=== PATIENT | female | born 1950 | race Caucasian/White ===

== ENCOUNTER 2023-02-04 14:06 | Inpatient (IN) | payer MEDICARE, MEDICAID, SELFPAY ==
[2023-02-04 14:07] VITALS: BP 148/60; PULSE 93; RESP 16; TEMP 36.6; O2SAT 97; BMI 23.3
--- NOTE | 2023-02-04 14:54 | EKG12_ITS ---
Test Reason : SUBSTANCE ABUSE Blood Pressure : / mmHG Vent. Rate : 080 BPM Atrial Rate : 080 BPM P-R Int : 164 ms QRS Dur : 078 ms QT Int : 364 ms P-R-T Axes : 069 045 034 degrees QTc Int : 419 ms Normal sinus rhythm Septal infarct , age undetermined Abnormal ECG Confirmed by IDALIA YU, BERNARDO ([id number]), market editor TIFFANY RIDER ([id number]) on 02/15/2023 8:43:32 AM Referred By: Confirmed By:BERNARDO FRIEDMAN MD
--- NOTE | 2023-02-04 15:01 | NURSING ---
NO OLD EKGS
[2023-02-04 15:06] VITALS: PULSE 78; RESP 16; TEMP 36.6; O2SAT 98
[2023-02-04 15:34] LABS: Absolute Lymphocyte Count 1.74 X10^3/uL (0.83-4.51); Absolute Neutrophil Count 2.7 X10^3/uL (2.0-7.7); Basophil# 0.04 X10^3/uL; Basophil% 0.7 % (0-1); Eosinophil# 0.13 X10^3/uL; Eosinophils% 2.4 % (0-5); Hematocrit 39.5 % (37-47); Hemoglobin 13.2 g/dL (12.0-15.0); Lymphocyte # 1.74 X10^3/ul (0.83-4.51); Lymphocyte % 32.6 % (19-41); Mean Corp Hgb Conc 33.4 g/dL (32-36); Mean Corpuscular Hgb 33.2 pg (27.0-32.0); Mean Corpuscular Volume 99.2 fL (81-99); Mean Platelet Vol. 9.7 fl (6.2-12.0); Monocyte# 0.67 X10^3/uL; Monocyte% 12.5 % (0-10); NRBC Flagged by Analyzer 0 % (0-5); Neutrophil # 2.74 X10^3/uL (2.7-7.7); Neutrophil % 51.4 % (47-70); Platelet Count 285 K/mm3 (150-450); RBC Distribution Width CV 13.3 % (11.6-14.6); RBC Distribution Width SD 48.7 fl (35.1-43.9); Red Blood Count 3.98 M/mm3 (4.2-5.4); White Blood Count 5.3 K/mm3 (4.4-11.0)
[2023-02-04 15:41] LABS: International Normalized Ratio 1.1; Prothrombin Time (Protime)PT. 14.1 SECONDS (11.7-14.9)
[2023-02-04 15:46] LABS: ALB/GLOB Ratio 0.9 RATIO (0.9-2.4); AST(SGOT) 28 U/L (15-37); Alanine Aminotransfer ALT/SGPT 46 U/L (13-56); Albumin, Serum 3.6 g/dL (3.2-5.0); Alkaline Phosphatase 76 U/L (45-117); Anion Gap 7 (5-15); BUN 14 mg/dL (7-18); BUN/Creat Ratio 21.7 RATIO (10-20); Calcium,Total 9.8 mg/dL (8.5-10.1); Chloride 100 mmol/L (98-107); Creatinine, Serum 0.65 mg/dL (0.55-1.02); EST Glomerular Filtration Rate 96 mL/min (>60); Est Glom Filt Rate - Afr Amer 116 mL/min (>60); Estimated Creatinine Clearance 39.63 ml/min; Globulin 4.1 g/dL (2.2-4.2); Glucose 83 mg/dL (74-106); Potassium 3.8 mmol/L (3.5-5.1); Protein, Total 7.7 g/dL (6.4-8.2); Sodium Level 132 mmol/L (136-145)
--- NOTE | 2023-02-04 15:57 | EX.ED.DYSGE1 ---
HPI History of Present Illness Chief Complaint: Substance Abuse Informant: patient and family Narrative Narrative: 72-year-old female presenting to the emergency room requesting detox from alcohol use. Patient states that over the past several months to couple of years she has been drinking heavily. She states that around 10 to 10:30 in the morning she begins to have anxiety and shakes. She states that she begins to drink. Typically she drinks beer and also supplements with other liquors. She states that recently she at the end of the day she has been crawling to the bathroom. She states that she has been self-medicating to deal with her mental health. She previously sought detox in 2018. 2019 her parents . Daughter notes that this is probably the start of the past few years of heavy drinking. Patient notes that several weeks ago she fell seen at outside emergency department. Daughter took her to another emergency department last night and she was discharged. They tried to contact another facility for detox and they recommended here. Patient and family do not believe she has ever had alcohol withdrawal seizures but do note that she has had some hallucinations. [facility] Medical History (Updated 02/04/23 @ 16:[address] Jered Harris, ) Alcoholism Depression Hypertension Hypothyroidism Home Medications amlodipine 10 mg tablet 10 mg PO DAILY 02/04/23 [History Last Taken 02/04/23] bupropion HCl 150 mg 24 hr tablet, extended release 300 mg PO .DAILY 02/04/23 [History Last Taken 02/04/23] cholecalciferol (vitamin D3) 25 mcg (1,000 unit) capsule 25 mcg PO DAILY 02/04/23 [History Last Taken 02/03/23] epinephrine 0.3 mg/0.3 mL injection, auto-injector 0.3 ml IM PRN 02/04/23 [History Last Taken Unknown] estradiol 2 mg tablet 2 mg PO DAILY 02/04/23 [History Last Taken 02/04/23] gabapentin 600 mg tablet 600 mg PO QHS 02/04/23 [History Last Taken 02/03/23] ibuprofen 800 mg tablet (IBU) 800 mg PO Q8H PRN pain 02/04/23 [History Last Taken 02/04/23] levothyroxine 125 mcg tablet 125 mcg PO DAILY 02/04/23 [History Last Taken 02/04/23] lisinopril 5 mg tablet 5 mg PO DAILY 02/04/23 [History Last Taken 02/04/23] multivitamin (Daily Multi-Vitamin tablet) 1 tab PO DAILY 02/04/23 [History Last Taken 02/04/23] omeprazole 20 mg capsule,delayed release 20 mg PO DAILY 02/04/23 [History Last Taken 02/04/23] primidone 50 mg tablet 100 mg PO Q12H 02/04/23 [History Last Taken 02/04/23] Allergy/AdvReac Type Severity Reaction Status Date / Time fexofenadine [From Anjelica] Allergy Swelling Verified 02/04/23 14:26 Social History Smoking Status: Never smoker ROS ROS ED Constitutional Constitutional ED: Denies chills, fever(s) or weight loss Eyes Eyes: Denies change in vision or diplopia ENT ENT ED: Denies ear pain, rhinorrhea or sore throat Cardiovascular Cardiovascular: Denies chest pain, orthopnea, palpitations or racing heartbeat Respiratory/Chest Respiratory/Chest: Denies cough, dyspnea or orthopnea Gastrointestinal Gastrointestinal: Reports other Details: Decreased appetite ; Denies abdominal pain, diarrhea, nausea or vomiting Genitourinary Genitourinary ED: Denies dysuria, hematuria or urinary frequency Musculoskeletal Musculoskeletal: Denies arthralgias or myalgias Integumentary Denies abscess or rash Neurologic Neurologic: Denies headache(s) or weakness Psychiatric Psychiatric: Reports anxiety; Denies depression, suicidal ideation or suicidal thoughts Endocrine Endocrinology: Denies polydipsia, polyphagia or polyuria Allergic/Immunologic Allergic/Immunologic ED: Denies mouth swelling, tongue swelling or urticaria EXAM Physical Exam Const Vital Signs: 02/04/23 14:07 02/04/23 15:06 Temperature 97.8 F 97.8 F Temperature Source Temporal Temporal Pulse Rate 93 78 Respiratory Rate 16 16 Blood Pressure 148/60 H Blood Pressure Mean 89 Pulse Ox 97 98 Oxygen Delivery Method Room Air Room Air Positive well nourished and well developed General Appearance ED: well developed HEENT Reports normocephalic, head/scalp atraumatic and moist mucous membranes Eyes PERRL and EOMs intact bilaterally Neck no lymphadenopathy, supple and no JVD Resp normal respiratory effort and clear to auscultation bilaterally Cardio regular rate, regular rhythm and no murmurs GI normal to inspection, nondistended, normoactive bowel sounds and non-tender Palpation: soft Back/Spine no CVA tenderness and normal ROM Extremity normal to inspection General Extremety ED: Negative for edema General Extremity: Negative for edema Neuro oriented x3 and CN's II-XII intact bilaterally Sensorium / Orientation: alert Motor Exam: strength 5/5 throughout Psych mental status grossly normal Mood & Affect: depressed and anxious; Negative for tearful Skin no rashes or lesions noted and no wounds Skin Narrative: Various contusions on body of differing timeframes MDM MDM MDM Narrative Medical decision making narrative: Addiction labs were obtained. Patient received thiamine and folate. EKG is a normal sinus rhythm. I will speak with the hospitalist regarding admission. History & Record Review Discussion w/independent historian: Patient and Family Lab Data Attestation: I reviewed the patient's lab results. Labs: Laboratory Results - last 24 hr 02/04/23 15:27 WBC 5.3 RBC 3.98 L Hgb 13.2 Hct 39.5 MCV 99.2 H MCH 33.2 H MCHC 33.4 RDW Std Deviation 48.7 H RDW Coeff of Ranjit 13.3 Plt Count 285 MPV 9.7 Immature Gran % (Auto) 0.400 Neut % (Auto) 51.4 Lymph % (Auto) 32.6 [place] % (Auto) 12.5 H Eos % (Auto) 2.4 Baso % (Auto) 0.7 Absolute Neuts (auto) 2.7 Absolute Lymphs (auto) 1.74 Nucleated RBC % 0 PT 14.1 INR 1.1 Sodium 132 L Potassium 3.8 Chloride 100 Carbon Dioxide 25.0 Anion Gap 7 BUN 14 Creatinine 0.65 Estim Creat Clear Calc 39.63 Est GFR (MDRD) Af Amer 116 Est GFR (MDRD) Non-Af 96 BUN/Creatinine Ratio 21.7 H Glucose 83 Calcium 9.8 Magnesium 2.0 Total Bilirubin 0.50 AST 28 ALT 46 Alkaline Phosphatase 76 Total Protein 7.7 Albumin 3.6 Globulin 4.1 Albumin/Globulin Ratio 0.9 Ethyl Alcohol < 3.0 EKG Initial EKG: Attestation: I personally reviewed and interpreted this EKG as follows: Comments: Normal sinus rhythm ventricular rate of 80 bpm. Discharge Plan Dx/Rx/DC Orders Clinical Impression: Alcoholism, Depression, Hypothyroidism, Hypertension Disposition Disposition: Acute Care Hospital [facility]
[2023-02-04 16:00] VITALS: BP 126/78; BP 139/78; PULSE 64; RESP 14; RESP 16; TEMP 36.4; O2SAT 98; O2SAT 99
[2023-02-04 16:02] LABS: Alcohol, Blood (Medical)-Serum < 3.0 mg/dL
--- NOTE | 2023-02-04 16:23 | NURSING ---
MED SURG TERELETSKS ALCOHOL DETOX
[2023-02-04] MEDS: Folic Acid 1 MG Tablet PO (16:25)
[2023-02-04] MEDS: Thiamine Hydrochloride 100 MG Tablet PO (16:25)
[2023-02-04 16:53] LABS: Amphetamine Urine VISTA NEGATIVE (<1000 ng/mL); Barbiturate Urine VISTA POSITIVE (< 200 ng/mL); Benzodiazepine Urine VISTA POSITIVE (< 200 ng/mL); Cocaine Urine VISTA NEGATIVE (< 300 ng/mL); Ecstacy Urine VISTA POSITIVE (< 500 ng/mL); Methadone Urine VISTA NEGATIVE (< 300 ng/mL); PCP Urine VISTA NEGATIVE (< 25 ng/mL); THC Urine VISTA NEGATIVE (< 50 ng/mL); Vista UDS pH Range 6
--- NOTE | 2023-02-04 17:07 | PCM.HP.STD ---
HPI - General General Date of Admission: 02/04/23 Date of Service: 02/04/23 Chief Complaint: Desiring services for alcohol detox HPI Narrative DAMION GHOSH, is a 72 F who presents to the emergency room at [facility] requesting services for alcohol detox, her daughter is in the room and states that the patient has been drinking for several years but more so over the last few months. Patient states that she drinks approximately a 12 pack a day of beer, occasionally she drinks liquor. Patient denies any other drugs of abuse. Patient has an underlying history of depression and is currently on antidepressants, patient states today that she just wants to feel better . Patient is complaining of some nervousness at this time. Patient has never been through an alcohol detox program before. Labs obtained in the emergency room revealed a normal CBC, chemistry panel was unremarkable, patient's tox screen was positive for barbiturates, MDMA, and benzodiazepines. Ethanol alcohol level was below 3 Patient will be admitted to [place] [id number] for alcohol detox services [facility] Medical History (Updated 02/04/23 @ 16:[address] Jered Harris, ) Alcoholism Depression Hypertension Hypothyroidism Home Medications amlodipine 10 mg tablet 10 mg PO DAILY 02/04/23 [History Last Taken 02/04/23] bupropion HCl 150 mg 24 hr tablet, extended release 300 mg PO .DAILY 02/04/23 [History Last Taken 02/04/23] cholecalciferol (vitamin D3) 25 mcg (1,000 unit) capsule 25 mcg PO DAILY 02/04/23 [History Last Taken 02/03/23] epinephrine 0.3 mg/0.3 mL injection, auto-injector 0.3 ml IM PRN 02/04/23 [History Last Taken Unknown] estradiol 2 mg tablet 2 mg PO DAILY 02/04/23 [History Last Taken 02/04/23] gabapentin 600 mg tablet 600 mg PO QHS 02/04/23 [History Last Taken 02/03/23] ibuprofen 800 mg tablet (IBU) 800 mg PO Q8H PRN pain 02/04/23 [History Last Taken 02/04/23] levothyroxine 125 mcg tablet 125 mcg PO DAILY 02/04/23 [History Last Taken 02/04/23] lisinopril 5 mg tablet 5 mg PO DAILY 02/04/23 [History Last Taken 02/04/23] multivitamin (Daily Multi-Vitamin tablet) 1 tab PO DAILY 02/04/23 [History Last Taken 02/04/23] omeprazole 20 mg capsule,delayed release 20 mg PO DAILY 02/04/23 [History Last Taken 02/04/23] primidone 50 mg tablet 100 mg PO Q12H 02/04/23 [History Last Taken 02/04/23] Allergy/AdvReac Type Severity Reaction Status Date / Time fexofenadine [From Anjelica] Allergy Swelling Verified 02/04/23 14:26 Social History Smoking Status: Never smoker ROS Constitutional Constitutional: Denies anorexia, change in weight, fatigue, fever(s), malaise, night sweats or weakness Eyes Eyes: Denies blurry vision, change in vision, discharge from eye(s) or eye pain Cardiovascular Cardiovascular: Denies chest pain, claudication, edema or palpitations Respiratory/Chest Respiratory/Chest: Denies cough, dyspnea, hemoptysis, shortness of breath at rest or shortness of breath with exertion Gastrointestinal Gastrointestinal: Denies abdominal pain, constipation, diarrhea, hematemesis, hematochezia, melena, nausea or vomiting Genitourinary Genitourinary: Denies dysuria, hematuria, urinary frequency, urinary hesitancy, urinary incontinence or urinary urgency Musculoskeletal Musculoskeletal: Reports back pain; Denies joint pain, joint stiffness, joint swelling, myalgias or neck pain Neurologic Neurologic: Denies abnormal gait, abnormal speech, dizziness, focal weakness, headache(s), loss of vision, numbness, other visual disturbances, paresthesias, syncope or tingling Psychiatric Psychiatric: Reports anxiety and depression; Denies cognitive impairment, irritability, mood swings or suicidal ideation Endocrine Endocrinology: Denies change in body appearance, cold intolerance, excessive sweating, heat intolerance, polydipsia or polyuria Hematologic/Lymphatic Hematologic/Lymphatic: Denies none, anemia, easy bleeding, easy bruising or lymphadenopathy Allergic/Immunologic Allergic/Immunologic: Denies rhinitis, urticaria, eczemia or asthma Vital Signs Vital Signs Vital Signs: 02/04/23 14:07 02/04/23 15:06 02/04/23 16:00 Temperature 97.8 F 97.8 F Temperature Source Temporal Temporal Pulse Rate 93 78 64 Respiratory Rate 16 16 16 Blood Pressure 148/60 H 139/78 H Blood Pressure Mean 89 98 Pulse Ox 97 98 98 Oxygen Delivery Method Room Air Room Air Room Air 02/04/23 16:00 Temperature 97.6 F L Temperature Source Pulse Rate 64 Respiratory Rate 14 Blood Pressure 126/78 H Blood Pressure Mean 94 Pulse Ox 99 Oxygen Delivery Method Weight Weight: 58.06 kg Body Mass Index (BMI) 23.3 Physical Exam Const alert, oriented x3, no apparent distress and average body habitus General Appearance: cooperative, well kempt and well developed Orientation / Consciousness: awake, oriented to person, oriented to place and oriented to time HEENT normocephalic, head/scalp atraumatic, hearing grossly normal bilaterally and moist oral mucous membranes Eyes PERRL, EOMs intact bilaterally and conjunctivae normal Neck supple, no JVD, thyroid normal and no carotid bruits General: trachea midline Resp normal respiratory effort, no retractions, no use of accessory muscles and clear to auscultation bilaterally Auscultation: Negative for rales, rhonchi or wheezes Cardio regular rate, regular rhythm, no murmurs, no rub and no gallops GI normal to inspection, nondistended, normoactive bowel sounds, soft to palpation, non-tender and non-distended Extremity no clubbing, cyanosis or edema Skin no rashes or lesions noted General Skin Exam: no breakdown Neuro oriented x3, CN's II-XII intact bilaterally, no focal motor deficits and no sensory deficits noted Sensorium / Orientation: awake, alert, oriented to person, oriented to place and oriented to time Speech: speech normal Psych Psych Narrative: Patient has a flat depressed affect, she appears mildly nervous Results Lab / Micro Data 02/04/23 15:27 02/04/23 15:27 Labs: Laboratory Results - last 24 hr 02/04/23 15:27: WBC 5.3, RBC 3.98 L, Hgb 13.2, Hct 39.5, MCV 99.2 H, MCH 33.2 H, MCHC 33.4, RDW Std Deviation 48.7 H, RDW Coeff of Ranjit 13.3, Plt Count 285, MPV 9.7, Immature Gran % (Auto) 0.400, Neut % (Auto) 51.4, Lymph % (Auto) 32.6, [place] % (Auto) 12.5 H, Eos % (Auto) 2.4, Baso % (Auto) 0.7, Absolute Neuts (auto) 2.7, Absolute Lymphs (auto) 1.74, Nucleated RBC % 0, PT 14.1, INR 1.1, Sodium 132 L, Potassium 3.8, Chloride 100, Carbon Dioxide 25.0, Anion Gap 7, BUN 14, Creatinine 0.65, Estim Creat Clear Calc 39.63, Est GFR (MDRD) Af Amer 116, Est GFR (MDRD) Non-Af 96, BUN/Creatinine Ratio 21.7 H, Glucose 83, Calcium 9.8, Magnesium 2.0, Total Bilirubin 0.50, AST 28, ALT 46, Alkaline Phosphatase 76, Total Protein 7.7, Albumin 3.6, Globulin 4.1, Albumin/Globulin Ratio 0.9, Ethyl Alcohol < 3.0 02/04/23 16:15: Urine Opiates Screen NEGATIVE, Urine Methadone Screen NEGATIVE, Ur Barbiturates Screen POSITIVE H, Ur Phencyclidine Scrn NEGATIVE, Ur Amphetamines Screen NEGATIVE, MDMA (Ecstasy) Screen POSITIVE H, U Benzodiazepines Scrn POSITIVE H, Urine Cocaine Screen NEGATIVE, U Cannabinoids Screen NEGATIVE, Ur Drug Screen Comment Assessment & Plan Assessment/Plan (1) Alcoholism: PLAN: Plan 1. Acute alcohol withdrawal-patient will be admitted to [facility], orders were entered using the addiction and alcohol withdrawal order sets, patient will be seen by addiction social insurance specialist. #2 positive talk screen for barbiturates, MDMA, and benzodiazepines-I did not discuss this with the patient, she had denied using any other drugs. #3 hypertension-patient will remain on her home medication #4 chronic anxiety/depression-I have decided to add Cymbalta to her medication, she is currently taking Wellbutrin for depression but she remains depressed. #5 hypothyroidism-patient is on Synthroid #6 chronic back pain-patient is on gabapentin and ibuprofen, hopefully the Cymbalta will help her back pain #7 GERD-patient is on omeprazole Total clinical time spent by myself addressing the patient's medical issues, reviewing all of her data, and collaborating with patient's care team: 55 minutes Charges/Coding Visit Charges Inpatient E&M: 86006 Init Hosp L2
--- OUTSIDE RECORDS SUMMARY | 2023-02-04 17:41 | XMS RPT_ITS | CCD ---
Author Name Unknown Address [address] [place] [address] Organization [facility] Care Team Providers Care Superintendent Laundry Name Role Phone Anirudh Costa Primary Care Provider Unavailab Anirudh Denise Primary Care Provider Anirudh Costa Primary Care Provider Anirudh Costa Primary Care Provider Anirudh Costa Primary Care Provider UnavailAnirudh Abarca Primary Care Provider Anirudh Costa CNP Primary Care Provider 1( [phone] Chidi Valenzuela MD. Unavailable ANIRUDH CSOTA Primary Care Unavailable ANGELINA HERNÁNDEZ Attending Unavailable DOMCLARITA, KEKE Referring Unavailable RORO MCCAULEY Attending Unavailable ANIRUDH COSTA Primary Care Unavailable GAB HERRON Attending Unavailable ANIRUDH COSTA A Primary Care Unavailable BARAT, SOFIA Referring Unavailable ANIRUDH COSTA A Primary Care Unavailable CHIDI VALENZUELA Attending Unavailable CHIDI VALENZUELA Referring Unavailable HYUN COSTAN A Primary Care Unavailable FOSTER PA Attending Unavailable FOSTER PA Referring Unavailable HYUN COSTAN A Primary Care Unavailable FOSTER PA Attending Unavailable CHADDAFOSTER Referring Unavailable JULISSA, ANIRUDH A Primary Care Unavailable CHADDAFOSTER Attending Unavailable CHADDA FOSTER Sudheer Referring Unavailable CHIDI VALENZUELA Attending Unavailable JULISSA, ANIRUDH A Primary Care Unavailable BARAT, SOFIA Referring Unavailable COSTA, ANIRUDH A Referring Unavailable COSTA, ANIRUDH A Primary Care Unavailable GAB HERRON Attending Unavailable CHIDI VALENZUELA Attending Unavailable COSTA, ANIRUDH A Primary Care Unavailable BARAT, SOFIA Referring Unavailable COSTA, ANIRUDH A Referring Unavailable COSTA, ANIRUDH A Primary Care Unavailable GAB HERRON Attending Unavailable COSTA, ANIRUDH A Primary Care Unavailable ANABELA TOSCANO Attending Unavailable TURTON, JOSE ROBERTO E Referring Unavailable COSTA, ANIRUDH A Primary Care Unavailable SWANK, ANABELA K Attending Unavailable TURTON, JOSE ROBERTO E Referring Unavailable Costa COOK TACO-DIRECTOR OF EVENT SALES, Anirudh A Primary Care Provider Niraj Bassett MD Unavailable Niraj Bassett MD Unavailable Julissa BOX-DIRECTOR OF EVENT SALES, Anirudh A Primary Care Provider Niraj Bassett MD Unavailable JULISSA, ANIRUDH NATALY Primary Care Unavailable DEVIKA SHIELDS Attending Unavailable COSTA, ANIRUDH NATALY Primary Care Unavailable KIFOSTER WOLFE Referring Unavailable KIEHMFOSTER Attending Unavailable COSTA, ANIRUDH NATALY Primary Care Unavailable COSTA, ANIRUDH NATALY Referring Unavailable COSTA, ANIRUDH NATALY Attending Unavailable COSTA, ANIRUDH A Primary Care Unavailable SELF, SELF Referring Unavailable COSTA, ANIRUDH A Attending Unavailable SELF, SELF Referring Unavailable COSTA, ANIRUDH A Primary Care Unavailable COSTA, ANIRUDH A Attending Unavailable KIEHM, FOSTER Attending Unavailable KIEHM, FOSTER Referring Unavailable COSTA, ANIRUDH A Primary Care Unavailable COSTA, ANIRUDH A Primary Care Unavailable COSTA, ANIRUDH A Attending Unavailable COSTA, ANIRUDH A Referring Unavailable COSTA, ANIRUDH A Primary Care Unavailable SELF, SELF Referring Unavailable COSTA, ANIRUDH A Attending Unavailable Costa [employer]O-DIRECTOR OF EVENT SALES, Anirudh A Primary Care Provider Niraj Bassett MD A Unavailable COSTA, ANIRUDH A Primary Care Unavailable RIEHM, MARCELA L Referring Unavailable RIEHM, MARCELA L Attending Unavailable COSTA, ANIRUDH A Primary Care Unavailable RIEHM, MARCELA L Referring Unavailable RIEHM, MARCELA L Attending Unavailable SELF, SELF Referring Unavailable COSTA, ANIRUDH A Primary Care Unavailable RIEHM, MARCELA L Attending Unavailable COSTA, ANIRUDH A Attending Unavailable SELF, SELF Referring Unavailable COSTA, ANIRUDH A Primary Care Unavailable COSTA, ANIRUDH A Primary Care Unavailable RIEHM, MARCELA L Referring Unavailable RIEHM, MARCELA L Attending Unavailable COSTA, ANIRUDH A Primary Care Unavailable FITCH, MARIA LUISA S Referring Unavailable RIEHM, MARCELA L Attending Unavailable COSTA, ANIRUDH A Attending Unavailable COSTA, ANIRUDH A Primary Care Unavailable COSTA, ANIRUDH A Referring Unavailable COSTA, ANIRUDH A Attending Unavailable COSTA, ANIRUDH A Primary Care Unavailable COSTA, ANIRUDH A Referring Unavailable COSTA, ANIRUDH A Primary Care Unavailable ZHOU, SOFIA P Referring Unavailable ZHOU, SOFIA P Attending Unavailable SELF, SELF Referring Unavailable COSTA, ANIRUDH A Primary Care Unavailable COSTA, ANIRUDH A Attending Unavailable SELF, SELF Referring Unavailable COSTA, ANIRUDH A Primary Care Unavailable COSTA, ANIRUDH A Attending Unavailable SELF, SELF Referring Unavailable COSTA, ANIRUDH A Primary Care Unavailable AHMAD, DEEPA Attending Unavailable COSTA, ANIRUDH A Primary Care Unavailable RIEHM, MARCELA L Referring Unavailable FITCH, MARIA LUISA S Attending Unavailable COSTA, ANIRUDH A Attending Unavailable SELF, SELF Referring Unavailable COSTA, ANIRUDH A Primary Care Unavailable COSTA, ANIRUDH A Primary Care Unavailable RIEHM, MARCELA L Referring Unavailable RIEHM, MARCELA L Attending Unavailable COSTA, ANIRUDH A Primary Care Unavailable RIEHM, MARCELA L Referring Unavailable RIEHM, MARCELA L Attending Unavailable COSTA, ANIRUDH A Primary Care Unavailable AHMAD, DEEPA Referring Unavailable AHMAD, DEEPA Attending Unavailable SELF, SELF Referring Unavailable COSTA, ANIRUDH A Primary Care Unavailable COSTA, ANIRUDH A Attending Unavailable SELF, SELF Referring Unavailable COSTA, ANIRUDH A Primary Care Unavailable COSTA, ANIRUDH A Attending Unavailable Allergies Allergy Classification Reported Allergen(s) Allergy Type Date of Onset Reaction(s) Facility HMG-CoA Reductase Inhibitors (statins) (20 sources) Pravastatin; Translations: [PRAVASTATIN] Drug Allergy 2 Other (See Comments) [facility] NSAIDs (20 sources) celecoxib; Translations: [CELECOXIB] Drug Allergy 1 Rash [facility] (20 sources) celecoxib; Translations: [CELECOXIB] Drug Allergy 1 Rash [facility] (20 sources) Pravastatin; Translations: [PRAVASTATIN] Drug Allergy 2 Other (See Comments), Myalgia [facility] (20 sources) Cephalexin Drug Allergy 2 Angioedema (swelling) [facility] Work Phone: (20 sources) Ciprofloxacin Drug Allergy 1 Itching, Myalgia [facility] (7 sources) celecoxib Drug Allergy 1 Rash [facility] Medications Current Medications Medication Drug Class(es) Dates Sig (Normalized) Sig (Original) amLODIPine 10 mg oral tablet (20 sources) Dihydropyridine Calcium Channel [place] Start: 03-26-2022 End: 05-03-2022 take 1 tablet by mouth once daily amLODIPine 10 MG tablet Indications: Benign hypertension Take 1 tablet by mouth daily. 90 tablet 3 05/03/2022 Active Completed/Discontinued Medications Medication Drug Class(es) Dates Sig (Normalized) Sig (Original) acetaminophen 500 mg oral tablet (20 sources) Start: 09-02-2021 End: 09-02-2021 acetaminophen (TYLENOL) tablet 1,000 mg Problems Active Problems Problem Classification Problem Date Documented Da te Episodic/Chronic Adjustment disorders (6 sources) Adjustment disorder with mixed anxiety and depressed mood; Translations: [Adjustment disorder with mixed anxiety and depressed mood] Onset: 3 11-18-2022 Chronic Alcohol-related disorders (5 sources) Alcohol abuse; Translations: [Alcohol withdrawal syndrome] 02-04-2023 Chronic Anxiety disorders (14 sources) Generalized anxiety disorder; Translations: [Anxiety disorder] Chronic Disorders of lipid metabolism (9 sources) Hypercholesterolemia; Translations: [Pure hypercholesterolemia, unspecified] Onset: 6 Chronic Esophageal disorders (8 sources) Gastroesophageal reflux disease; Translations: [Gastro-esophageal reflux disease without esophagitis] Onset: 0 Chronic Essential hypertension (11 sources) Benign essential hypertension; Translations: [Benign hypertension] Onset: 7 Chronic Fluid and electrolyte disorders (1 source) Hypokalemia; Translations: [Hypokalemia] Episodic Menopausal disorders (9 sources) Menopausal flushing; Translations: [Symptomatic postprocedural ovarian failure] Onset: 3 Chronic Menopausal disorders (2 sources) Drug therapy status; Translations: [Hormone replacement therapy] Episodic Nutritional deficiencies (6 sources) Vitamin D deficiency; Translations: [Vitamin D deficiency, unspecified] Onset: 3 11-18-2022 Chronic Osteoarthritis (1 source) Osteoarthritis of right hip joint; Translations: [Unilateral primary osteoarthritis, right hip] Chronic Other aftercare (3 sources) 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 status; 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] Episodic Other connective tissue disease (1 source) Pain in buttock; Translations: [Pain in left buttock] Episodic Other connective tissue disease (1 source) Pain in right lower limb; Translations: [Pain in right leg] Episodic Other female genital disorders (1 source) Pruritus of vagina; Translations: [Other specified noninflammatory disorders of vagina] Episodic Other female genital disorders (6 sources) Disorder of uterus; Translations: [Noninflammatory disorder of uterus, unspecified] Onset: 3 11-18-2022 Episodic Other gastrointestinal disorders (3 sources) Black feces; Translations: [Black stools] Episodic Other hereditary and degenerative nervous system conditions (5 sources) Essential tremor; Translations: [Essential tremor] Chronic Other hereditary and degenerative nervous system conditions (3 sources) Focal dystonia; 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 Other injuries and conditions due to external causes (1 source) Angioedema; Translations: [Angioneurotic edema, initial encounter] Episodic Other nervous system disorders (1 source) Neurogenic claudication; 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] Chronic Other nervous system disorders (2 sources) Other chronic pain; Translations: [Other chronic pain] Onset: 2 Chronic Other nervous system disorders (1 source) Tremor; Translations: [Tremor] Episodic Other nervous system disorders (2 sources) Trigeminal neuralgia; Translations: [Trigeminal neuralgia] Episodic Other non-traumatic joint disorders (3 sources) Joint pain; Translations: [Pain in unspecified joint] Episodic Other non-traumatic joint disorders (9 sources) Pain in right hip joint; Translations: [Pain in right hip] Episodic Other non-traumatic joint disorders (5 sources) Hip pain; Translations: [Pain in unspecified hip] Episodic Other non-traumatic joint disorders (2 sources) Pain in right hip; Translations: [Pain in right hip] Onset: 3 Episodic Other non-traumatic joint disorders (2 sources) Pain in left hip; Translations: [Pain in left hip] Onset: 3 Episodic Other skin disorders (1 source) Pigmented skin lesion of uncertain nature; Translations: [Pigmented skin lesion of uncertain nature] Episodic Other upper respiratory infections (20 sources) Sinusitis; Translations: [Chronic sinusitis, unspecified] Onset: 1 05-08-2020 Chronic Other upper respiratory infections (20 sources) Sinusitis; Translations: [Sinus infection] Onset: 1 05-08-2020 Episodic Residual codes; unclassified (1 source) Refusal of treatment by patient; Translations: [Declined smoking cessation] Episodic Residual codes; unclassified (1 source) Insomnia; Translations: [Insomnia, unspecified type] Episodic Residual codes; unclassified (2 sources) Postmenopausal state; Translations: [Asymptomatic menopausal state] Episodic Residual codes; unclassified (1 source) Requires vaccination; Translations: [Need for vaccination] Spondylosis; intervertebral disc disorders; other back problems (1 source) Lumbar spondylosis; Translations: [Lumbar spondylosis] Chronic Spondylosis; intervertebral disc disorders; other back problems (10 sources) Lumbago with sciatica; Translations: [Lumbar radiculopathy] Onset: 2 Episodic Substance-related disorders (10 sources) Tobacco dependence in remission; Translations: [Nicotine dependence, cigarettes, in remission] Onset: 3 Chronic Thyroid disorders (10 sources) Hypothyroidism; Translations: [Hypothyroidism, unspecified] Onset: 0 Chronic Unclassified (11 sources) 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 status; Translations: [Reason for consultation] Onset: 3 11-18-2022 Past or Other Problems Problem Classification Problem Date Documented Da te Episodic/Chronic Allergic reactions (3 sources) Allergic reaction; Translations: [Allergy, unspecified, initial encounter] Onset: 04-05-2022 Episodic Bacterial infection; unspecified site (20 sources) Infection due to Staphylococcus epidermidis; Translations: [Other staphylococcus as the cause of diseases classified elsewhere] Onset: 05-08-2020 05-08-2020 Episodic Cardiac dysrhythmias (6 sources) Palpitations; Translations: [Palpitations] Onset: 06-21-2008 11-18-2022 Episodic Gastrointestinal hemorrhage (20 sources) Rectal hemorrhage; Translations: [Hemorrhage of anus and rectum] Onset: 01-21-2021 1 Episodic Genitourinary symptoms and ill-defined conditions (9 sources) Dysuria; Translations: [Microscopic hematuria] Onset: 03-03-2022 Episodic Headache; including migraine (20 sources) Headache; Translations: [Nonintractable headache] Onset: 04-02-2020 04-14-2020 Episodic Immunizations and screening for infectious disease (20 sources) Infectious disease carrier; Translations: [Carrier of other specified bacterial diseases] Onset: 05-08-2020 05-08-2020 Episodic Mood disorders (20 sources) Mood disorders Onset: 07-03-2020 Resolved: 07-03-2020 07-03-2020 Neoplasms of unspecified nature or uncertain behavior (20 sources) Neoplasm of nasopharynx; Translations: [Neoplasm of unspecified behavior of digestive system] Onset: 04-14-2020 04-14-2020 Episodic 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 poliomyelitis (20 sources) Abscess of brain; 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] Onset: 07-15-2020 Episodic Other female genital disorders (2 sources) Other specified noninflammatory disorders of vagina; Translations: [Other specified noninflammatory disorders of vagina] Onset: 03-03-2022 Episodic Other gastrointestinal disorders (20 sources) Diarrhea; Translations: [Diarrhea, unspecified] Onset: 01-21-2021 01-21-2021 Episodic Other injuries and conditions due to external causes (2 sources) Angioneurotic edema, initial encounter; Translations: [Angioneurotic edema, initial encounter] Onset: 04-05-2022 Episodic Other lower respiratory disease (2 sources) Chronic cough; Translations: [Chronic cough] Episodic Other nervous system disorders (20 sources) Trigeminal nerve disorder; 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, unspecified] Onset: 04-02-2020 04-14-2020 Episodic Other screening for suspected conditions (not mental disorders or infectious disease) (4 sources) Encounter for screening mammogram for malignant neoplasm of breast; Translations: [Encounter for screening for malignant neoplasm of respiratory organs] Onset: 04-19-2022 Episodic Other skin disorders (20 sources) Finding of neck region; Translations: [Localized swelling, mass and lump, neck] Onset: 04-02-2020 04-14-2020 Episodic Other skin disorders (2 sources) Localized swelling, mass and lump, neck; Translations: [Localized swelling, mass and lump, neck] Onset: 04-02-2020 04-14-2020 Episodic Other upper respiratory disease (20 sources) Lesion of nasopharynx; Translations: [Other diseases of pharynx] Onset: 04-21-2020 04-22-2020 Episodic Residual codes; unclassified (2 sources) Asymptomatic menopausal state; Translations: [Asymptomatic menopausal state] Onset: 05-26-2022 Episodic Substance-related disorders (1 source) Cigarette smoker ; Translations: [Cigarette Smoker] Episodic Unclassified (4 sources) Onset: 09-02-2021 Resolved: 02-03-2023 09-02-2021 Urinary tract infections (5 sources) Urinary tract infectious disease; Translations: [Acute cystitis] Onset: 03-03-2022 Episodic Results Test Name Value Interpretation Reference Range Facil ity Vital Signs Date Time Vital Sign Value Performing Clinician Facility 02-04-2023 00:00-0500 Diastolic blood pressure 75 mm[Hg] Mp Paulson MD Work Phone: 0(613)167-492820 [place] [address] 02-04-2023 00:00-0500 Heart rate 89 /min Mp Paulson MD Work Phone: 2(180)886-089220 [place] [address] 02-04-2023 00:00-0500 Respiratory rate 16 /min Mp Paulson MD Work Phone: 1(932)061-946920 [place] [address] 02-04-2023 00:00-0500 SaO2% (BldA) [Mass fraction] 97 % Mp Paulson MD Work Phone: 9(684)311-561520 [place] [address] 02-04-2023 00:00-0500 Systolic blood pressure 163 mm[Hg] Mp Paulson MD Work Phone: 3(060)600-962620 [place] [address] 02-03-2023 19:55-0500 Body height 157.5 cm Mp Paulson MD Work Phone: 5(535)057-475820 [place] [address] 02-03-2023 19:54-0500 Body temperature 97.81 [degF] Mp Paulson MD Work Phone: 1(972)655-470120 [place] [address] 01-11-2023 09:03-0500 Body height 157.5 cm Marcela eParson DO Work Phone: 5(403)396-103693 [place] [address] 01-11-2023 09:03-0500 Body mass index (BMI) [Ratio] 23.41 kg/m2 Marcela Chavezm DO Work Phone: 5(967)299-163634 [place] [address] 01-11-2023 09:03-0500 Body temperature 97.81 [degF] Marcela Chavezm DO Work Phone: 0(885)467-453993 [place] [address] 01-11-2023 09:03-0500 Body weight 58.06 kg Marcela Chavezm DO Work Phone: 4(308)282-952593 [place] [address] 12-10-2022 11:11-0400 Body height 157.5 cm Marcela Pearson DO Work Phone: 0(475)149-720293 [place] [address] 12-10-2022 11:11-0400 Body mass index (BMI) [Ratio] 24.95 kg/m2 Marcela Pearson DO Work Phone: 9(411)762-829293 [place] [address] 12-10-2022 11:11-0400 Body weight 61.87 kg Marcela Pearson DO Work Phone: 3(646)058-311693 [place] [address] 11-18-2022 11:37-0400 Body height 157.5 cm Avb Ai [facility] 11-18-2022 11:37-0400 Body mass index (BMI) [Ratio] 24.36 kg/m2 [facility]b [facility] 11-18-2022 11:37-0400 Body temperature 97 [degF] [facility]b [facility] 11-18-2022 11:37-0400 Body weight 60.42 kg Avb [facility] 11-18-2022 11:37-0400 Heart rate 96 /min Avb [facility] 11-18-2022 11:37-0400 Respiratory rate 18 /min Avb [facility]is [facility] 11-18-2022 11:37-0400 SaO2% (BldA) [Mass fraction] 100 % Avb [facility] 08-19-2022 09:27-0400 Body height 157.5 cm Marcela Riemm DO Work Phone: [facility] 08-19-2022 09:27-0400 Body mass index (BMI) [Ratio] 24.76 kg/m2 Marcela Riehm DO Work Phone: [facility] 08-19-2022 09:27-0400 Body weight 61.42 kg Marcela Riehm DO Work Phone: [facility] 05-20-2022 10:29-0400 Body height 157.5 cm Marcela Chavezm DO Work Phone: [facility] 05-20-2022 10:29-0400 Body mass index (BMI) [Ratio] 25.28 kg/m2 Marcela Riehm DO Work Phone: 9(850)200-381134 [place] [address] 05-20-2022 10:29-0400 Body temperature 97.59 [degF] Marcela Riehm DO Work Phone: [facility] 05-20-2022 10:29-0400 Body weight 62.69 kg Marcela Edouardehm DO Work Phone: [facility] 05-03-2022 08:53-0400 Body height 157.5 cm Anirudh Costa COOK TACO-DIRECTOR OF EVENT SALES Work Phone: [facility] 05-03-2022 08:53-0400 Body mass index (BMI) [Ratio] 25.17 kg/m2 Anirudh Costa COOK TACO-DIRECTOR OF EVENT SALES Work Phone: [facility] 05-03-2022 08:53-0400 Body temperature 98.6 [degF] Anirudh Costa COOK TACO-DIRECTOR OF EVENT SALES Work Phone: [facility] 05-03-2022 08:53-0400 Body weight 62.41 kg Anirudh Costa COOK TACO-DIRECTOR OF EVENT SALES Work Phone: [facility] 05-03-2022 08:53-0400 Diastolic blood pressure 76 mm[Hg] Anirudh Costa COOK TACO-DIRECTOR OF EVENT SALES Work Phone: [employer] [facility] 05-03-2022 08:53-0400 Heart rate 67 /min Anirudh Costa C[employer] TACO-DIRECTOR OF EVENT SALES Work Phone: [employer] 05-03-2022 08:53-0400 SaO2% (BldA) [Mass fraction] 98 % Anirudh Costa [employer]-DIRECTOR OF EVENT SALES Work Phone: [employer] 05-03-2022 08:53-0400 Systolic blood pressure 128 mm[Hg] Anirudh Costa C[employer] TACO-DIRECTOR OF EVENT SALES Work Phone: [employer] [facility] 04-05-2022 09:31-0500 Body mass index (BMI) [Ratio] 25.06 kg/m2 Anirudh Costa [employer]-DIRECTOR OF EVENT SALES Work Phone: [employer] 04-05-2022 09:31-0500 Body temperature 98.4 [degF] Anirudh Costa COOK TACO-DIRECTOR OF EVENT SALES Work Phone: [employer] 04-05-2022 09:31-0500 Body weight 62.14 kg Anirudh Costa COOK TACO-DIRECTOR OF EVENT SALES Work Phone: [employer] [facility] 04-05-2022 09:31-0500 Diastolic blood pressure 78 mm[Hg] Anirudh Costa COOK TACO-DIRECTOR OF EVENT SALES Work Phone: [employer] [facility] 04-05-2022 09:31-0500 Heart rate 80 /min Anirudh Costa COOK TACO-DIRECTOR OF EVENT SALES Work Phone: [employer] 04-05-2022 09:31-0500 SaO2% (BldA) [Mass fraction] 97 % Anirudh Costa [employer] T[employer]O-DIRECTOR OF EVENT SALES Work Phone: [employer] [facility] 04-05-2022 09:31-0500 Systolic blood pressure 132 mm[Hg] Anirudh Costa COOK TACO-DIRECTOR OF EVENT SALES Work Phone: [employer] [facility] 03-03-2022 10:21-0500 Body mass index (BMI) [Ratio] 24.87 kg/m2 Anirudh Costa APRN-DIRECTOR OF EVENT SALES Work Phone: [employer] [facility] 03-03-2022 10:21-0500 Body weight 61.69 kg Anirudh Costa C[employer] TACO-DIRECTOR OF EVENT SALES Work Phone: [employer] 03-03-2022 10:21-0500 Diastolic blood pressure 80 mm[Hg] Anirudh Costa [employer] T[employer]O-DIRECTOR OF EVENT SALES Work Phone: [employer] 03-03-2022 10:21-0500 Heart rate 79 /min Anirudh Costa C[employer] T[employer]-DIRECTOR OF EVENT SALES Work Phone: [employer] 03-03-2022 10:21-0500 SaO2% (BldA) [Mass fraction] 98 % Anirudh Costa [employer]-DIRECTOR OF EVENT SALES Work Phone: [employer] 03-03-2022 10:21-0500 Systolic blood pressure 180 mm[Hg] Anirudh Costa APRN-DIRECTOR OF EVENT SALES Work Phone: [employer] 02-19-2022 10:53-0500 Body height 157.5 cm Marcela Pearson DO Work Phone: [employer] 02-19-2022 10:53-0500 Body temperature 96.8 [degF] Marcela Chavezm DO Work Phone: [employer] [facility] 10-29-2021 09:21-0400 Body height 157.5 cm Marcela Chavezm DO Work Phone: [employer] 10-29-2021 09:21-0400 Body mass index (BMI) [Ratio] 24.14 kg/m2 Marcela Edouardehm DO Work Phone: [employer] [facility] 10-29-2021 09:21-0400 Body temperature 98.49 [degF] Marcela Chavezm DO Work Phone: [employer] 10-29-2021 09:21-0400 Body weight 59.88 kg Marcela Pearson DO Work Phone: [facility] [facility] 10-09-2021 08:59-0400 Body height 157.5 cm Marcela Pearson DO Work Phone: [facility] 10-09-2021 08:59-0400 Body mass index (BMI) [Ratio] 24.18 kg/m2 Marcela Pearson DO Work Phone: [facility] 10-09-2021 08:59-0400 Body temperature 96.6 [degF] Marcela Pearson DO Work Phone: [facility] 10-09-2021 08:59-0400 Body weight 59.97 kg Marcela Pearson DO Work Phone: [facility] 09-17-2021 09:26-0400 Body temperature 96.8 [degF] Anirudh Costa C[employer]-DIRECTOR OF EVENT SALES Work Phone: [facility] 09-17-2021 09:26-0400 Diastolic blood pressure 70 mm[Hg] Anirudh Costa [employer]-DIRECTOR OF EVENT SALES Work Phone: [facility] 09-17-2021 09:26-0400 Heart rate 60 /min Anirudh Costa [employer]-DIRECTOR OF EVENT SALES Work Phone: [facility] 09-17-2021 09:26-0400 SaO2% (BldA) [Mass fraction] 99 % Anirudh Costa [employer]-DIRECTOR OF EVENT SALES Work Phone: [employer] [facility] [facility] 09-17-2021 09:26-0400 Systolic blood pressure 120 mm[Hg] Anirudh Costa C[employer]-DIRECTOR OF EVENT SALES Work Phone: [facility] 09-13-2021 14:30-0400 Diastolic blood pressure 70 mm[Hg] Anirudh Costa [employer]-DIRECTOR OF EVENT SALES Work Phone: [facility] 09-13-2021 14:30-0400 Heart rate 80 /min Anirudh Costa [employer]-DIRECTOR OF EVENT SAL[employer] Work Phone: [employer] [facility] [facility] 09-13-2021 14:30-0400 Respiratory rate 18 /min Anirudh Costa APRN-DIRECTOR OF EVENT SALES Work Phone: [employer] [facility] [facility] 09-13-2021 14:30-0400 SaO2% (BldA) [Mass fraction] 96 % Anirudh Costa APRN-DIRECTOR OF EVENT SALES Work Phone: [facility] 09-13-2021 14:30-0400 Systolic blood pressure 164 mm[Hg] Anirudh Costa APRN-DIRECTOR OF EVENT SALES Work Phone: [employer] [facility] 09-13-2021 13:31-0400 Body height 157.5 cm Anirudh Costa APRN-DIRECTOR OF EVENT SALES Work Phone: [facility] 09-13-2021 13:31-0400 Body mass index (BMI) [Ratio] 23.78 kg/m2 Anirudh Costa APRN-DIRECTOR OF EVENT SALES Work Phone: [employer] [facility] 09-13-2021 13:31-0400 Body weight 58.97 kg Anirudh Costa APRN-DIRECTOR OF EVENT SALES Work Phone: [employer] [facility] 09-13-2021 13:29-0400 Body temperature 98.1 [degF] Anirudh Costa APRN-DIRECTOR OF EVENT SALES Work Phone: [facility] 09-09-2021 08:00-0400 Body height 157.5 cm Marcela Pearson DO Work Phone: [facility] 09-09-2021 08:00-0400 Body mass index (BMI) [Ratio] 23.78 kg/m2 Marcela Edouardehm DO Work Phone: [facility] 09-09-2021 08:00-0400 Body temperature 98.01 [degF] Marcela Edouardehm DO Work Phone: [facility] 09-09-2021 08:00-0400 Body weight 58.97 kg Marcela Chavezm DO Work Phone: [facility] 09-02-2021 14:09-0400 Diastolic blood pressure 79 mm[Hg] Anirudh Costa APRN-DIRECTOR OF EVENT SALES Work Phone: [facility] 09-02-2021 14:09-0400 Heart rate 87 /min Anirudh Costa APRN-DIRECTOR OF EVENT SALES Work Phone: [facility] 09-02-2021 14:09-0400 Respiratory rate 18 /min Anirudh Costa APRN-DIRECTOR OF EVENT SALES Work Phone: [facility] 09-02-2021 14:09-0400 SaO2% (BldA) [Mass fraction] 92 % Anirudh Costa [employer]-DIRECTOR OF EVENT SALES Work Phone: [facility] 09-02-2021 14:09-0400 Systolic blood pressure 188 mm[Hg] Anirudh Costa [employer]-DIRECTOR OF EVENT SAL[employer] Work Phone: [facility] 09-02-2021 12:05-0400 Body height 157.5 cm Anirudh Costa [employer]-DIRECTOR OF EVENT SAL[employer] Work Phone: [facility] 09-02-2021 12:05-0400 Body mass index (BMI) [Ratio] 23.78 kg/m2 Anirudh Costa APRN-DIRECTOR OF EVENT SALES Work Phone: [facility] 09-02-2021 12:05-0400 Body temperature 97.5 [degF] Anirudh Costa [employer]-DIRECTOR OF EVENT SAL[employer] Work Phone: [facility] 09-02-2021 12:05-0400 Body weight 58.97 kg Anirudh Costa [employer]-DIRECTOR OF EVENT SAL[employer] Work Phone: [facility] 08-20-2021 11:11-0400 Body height 157.5 cm Anirudh Costa [employer]-DIRECTOR OF EVENT SAL[employer] Work Phone: [facility] 08-20-2021 11:11-0400 Body temperature 96.6 [degF] Anirudh Costa [employer]-DIRECTOR OF EVENT SAL[employer] Work Phone: [facility] 08-20-2021 11:11-0400 Diastolic blood pressure 80 mm[Hg] Anirudh Costa [employer]-DIRECTOR OF EVENT SALES Work Phone: [employer] [facility] 08-20-2021 11:11-0400 Heart rate 88 /min Anirudh Costa APRN-DIRECTOR OF EVENT SALES Work Phone: [employer] [facility] 08-20-2021 11:11-0400 SaO2% (BldA) [Mass fraction] 98 % Anirudh Costa [employer]-DIRECTOR OF EVENT SAL[employer] Work Phone: [employer] [facility] 08-20-2021 11:11-0400 Systolic blood pressure 142 mm[Hg] Anirudh Costa [employer]-DIRECTOR OF EVENT SAL[employer] Work Phone: [facility] 06-29-2021 09:59-0400 Body height 157.5 cm Anirudh Costa APRN-DIRECTOR OF EVENT SALES Work Phone: [employer] [facility] 06-29-2021 09:59-0400 Body mass index (BMI) [Ratio] 24.51 kg/m2 Anirudh Costa [employer]-DIRECTOR OF EVENT SALES Work Phone: [employer] [facility] 06-29-2021 09:59-0400 Body temperature 97.11 [degF] Anirudh Costa [employer]-DIRECTOR [employer] Work Phone: [employer] [facility] 06-29-2021 09:59-0400 Body weight 60.78 kg Anirudh Costa APRN-DIRECTOR OF EVENT SALES Work Phone: [employer] [facility] 06-29-2021 09:59-0400 Diastolic blood pressure 78 mm[Hg] Anirudh Costa [employer]-DIRECTOR OF [employer] SAL[employer] Work Phone: [employer] [facility] 06-29-2021 09:59-0400 Heart rate 84 /min Anirudh Costa APRN-DIRECTOR OF EVENT SALES Work Phone: [facility] 06-29-2021 09:59-0400 SaO2% (BldA) [Mass fraction] 98 % Anirudh Costa [employer]-DIRECTOR [employer] Work Phone: [employer] [facility] 06-29-2021 09:59-0400 Systolic blood pressure 130 mm[Hg] Anirudh Costa APRN-DIRECTOR OF EVENT SALES Work Phone: [facility] 06-08-2021 09:49-0400 Body height 157.5 cm Deepa Weiss MD Work Phone: [facility] 06-08-2021 09:49-0400 Body mass index (BMI) [Ratio] 24.55 kg/m2 Deepa Weiss MD Work Phone: [facility] 06-08-2021 09:49-0400 Body weight 60.87 kg Deepa Weiss MD Work Phone: [facility] 06-08-2021 09:49-0400 Diastolic blood pressure 68 mm[Hg] Deepa Weiss MD Work Phone: [facility] 06-08-2021 09:49-0400 Heart rate 88 /min Deepa Weiss MD Work Phone: [facility] 06-08-2021 09:49-0400 SaO2% (BldA) [Mass fraction] 97 % Deepa Weiss MD Work Phone: [facility] 06-08-2021 09:49-0400 Systolic blood pressure 123 mm[Hg] Deepa Weiss MD Work Phone: [facility] 09-22-2020 11:04-0400 Body temperature 97.9 [degF] Corinne Agarwal RN [facility] 09-22-2020 11:04-0400 Diastolic blood pressure 64 mm[Hg] Corinne Agarwal RN [facility] 09-22-2020 11:04-0400 Heart rate 71 /min Corinne Agarwal RN [facility] 09-22-2020 11:04-0400 Respiratory rate 18 /min Corinne Agarwal RN [facility] 09-22-2020 11:04-0400 SaO2% (BldA) [Mass fraction] 98 % Corinne Agarwal RN [facility] 09-22-2020 11:04-0400 Systolic blood pressure 122 mm[Hg] Corinne Agarwal RN [facility] 09-15-2020 08:25-0400 Body temperature 97.81 [degF] Sofia Keenan RN [facility] 09-15-2020 08:25-0400 Diastolic blood pressure 80 mm[Hg] Sofia Keenan RN [facility] 09-15-2020 08:25-0400 Heart rate 84 /min Sofia Keenan RN [facility] 09-15-2020 08:25-0400 Respiratory rate 16 /min Sofia Keenan RN [facility] 09-15-2020 08:25-0400 SaO2% (BldA) [Mass fraction] 98 % Sofia Keenan RN [facility] 09-15-2020 08:25-0400 Systolic blood pressure 148 mm[Hg] Sofia Keenan RN [facility] 09-09-2020 09:22-0400 Body temperature 97.59 [degF] Jana Lopez RN [facility] 09-09-2020 09:22-0400 Diastolic blood pressure 68 mm[Hg] Jana Lopez [facility] 09-09-2020 09:22-0400 Heart rate 68 /min Jana Lopez [facility] 09-09-2020 09:22-0400 Respiratory rate 14 /min Jana Lopez [facility] 09-09-2020 09:22-0400 SaO2% (BldA) [Mass fraction] 99 % Jana Lopez [facility] 09-09-2020 09:22-0400 Systolic blood pressure 142 mm[Hg] Jana Lopez [facility] 09-01-2020 11:06-0400 Body temperature 97.5 [degF] Zoey Reyes RN [facility] 09-01-2020 11:06-0400 Diastolic blood pressure 70 mm[Hg] Zoey Reyes RN [facility] 09-01-2020 11:06-0400 Heart rate 98 /min Zoey Reyes RN [facility] 09-01-2020 11:06-0400 Respiratory rate 18 /min Zoey Reyes RN [facility] 09-01-2020 11:06-0400 SaO2% (BldA) [Mass fraction] 94 % Zoey Reyes RN [facility] 09-01-2020 11:06-0400 Systolic blood pressure 128 mm[Hg] Zoey Reyes RN [facility] 08-18-2020 09:15-0400 Body temperature 97.7 [degF] Sofia Petersonoss RN [facility] 08-18-2020 09:15-0400 Diastolic blood pressure 78 mm[Hg] Sofia Keenan RN [facility] 08-18-2020 09:15-0400 Heart rate 92 /min Sofia Keenan RN [facility] 08-18-2020 09:15-0400 Respiratory rate 16 /min Sofia Keenan RN [facility] 08-18-2020 09:15-0400 SaO2% (BldA) [Mass fraction] 97 % Sofia Keenan RN [facility] 08-18-2020 09:15-0400 Systolic blood pressure 138 mm[Hg] Sofia Keenan RN [facility] 08-11-2020 09:26-0400 Body temperature 98.1 [degF] Sofia Keenan RN [facility] 08-11-2020 09:26-0400 Diastolic blood pressure 72 mm[Hg] Sofia Keenan RN [facility] 08-11-2020 09:26-0400 Heart rate 70 /min Sofia Keenan RN [facility] 08-11-2020 09:26-0400 Respiratory rate 16 /min Sofia Keenan RN [facility] 08-11-2020 09:26-0400 SaO2% (BldA) [Mass fraction] 98 % Sofia Keenan RN [facility] 08-11-2020 09:26-0400 Systolic blood pressure 136 mm[Hg] Sofia Keenan RN [facility] 08-04-2020 10:47-0400 Body temperature 97.9 [degF] Zoey Reyes RN [facility] 08-04-2020 10:47-0400 Diastolic blood pressure 62 mm[Hg] Zoey Reyes RN [facility] 08-04-2020 10:47-0400 Heart rate 81 /min Zoey Reyes RN [facility] 08-04-2020 10:47-0400 Respiratory rate 18 /min Zoey Reyes RN [facility] 08-04-2020 10:47-0400 SaO2% (BldA) [Mass fraction] 97 % Zoey Reyes RN [facility] 08-04-2020 10:47-0400 Systolic blood pressure 118 mm[Hg] Zoey Reyes RN [facility] 07-30-2020 13:20-0400 Body temperature 97.81 [degF] Corinne Agarwal RN [facility] 07-30-2020 13:20-0400 Diastolic blood pressure 60 mm[Hg] Corinne Agarwal RN [facility] 07-30-2020 13:20-0400 Heart rate 64 /min Corinne Agarwal RN [facility] 07-30-2020 13:20-0400 Respiratory rate 16 /min Corinne Agarwal RN [facility] 07-30-2020 13:20-0400 SaO2% (BldA) [Mass fraction] 99 % Corinne Agarwal [facility] 07-30-2020 13:20-0400 Systolic blood pressure 120 mm[Hg] Corinne Villagranrp RN [facility] 07-28-2020 09:26-0400 Body temperature 97.2 [degF] Corinne Villagranrp RN [facility] 07-28-2020 09:26-0400 Diastolic blood pressure 70 mm[Hg] Corinne Villagranrp RN [facility] 07-28-2020 09:26-0400 Heart rate 66 /min Corinne Agarwal [facility] 07-28-2020 09:26-0400 Respiratory rate 16 /min Corinne Agarwal [facility] 07-28-2020 09:26-0400 SaO2% (BldA) [Mass fraction] 99 % Corinne Agarwal [facility] 07-28-2020 09:26-0400 Systolic blood pressure 160 mm[Hg] Corinne Agarwal [facility] 07-21-2020 09:22-0400 Body temperature 98.29 [degF] Sofia Keenan [facility] 07-21-2020 09:22-0400 Diastolic blood pressure 62 mm[Hg] Sofia Keenan RN [facility] 07-21-2020 09:22-0400 Heart rate 70 /min Sofia Keenan RN [facility] 07-21-2020 09:22-0400 Respiratory rate 16 /min Sofia Keenan RN [facility] 07-21-2020 09:22-0400 SaO2% (BldA) [Mass fraction] 98 % Sofia Keenan RN [facility] 07-21-2020 09:22-0400 Systolic blood pressure 138 mm[Hg] Sofia Keenan [facility] 07-16-2020 11:01-0400 Body height 157.5 cm Corinne Agarwal [facility] 07-16-2020 11:01-0400 Body mass index (BMI) [Ratio] 26.52 kg/m2 Corinne Agarwal [facility] 07-16-2020 11:01-0400 Body temperature 98.1 [degF] Corinne Agarwal [facility] 07-16-2020 11:01-0400 Body weight 65.77 kg Corinne Agarwal RN [facility] 07-16-2020 11:01-0400 Heart rate 70 /min Corinne Agarwal [facility] 07-16-2020 11:01-0400 Respiratory rate 18 /min Corinne Agarwal RN [facility] 07-16-2020 11:01-0400 SaO2% (BldA) [Mass fraction] 99 % Corinne Agarwal RN [facility] 07-15-2020 07:20-0400 Body temperature 98.01 [degF] [facility] 07-15-2020 07:20-0400 Diastolic blood pressure 76 mm[Hg] [facility] 07-15-2020 07:20-0400 Heart rate 62 /min [facility] 07-15-2020 07:20-0400 Respiratory rate 16 /min [facility] 07-15-2020 07:20-0400 SaO2% (BldA) [Mass fraction] 95 % [facility] 07-15-2020 07:20-0400 Systolic blood pressure 161 mm[Hg] [facility] 07-15-2020 07:01-0400 Body mass index (BMI) [Ratio] 26.52 kg/m2 [facility] 07-15-2020 07:01-0400 Body weight 65.77 kg [facility] 05-29-2020 18:26-0400 BP Diastolic 65 mm[Hg] [facility] 05-29-2020 18:26-0400 BP Systolic 131 mm[Hg] [facility] 05-29-2020 18:26-0400 Pulse (Heart Rate) 87 /min [facility] 05-29-2020 18:26-0400 Pulse Oximetry 96 % [facility] 05-29-2020 17:41-0400 Respiratory Rate 16 /min [facility] 05-29-2020 17:41-0400 Body Temperature 97.81 [degF] Room [facility] 05-29-2020 06:10-0400 Body Temperature 98.2 [degF] Room [facility] 05-29-2020 06:10-0400 BP Diastolic 66 mm[Hg] Room [facility] 05-29-2020 06:10-0400 BP Systolic 125 mm[Hg] Room [facility] 05-29-2020 06:10-0400 Pulse (Heart Rate) 80 /min Room [facility] 05-29-2020 06:10-0400 Pulse Oximetry 96 % Room [facility] 05-29-2020 06:10-0400 Respiratory Rate 16 /min Room [facility] 05-27-2020 15:59-0400 Body Temperature 98.01 [degF] Room [facility] 05-27-2020 15:59-0400 BP Diastolic 67 mm[Hg] Room [facility] 05-27-2020 15:59-0400 BP Systolic 125 mm[Hg] Room [facility] 05-27-2020 15:59-0400 Pulse (Heart Rate) 98 /min Room [facility] 05-27-2020 15:59-0400 Pulse Oximetry 97 % Room [facility] 05-27-2020 15:59-0400 Respiratory Rate 12 /min Room [facility] 05-27-2020 06:01-0400 Body Temperature 98.1 [degF] Room [facility] 05-27-2020 06:01-0400 BP Diastolic 60 mm[Hg] Room [facility] 05-27-2020 06:01-0400 BP Systolic 130 mm[Hg] Room [facility] 05-27-2020 06:01-0400 Pulse (Heart Rate) 81 /min Room [facility] 05-27-2020 06:01-0400 Pulse Oximetry 99 % Room [facility] 05-27-2020 06:01-0400 Respiratory Rate 16 /min Room [facility] 05-26-2020 16:11-0400 Body Temperature 98.29 [degF] Room [facility] 05-26-2020 16:11-0400 BP Diastolic 67 mm[Hg] Room [facility] 05-26-2020 16:11-0400 BP Systolic 124 mm[Hg] Room [facility] 05-26-2020 16:11-0400 Pulse (Heart Rate) 89 /min Room [facility] 05-26-2020 16:11-0400 Pulse Oximetry 96 % Room [facility] 05-26-2020 16:11-0400 Respiratory Rate 18 /min Room [facility] 05-26-2020 05:56-0400 Body Temperature 97.81 [degF] Room [facility] 05-26-2020 05:56-0400 BP Diastolic 66 mm[Hg] Room [facility] 05-26-2020 05:56-0400 BP Systolic 135 mm[Hg] Room [facility] 05-26-2020 05:56-0400 Pulse (Heart Rate) 79 /min Room [facility] 05-26-2020 05:56-0400 Pulse Oximetry 97 % Room [facility] 05-26-2020 05:56-0400 Respiratory Rate 16 /min Room [facility] 05-25-2020 06:59-0400 Body Temperature 97.81 [degF] Room [facility] 05-25-2020 06:59-0400 BP Diastolic 79 mm[Hg] Room [facility] 05-25-2020 06:59-0400 BP Systolic 137 mm[Hg] Room [facility] 05-25-2020 06:59-0400 Pulse (Heart Rate) 79 /min Room [facility] 05-25-2020 06:59-0400 Pulse Oximetry 97 % Room [facility] 05-25-2020 06:59-0400 Respiratory Rate 16 /min Room [facility] 05-24-2020 07:04-0400 Body Temperature 97.59 [degF] Room [facility] 05-24-2020 07:04-0400 BP Diastolic 71 mm[Hg] Room [facility] 05-24-2020 07:04-0400 BP Systolic 131 mm[Hg] Room [facility] 05-24-2020 07:04-0400 Pulse (Heart Rate) 77 /min Room [facility] 05-24-2020 07:04-0400 Pulse Oximetry 97 % Room [facility] 05-24-2020 07:04-0400 Respiratory Rate 14 /min Room [facility] 05-23-2020 06:08-0400 Body Temperature 98.01 [degF] Room [facility] 05-23-2020 06:08-0400 BP Diastolic 55 mm[Hg] Room [facility] 05-23-2020 06:08-0400 BP Systolic 121 mm[Hg] Room [facility] 05-23-2020 06:08-0400 Pulse (Heart Rate) 72 /min Room [facility] 05-23-2020 06:08-0400 Pulse Oximetry 96 % Room [facility] 05-23-2020 06:08-0400 Respiratory Rate 16 /min Room [facility] 05-22-2020 15:58-0400 Body Temperature 98.4 [degF] Room [facility] 05-22-2020 15:58-0400 BP Diastolic 70 mm[Hg] Room [facility] 05-22-2020 15:58-0400 BP Systolic 139 mm[Hg] Room [facility] 05-22-2020 15:58-0400 Pulse (Heart Rate) 99 /min Room [facility] 05-22-2020 15:58-0400 Pulse Oximetry 97 % Room [facility] 05-22-2020 15:58-0400 Respiratory Rate 16 /min Room [facility] 05-22-2020 06:06-0400 Body Temperature 98.01 [degF] Room [facility] 05-22-2020 06:06-0400 BP Diastolic 58 mm[Hg] Room [facility] 05-22-2020 06:06-0400 BP Systolic 134 mm[Hg] Room [facility] 05-22-2020 06:06-0400 Pulse (Heart Rate) 80 /min Room [facility] 05-22-2020 06:06-0400 Pulse Oximetry 96 % Room [facility] 05-22-2020 06:06-0400 Respiratory Rate 16 /min Room [facility] 05-21-2020 15:52-0400 Body Temperature 98.01 [degF] Room [facility] 05-21-2020 15:52-0400 BP Diastolic 73 mm[Hg] Room [facility] 05-21-2020 15:52-0400 BP Systolic 146 mm[Hg] Room [facility] 05-21-2020 15:52-0400 Pulse (Heart Rate) 97 /min Room [facility] 05-21-2020 15:52-0400 Pulse Oximetry 96 % Room [facility] 05-21-2020 15:52-0400 Respiratory Rate 18 /min Room [facility] 05-21-2020 06:10-0400 Body Temperature 97.81 [degF] Room [facility] 05-21-2020 06:10-0400 BP Diastolic 76 mm[Hg] Room [facility] 05-21-2020 06:10-0400 BP Systolic 127 mm[Hg] Room [facility] 05-21-2020 06:10-0400 Pulse (Heart Rate) 82 /min Room [facility] 05-21-2020 06:10-0400 Pulse Oximetry 97 % Room [facility] 05-21-2020 06:10-0400 Respiratory Rate 16 /min Room [facility] 05-20-2020 16:10-0400 Body Temperature 98.1 [degF] Room [facility] 05-20-2020 16:10-0400 BP Diastolic 70 mm[Hg] Room [facility] 05-20-2020 16:10-0400 BP Systolic 124 mm[Hg] Room [facility] 05-20-2020 16:10-0400 Pulse (Heart Rate) 100 /min Room [facility] 05-20-2020 16:10-0400 Pulse Oximetry 94 % Room [facility] 05-20-2020 16:10-0400 Respiratory Rate 14 /min Room [facility] 05-20-2020 06:04-0400 Body Temperature 98.1 [degF] Room [facility] 05-20-2020 06:04-0400 BP Diastolic 79 mm[Hg] Room [facility] 05-20-2020 06:04-0400 BP Systolic 143 mm[Hg] Room [facility] 05-20-2020 06:04-0400 Pulse (Heart Rate) 83 /min Room [facility] 05-20-2020 06:04-0400 Pulse Oximetry 98 % Room [facility] 05-20-2020 06:04-0400 Respiratory Rate 16 /min Room [facility] 05-19-2020 15:59-0400 Body Temperature 98.1 [degF] Room [facility] 05-19-2020 15:59-0400 BP Diastolic 77 mm[Hg] Room [facility] 05-19-2020 15:59-0400 BP Systolic 145 mm[Hg] Room [facility] 05-19-2020 15:59-0400 Pulse (Heart Rate) 117 /min Room [facility] 05-19-2020 15:59-0400 Pulse Oximetry 98 % Room [facility] 05-19-2020 15:59-0400 Respiratory Rate 18 /min Room [facility] 05-19-2020 06:02-0400 Body Temperature 98.1 [degF] Room [facility] 05-19-2020 06:02-0400 BP Diastolic 77 mm[Hg] Room [facility] 05-19-2020 06:02-0400 BP Systolic 135 mm[Hg] Room [facility] 05-19-2020 06:02-0400 Pulse (Heart Rate) 88 /min Room [facility] 05-19-2020 06:02-0400 Pulse Oximetry 98 % Room [facility] 05-19-2020 06:02-0400 Respiratory Rate 16 /min Room [facility] 05-16-2020 06:22-0400 BP Diastolic 74 mm[Hg] Room [facility] 05-16-2020 06:22-0400 BP Systolic 138 mm[Hg] Room [facility] 05-16-2020 06:22-0400 Pulse (Heart Rate) 93 /min Room [facility] 05-16-2020 06:22-0400 Pulse Oximetry 97 % Room [facility] 05-16-2020 06:02-0400 Body Temperature 97.81 [degF] Room [facility] 05-16-2020 06:02-0400 Respiratory Rate 16 /min Room [facility] 05-15-2020 16:06-0400 Body Temperature 98.1 [degF] Room [facility] 05-15-2020 16:06-0400 BP Diastolic 75 mm[Hg] Room [facility] 05-15-2020 16:06-0400 BP Systolic 163 mm[Hg] Room [facility] 05-15-2020 16:06-0400 Pulse (Heart Rate) 97 /min Room [facility] 05-15-2020 16:06-0400 Pulse Oximetry 97 % Room [facility] 05-15-2020 16:06-0400 Respiratory Rate 16 /min Room [facility] 05-14-2020 15:32-0400 Body Temperature 97.9 [degF] Room [facility] 05-14-2020 15:32-0400 BP Diastolic 87 mm[Hg] Room [facility] 05-14-2020 15:32-0400 BP Systolic 141 mm[Hg] Room [facility] 05-14-2020 15:32-0400 Pulse (Heart Rate) 90 /min Room [facility] 05-14-2020 15:32-0400 Pulse Oximetry 96 % Room [facility] 05-14-2020 15:32-0400 Respiratory Rate 20 /min Room [facility] 05-13-2020 16:05-0400 Body Temperature 98.2 [degF] Room [facility] 05-13-2020 16:05-0400 BP Diastolic 72 mm[Hg] Room [facility] 05-13-2020 16:05-0400 BP Systolic 130 mm[Hg] Room [facility] 05-13-2020 16:05-0400 Pulse (Heart Rate) 94 /min Room [facility] 05-13-2020 16:05-0400 Pulse Oximetry 94 % Room [facility] 05-13-2020 16:05-0400 Respiratory Rate 16 /min Room [facility] 05-13-2020 06:13-0400 Body Temperature 97.81 [degF] [facility] [facility]13[facility]2020 06:13-0400 BP Diastolic 69 mm[Hg] Room [facility] 05-13-2020 06:13-0400 BP Systolic 122 mm[Hg] Room [facility] 05-13-2020 06:13-0400 Pulse (Heart Rate) 78 /min Room [facility] 05-13-2020 06:13-0400 Pulse Oximetry 97 % Room [facility] 05-13-2020 06:13-0400 Respiratory Rate 16 /min Room [facility] 05-12-2020 15:42-0400 Body Temperature 97.9 [degF] Room [facility] 05-12-2020 15:42-0400 BP Diastolic 68 mm[Hg] Room [facility] 05-12-2020 15:42-0400 BP Systolic 151 mm[Hg] Room [facility] 05-12-2020 15:42-0400 Pulse (Heart Rate) 113 /min Room [facility] 05-12-2020 15:42-0400 Pulse Oximetry 91 % Room [facility] 05-12-2020 15:42-0400 Respiratory Rate 18 /min Room [facility] 05-12-2020 06:08-0400 Body Temperature 98.01 [degF] Room [facility] 05-12-2020 06:08-0400 BP Diastolic 72 mm[Hg] Room [facility] 05-12-2020 06:08-0400 BP Systolic 154 mm[Hg] Room [facility] 05-12-2020 06:08-0400 Pulse (Heart Rate) 71 /min Room [facility] 05-12-2020 06:08-0400 Pulse Oximetry 98 % Room [facility] 05-12-2020 06:08-0400 Respiratory Rate 16 /min Room [facility] 05-11-2020 06:59-0400 Body Temperature 98.2 [degF] Room [facility] 05-11-2020 06:59-0400 BP Diastolic 66 mm[Hg] Room [facility] 05-11-2020 06:59-0400 BP Systolic 165 mm[Hg] Room [facility] 05-11-2020 06:59-0400 Pulse (Heart Rate) 83 /min Room [facility] 05-11-2020 06:59-0400 Pulse Oximetry 98 % Room [facility] 05-11-2020 06:59-0400 Respiratory Rate 16 /min Room [facility] 05-10-2020 06:54-0400 Body Temperature 98.01 [degF] Room [facility] 05-10-2020 06:54-0400 BP Diastolic 92 mm[Hg] Room [facility] 05-10-2020 06:54-0400 BP Systolic 165 mm[Hg] Room [facility] 05-10-2020 06:54-0400 Pulse (Heart Rate) 92 /min Room [facility] 05-10-2020 06:54-0400 Pulse Oximetry 95 % Room [facility] 05-10-2020 06:54-0400 Respiratory Rate 18 /min Room [facility] 05-09-2020 16:04-0400 Body Temperature 98.29 [degF] [facility] 05-09-2020 16:04-0400 BP Diastolic 90 mm[Hg] Room [facility] 05-09-2020 16:04-0400 BP Systolic 166 mm[Hg] Room [facility] 05-09-2020 16:04-0400 Pulse (Heart Rate) 90 /min Room [facility] 05-09-2020 16:04-0400 Pulse Oximetry 93 % Room [facility] 05-09-2020 16:04-0400 Respiratory Rate 12 /min Room [facility] 12-10-2018 15:20-0400 BP Diastolic 74 mm[Hg] [facility] 12-10-2018 15:20-0400 BP Systolic 171 mm[Hg] [facility] 12-10-2018 15:20-0400 Pulse (Heart Rate) 101 /min [facility] 12-10-2018 15:20-0400 Pulse Oximetry 95 % [facility] 12-10-2018 14:21-0400 Height 157.5 cm [facility] 12-10-2018 14:20-0400 Body Temperature 98.6 [degF] [facility] 12-10-2018 14:20-0400 Respiratory Rate 16 /min [facility] 11-27-2018 09:48-0400 BMI (Body Mass Index) 24.51 kg/m2 [facility] 11-27-2018 09:48-0400 Body Temperature 98.01 [degF] [facility] 11-27-2018 09:48-0400 Body weight 60.78 kg [facility] 11-27-2018 09:48-0400 BP Diastolic 78 mm[Hg] [facility] 11-27-2018 09:48-0400 BP Systolic 138 mm[Hg] [facility] 11-27-2018 09:48-0400 Height 157.5 cm [facility] 11-27-2018 09:48-0400 Pulse (Heart Rate) 99 /min [facility] 11-27-2018 09:48-0400 Pulse Oximetry 97 % [facility] 10-24-2018 08:44-0400 BMI (Body Mass Index) 24.69 kg/m2 [facility] 10-24-2018 08:44-0400 Body weight 61.24 kg [facility] 10-24-2018 08:44-0400 BP Diastolic 68 mm[Hg] [facility] 10-24-2018 08:44-0400 BP Systolic 134 mm[Hg] [facility] 10-24-2018 08:44-0400 Height 157.5 cm [facility] 10-24-2018 08:44-0400 Pulse (Heart Rate) 80 /min [facility] 10-24-2018 08:44-0400 Respiratory Rate 16 /min [facility] 09-12-2018 07:55-0400 BMI (Body Mass Index) 24.69 kg/m2 [facility] 09-12-2018 07:55-0400 Body weight 61.24 kg [facility] 09-12-2018 07:55-0400 Height 157.5 cm [facility] 09-05-2018 12:36-0400 BMI (Body Mass Index) 25.09 kg/m2 [facility] 09-05-2018 12:36-0400 Body weight 62.23 kg [facility] 09-05-2018 12:36-0400 BP Diastolic 74 mm[Hg] [facility] 09-05-2018 12:36-0400 BP Systolic 140 mm[Hg] [facility] 09-05-2018 12:36-0400 Height 157.5 cm [facility] 09-05-2018 12:36-0400 Pulse (Heart Rate) 84 /min [facility] 09-05-2018 12:36-0400 Res[facility] 16 /[facility] 08:02-0400 BMI (Body Mass Index) 25.42 kg/m2 [facility] 07-27-2018 08:02-0400 Body Temperature 98.01 [degF] [facility] 07-27-2018 08:02-0400 BP Diastolic 68 mm[Hg] [facility] 07-27-2018 08:02-0400 BP Systolic 122 mm[Hg] [facility] 07-27-2018 08:02-0400 Height 157.5 cm [facility] 07-27-2018 08:02-0400 Pulse (Heart Rate) 77 /min [facility] 07-27-2018 08:02-0400 Pulse Oximetry 98 % [facility] 07-27-2018 08:02-0400 Weight 63.05 kg [facility] 06-29-2018 07:55-0400 BMI (Body Mass Index) 27.25 kg/m2 [facility] 06-29-2018 07:55-0400 Body Temperature 96.6 [degF] [facility] 06-29-2018 07:55-0400 BP Diastolic 72 mm[Hg] [facility] 06-29-2018 07:55-0400 BP Systolic 142 mm[Hg] [facility] 06-29-2018 07:55-0400 Height 157.5 cm [facility] 06-29-2018 07:55-0400 Pulse (Heart Rate) 66 /min [facility] 06-29-2018 07:55-0400 Pulse Oximetry 98 % [facility] 06-29-2018 07:55-0400 Weight 67.59 kg [facility] 06-22-2018 10:52-0400 BMI (Body Mass Index) 27.07 kg/m2 [facility] 06-22-2018 10:52-0400 Body Temperature 97 [degF] [facility] 06-22-2018 10:52-0400 Body weight 67.13 kg [facility] 06-22-2018 10:52-0400 BP Diastolic 80 mm[Hg] [facility] 06-22-2018 10:52-0400 BP Systolic 132 mm[Hg] [facility] 06-22-2018 10:52-0400 Height 157.5 cm [facility] 06-22-2018 10:52-0400 Pulse (Heart Rate) 90 /min [facility] 06-22-2018 10:52-0400 Pulse Oximetry 98 % [facility] 06-22-2018 10:52-0400 Weight 67.13 kg [facility] 06-16-2018 13:00-0400 BP Diastolic 70 mm[Hg] [facility] 06-16-2018 13:00-0400 BP Systolic 147 mm[Hg] [facility] 06-16-2018 13:00-0400 Pulse (Heart Rate) 91 /min [facility] 06-16-2018 13:00-0400 Pulse Oximetry 96 % [facility] 06-16-2018 13:00-0400 Respiratory Rate 18 /min [facility] 06-16-2018 10:26-0400 BMI (Body Mass Index) 27.07 kg/m2 [facility] 06-16-2018 10:26-0400 Height 157.5 cm [facility] 06-16-2018 10:26-0400 Weight 67.13 kg [facility] 06-16-2018 10:25-0400 Body Temperature 98.1 [degF] [facility] 06-14-2018 08:44-0400 BMI (Body Mass Index) 27.25 kg/m2 [facility] 06-14-2018 08:44-0400 Body Temperature 98.71 [degF] [facility] 06-14-2018 08:44-0400 BP Diastolic 78 mm[Hg] [facility] 06-14-2018 08:44-0400 BP Systolic 148 mm[Hg] [facility] 06-14-2018 08:44-0400 Height 157.5 cm [facility] 06-14-2018 08:44-0400 Pulse (Heart Rate) 94 /min [facility] 08:44-0400 Pulse Oximetry 98 % [facility] 06-14-2018 08:44-0400 Respiratory Rate 16 /min [facility] 06-14-2018 08:44-0400 Weight 67.59 kg Anirudh [facility] Encounters Encounter Date Encounter Type Care Provider Facility Start: 02-03-2023 End: 02-04-2023 Emergency department patient visit Mp Paulson MD Work Phone: [facility] Emergency Department Start: 02-01-2023 ambulatory [facility] Start: 01-11-2023 ambulatory [facility] Start: 01-11-2023 End: 01-11-2023 Office outpatient visit 25 minutes Marcela Pearson DO Work Phone: [facility] Orthopedics Procedures Date Procedure Procedure Detail Performing Clinician Start: 02-03-2023 Assay of acetaminophen Mp Paulson MD Work Phone: Start: 02-03-2023 Assay of ethanol Mp Paulson MD Work Phone: Start: 02-03-2023 Assay of salicylate Mp Paulson MD Work Phone: Start: 02-03-2023 Complete blood count with white cell differential, automated Mp Paulson MD Work Phone: Start: 02-03-2023 Comprehensive metabolic panel Mp Paulson MD Work Phone: Start: 02-03-2023 Urinalysis, reagent strip without microscopy Mp Paulson MD Work Phone: Start: 12-10-2022 Arthrocentesis aspir&/inj major jt/bursa w/us Marcela Pearson DO Work Phone: Start: 11-18-2022 Aiiv4 vacc inactivated prsrv fr 0.5ml dos im use Anirudh Costa [employer] Work Phone: Start: 09-10-2022 GENERAL PROCEDURE Deepa Weiss MD Work Phone: Start: 08-19-2022 Arthrocentesis aspir&/inj major jt/bursa w/us Marcela L Riehm DO Work Phone: Start: 05-20-2022 Arthrocentesis aspir&/inj major jt/bursa w/us Marcela L Riehm DO Work Phone: Start: 05-17-2022 Lipid 1996 panel - Serum or Plasma Marcela Pearson DO Work Phone: Start: 05-03-2022 Urnls dip stick/tablet rgnt non-auto w/o micrscp Anirudh A Costa [employer] Work Phone: Start: 04-16-2022 Chemodenervation 1 extremity 5 or more muscles Deepa Weiss MD Work Phone: Start: 04-16-2022 Needle emg guid w/chemodenervation Deepa Weiss MD Work Phone: Start: 03-03-2022 Urnls dip stick/tablet rgnt non-auto w/o micrscp Anirudh A Costa [employer] Work Phone: Start: 02-19-2022 Arthrocentesis aspir&/inj major jt/bursa w/us Marcela L Riehm DO Work Phone: Start: 01-12-2022 GENERAL PROCEDURE Deepa Weiss MD Work Phone: Start: 11-30-2021 Lipid 1996 panel - Serum or Plasma Deepa Weiss MD Work Phone: Start: 09-13-2021 Radex spine lumbosacral minimum 4 views Bekah De La Fuente [employer] Work Phone: Start: 09-09-2021 Arthrocentesis aspir&/inj major jt/bursa w/o us Marcela L Riehm DO Work Phone: Start: 09-02-2021 Radex hip unilateral with pelvis 2-3 views Foster Galvez PA-C Work Phone: Start: 09-02-2021 Ct lumbar spine w/o contrast material Foster Galvez PA-C Work Phone: Start: 04-17-2021 Mammography Keke Domi [employer] Work Phone: Start: 04-07-2021 Lipid 1996 panel - Serum or Plasma Deepa Weiss MD Work Phone: Start: 02-20-2021 Colonoscopy Keke Domi [employer] Work Phone: Start: 09-18-2020 Rp loclzj constance plnr whole body single day imaging Foster Pa [employer] Work Phone: Start: 07-15-2020 Basic metabolic panel calcium total Keke Denniska [employer] Work Phone: Start: 07-15-2020 C-reactive protein Keke Domka [employer] Work Phone: Start: 07-03-2020 Lipid 1996 panel - Serum or Plasma Anabela Toscano [employer] Work Phone: Start: 05-26-2020 C reactive protein [Mass/volume] in Serum or Plasma Keke Denniska Work Phone: Start: 05-26-2020 Complete blood count with white cell differential, automated Niraj Anicetus Ezike Work Phone: Start: 05-26-2020 Complete blood count with white cell differential, manual Niraj Anicetus Ezike Work Phone: Start: 05-26-2020 Comprehensive metabolic 2000 panel - Serum or Plasma Niraj Anicetus Ezike Work Phone: Start: 05-26-2020 Erythrocyte sedimentation rate by Westergren method Keke Denniska Work Phone: Start: 04-12-2021 Red blood cell morphology Niraj Anicet us Ezike Work Phone: Start: 05-21-2020 Vancomycin [Mass/volume] in Serum or Plasma --trough Teresa Villasenor Start: 05-19-2020 Complete blood count with white cell differential, automated Niraj Anicetus Ezike Work Phone: Start: 05-19-2020 Complete blood count with white cell differential, manual Niraj Ankeketus Ezike Work Phone: Start: 05-19-2020 Comprehensive metabolic 2000 panel - Serum or Plasma Niraj Ankeketus Ezike Work Phone: Start: 05-19-2020 Vancomycin [Mass/volume] in Serum or Plasma --trough Teresa Villasenor Start: 05-15-2020 Gastrointestinal occult blood test Keke Duron Work Phone: Start: 05-13-2020 SCAN OTHER ORDERS Provider Not In System Start: 05-12-2020 Complete blood count with white cell differential, automated Niraj Ankeketus Ezike Work Phone: Start: 05-12-2020 Complete blood count with white cell differential, manual Niraj Ankeketus Ezike Work Phone: Start: 05-12-2020 Comprehensive metabolic 2000 panel - Serum or Plasma Niraj Ankeketus Ezike Work Phone: Start: 02-19-2020 MG Breast - bilateral screening External Transcribed Start: 02-19-2020 Mammography Soledad Rain Start: 02-16-2020 Radex spine lumbosacral minimum 4 views Foster Flores Work Phone: Start: 08-07-2019 Radex spine lumbosacral minimum 4 views Earnest Christensen Work Phone: Start: 04-09-2019 Low dose computed tomography of thorax External Transcribed Start: 12-10-2018 CBC, EDIF, PLATELET Garrison Marinelli Work Phone: Start: 12-10-2018 Comprehensive metabolic panel Garrison Marinelli Work Phone: Start: 12-10-2018 Prothrombin time Garrison Marinelli Work Phone: Start: 12-10-2018 Sedimentation rate rbc automated Garrison Marinelli Work Phone: Start: 12-10-2018 Thromboplastin time partial plasma/whole blood Garrison Marinelli Work Phone: Start: 09-12-2018 MRI of brain and brain stem External Tra nscribed Start: 08-28-2018 MG Breast - bilateral screening External Transcribed Start: 08-28-2018 Mammography Jonathon Malhotra Start: 06-29-2018 Urnls dip stick/tablet rgnt non-auto w/o micrscp Anirudh Solitarioley Work Phone: Start: 06-22-2018 Urnls dip stick/tablet rgnt non-auto w/o micrscp Anirudh Solitarioley Work Phone: Start: 06-16-2018 Assay of ethanol Maximino P Santoyo Work Phone: Start: 06-16-2018 Assay of lipase Maximino P Santoyo Work Phone: Start: 06-16-2018 CBC, EDIF, PLATELET Maximino P Santoyo Work Phone: Start: 06-16-2018 Comprehensive metabolic panel Maximino P Santoyo Work Phone: Start: 06-16-2018 Urinalysis microscopic only Maximino P Weave r Work Phone: Start: 06-16-2018 URINALYSIS, MACRO Maximino P Santoyo Work Phone: Start: 06-21-2008 H/O: hysterectomy History of hysterectomy Margaret Costa Nurse Plan of Treatment Date Care Activity Detail Author Start: 02-20-2031 Screening for malignant neoplasm of colon [facility] Start: 11-15-2029 Tetanus vaccination [facility] Start: 05-18-2027 Lipid panel LIPID SCREENING [facility] Start: 11-30-2026 Lipid panel LIPID SCREENING [facility] Start: 04-07-2026 Fasting lipid profile LIPID SCREENING [facility] m Start: 07-03-2025 Fasting lipid profile LIPID SCREENING [facility] Start: 05-27-2023 Screening for malignant neoplasm of lung LUNG CANCER SCREENING [facility] Start: 05-27-2023 Screening for osteoporosis DEXA SCAN DISCUSSION [facility] Start: 05-18-2023 Thyroid stimulating hormone measurement TSH [facility] Start: 04-20-2023 Screening for malignant neoplasm of breast MAMMOGRAM SCREENING DISCUSSION [facility] Start: 03-11-2023 End: 03-11-2023 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 procedure 03/11/2023 11:00 AM EST Office Visit [facility] Orthopedics [address] [place] [id number] Marcela Pearson DO [address] [place] [id number] [facility] Start: 03-01-2023 End: 03-01-2023 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 procedure 03/01/2023 10:30 AM EST Office Visit [facility] Physical Medicine & Rehabilitation [address] [place] [address] [place] [address] Maria Luisa Knutson, DO [address] [place] [address] [facility] Physical Medicine & [facility] Start: 02-22-2023 End: 02-22-2023 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 procedure 02/22/2023 11:40 AM EST Office Visit [facility] Cardiology [address] [place] [phone] Sofia Steele MD [address] [place] [id number] [facility] Card[facility] Start: 02-01-2023 End: 02-01-2023 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 procedure 02/01/2023 10:00 AM EST Office Visit [facility] Physical Medicine & Rehabilitation [address] [place] [address] [place] [address] Maria Luisa Knutson, DO [address] [place] [address] [facility] Physical Medicine & Rehabilitation Start: 01-10-2023 End: 01-10-2023 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 procedure 01/10/2023 10:00 AM EST Office Visit [facility] Cardiology [address] [place] [address] , [place] [address] Sofia Steele MD [address] [place] [address], [place] [address] [facility] Start: 11-19-2022 End: 11-19-2022 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 procedure [facility] Start: 10-15-2022 COVID-19 VACCINE ( season) COVID-19 VACCINE () [facility] Start: 10-15-2022 Influenza vaccination INFLUENZA VACCINE (#1) [facility] Start: 09-10-2022 End: 09-10-2022 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 procedure 09/10/2022 9:30 AM EDT Office Visit [facility] Neurology [address] [place] [address] Deepa Weiss MD [address] [place] [id number] [facility] Neurology Start: 08-19-2022 End: 08-19-2022 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 procedure 08/19/2022 Office Visit Orthopaedics Marcela Pearson DO [address] [place] [address] [facility] Orthopedics Start: 07-16-2022 End: 07-16-2022 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 procedure 07/16/2022 Office Visit Neurology Deepa Weiss MD [address] [place] [phone] [facility] Neurology Start: 07-15-2022 COVID-19 VACCINE (6 - Moderna series) COVID-19 VACCINE (6 - Moderna series) [facility] Start: 06-28-2022 End: 06-28-2022 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 procedure 06/28/2022 Office Visit Cardiovascular Medicine Sofia Steele MD [address] [place] [address] [facility] Health Cardiology Start: 05-26-2022 End: 05-26-2022 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 procedure [facility] Bone Density Start: 05-20-2022 End: 05-20-2022 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 procedure 05/20/2022 Office Visit Orthopaedics Marcela Pearson DO [address] [place] [address] [facility] Orthopedics Start: 05-03-2022 End: 05-04-2023 Bacteria identified in Urine by Culture URINE CULTURE Microbiology Routine Dysuria Expected: 05/03/2022, Expires: 05/04/2023 [facility] Immunizations Immunization Date Immunization Notes Care Provider [facility] 11-18-2022 Influenza Vaccine, Quadrivalent, Adjuvanted Avb Ai Costa Nurse [facility] 11-18-2022 influenza ADJUVANTED QUAD seasonal virus vaccine 0.5 ML Prefilled Syringe injection Avb Ai Costa Nurse [facility] 11-30-2021 Influenza Vaccine, Quadrivalent, Adjuvanted Deepa Weiss MD Work Phone: [facility] 11-30-2021 influenza virus vacc ine, unspecified formulation Marcela Pearson DO Work Phone: [facility] 08-28-2021 COVID-19 vaccine, INGRIS-SUCROSE, Pfizer, 0.3 ML Deepa Weiss MD Work Phone: [facility] 01-13-2021 COVID-19 vaccine, mR NA, Pfizer, 0.3 ML Deepa Weiss MD Work Phone: [facility] 12-17-2020 Influenza, High-dose Seasonal, Quadrivalent, Preservative Free Deepa Weiss MD Work Phone: [facility] 12-17-2020 influenza virus vacc ine, unspecified formulation Anirudh Costa [employer] Work Phone: [facility] 07-04-2020 SARS-COV-2 (COVID-19 ), Mrna, Lnp-s, Pf, 100 Mcg/ 0.5 Ml Dose MODERNA Anabela Swank [employer] Work Phone: [facility] 06-06-2020 SARS-COV-2 (COVID-19 ), Mrna, Lnp-s, Pf, 100 Mcg/ 0.5 Ml Dose MODERNA Anabela Swank [employer] Work Phone: [facility] 02-22-2020 zoster vaccine recombinant Anabela Swank [employer] Work Phone: [facility] 02-22-2020 zoster vaccine, unspecified formulation Anabela Swank [employer] Work Phone: [facility] 11-16-2019 tetanus toxoid, redu ramirez diphtheria toxoid, and acellular pertussis vaccine, adsorbed Anabela Swank [employer] Work Phone: [facility] 11-16-2019 zoster vaccine recombinant Deepa Weiss MD Work Phone: [facility] 11-03-2019 Influenza, High-dose Seasonal, Quadrivalent, Preservative Free Anabela Swank [employer] Work Phone: [facility] 11-03-2019 pneumococcal polysaccharide vaccine, 23 valent Anabela Swank [employer] Work Phone: [facility] 11-03-2019 influenza virus vacc ine, unspecified formulation Anabela Swank [employer] Work Phone: [facility] 12-15-2018 influenza virus vacc ine, unspecified formulation Anabela Swank [employer] Work Phone: [facility] 11-27-2018 influenza virus vacc ine, unspecified formulation; Translations: [ADMIN INFLUENZA VIRUS VAC] Anirudh Costa [facility] 11-27-2018 influenza, injectabl e, quadrivalent, preservative free [facility] 11-27-2018 influenza high-dose split seasonal virus vaccine 0.5 ML injection [facility] 11-27-2018 influenza seasonal v irus vaccine 0.5 ML Suspension Prefilled Syringe [facility] 11-23-2017 influenza virus vacc ine, unspecified formulation Deepa Weiss MD Work Phone: [facility] 12-15-2016 influenza virus vacc ine, unspecified formulation Deepa Weiss MD Work Phone: [facility] 11-26-2015 pneumococcal conjuga te vaccine, 13 valent Anabela Swank [employer] Work Phone: [facility] 11-15-2015 influenza virus vacc ine, unspecified formulation Deepa Weiss MD Work Phone: [facility] 11-23-2013 pneumococcal vaccine , unspecified formulation Anabela Swank [employer] Work Phone: [facility] 11-14-2013 influenza virus vacc ine, unspecified formulation Deepa Weiss MD Work Phone: [facility] 12-16-2011 influenza virus vacc ine, unspecified formulation Deepa Weiss MD Work Phone: [facility] 11-28-2010 influenza virus vacc susie, unspecified formulation Deepa Weiss MD Work Phone: [facility] 12-15-2009 influenza virus vacc ine, unspecified formulation Deepa Weiss MD Work Phone: [facility] 10-24-2008 influenza virus vacc ine, unspecified formulation Deepa Weiss MD Work Phone: [facility] Payers Date Payer Category Payer Medicaid [id number] 05-15-2020 Medicaid [id number] 05-15-2020 Medicaid [id number] [id number]. [id number] 10-24-2018 [employer] ( and others) CHARLIE KAPOOR CHARLIE KAPOOR 10/24/2018-Present [id number]. 7.3.609010.315 08-28-2018 [employer] ( and others) xxxxxxxxx 1.2.840.582210.1.13.172.2. 7.3.728407.315 02-14-2015 Unknown [id number] 06-14-2014 Medicare [id number] [id number]. 7.3.102330.315 06-14-2014 Medicare [id number] 1.2.840.157716.1.13.385.2. 7.3.717715.315 06-14-2014 Medicare [id number] 06-14-2014 Medicare [id number]. 1.13.172.2. 7.3.476258.315 02-14-2010 Unknown [id number] 1949 Unknown [id number] 2.16840.1.067263.3.579.2. 903 1949 Unknown [id number] .840.1.624267.3.579.2. 903 1949 Unknown [id number] 2.840.1.555731.3.579.2. 594 1949 Unknown [id number] 2.16840.1.017819.3.579.2. 594 1949 Unknown [id number] 2.16840.1.975343.3.579.2. 594 1949 Unknown [id number] 2.16.840.1.126741.3.579.2. 594 1949 Unknown [id number] 2.16840.1.459983.3.579.2. 594 1949 Unknown [id number] 2.16.840.1.605323.3.579.2. 594 1949 Unknown [id number] 2.16.840.1.201649.3.579.2. 594 1949 Unknown [id number] 2.16.840.1.245461.3.579.2. 594 1949 Unknown [id number] 2.16.840.1.106069.3.579.2. 594 1949 Unknown [id number] 2.16.840.1.832666.3.579.2. 594 1949 Unknown [id number] 2.16.840.1.585792.3.579.2. 594 1949 Unknown [id number] 2.16.840.1.710783.3.579.2. 903 1949 Unknown [id number] 2.16.840.1.961132.3.579.2. 903 1949 Unknown [id number] 2.16.840.1.362383.3.579.2. 903 1949 Unknown [id number] 2.16.840.1.199175.3.579.2. 983 1949 Unknown [id number] 2.16.840.1.205144.3.579.2. 983 1949 Unknown [id number] 2.16.840.1.177959.3.579.2. 983 1949 Unknown [id number] 2.16.840.1.832958.3.579.2. 983 1949 Unknown [id number] 2.16.840.1.990482.3.579.2. 983 1949 Unknown [id number] 2.16.840.1.909030.3.579.2. 983 1949 Unknown [id number] 2.16.840.1.266308.3.579.2. 983 1949 Unknown [id number] 2.16.840.1.400809.3.579.2. 983 1949 Unknown [id number] 2.16.840.1.997479.3.579.2. 1949 Unknown [id number] 2.16.840.1.712457.3.579.2. 1949 Unknown [id number] 2.16.840.1.852730.3.579.2. 1949 Unknown [id number] 2.16.840.1.422006.3.579.2. 1949 Unknown [id number] 2.16.840.1.848081.3.579.2. 1949 Unknown [id number] 2.16.840.1.727742.3.579.2. 1949 Unknown [id number] 2.16.840.1.461235.3.579.2. 1949 Unknown [id number] 2.16.840.1.128092.3.579.2. 1949 Unknown [id number] 2.16.840.1.282842.3.579.2. 1949 Unknown [id number] 2.16.840.1.146293.3.579.2. 1949 Unknown [id number] 2.16.840.1.370837.3.579.2. 1949 Unknown [id number] 2.16.840.1.229339.3.579.2. 1949 Unknown [id number] 2.16.840.1.545711.3.579.2. 1949 Unknown [id number] 2.16.840.1.191107.3.579.2. 1949 Unknown [id number] 2.16.840.1.841971.3.579.2. 1949 Unknown [id number] 2.16.840.1.590179.3.579.2. 983 Unknown [facility] [id number] Effective for all dates [id number] 1.2.840.201396.1.13.385.2. 7.3.860401.315 Unknown [facility] [id number] Effective for all dates [phone] [id number] [place] [address] 1.2.840.477648.1.13.385.2. 7.3.966692.315 Social History Date Type Detail Facility Start: 06-14-2018 End: 06-22-2018 Tobacco smoking status VAIS Current every day smoker [facility] Start: 06-14-2018 End: 07-03-2020 Cigarettes smoked current (pack per day) - Reported [facility] Start: 06-14-2018 End: 02-29-2020 History SDOH Alcohol Frequency 5 [facility] Start: 06-14-2018 History SDOH Alcohol Std Drinks 2 [facility] Start: 1950 Sex Assigned At Not on file [facility] End: 02-14-2018 History of tobacco use Cigarette Smoker [facility] Start: 06-16-2018 History SDOH Alcohol Std Drinks 3 [facility] Start: 06-22-2018 Alcohol Comment 10-12 daily [facility] Start: 06-29-2018 End: 02-29-2020 History SDOH Alcohol Frequency 1 [facility] Start: 07-27-2018 End: 12-28-2021 Tobacco smoking status NHIS Former smoker [facility] Start: 07-27-2018 Tobacco Comment quit smoking M 2018 [facility] Start: 10-24-2018 End: 07-03-2020 Alcohol intake Not Currently [facility] Start: 08-28-2018 End: 05-09-2020 Tobacco smoking status VAIS Unknown if ever smoked [facility] Start: 05-15-2021 End: 05-25-2021 Exposure to SARS-CoV-2 (event) Not sure [facility] Exposure to SARS-CoV -2 (event) [facility] Start: 05-09-2020 End: 12-28-2021 Tobacco use and exposure Never used [facility] Start: 05-09-2020 End: 07-15-2020 Alcohol intake Ex-drinker (finding) [facility] End: 02-14-2018 History of tobacco use Current smoker [facility] Start: 03-30-2021 End: 02-03-2023 Alcohol intake Current drinker of alcohol (finding) [facility] Start: 04-10-2020 History SDOH Alcohol Comment occasionally, might have a glass a night [facility] How often to you hav e a drink containing alcohol? Never [facility] How many standard drinks containing alcohol do you have on a typical day? 10 or more [facility] Frequency of Binge Drinking Not on file [facility] Start: 02-03-2023 Alcohol Comment every day as w kal[facility] Goals Date Patient Goal Desired Activity /State Clinical Notes 07-01-2020 to 02-04-2023 Kaila Husain RN - 02/04/2023 1:30 AM Steph Husain RN - 02/04/2023 1:30 AM Nino Paulson MD - 02/04/2023 12:10 AM Nino Paulson MD - 02/04/2023 12:10 AM ESTPatient Instructions Note Date & Type Note Facility 02-04-2023 Emergency department Note Discharge instructions reviewed with patient and daughter who verbalizes understanding. Patient ambulates out of ED with a steady gait denies any questions at this time [facility] 02-04-2023 Emergency department Note Discharge instructions reviewed with patient and daughter who verbalizes understanding. Patient ambulates out of ED with a steady gait denies any questions at this time Emergency Department Report [facility] EMERGENCY DEPARTMENT Service Date:.02/04/23 PCP: Anirudh Costa Chief Complaint: Chief Complaint Patient presents with Depression Patient states she just had a friend so she has been feeling helpless Alcohol intoxication Alcohol Problem Per patients daughter has been drinking daily for months and depressed. Patient denies intentions to harm herself HPI Ruperto Hunter is a 72 y.o. female presents to the ED today due to depression. Patient had a recent friend . Patient has a history of alcohol use and states that due to recent her use has increased. Patient states for example she bought a 12 pack of beer and she finished a 12 pack of beer within 3 hours Review of Systems: Review of Systems All other systems reviewed and are negative. Past Medical History: Past Medical History: Diagnosis Date Anxiety Chronic sinusitis GERD (gastroesophageal reflux disease) Hyperlipidemia Hypertension Hypothyroidism Migraine Nasopharyngeal neoplasm Nonintractable headache Tremor Trigeminal neuropathy Past Surgical History: Past Surgical History: Procedure Laterality Date EGD DIAGNOSTIC N/A 02/20/2021 Laterality: N/A; Surgeon: Maria Luisa Lopes DO; [facility] COLONOSCOPY DIAGNOSTIC N/A 02/20/2021 Laterality: N/A; Surgeon: Maria Luisa Lopes DO; Location: [facility] ESS NASAL DIAGNOSTIC Midline 04/25/2020 Laterality: Midline; Surgeon: Chidi Valenzuela MD; Location: [facility] OR RESECTION INFERIOR TURBINATE SUBMUCOUS N/A 04/18/2020 Laterality: N/A; Surgeon: Sofia Story MD; Location: [facility] NASOPHARYNGOSCOPY N/A 04/18/2020 Laterality: N/A; Surgeon: Sofia Story MD; Location: [facility] OTHER SURGICAL 2016 Skin cancer removed off lower eyelid BACK SURGERY 02/08/2019, 11/24/20 Dr. Powers BLADDER SUSPENSION CHOLECYSTECTOMY HYSTERECTOMY OTHER SURGICAL PICC line placement Allergies: Allergies Allergen Reactions Keflex [Cephalexin] Angioedema (swelling) Ciprofloxacin Itching and Myalgia Celebrex [Celecoxib] Rash Pravastatin Myalgia Other reaction(s): Muscle pain Medications: Discharge Medication List as of 02/04/2023 1:08 AM START taking these medications Details Chlordiazepoxide 25 MG capsule Take 2 caps (50 mg) by mouth every 6 hours on day 1, then 2 caps every 8 hours on day 2, then 2 caps every 12 hours on day 3, then 2 caps together at once on day 4, then stop. Normal Disp-20 capsule, R-0 CONTINUE these medications which have NOT CHANGED Details acetaminophen 500 MG tablet Take 2 tablets by mouth every 6 hours as needed for Pain. PRN Historical Med amLODIPine 10 MG tablet Take 1 tablet by mouth daily. Normal Disp-90 tablet, R-3 BIOTIN PO Take by mouth. Historical Med buPROPion 150 MG tablet XL Take 2 tablets by mouth daily every morning. Normal Disp-180 tablet, R-3 EPINEPHrine 0.3 MG/0.3ML Solution Auto-injector injection Inject contents of 1 autoinjector (0.3 mg) into thigh for allergic reactions (hives, lip/tongue/throat swelling, breathing trouble, lightheadedness, passing out or other symptoms of an allergic reaction) and seek medical attention immediately. If symptom s do not resolve after 5 min and still awaiting medical care, inject contents of a second autoinjector. Normal Disp-1 Each, R-1For patients >/= 30 kg. estradiol 2 MG tablet Take 1 tablet by mouth daily. Normal Disp-90 tablet, R-3 ezetimibe 10 MG tablet Take 1 tablet by mouth daily. Normal Disp-30 tablet, R-11 gabapentin 600 MG tablet Take 1 tablet by mouth at bedtime. Normal Disp-90 tablet, R-3 Ibuprofen 600 MG tablet Take 1 tablet by mouth every 6 hours as needed for Mild Pain. Takes 600mg 2x daily per patient Historical Med Levothyroxine 125 MCG tablet Take 1 tablet by mouth daily. Normal Disp-90 tablet, R-3 Lisinopril 5 MG tablet Take 1 tablet by mouth daily. Normal Disp-90 tablet, R-3 Meloxicam 15 MG tablet Take 1 tablet by mouth daily. Normal Disp-90 tablet, R-3 omeprazole [address] capsule Take 1 capsule by mouth daily. Normal Disp-90 capsule, R-3 Pitavastatin Calcium (Livalo) 1 MG tablet Take 1 tablet by mouth daily. Normal Disp-90 tablet, R-3 predniSONE 20 MG tablet Take 2 tablets by mouth daily, in the morning with food. Normal Disp-10 tablet, R-0 Primidone 50 MG tablet Take 2 tablets by mouth twice daily Normal Disp-360 tablet, R-0 Probiotic Product (PROBIOTIC-10 PO) Take by mouth. Historical Med Family History: Family History Problem Relation Age of Onset Diabetes Mother Depression Mother Heart Disease - Other Father Hypertension Father Lipid Disorder Father Heart Failure Father Myocardial Infarction Father Prostate Cancer Father Thyroid Disease Father Heart Disease - Other Brother Hypertension Brother Lipid Disorder Brother Kidney Disease Brother Alzheimer's Maternal Grandmother Myocardial Infarction Maternal Grandfather Social History: Social History Socioeconomic History Marital status: Spouse name: Not on file Number of children: Not on file Years of education: Not on file Highest education level: Not on file Occupational History Not on file Tobacco Use Smoking status: Former Packs/day: 1.50 Years: 50.00 Additional pack years: 0.00 Total pack years: 75.00 Types: Cigarettes Quit date: 2018 Years since quittin.9 Smokeless tobacco: Never Vaping Use Vaping Use: Never used Substance and Sexual Activity Alcohol use: Yes Alcohol/week: 13.0 standard drinks of alcohol Types: 1 Glasses of wine, 12 Cans of beer per week Comment: every day as well asd vodka Drug use: Never Sexual activity: Not Currently Partners: Male control/protection: Hysterectomy Other Topics Concern Service Not Asked Blood Transfusions Not Asked Caffeine Concern Not Asked Occupational Exposure Not Asked Hobby Hazards Not Asked Sleep Concern Not Asked Stress Concern Not Asked Weight Concern Not Asked Special Diet Not Asked Back Care Not Asked Exercise Not Asked Bike Helmet Not Asked Seat Belt Not Asked Domestic Violence No Social History Narrative Not on file Social Determinants of Health Financial Resource Strain: Not on file Food Insecurity: Not on file Transportation Needs: Not on file Physical Activity: Not on file Stress: Not on file Social Connections: Not on file Intimate Partner Violence: Not on file Housing Stability: Not on file Physical Exam: Physical Exam Constitutional: Appearance: Normal appearance. HENT: Head: Normocephalic and atraumatic. Right Ear: Tympanic membrane and external ear normal. Left Ear: Tympanic membrane and external ear normal. Nose: Nose normal. Mouth/Throat: Mouth: Mucous membranes are moist. Pharynx: Oropharynx is clear. Eyes: Conjunctiva/sclera: Conjunctivae normal. Pupils: Pupils are equal, round, and reactive to light. Cardiovascular: Rate and Rhythm: Normal rate and regular rhythm. Pulses: Normal pulses. Pulmonary: Effort: Pulmonary effort is normal. No respiratory distress. Breath sounds: Normal breath sounds. No wheezing. Abdominal: General: Abdomen is flat. Bowel sounds are normal. There is no distension. Palpations: Abdomen is soft. Tenderness: There is no abdominal tenderness. Musculoskeletal: General: Normal range of motion. Cervical back: Normal range of motion and neck supple. Skin: General: Skin is warm and dry. Capillary Refill: Capillary refill takes less than 2 seconds. Neurological: General: No focal deficit present. Mental Status: She is alert and oriented to person, place, and time. Mental status is at baseline. Cranial Nerves: No cranial nerve deficit. Sensory: No sensory deficit. Psychiatric: Mood and Affect: Mood normal. Behavior: Behavior normal. Vital Signs During ED Visit Patient Vitals for the past 24 hrs: BP Temp Temp src Pulse Resp SpO2 Height 02/04/23 0000 163/75 -- -- 89 16 97 % -- 02/03/23 2300 147/66 -- -- 84 17 95 % -- 02/03/23 2230 140/64 -- -- 90 16 96 % -- 02/03/23 2200 156/73 -- -- 84 16 95 % -- 02/03/231954 -- -- -- -- -- -- 1.575 m (5' 2 ) 02/03/231953 141/73 97.8 F (36.6 C) Oral 113 18 97 % -- Orders/Results: Orders Placed This Encounter COMPREHENSIVE METABOLIC PANEL CBC, EDIF, PLATELET MAGNESIUM ACETAMINOPHEN LEVEL ALCOHOL (ETHANOL),BLOOD TOXICOLOGY DRUG SCREEN, URINE SALICYLATE LEVEL AMB REFERRAL TO FAMILY PRACTICE Magnesium sulfate 2 g/50 ml in sterile water premix IVPB 2 g 50 mL (total volume) Chlordiazepoxide 25 MG capsule Chlordiazepoxide (LIBRIUM) capsule 50 mg URINALYSIS URINALYSIS, MACRO Results for orders placed or performed during the hospital encounter of 02/03/23 COMPREHENSIVE METABOLIC PANEL Result Value Ref Range Glucose 89 70 - 100 MG/DL BUN 10 7 - 20 MG/DL CREATININE SERUM 0.50 (L) 0.70 - 1.20 MG/DL SODIUM 132 (L) 137 - 145 MMOL/L POTASSIUM 3.7 3.5 - 5.1 MMOL/L CHLORIDE 100 98 - 107 MMOL/L CALCIUM 9.9 8.4 - 10.2 MG/DL PROTEIN, TOTAL 7.1 6.3 - 8.2 GM/DL Albumin 4.2 3.5 - 5.0 G/dl BILIRUBIN, TOTAL 0.3 0.2 - 1.3 MG/DL AST 49 (H) 14 - 36 IU/L ALKALINE PHOSPHATASE 75 38 - 126 IU/L CARBON DIOXIDE (CO2) 19 (L) 22 - 30 MMOL/L A/G Ratio 1.4 RATIO ALT 46 (H) <35 IU/L ESTIMATED GFR, NON AMER 129 ml/min/1.73sq.m ESTIMATED GFR, 156 ml/min/1.73sq.m GFR COMMENT Average GFR for 70+ years old = 75. CBC, EDIF, PLATELET Result Value Ref Range WBC (WHITE BLOOD COUNT) 5.3 3.6 - 11.0 10*3/uL RBC 4.01 4.0 - 5.4 10*6/uL HEMOGLOBIN (HGB) 13.4 12.0 - 16.0 G/DL HEMATOCRIT (HCT) 40.5 36.0 - 48.0 % MEAN CELL VOLUME 100.9 (H) 80.0 - 100.0 FL Mean Cell HGB 33.4 26.0 - 35.0 PG MEAN CELL HGB CONCENTRATION 33.1 27.0 - 37.0 G/DL RBC DISTRIBUTION 13.9 11.5 - 14.5 % PLATELET COUNT 263 130 - 400 10*3/uL MEAN PLATELET VOLUME 7.7 7.4 - 11.0 FL DIFFERENTIAL TYPE AUTO DIFF % NEUTROPHILS 47.7 37.0 - 75.0 % LYMPHOCYTE 38.7 20.0 - 55.0 % MONOCYTE % 11.1 (H) 0.0 - 10.0 % EOSINOPHIL % 2.0 0.0 - 11.0 % BASOPHIL % 0.5 0.0 - 2.0 % Absolute Neutrophil Count 2.5 1.4 - 6.5 10*3/uL LYMPHOCYTES, ABSOLUTE 2.1 1.2 - 3.4 10*3/uL MONOCYTES, ABSOLUTE 0.6 0.0 - 0.7 10*3/uL ABSOLUTE EOSINOPHIL COUNT 0.1 0.0 - 0.7 10*3/uL ABSOLUTE BASOPHIL COUNT 0.0 0.0 - 0.2 10*3/uL MAGNESIUM Result Value Ref Range MAGNESIUM 1.5 (L) 1.6 - 2.3 MG/DL ACETAMINOPHEN LEVEL Result Value Ref Range ACETAMINOPHEN <10.0 (L) 10 - 30 UG/ML ALCOHOL (ETHANOL),BLOOD Result Value Ref Range ALCOHOL, ETHYL, SERUM 177 (H) 0 - 10 MG/DL SALICYLATE LEVEL Result Value Ref Range SALICYLATE <1.0 0 - 20 MG/DL URINALYSIS, MACRO Result Value Ref Range COLOR, URINE YELLOW YELLOW APPEARANCE, URINE CLEAR CLEAR Specific [place], Urine <1.005 (L) 1.010 - 1.025 PH URINE 6.0 5.0 - 7.0 Urine Protein NEGATIVE NEGATIVE mg/dl GLUCOSE, URINE NEGATIVE NEGATIVE mg/dl KETONES, URINE NEGATIVE NEGATIVE mg/dl BILIRUBIN, URINE NEGATIVE NEGATIVE BLOOD, URINE DIPSTICK NEGATIVE NEGATIVE NITRITES, URINE NEGATIVE NEGATIVE UROBILINOGEN, URINE 0.2 0.2 - 1.0 E.U./dL LEUKOCYTE ESTERASE, URINE NEGATIVE NEGATIVE Radiographic Imaging No orders to display Moderate Sedation Procedure: No Procedures: Procedures ED Summary: I spent approximately 15 minutes in counseling with this patient. Patient is amenable to going to detoxification. Advised patient we had not do detox medication here. Patient's CIWA score was 4 in the emergency department. Patient is able to be discharged home. I did discharge patient home on CIWA protocol as she is afraid of the withdrawal symptoms and going back to drinking. Patient will follow-up with mental health tomorrow to find what resources available to help her with her alcohol use disorder. Clinical Impression: 1. Alcohol dependence with unspecified alcohol-induced disorder No follow-ups on file. Discharge Medication List as of 02/04/2023 1:08 AM START taking these medications Details Chlordiazepoxide 25 MG capsule Take 2 caps (50 mg) by mouth every 6 hours on day 1, then 2 caps every 8 hours on day 2, then 2 caps every 12 hours on day 3, then 2 caps together at once on day 4, then stop. Normal Disp-20 capsule, R-0 Discharge Medication List as of 02/04/2023 1:08 AM An After Visit Summary was printed and given to the patient with above information. . . Mp Paulson MD 02/04/23 0138 documented in this encounter [facility] 02-04-2023 Physician Emergency department Note Emergency Department Report [facility] EMERGENCY DEPARTMENT Service Date:.02/04/23 PCP: Anirudh Costa Chief Complaint: Chief Complaint Patient presents with Depression Patient states she just had a friend so she has been feeling helpless Alcohol intoxication Alcohol Problem Per patients daughter has been drinking daily for months and depressed. Patient denies intentions to harm herself HPI Ruperto Hunter is a 72 y.o. female presents to the ED today due to depression. Patient had a recent friend . Patient has a history of alcohol use and states that due to recent her use has increased. Patient states for example she bought a 12 pack of beer and she finished a 12 pack of beer within 3 hours Review of Systems: Review of Systems All other systems reviewed and are negative. Past Medical History: Past Medical History: Diagnosis Date Anxiety Chronic sinusitis GERD (gastroesophageal reflux disease) Hyperlipidemia Hypertension Hypothyroidism Migraine Nasopharyngeal neoplasm Nonintractable headache Tremor Trigeminal neuropathy Past Surgical History: Past Surgical History: Procedure Laterality Date EGD DIAGNOSTIC N/A 02/20/2021 Laterality: N/A; Surgeon: Maria Luisa Lopes DO; Location[facility] COLONOSCOPY DIAGNOSTIC N/A 02/20/2021 Laterality: N/A; Surgeon: Maria Luisa Lopes DO; Location: [facility] ESS NASAL DIAGNOSTIC Midline 04/25/2020 Laterality: Midline; Surgeon: Chidi Valenzuela MD; Location: [facility]IN OR RESECTION INFERIOR TURBINATE SUBMUCOUS N/A 04/18/2020 Laterality: N/A; Surgeon: Sofia Story MD; Location: [facility] NASOPHARYNGOSCOPY N/A 04/18/2020 Laterality: N/A; Surgeon: Sofia Story MD; Location: [facility] OTHER SURGICAL 2016 Skin cancer removed off lower eyelid BACK SURGERY 02/08/2019, 11/24/20 Dr. Powers BLADDER SUSPENSION CHOLECYSTECTOMY HYSTERECTOMY OTHER SURGICAL PICC line placement Allergies: Allergies Allergen Reactions Keflex [Cephalexin] Angioedema (swelling) Ciprofloxacin Itching and Myalgia Celebrex [Celecoxib] Rash Pravastatin Myalgia Other reaction(s): Muscle pain Medications: Discharge Medication List as of 02/04/2023 1:08 AM START taking these medications Details Chlordiazepoxide 25 MG capsule Take 2 caps (50 mg) by mouth every 6 hours on day 1, then 2 caps every 8 hours on day 2, then 2 caps every 12 hours on day 3, then 2 caps together at once on day 4, then stop. Normal Disp-20 capsule, R-0 CONTINUE these medications which have NOT CHANGED Details acetaminophen 500 MG tablet Take 2 tablets by mouth every 6 hours as needed for Pain. PRN Historical Med amLODIPine 10 MG tablet Take 1 tablet by mouth daily. Normal Disp-90 tablet, R-3 BIOTIN PO Take by mouth. Historical Med buPROPion 150 MG tablet XL Take 2 tablets by mouth daily every morning. Normal Disp-180 tablet, R-3 EPINEPHrine 0.3 MG/0.3ML Solution Auto-injector injection Inject contents of 1 autoinjector (0.3 mg) into thigh for allergic reactions (hives, lip/tongue/throat swelling, breathing trouble, lightheadedness, passing out or other symptoms of an allergic reaction) and seek medical attention immediately. If symptom s do not resolve after 5 min and still awaiting medical care, inject contents of a second autoinjector. Normal Disp-1 Each, R-1For patients >/= 30 kg. estradiol 2 MG tablet Take 1 tablet by mouth daily. Normal Disp-90 tablet, R-3 ezetimibe 10 MG tablet Take 1 tablet by mouth daily. Normal Disp-30 tablet, R-11 gabapentin 600 MG tablet Take 1 tablet by mouth at bedtime. Normal Disp-90 tablet, R-3 Ibuprofen 600 MG tablet Take 1 tablet by mouth every 6 hours as needed for Mild Pain. Takes 600mg 2x daily per patient Historical Med Levothyroxine 125 MCG tablet Take 1 tablet by mouth daily. Normal Disp-90 tablet, R-3 Lisinopril 5 MG tablet Take 1 tablet by mouth daily. Normal Disp-90 tablet, R-3 Meloxicam 15 MG tablet Take 1 tablet by mouth daily. Normal Disp-90 tablet, R-3 omeprazole [address] capsule Take 1 capsule by mouth daily. Normal Disp-90 capsule, R-3 Pitavastatin Calcium (Livalo) 1 MG tablet Take 1 tablet by mouth daily. Normal Disp-90 tablet, R-3 predniSONE 20 MG tablet Take 2 tablets by mouth daily, in the morning with food. Normal Disp-10 tablet, R-0 Primidone 50 MG tablet Take 2 tablets by mouth twice daily Normal Disp-360 tablet, R-0 Probiotic Product (PROBIOTIC-10 PO) Take by mouth. Historical Med Family History: Family History Problem Relation Age of Onset Diabetes Mother Depression Mother Heart Disease - Other Father Hypertension Father Lipid Disorder Father Heart Failure Father Myocardial Infarction Father Prostate Cancer Father Thyroid Disease Father Heart Disease - Other Brother Hypertension Brother Lipid Disorder Brother Kidney Disease Brother Alzheimer's Maternal Grandmother Myocardial Infarction Maternal Grandfather Social History: Social History Socioeconomic History Marital status: Spouse name: Not on file Number of children: Not on file Years of education: Not on file Highest education level: Not on file Occupational History Not on file Tobacco Use Smoking status: Former Packs/day: 1.50 Years: 50.00 Additional pack years: 0.00 Total pack years: 75.00 Types: Cigarettes Quit date: 2019 Years since quittin.9 Smokeless tobacco: Never Vaping Use Vaping Use: Never used Substance and Sexual Activity Alcohol use: Yes Alcohol/week: 13.0 standard drinks of alcohol Types: 1 Glasses of wine, 12 Cans of beer per week Comment: every day as well asd vodka Drug use: Never Sexual activity: Not Currently Partners: Male control/protection: Hysterectomy Other Topics Concern Service Not Asked Blood Transfusions Not Asked Caffeine Concern Not Asked Occupational Exposure Not Asked Hobby Hazards Not Asked Sleep Concern Not Asked Stress Concern Not Asked Weight Concern Not Asked Special Diet Not Asked Back Care Not Asked Exercise Not Asked Bike Helmet Not Asked Seat Belt Not Asked Domestic Violence No Social History Narrative Not on file Social Determinants of Health Financial Resource Strain: Not on file Food Insecurity: Not on file Transportation Needs: Not on file Physical Activity: Not on file Stress: Not on file Social Connections: Not on file Intimate Partner Violence: Not on file Housing Stability: Not on file Physical Exam: Physical Exam Constitutional: Appearance: Normal appearance. HENT: Head: Normocephalic and atraumatic. Right Ear: Tympanic membrane and external ear normal. Left Ear: Tympanic membrane and external ear normal. Nose: Nose normal. Mouth/Throat: Mouth: Mucous membranes are moist. Pharynx: Oropharynx is clear. Eyes: Conjunctiva/sclera: Conjunctivae normal. Pupils: Pupils are equal, round, and reactive to light. Cardiovascular: Rate and Rhythm: Normal rate and regular rhythm. Pulses: Normal pulses. Pulmonary: Effort: Pulmonary effort is normal. No respiratory distress. Breath sounds: Normal breath sounds. No wheezing. Abdominal: General: Abdomen is flat. Bowel sounds are normal. There is no distension. Palpations: Abdomen is soft. Tenderness: There is no abdominal tenderness. Musculoskeletal: General: Normal range of motion. Cervical back: Normal range of motion and neck supple. Skin: General: Skin is warm and dry. Capillary Refill: Capillary refill takes less than 2 seconds. Neurological: General: No focal deficit present. Mental Status: She is alert and oriented to person, place, and time. Mental status is at baseline. Cranial Nerves: No cranial nerve deficit. Sensory: No sensory deficit. Psychiatric: Mood and Affect: Mood normal. Behavior: Behavior normal. Vital Signs During ED Visit Patient Vitals for the past 24 hrs: BP Temp Temp src Pulse Resp SpO2 Height 02/04/23 0000 163/75 -- -- 89 16 97 % -- 02/03/23 2300 147/66 -- -- 84 17 95 % -- 02/03/23 2230 140/64 -- -- 90 16 96 % -- 02/03/23 2200 156/73 -- -- 84 16 95 % -- 02/03/231954 -- -- -- -- -- -- 1.575 m (5' 2 ) 02/03/23 1954 141/73 97.8 F (36.6 C) Oral 113 18 97 % -- Orders/Results: Orders Placed This Encounter COMPREHENSIVE METABOLIC PANEL CBC, EDIF, PLATELET MAGNESIUM ACETAMINOPHEN LEVEL ALCOHOL (ETHANOL),BLOOD TOXICOLOGY DRUG SCREEN, URINE SALICYLATE LEVEL AMB REFERRAL TO FAMILY PRACTICE Magnesium sulfate 2 g/50 ml in sterile water premix IVPB 2 g 50 mL (total volume) Chlordiazepoxide 25 MG capsule Chlordiazepoxide (LIBRIUM) capsule 50 mg URINALYSIS URINALYSIS, MACRO Results for orders placed or performed during the hospital encounter of 02/03/23 COMPREHENSIVE METABOLIC PANEL Result Value Ref Range Glucose 89 70 - 100 MG/DL BUN 10 7 - 20 MG/DL CREATININE SERUM 0.50 (L) 0.70 - 1.20 MG/DL SODIUM 132 (L) 137 - 145 MMOL/L POTASSIUM 3.7 3.5 - 5.1 MMOL/L CHLORIDE 100 98 - 107 MMOL/L CALCIUM 9.9 8.4 - 10.2 MG/DL PROTEIN, TOTAL 7.1 6.3 - 8.2 GM/DL Albumin 4.2 3.5 - 5.0 G/dl BILIRUBIN, TOTAL 0.3 0.2 - 1.3 MG/DL AST 49 (H) 14 - 36 IU/L ALKALINE PHOSPHATASE 75 38 - 126 IU/L CARBON DIOXIDE (CO2) 19 (L) 22 - 30 MMOL/L A/G Ratio 1.4 RATIO ALT 46 (H) <35 IU/L ESTIMATED GFR, NON AMER 129 ml/min/1.73sq.m ESTIMATED GFR, 156 ml/min/1.73sq.m GFR COMMENT Average GFR for 70+ years old = 75. CBC, EDIF, PLATELET Result Value Ref Range WBC (WHITE BLOOD COUNT) 5.3 3.6 - 11.0 10*3/uL RBC 4.01 4.0 - 5.4 10*6/uL HEMOGLOBIN (HGB) 13.4 12.0 - 16.0 G/DL HEMATOCRIT (HCT) 40.5 36.0 - 48.0 % MEAN CELL VOLUME 100.9 (H) 80.0 - 100.0 FL Mean Cell HGB 33.4 26.0 - 35.0 PG MEAN CELL HGB CONCENTRATION 33.1 27.0 - 37.0 G/DL RBC DISTRIBUTION 13.9 11.5 - 14.5 % PLATELET COUNT 263 130 - 400 10*3/uL MEAN PLATELET VOLUME 7.7 7.4 - 11.0 FL DIFFERENTIAL TYPE AUTO DIFF % NEUTROPHILS 47.7 37.0 - 75.0 % LYMPHOCYTE 38.7 20.0 - 55.0 % MONOCYTE % 11.1 (H) 0.0 - 10.0 % EOSINOPHIL % 2.0 0.0 - 11.0 % BASOPHIL % 0.5 0.0 - 2.0 % Absolute Neutrophil Count 2.5 1.4 - 6.5 10*3/uL LYMPHOCYTES, ABSOLUTE 2.1 1.2 - 3.4 10*3/uL MONOCYTES, ABSOLUTE 0.6 0.0 - 0.7 10*3/uL ABSOLUTE EOSINOPHIL COUNT 0.1 0.0 - 0.7 10*3/uL ABSOLUTE BASOPHIL COUNT 0.0 0.0 - 0.2 10*3/uL MAGNESIUM Result Value Ref Range MAGNESIUM 1.5 (L) 1.6 - 2.3 MG/DL ACETAMINOPHEN LEVEL Result Value Ref Range ACETAMINOPHEN <10.0 (L) 10 - 30 UG/ML ALCOHOL (ETHANOL),BLOOD Result Value Ref Range ALCOHOL, ETHYL, SERUM 177 (H) 0 - 10 MG/DL SALICYLATE LEVEL Result Value Ref Range SALICYLATE <1.0 0 - 20 MG/DL URINALYSIS, MACRO Result Value Ref Range COLOR, URINE YELLOW YELLOW APPEARANCE, URINE CLEAR CLEAR Specific [place], Urine <1.005 (L) 1.010 - 1.025 PH URINE 6.0 5.0 - 7.0 Urine Protein NEGATIVE NEGATIVE mg/dl GLUCOSE, URINE NEGATIVE NEGATIVE mg/dl KETONES, URINE NEGATIVE NEGATIVE mg/dl BILIRUBIN, URINE NEGATIVE NEGATIVE BLOOD, URINE DIPSTICK NEGATIVE NEGATIVE NITRITES, URINE NEGATIVE NEGATIVE UROBILINOGEN, URINE 0.2 0.2 - 1.0 E.U./dL LEUKOCYTE ESTERASE, URINE NEGATIVE NEGATIVE Radiographic Imaging No orders to display Moderate Sedation Procedure: No Procedures: Procedures ED Summary: I spent approximately 15 minutes in counseling with this patient. Patient is amenable to going to detoxification. Advised patient we had not do detox medication here. Patient's CIWA score was 4 in the emergency department. Patient is able to be discharged home. I did discharge patient home on CIWA protocol as she is afraid of the withdrawal symptoms and going back to drinking. Patient will follow-up with mental health tomorrow to find what resources available to help her with her alcohol use disorder. Clinical Impression: 1. Alcohol dependence with unspecified alcohol-induced disorder No follow-ups on file. Discharge Medication List as of 02/04/2023 1:08 AM START taking these medications Details Chlordiazepoxide 25 MG capsule Take 2 caps (50 mg) by mouth every 6 hours on day 1, then 2 caps every 8 hours on day 2, then 2 caps every 12 hours on day 3, then 2 caps together at once on day 4, then stop. Normal Disp-20 capsule, R-0 Discharge Medication List as of 02/04/2023 1:08 AM An After Visit Summary was printed and given to the patient with above information. . . Mp Paulson MD 02/04/23 0138 [facility] 01-11-2023 History of Present illness Narrative Chief Complaint Patient presents with Left Hip - Pain Pain Radiation To: lateral, knee Pain Duration: 1.5 yrs., fell 2 weeks ago. Pain Frequency: constant Pain Quality: aching, soreness Factors That Aggravate Pain: activity (walking, sitting) Factors That Relieve Pain: rest, medications, over the counter (OTC), heat Patient presents in follow-up with concerns for hip related symptoms. Bilateral hip joint injection performed ounder ultrasound guidance on 12/10/22 provided relief only on the right. Unfortunately no relief on the left. Worsening of symptoms lately. Also has a h/o LBP and lumbar surgery, as well as some LE radiation of pain and n/t. She does have an upcoming appointment with Dr. Knutson to establish care for this. IMPRESSION/PLAN: Pertinent medical office records and imaging studies reviewed. Multiple xray views of the joint were ordered and interpreted by me. Xrays demonstrate mild to moderate narrowing and spurring. 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 Continue current conservative treatment. Medication management: Prednisone burst prescribed. May resume Meloxicam once finished with the Prednisone prescription. Tylenol PRN. We have discussed additional workup and treatment that could be needed. Follow-up: We will have her keep upcoming appointment in February for re-evaluation. Visit Vitals Temp 97.8 F (36.6 C) (Temporal) Ht 1.575 m (5' 2 ) Wt 58.1 kg (128 lb) BMI 23.41 kg/m *Time components listed in minutes below. This data may or may not be needed for insurance reimbursement purposes. Reviewing clinical note(s) from previous visit/ER/urgent care/PCP/other specialists 4 Review of medical history 4 Review of medical aides teacher or water trainer note 4 Independently obtain and review medical history and history of present illness with patient 4 Other counseling and coordination of care 7 Updating patient chart, documentation of clinical encounter and signing of orders 7 Medication ordering and discussion of risks, benefits and alternatives 3 *Portions of this note may have been created with [employer] or other software which leads to grammatical and typographical errors which are not development representative of the intent with my spoken words. Chief Complaint Patient presents with Left Hip - Pain Pain Radiation To: lateral, knee Pain Duration: 1.5 yrs., fell 2 weeks ago. Pain Frequency: constant Pain Quality: aching, soreness Factors That Aggravate Pain: activity (walking, sitting) Factors That Relieve Pain: rest, medications, over the counter (OTC), heat Patient presents in follow-up with concerns for hip related symptoms. Bilateral hip joint injection performed under ultrasound guidance on 12/10/22 provided relief only on the right. Unfortunately no relief on the left. Worsening of symptoms lately. Had a minor fall a couple weeks ago. Pain on left lateral side. Has been more uncomfortable but walking ok. Also has a h/o LBP and lumbar surgery, as well as some LE radiation of pain and n/t. She does have an upcoming appointment with Dr. Knutson to establish care for this. IMPRESSION/PLAN: Pertinent medical office records and imaging studies reviewed. Multiple xray views of the joint were ordered and interpreted by me. Xrays demonstrate mild to moderate narrowing and spurring. 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 Continue current conservative treatment. Medication management: Prednisone burst prescribed. May resume Meloxicam once finished with the Prednisone prescription. Tylenol PRN. We have discussed additional workup and treatment that could be needed. Follow-up: We will have her keep upcoming appointment in February for re-evaluation. Visit Vitals Temp 97.8 F (36.6 C) (Temporal) Ht 1.575 m (5' 2 ) Wt 58.1 kg (128 lb) BMI 23.41 kg/m *Time components listed in minutes below. This data may or may not be needed for insurance reimbursement purposes. Reviewing clinical note(s) from previous visit/ER/urgent care/PCP/other specialists 4 Review of medical history 4 Review of medical aides teacher or water trainer note 4 Independently obtain and review medical history and history of present illness with patient 4 Other counseling and coordination of care 7 Updating patient chart, documentation of clinical encounter and signing of orders 7 Medication ordering and discussion of risks, benefits and alternatives 3 *Portions of this note may have been created with [employer] or other software which leads to grammatical and typographical errors which are not development representative of the intent with my spoken words. Clinical plastic surgery assistant/AT/FRANKI was acting as a scribe today for this note. I have performed all essential components of the history, and physical exam. I have confirmed the diagnosis and developed a plan of care at this visit. I have reviewed the note following the visit and have made edits as appropriate to my evaluation and plan of care. Marcela L Riehm, DO documented in this encounter [facility] 12-10-2022 History of Present illness Narrative Associated Order(s): LARGE JOINT/BURSA INJECTION AND/OR ASPIRATION: bilateral hip joint Chief Complaint Patient presents with Left Hip - Pain, Follow-up Right Hip - Pain, Follow-up Pain Radiation To: down left leg to calf Pain Duration: 1.5 years Pain Frequency: constant Pain Quality: aching Factors That Aggravate Pain: positioning, reclining Factors That Relieve Pain: medications, over the counter (OTC), heat Patient presents in follow-up with concerns for hip related symptoms. Previous hip joint injection done on 08/19/22, provided good relief. Worsening of symptoms lately, bilaterally. IMPRESSION/PLAN: Pertinent medical office records and imaging studies reviewed. She does have MRI from 09/07/2021: 1. Incomplete imaging of the right femur which is only imaged to the level of the distal metaphysis. 2. Mild right iliopsoas bursitis. No acute fracture. Mild to moderate right hip degenerative changes. She also has xrays from 09/02/2021, which showed moderate right hip DJD. Medical decision making has been discussed with patient including potential further work-up, surgical and non-surgical options. Continue current conservative treatment. Medication management: Continue Meloxicam Injection/(s) performed after discussing risks, benefits and alternatives. See procedure note. We have discussed additional workup and treatment that could be needed. Follow-up in 3 months for re-evaluation. Visit Vitals Ht 1.575 m (5' 2 ) Wt 61.9 kg (136 lb 6.4 oz) BMI 24.95 kg/m LARGE JOINT/BURSA INJECTION AND/OR ASPIRATION: bilateral hip joint Date/Time: 12/10/2022 11:15 AM Performed by: Marcela Pearson DO Authorized by: Marcela Pearson DO Supporting Documentation Indications: pain Procedure Details: Location: hip - bilateral hip joint Local Anesthetic: lidocaine 1% Guidance: ultrasound Ultrasound probe size: 4 mHz curvilinear Images were saved electronically. Needle size: 22 G Medication Verification: I have personally verified and performed the final check of the medication(s) used in this procedure prior to administration. The following items were included during the verification process for medication(s) administered: drug name, strength, volume, expiration, physical integrity and appearance of the medication(s). Medications (Right): 3 mL lidocaine 10 mg/mL; 1 mL triamcinolone 40 MG/ML Medications (Left): 3 mL lidocaine 10 mg/mL; 1 mL triamcinolone 40 MG/ML Patient tolerance: patient tolerated the procedure well with no immediate complications Consent: Consent was obtained prior to the procedure after discussion of the risks, benefits and alternatives, and expected outcomes were discussed with the patient. The possibilities of reaction to medication, bleeding, infection, the need for additional procedures, failure to diagnosis a condition, and creating a complication requiring operation were discussed with the patient. The patient concurred with the proposed plan, giving consent. Preparation: Patient was prepped in the usual sterile fashion. The patient was prepped with Chloraprep. *Time components listed in minutes below. This data may or may not be needed for insurance reimbursement purposes. Reviewing clinical note(s) from previous visit/ER/urgent care/PCP/other specialists 4 Review of medical history 4 Review of medical aides teacher or water trainer note 4 Independently obtain and review medical history and history of present illness with patient 4 Other counseling and coordination of care 7 Updating patient chart, documentation of clinical encounter and signing of orders 7 Communicating and/or referring to other specialist 2 *Portions of this note may have been created with [employer] or other software which leads to grammatical and typographical errors which are not development representative of the intent with my spoken words. Chief Complaint Patient presents with Left Hip - Pain, Follow-up Right Hip - Pain, Follow-up Pain Radiation To: down left leg to calf Pain Duration: 1.5 years Pain Frequency: constant Pain Quality: aching Factors That Aggravate Pain: positioning, reclining Factors That Relieve Pain: medications, over the counter (OTC), heat Patient presents in follow-up with concerns for hip related symptoms. Previous hip joint injection done on 08/19/22, provided good relief. Worsening of symptoms lately, bilaterally. Also has a h/o LBP and lumbar surgery. Has a assurance specialist years ago that she is no longer est with. Does have some LE radiation of pain and n/t. IMPRESSION/PLAN: Pertinent medical office records and imaging studies reviewed. She does have MRI from 09/07/2021: 1. Incomplete imaging of the right femur which is only imaged to the level of the distal metaphysis. 2. Mild right iliopsoas bursitis. No acute fracture. Mild to moderate right hip degenerative changes. She also has xrays from 09/02/2021, which showed moderate right hip DJD. Medical decision making has been discussed with patient including potential further work-up, surgical and non-surgical options. Continue current conservative treatment. Medication management: Continue Meloxicam Injection/(s) performed after discussing risks, benefits and alternatives. See procedure note. We have discussed additional workup and treatment that could be needed. Referral to Dr. Knutson for eval of LBP and paresthesia. Follow-up in 3 months for re-evaluation. Visit Vitals Ht 1.575 m (5' 2 ) Wt 61.9 kg (136 lb 6.4 oz) BMI 24.95 kg/m LARGE JOINT/BURSA INJECTION AND/OR ASPIRATION: bilateral hip joint Date/Time: 12/10/2022 11:15 AM Performed by: Marcela Pearson DO Authorized by: Marcela Pearson DO Supporting Documentation Indications: pain Procedure Details: Location: hip - bilateral hip joint Local Anesthetic: lidocaine 1% Guidance: ultrasound Ultrasound probe size: 4 mHz curvilinear Images were saved electronically. Needle size: 22 G Medication Verification: I have personally verified and performed the final check of the medication(s) used in this procedure prior to administration. The following items were included during the verification process for medication(s) administered: drug name, strength, volume, expiration, physical integrity and appearance of the medication(s). Medications (Right): 3 mL lidocaine 10 mg/mL; 1 mL triamcinolone 40 MG/ML Medications (Left): 3 mL lidocaine 10 mg/mL; 1 mL triamcinolone 40 MG/ML Patient tolerance: patient tolerated the procedure well with no immediate complications Consent: Consent was obtained prior to the procedure after discussion of the risks, benefits and alternatives, and expected outcomes were discussed with the patient. The possibilities of reaction to medication, bleeding, infection, the need for additional procedures, failure to diagnosis a condition, and creating a complication requiring operation were discussed with the patient. The patient concurred with the proposed plan, giving consent. Preparation: Patient was prepped in the usual sterile fashion. The patient was prepped with Chloraprep. *Time components listed in minutes below. This data may or may not be needed for insurance reimbursement purposes. Reviewing clinical note(s) from previous visit/ER/urgent care/PCP/other specialists 4 Review of medical history 4 Review of medical aides teacher or water trainer note 4 Independently obtain and review medical history and history of present illness with patient 4 Other counseling and coordination of care 7 Updating patient chart, documentation of clinical encounter and signing of orders 7 Communicating and/or referring to other specialist 2 *Portions of this note may have been created with [employer] or other software which leads to grammatical and typographical errors which are not development representative of the intent with my spoken words. Clinical plastic surgery assistant/DONYA/FRANKI was acting as a scribe today for this note. I have performed all essential components of the history, and physical exam. I have confirmed the diagnosis and developed a plan of care at this visit. I have reviewed the note following the visit and have made edits as appropriate to my evaluation and plan of care. 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 Her last session was on 01/12/22 She has abnormal posturing and fatigue along with tremor that is only present when writing. She is currently taking primidone and gabapentin without clear benefit. Previously, I did not inject the FPL due to resultant thumb DIP flexor weakness and I increased the dose into the FCU muscle due to a feeling of tightness along the ulnar aspect of the forearm. This has worked well. Today, she reports improvement in handwriting. She did notice weakness of finger flexion of the DIP of the index finger today. Will reduced FDP dose to 5 units. On exam today, there is no apparent weakness in the right hand/forearm. Procedure After discussing the risks, benefits, and alternatives for this procedure, informed written consent was obtained and the signed consent form was placed in the medical chart. Botox was supplied by the office. One 100 unit vial of botox was diluted with 1 ml of preservative free saline. A 25 mm EMG needle was used. The skin was cleansed with alcohol. EMG and ultrasound were used for guidance, to ensure precise muscle localization and to avoid injuring unintended structures. Color doppler was used when appropriate to avoid injecting into blood vessels. Dilution: 100 units Botox/1 ml normal saline Botulinum toxin was injected with the following pattern: Right Pronator quadratus 5 units (ultrasound, volar approach) Adductor pollicis brevis 5 units Flexor carpi ulnaris 20 units Pronator teres 10 units Flexor digitorum profundus 5 units (-5 units) Frontalis 10 units (2.5 units per site) Lateral canthus Orb Oculi 5 units (2.5 units per side) Depressor angularis xavier 5 units (2.5 units per side) Total used: 65 units Unavoidable waste: 35 units The patient tolerated the procedure well. Post-procedure care was discussed. Patient was instructed to call if there is any swallowing or breathing problems or head drop. Follow-up in 3 months. The patient left the clinic in good condition. 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 Her last session was on 01/12/22 She has abnormal posturing and fatigue along with tremor that is only present when writing. She is currently taking primidone and gabapentin without clear benefit. Previously, I did not inject the FPL due to resultant thumb DIP flexor weakness and I increased the dose into the FCU muscle due to a feeling of tightness along the ulnar aspect of the forearm. This has worked well. Today, she reports improvement in handwriting. She did notice weakness of finger flexion of the DIP of the index finger today. Will reduced FDP dose to 5 units. On exam today, there is no apparent weakness in the right hand/forearm. Procedure After discussing the risks, benefits, and alternatives for this procedure, informed written consent was obtained and the signed consent form was placed in the medical chart. Botox was supplied by the office. One 100 unit vial of botox was diluted with 1 ml of preservative free saline. A 25 mm EMG needle was used. The skin was cleansed with alcohol. EMG and ultrasound were used for guidance, to ensure precise muscle localization and to avoid injuring unintended structures. Color doppler was used when appropriate to avoid injecting into blood vessels. Dilution: 100 units Botox/1 ml normal saline Botulinum toxin was injected with the following pattern: Right Pronator quadratus 5 units (ultrasound, volar approach) Adductor pollicis brevis 5 units Flexor carpi ulnaris 20 units Pronator teres 10 units Flexor digitorum profundus 5 units (-5 units) Frontalis 10 units (2.5 units per site) Lateral canthus Orb Oculi 5 units (2.5 units per side) Depressor angularis xavier 5 units (2.5 units per side) Total used: 65 units Unavoidable waste: 35 units The patient tolerated the procedure well. Post-procedure care was discussed. Patient was instructed to call if there is any swallowing or breathing problems or head drop. Follow-up in 3 months. The patient left the clinic in good condition. documented in this encounter [facility] 08-19-2022 History of Present illness Narrative Associated Order(s): LARGE JOINT/BURSA INJECTION AND/OR ASPIRATION: bilateral hip joint Post-Procedure Diagnose(s): Bilateral hip pain Chief Complaint Patient presents with Right Hip - Pain, Follow-up Pain Duration: Approx. 1 year Pain Frequency: intermittent Factors That Aggravate Pain: activity, positioning Factors That Relieve Pain: other (see comments) (nothing) Patient presents in follow-up with concerns for hip related symptoms. Previous hip joint injection done on 05/20/22, provided good relief. Worsening of symptoms lately, bilaterally. IMPRESSION/PLAN: Pertinent medical office records and imaging studies reviewed. She does have MRI from 09/07/2021: 1. Incomplete imaging of the right femur which is only imaged to the level of the distal metaphysis. 2. Mild right iliopsoas bursitis. No acute fracture. Mild to moderate right hip degenerative changes. She also has xrays from 09/02/2021, which showed moderate right hip DJD. Medical decision making has been discussed with patient including potential further work-up, surgical and non-surgical options. Continue current conservative treatment. Medication management: Continue current medication Corticosteroid injection performed today. See procedure note. We have discussed additional workup and treatment that could be needed. We will plan on new xrays of bilateral hips next visit Follow-up in 3 months for re-evaluation. Visit Vitals Ht 1.575 m (5' 2 ) Wt 61.4 kg (135 lb 6.4 oz) BMI 24.76 kg/m LARGE JOINT/BURSA INJECTION AND/OR ASPIRATION: bilateral hip joint Date/Time: 08/19/2022 9:30 AM Performed by: Marcela Pearson DO Authorized by: Marcela Pearson DO Supporting Documentation Indications: pain Procedure Details: Location: hip - bilateral hip joint Local Anesthetic: lidocaine 1% Total Local Anesthetic: 3 mLs Guidance: ultrasound Images were saved electronically. Needle size: 22 G Medication Verification: I have personally verified and performed the final check of the medication(s) used in this procedure prior to administration. The following items were included during the verification process for medication(s) administered: drug name, strength, volume, expiration, physical integrity and appearance of the medication(s). Medications (Right): 1 mL triamcinolone 40 MG/ML Medications (Left): 1 mL triamcinolone 40 MG/ML Patient tolerance: patient tolerated the procedure well with no immediate complications Consent: Consent was obtained prior to the procedure after discussion of the risks, benefits and alternatives, and expected outcomes were discussed with the patient. The possibilities of reaction to medication, bleeding, infection, the need for additional procedures, failure to diagnosis a condition, and creating a complication requiring operation were discussed with the patient. The patient concurred with the proposed plan, giving consent. Preparation: Patient was prepped in the usual sterile fashion. *Portions of this note may have been created with [employer] or other software which leads to grammatical and typographical errors which are not development representative of the intent with my spoken words. Chief Complaint Patient presents with Right Hip - Pain, Follow-up Pain Duration: Approx. 1 year Pain Frequency: intermittent Factors That Aggravate Pain: activity, positioning Factors That Relieve Pain: other (see comments) (nothing) Patient presents in follow-up with concerns for hip related symptoms. Previous hip joint injection done on 05/20/22, provided good relief. Worsening of symptoms lately, bilaterally. IMPRESSION/PLAN: Pertinent medical office records and imaging studies reviewed. She does have MRI from 09/07/2021: 1. Incomplete imaging of the right femur which is only imaged to the level of the distal metaphysis. 2. Mild right iliopsoas bursitis. No acute fracture. Mild to moderate right hip degenerative changes. She also has xrays from 09/02/2021, which showed moderate right hip DJD. Medical decision making has been discussed with patient including potential further work-up, surgical and non-surgical options. Continue current conservative treatment. Medication management: Continue current medication Corticosteroid injection performed today. See procedure note. We have discussed additional workup and treatment that could be needed. We will plan on new xrays of bilateral hips next visit Follow-up in 3 months for re-evaluation. Visit Vitals Ht 1.575 m (5' 2 ) Wt 61.4 kg (135 lb 6.4 oz) BMI 24.76 kg/m LARGE JOINT/BURSA INJECTION AND/OR ASPIRATION: bilateral hip joint Date/Time: 08/19/2022 9:30 AM Performed by: Marcela Pearson DO Authorized by: Marcela Pearson DO Supporting Documentation Indications: pain Procedure Details: Location: hip - bilateral hip joint Local Anesthetic: lidocaine 1% Total Local Anesthetic: 3 mLs Guidance: ultrasound Images were saved electronically. Needle size: 22 G Medication Verification: I have personally verified and performed the final check of the medication(s) used in this procedure prior to administration. The following items were included during the verification process for medication(s) administered: drug name, strength, volume, expiration, physical integrity and appearance of the medication(s). Medications (Right): 1 mL triamcinolone 40 MG/ML Medications (Left): 1 mL triamcinolone 40 MG/ML Patient tolerance: patient tolerated the procedure well with no immediate complications Consent: Consent was obtained prior to the procedure after discussion of the risks, benefits and alternatives, and expected outcomes were discussed with the patient. The possibilities of reaction to medication, bleeding, infection, the need for additional procedures, failure to diagnosis a condition, and creating a complication requiring operation were discussed with the patient. The patient concurred with the proposed plan, giving consent. Preparation: Patient was prepped in the usual sterile fashion. *Portions of this note may have been created with [employer] or other software which leads to grammatical and typographical errors which are not development representative of the intent with my spoken words. Clinical plastic surgery assistant/AT/FRANKI was acting as a scribe today for this note. I have performed all essential components of the history, and physical exam. I have confirmed the diagnosis and developed a plan of care at this visit. I have reviewed the note following the visit and have made edits as appropriate to my evaluation and plan of care. Marcela Pearson DO documented in this encounter [facility] 05-28-2022 Note EXAM: CT LUNG CANCER SCREENING HISTORY: Smoking history/lung cancer screening evaluation COMPARISON: 04/09/2019. TECHNIQUE: 1 mm axial unenhanced images of the chest were performed. There are coronal and sagittal reformations. They are viewed in several different windows. Low dose screening technique was utilized. FINDINGS: The heart is slender. There is no pericardial effusion. I do not see any evidence of aortic aneurysm but there is aortic arch calcification. There is also scattered moderate coronary arterial calcifications. There is prominent calcifications of the mitral valve. There is no pericardial effusion. There is no adenopathy. There are some calcified nodes. Review of lung windows shows centrilobular emphysematous changes of a mild to moderate nature. There are a few scattered calcified granulomas. There are some minimal ground-glass changes in the right middle lobe anteriorly. Otherwise I am not seeing any bothersome noncalcified pulmonary nodules. No effusion is seen. There is a small 3 mm calcification in the midpole of the right kidney which is nonobstructive. IMPRESSION: 1. Mild to moderate centrilobular emphysematous changes. 2. There are numerous calcified granulomas. I am not seeing any bothersome noncalcified pulmonary nodules. There is a focal area of minor ground-glass change in the right middle lobe which at present appears benign. 3. Moderate focal coronary artery calcifications as well as some mitral valvular calcifications. 4. 3 mm nonobstructive mid pole right renal calculus. Lung-RADS 2 FINDINGS: Solid nodule(s): <6 mm or new <4 mm; part solid nodule(s) <6 mm total diameter on baseline screening; nonsolid nodule(s) (GGN): <20 mm or greater than/equal to 20 mm and unchanged or slowly growing; category 3 or 4 nodules unchanged for greater than/equal to 3 months. MANAGEMENT: Continue annual screening with LDCT in 12 months. [facility] 05-20-2022 History of Present illness Narrative Associated Order(s): LARGE JOINT/BURSA INJECTION AND/OR ASPIRATION: R hip joint Post-Procedure Diagnose(s): Right hip pain Chief Complaint Patient presents with Right Hip - Pain Pain Radiation To: lateral and down side of elg. Pain Duration: approx. 9 mo. Pain Frequency: intermittent Pain Quality: aching, dull Factors That Aggravate Pain: activity Factors That Relieve Pain: rest, medications, corticosteriod Patient presents in follow-up with concerns for hip related symptoms. Previous hip joint injection done on 02/19/22, provided good relief. Overall doing better. IMPRESSION/PLAN: Pertinent medical office records and imaging studies reviewed. She does have MRI from 09/07/2021: 1. Incomplete imaging of the right femur which is only imaged to the level of the distal metaphysis. 2. Mild right iliopsoas bursitis. No acute fracture. Mild to moderate right hip degenerative changes. She also has xrays from 09/02/2021, which showed moderate right hip DJD. Medical decision making has been discussed with patient including potential further work-up, surgical and non-surgical options. Continue current conservative treatment. Medication management: Continue current medications Corticosteroid injection performed today. See procedure note. We have discussed additional workup and treatment that could be needed. Follow-up in 3 months for re-evaluation. Visit Vitals Temp 97.6 F (36.4 C) (Temporal) Ht 1.575 m (5' 2 ) Wt 62.7 kg (138 lb 3.2 oz) BMI 25.28 kg/m LARGE JOINT/BURSA INJECTION AND/OR ASPIRATION: R hip joint Date/Time: 05/20/2022 10:30 AM Performed by: Marcela Pearson DO Authorized by: Marcela Pearson DO Supporting Documentation Indications: pain Procedure Details: Location: hip - R hip joint Local Anesthetic: lidocaine 1% Total Local Anesthetic: 3 mLs Guidance: ultrasound Images were saved electronically. Needle size: 22 G Medication Verification: I have personally verified and performed the final check of the medication(s) used in this procedure prior to administration. The following items were included during the verification process for medication(s) administered: drug name, strength, volume, expiration, physical integrity and appearance of the medication(s). Medications administered: 1 mL triamcinolone 40 MG/ML Patient tolerance: patient tolerated the procedure well with no immediate complications Consent: Consent was obtained prior to the procedure after discussion of the risks, benefits and alternatives, and expected outcomes were discussed with the patient. The possibilities of reaction to medication, bleeding, infection, the need for additional procedures, failure to diagnosis a condition, and creating a complication requiring operation were discussed with the patient. The patient concurred with the proposed plan, giving consent. Preparation: Patient was prepped in the usual sterile fashion. *Portions of this note may have been created with [employer] or other software which leads to grammatical and typographical errors which are not development representative of the intent with my spoken words. Chief Complaint Patient presents with Right Hip - Pain Pain Radiation To: lateral and down side of elg. Pain Duration: approx. 9 mo. Pain Frequency: intermittent Pain Quality: aching, dull Factors That Aggravate Pain: activity Factors That Relieve Pain: rest, medications, corticosteriod Patient presents in follow-up with concerns for hip related symptoms. Previous hip joint injection done on 02/19/22, provided good relief. Was doing better now a gradual worsening of similar pain. Avid walker. [place] mobile home in [place]. IMPRESSION/PLAN: Pertinent medical office records and imaging studies reviewed. She does have MRI from 09/07/2021: 1. Incomplete imaging of the right femur which is only imaged to the level of the distal metaphysis. 2. Mild right iliopsoas bursitis. No acute fracture. Mild to moderate right hip degenerative changes. She also has xrays from 09/02/2021, which showed moderate right hip DJD. Medical decision making has been discussed with patient including potential further work-up, surgical and non-surgical options. Continue current conservative treatment. Medication management: Continue current medications Corticosteroid injection performed today. See procedure note. We have discussed additional workup and treatment that could be needed. Follow-up in 3 months for re-evaluation. Visit Vitals Temp 97.6 F (36.4 C) (Temporal) Ht 1.575 m (5' 2 ) Wt 62.7 kg (138 lb 3.2 oz) BMI 25.28 kg/m LARGE JOINT/BURSA INJECTION AND/OR ASPIRATION: R hip joint Date/Time: 05/20/2022 10:30 AM Performed by: Marcela Pearson DO Authorized by: Marcela Pearson DO Supporting Documentation Indications: pain Procedure Details: Location: hip - R hip joint Local Anesthetic: lidocaine 1% Total Local Anesthetic: 3 mLs Guidance: ultrasound Images were saved electronically. Needle size: 22 G Medication Verification: I have personally verified and performed the final check of the medication(s) used in this procedure prior to administration. The following items were included during the verification process for medication(s) administered: drug name, strength, volume, expiration, physical integrity and appearance of the medication(s). Medications administered: 1 mL triamcinolone 40 MG/ML Patient tolerance: patient tolerated the procedure well with no immediate complications Consent: Consent was obtained prior to the procedure after discussion of the risks, benefits and alternatives, and expected outcomes were discussed with the patient. The possibilities of reaction to medication, bleeding, infection, the need for additional procedures, failure to diagnosis a condition, and creating a complication requiring operation were discussed with the patient. The patient concurred with the proposed plan, giving consent. Preparation: Patient was prepped in the usual sterile fashion. *Portions of this note may have been created with [employer] or other software which leads to grammatical and typographical errors which are not development representative of the intent with my spoken words. Clinical plastic surgery assistant/AT/MA was acting as a scribe today for this note. I have performed all essential components of the history, and physical exam. I have confirmed the diagnosis and developed a plan of care at this visit. I have reviewed the note following the visit and have made edits as appropriate to my evaluation and plan of care. Marcela Pearson DO documented in this encounter [facility] 05-03-2022 History of Present illness Narrative Ruperto Hunter [id number] 1950 05/03/2022 Chief Complaint Patient presents with Follow-up 6 mth follow up History of Present Illness: Ruperto Hunter is a 71 y.o. female is an Established pt to the clinic for new complaint of 6 month follow-up. Sees Cardiology. Anxiety- Duration is 4-5 years. Current treatment is with Wellbutrin. Denies side effects. She went to counseling initially. Reports more anxiety with the time change. Hormone replacement therapy- She has taken it since 1984. She is postmenopausal. She is aware of the risk of heart attack and stroke. She quit smoking years ago. When nice walks 3-5 miles a day. She reports hot flashes are better. She was told in [place] she would have to be on hormones for the rest of her life. Aware of increased risk of blood clots, CA, and cardiovascular events- she feels medication benefits outweigh the risk. Tremor- Seeing Dr. Weiss. Current treatment is with Botox and primidone. Denies side effects. Hypertension- amlodipine and lisinopril- stable. Blood pressure is well managed at this time. Hyperlipidemia- Current treatment is with Zetia 10 mg and Livalo 1 mg. Hypothyroidism- Current treatment is with Synthroid. Needs updated TSH. History: Past Medical History: Diagnosis Date Anxiety Chronic sinusitis GERD (gastroesophageal reflux disease) Hyperlipidemia Hypertension Hypothyroidism Migraine Nasopharyngeal neoplasm Nonintractable headache Tremor Trigeminal neuropathy Past Surgical History: Procedure Laterality Date EGD DIAGNOSTIC N/A 02/20/2021 Laterality: N/A; Surgeon: Maria Luisa Lopes DO; Location: [facility] COLONOSCOPY DIAGNOSTIC N/A 02/20/2021 Laterality: N/A; Surgeon: Maria Luisa Lopes DO; Location: [facility] ESS NASAL DIAGNOSTIC Midline 04/25/2020 Laterality: Midline; Surgeon: Chidi Valenzuela MD; Location: [facility] OR RESECTION INFERIOR TURBINATE SUBMUCOUS N/A 04/18/2020 Laterality: N/A; Surgeon: Sofia Story MD; Location: [facility] NASOPHARYNGOSCOPY N/A 04/18/2020 Laterality: N/A; Surgeon: Sofia Story MD; Location: [facility] OTHER SURGICAL 2016 Skin cancer removed off lower eyelid BACK SURGERY 02/08/2019, 11/24/20 Dr. Powers BLADDER SUSPENSION CHOLECYSTECTOMY HYSTERECTOMY OTHER SURGICAL PICC line placement Family History Problem Relation Age of Onset Diabetes Mother Depression Mother Heart Disease - Other Father Hypertension Father Lipid Disorder Father Heart Failure Father Myocardial Infarction Father Prostate Cancer Father Thyroid Disease Father Heart Disease - Other Brother Hypertension Brother Lipid Disorder Brother Kidney Disease Brother Alzheimer's Maternal Grandmother Myocardial Infarction Maternal Grandfather Social History Socioeconomic History Marital status: Tobacco Use Smoking status: Former Packs/day: 1.50 Years: 50.00 Pack years: 75.00 Types: Cigarettes Quit date: 2018 Years since quittin.2 Smokeless tobacco: Never Vaping Use Vaping Use: Never used Substance and Sexual Activity Alcohol use: Yes Alcohol/week: 1.0 standard drink Types: 1 Glasses of wine per week Comment: occasionally, might have a glass a night Drug use: Never Sexual activity: Not Currently Partners: Male control/protection: Hysterectomy Other Topics Concern Domestic Violence No Social History Tobacco Use Smoking Status Former Packs/day: 1.50 Years: 50.00 Pack years: 75.00 Types: Cigarettes Quit date: 2018 Years since quittin.2 Smokeless Tobacco Never Social History Substance and Sexual Activity Alcohol Use Yes Alcohol/week: 1.0 standard drink Types: 1 Glasses of wine per week Comment: occasionally, might have a glass a night Social History Substance and Sexual Activity Drug Use Never Allergies: Keflex [cephalexin], Ciprofloxacin, Celebrex [celecoxib], and Pravastatin Home Medications: Current Outpatient Medications: acetaminophen 500 MG tablet, Take 2 tablets by mouth every 6 hours as needed for Pain. PRN, Disp: , Rfl: amLODIPine 10 MG tablet, Take 1 tablet by mouth daily., Disp: 90 tablet, Rfl: 3 BIOTIN PO, Take by mouth., Disp: , Rfl: buPROPion 150 MG tablet XL, Take 2 tablets by mouth daily every morning., Disp: 180 tablet, Rfl: 3 EPINEPHrine 0.3 MG/0.3ML Solution Auto-injector injection, Inject contents of 1 autoinjector (0.3 mg) into thigh for allergic reactions (hives, lip/tongue/throat swelling, breathing trouble, lightheadedness, passing out or other symptoms of an allergic reaction) and seek medical attention immediately. If symptoms do not resolve after 5 min and still awaiting medical care, inject contents of a second autoinjector., Disp: 1 Each, Rfl: 1 estradiol 2 MG tablet, Take 1 tablet by mouth daily., Disp: 90 tablet, Rfl: 3 ezetimibe 10 MG tablet, Take 1 tablet by mouth daily., Disp: 30 tablet, Rfl: 11 gabapentin 600 MG tablet, Take 1 tablet by mouth at bedtime., Disp: 90 tablet, Rfl: 3 levothyroxine 125 MCG tablet, Take 1 tablet by mouth daily., Disp: 90 tablet, Rfl: 3 Lisinopril 5 MG tablet, Take 1 tablet by mouth daily., Disp: 90 tablet, Rfl: 3 Meloxicam 15 MG tablet, Take 1 tablet by mouth daily., Disp: 90 tablet, Rfl: 3 omepraz[address] capsule, Take 1 capsule by mouth daily., Disp: 90 capsule, Rfl: 3 Pitavastatin Calcium (Livalo) 1 MG tablet, Take 1 tablet by mouth daily., Disp: 90 tablet, Rfl: 3 Primidone 50 MG tablet, Two tablets twice daily, Disp: 360 tablet, Rfl: 1 Probiotic Product (PROBIOTIC-10 PO), Take by mouth., Disp: , Rfl: ROS: Review of Systems Constitutional: Negative. HENT: Negative. Eyes: Negative. Respiratory: Negative. Negative for shortness of breath. Cardiovascular: Negative. Negative for chest pain. Gastrointestinal: Negative. Endocrine: Negative. Genitourinary: Positive for dysuria. Musculoskeletal: Negative. Skin: Negative. Allergic/Immunologic: Negative. Neurological: Negative. Psychiatric/Behavioral: The patient is nervous/anxious. Physical Examination: Vital Signs: BP 128/76 (BP Location: Right arm, BP Position: Sitting) Pulse 67 Temp 98.6 F (37 C) (Temporal) Ht 1.575 m (5' 2 ) Wt 62.4 kg (137 lb 9.6 oz) SpO2 98% BMI 25.17 kg/m Smoking Status Former Physical Exam Vitals and nursing note reviewed. Constitutional: General: She is not in acute distress. Appearance: Normal appearance. She is not ill-appearing or toxic-appearing. HENT: Head: Normocephalic and atraumatic. Right Ear: Tympanic membrane, ear canal and external ear normal. Left Ear: Tympanic membrane, ear canal and external ear normal. Nose: Nose normal. Mouth/Throat: Mouth: Mucous membranes are moist. Pharynx: Oropharynx is clear. Eyes: Conjunctiva/sclera: Conjunctivae normal. Pupils: Pupils are equal, round, and reactive to light. Cardiovascular: Rate and Rhythm: Normal rate and regular rhythm. Pulses: Normal pulses. Heart sounds: Normal heart sounds. Pulmonary: Effort: Pulmonary effort is normal. No respiratory distress. Breath sounds: Normal breath sounds. Abdominal: General: Bowel sounds are normal. Palpations: Abdomen is soft. Musculoskeletal: General: Normal range of motion. Cervical back: Normal range of motion and neck supple. Lymphadenopathy: Cervical: No cervical adenopathy. Skin: General: Skin is warm and dry. Neurological: Mental Status: She is alert and oriented to person, place, and time. Psychiatric: Mood and Affect: Mood normal. Behavior: Behavior normal. Thought Content: Thought content normal. Judgment: Judgment normal. Laboratory and Additional Data: All pertinent lab and imaging results have been reviewed Results for orders placed or performed in visit on 03/03/22 URINE CULTURE Specimen: URINE - CLEAN CATCH Result Value Ref Range SPECIMEN DESCRIPTION URINE CLEAN CATCH RESULT-CULT KLEBSIELLA PNEUMONIAE Report Status 03/05/2022 ORGANISM IDENTIFIED KLEBSIELLA PNEUMONIAE Susceptibility Klebsiella pneumoniae - TAMANNA (UG/ML/INTERP)* Ampicillin Resistant Ampicillin/Sulbactam (c) Sensitive Ceftriaxone Sensitive Cefazolin Sensitive Imipenem Sensitive Gentamicin Sensitive Trimethoprim/Sulfamethoxazol Sensitive Amoxicillin/Clavulanic A Sensitive Nitrofurantoin Intermediate Piperacillin/Tazobactam(d) Sensitive Levofloxacin Sensitive ESBL Susceptible Ertapenem Sensitive Ceftazidime Sensitive * KLEBSIELLA PNEUMONIAE GENITAL CULTURE, BACTERIAL Specimen: VAGINA; Genital Fluid/Swab Result Value Ref Range SPECIMEN DESCRIPTION VAGINAL SPECIMEN GRAM STAIN RARE RESULT-CULT KLEBSIELLA PNEUMONIAE Report Status 03/09/2022 ORGANISM IDENTIFIED KLEBSIELLA PNEUMONIAE Susceptibility Klebsiella pneumoniae - TAMANNA (UG/ML/INTERP)* Ampicillin Resistant Ampicillin/Sulbactam (c) Sensitive Ceftriaxone Sensitive Cefazolin Sensitive Imipenem Sensitive Gentamicin Sensitive Trimethoprim/Sulfamethoxazol Sensitive Amoxicillin/Clavulanic A Sensitive Piperacillin/Tazobactam(d) Sensitive Levofloxacin Sensitive ESBL Susceptible Ertapenem Sensitive Ceftazidime Sensitive * KLEBSIELLA PNEUMONIAE Assessment and Plan: Ruperto was seen today for follow-up. Diagnoses and all orders for this visit: Generalized anxiety disorder - buPROPion 150 MG tablet XL; Take 2 tablets by mouth daily every morning. Benign hypertension - CBC, EDIF, PLATELET; Future - COMPREHENSIVE METABOLIC PANEL; Future - amLODIPine 10 MG tablet; Take 1 tablet by mouth daily. - Lisinopril 5 MG tablet; Take 1 tablet by mouth daily. Hypothyroidism, unspecified type - TSH W/FT4 REFLEX; Future Hypercholesteremia - LIPID PANEL W CALCULATED LDL; Future Hot flashes due to surgical menopause - estradiol 2 MG tablet; Take 1 tablet by mouth daily. Hormone replacement therapy - estradiol 2 MG tablet; Take 1 tablet by mouth daily. Trigeminal neuralgia - gabapentin 600 MG tablet; Take 1 tablet by mouth at bedtime. Gastroesophageal reflux disease, unspecified whether esophagitis present - omeprazole [address] capsule; Take 1 capsule by mouth daily. Arthralgia, unspecified joint - Meloxicam 15 MG tablet; Take 1 tablet by mouth daily. Postmenopausal - BONE DENSITY AXIAL (HIP, PELVIS, SPINE); Future Encounter for HCV screening test for low risk patient - HEPATITIS C ANTIBODY; Future Screening for lung cancer - CT LUNG CANCER SCREENING; Future Nicotine dependence, cigarettes, in remission - CT LUNG CANCER SCREENING; Future Dysuria - POCT URINALYSIS DIPSTICK NON AUTOMATED - URINE CULTURE; Future Stop Biotin for 2 weeks then have labs drawn. Will call with abnormal results. Continue to follow with cardiology. Lung cancer screening, DEXA ,and urine culture orders sent today. Will call with results. Chronic conditions stable. Refills given. Follow up in 12 months, sooner if needed. Call office with any questions, concerns, or changes in health status. If any medications are not covered or you are not able to get the medications call the office and let us know so other alternative/arrangements can be made. The documentation within this encounter was likely aided with [employer], an electronic enologist device. Please excuse any errors or omissions that may not have been recognized at the time of this encounter. 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 Her last session was on 01/12/22 She has abnormal posturing and fatigue along with tremor that is only present when writing. She is currently taking primidone and gabapentin without clear benefit. Previously, I did not inject the FPL due to resultant thumb DIP flexor weakness and I increased the dose into the FCU muscle due to a feeling of tightness along the ulnar aspect of the forearm. This has worked well. She reports improvement in handwriting without signfiicant solar thermal installer weakness. She does report early wearing off of toxin before 3 months. On exam today, there is no apparent weakness in the right hand/forearm. Procedure After discussing the risks, benefits, and alternatives for this procedure, informed written consent was obtained and the signed consent form was placed in the medical chart. Botox was supplied by the office. One 100 unit vial of botox was diluted with 1 ml of preservative free saline. A 25 mm EMG needle was used. The skin was cleansed with alcohol. EMG and ultrasound were used for guidance, to ensure precise muscle localization and to avoid injuring unintended structures. Color doppler was used when appropriate to avoid injecting into blood vessels. Dilution: 100 units Botox/1 ml normal saline Botulinum toxin was injected with the following pattern: Right Pronator quadratus 5 units (ultrasound, volar approach) Adductor pollicis brevis 5 units Flexor carpi ulnaris 20 units (+5 units) Pronator teres 10 units Flexor digitorum profundus 10 units Lateral canthus Orb Oculi 5 units (2.5 units per side) Total used: 55 units Unavoidable waste: 45 units The patient tolerated the procedure well. Post-procedure care was discussed. Patient was instructed to call if there is any swallowing or breathing problems or head drop. Follow-up in 3 months. The patient left the clinic in good condition. 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 Her last session was on 01/12/22 She has abnormal posturing and fatigue along with tremor that is only present when writing. She is currently taking primidone and gabapentin without clear benefit. Previously, I did not inject the FPL due to resultant thumb DIP flexor weakness and I increased the dose into the FCU muscle due to a feeling of tightness along the ulnar aspect of the forearm. This has worked well. She reports improvement in handwriting without signfiicant solar thermal installer weakness. She does report early wearing off of toxin before 3 months. On exam today, there is no apparent weakness in the right hand/forearm. Procedure After discussing the risks, benefits, and alternatives for this procedure, informed written consent was obtained and the signed consent form was placed in the medical chart. Botox was supplied by the office. One 100 unit vial of botox was diluted with 1 ml of preservative free saline. A 25 mm EMG needle was used. The skin was cleansed with alcohol. EMG and ultrasound were used for guidance, to ensure precise muscle localization and to avoid injuring unintended structures. Color doppler was used when appropriate to avoid injecting into blood vessels. Dilution: 100 units Botox/1 ml normal saline Botulinum toxin was injected with the following pattern: Right Pronator quadratus 5 units (ultrasound, volar approach) Adductor pollicis brevis 5 units Flexor carpi ulnaris 20 units (+5 units) Pronator teres 10 units Flexor digitorum profundus 10 units Lateral canthus Orb Oculi 5 units (2.5 units per side) Total used: 55 units Unavoidable waste: 45 units The patient tolerated the procedure well. Post-procedure care was discussed. Patient was instructed to call if there is any swallowing or breathing problems or head drop. Follow-up in 3 months. The patient left the clinic in good condition. documented in this encounter [facility] 04-05-2022 History of Present illness Narrative Ruperto Hunter [id number] 1950 04/05/2022 Chief Complaint Patient presents with Facial Swelling Swelling to both cheeks and upper lip x twice in 1 month. Has tried benadryl - not effective. No new foods, lotions, perfumes. Does need root canal done on an upper left tooth History of Present Illness: Ruperto Hunter is a 71 y.o. female is an Established pt to the clinic for new complaint of facial swelling. Swelling to both cheeks and upper lip x 1 day. Has tried benadryl - not effective. Similar episode 1 month ago- it was one side of her tongue and the back of her throat. No new foods, lotions, perfumes. Does need root canal done on an upper left tooth. She bit the inside of her mouth yesterday before this occurred. She rinsed her mouth with salt water. Denies trouble swallowing, tongue swelling, or throat swelling. Chicken and corn left over from the night before. Ate Sherbet- multi flavored. Denies gum or mints or anything else in her mouth. Reports odor to water last night. History: Past Medical History: Diagnosis Date Anxiety Chronic sinusitis GERD (gastroesophageal reflux disease) Hyperlipidemia Hypertension Hypothyroidism Migraine Nasopharyngeal neoplasm Nonintractable headache Tremor Trigeminal neuropathy Past Surgical History: Procedure Laterality Date EGD DIAGNOSTIC N/A 02/20/2021 Laterality: N/A; Surgeon: Maria Luisa Lopes DO; Location: [facility] COLONOSCOPY DIAGNOSTIC N/A 02/20/2021 Laterality: N/A; Surgeon: Maria Luisa Lopes DO; Location: [facility] ESS NASAL DIAGNOSTIC Midline 04/25/2020 Laterality: Midline; Surgeon: Chidi Valenzuela MD; Location: [facility] OR RESECTION INFERIOR TURBINATE SUBMUCOUS N/A 04/18/2020 Laterality: N/A; Surgeon: Sofia Story MD; Location: [facility] NASOPHARYNGOSCOPY N/A 04/18/2020 Laterality: N/A; Surgeon: Sofia Story MD; Location: [facility] OTHER SURGICAL 2016 Skin cancer removed off lower eyelid BACK SURGERY 02/08/2019, 11/24/20 Dr. Powers BLADDER SUSPENSION CHOLECYSTECTOMY HYSTERECTOMY OTHER SURGICAL PICC line placement Family History Problem Relation Age of Onset Diabetes Mother Depression Mother Heart Disease - Other Father Hypertension Father Lipid Disorder Father Heart Failure Father Myocardial Infarction Father Prostate Cancer Father Thyroid Disease Father Heart Disease - Other Brother Hypertension Brother Lipid Disorder Brother Kidney Disease Brother Alzheimer's Maternal Grandmother Myocardial Infarction Maternal Grandfather Social History Socioeconomic History Marital status: Tobacco Use Smoking status: Former Packs/day: 1.50 Years: 50.00 Pack years: 75.00 Types: Cigarettes Quit date: 2018 Years since quittin.1 Smokeless tobacco: Never Vaping Use Vaping Use: Never used Substance and Sexual Activity Alcohol use: Yes Alcohol/week: 1.0 standard drink Types: 1 Glasses of wine per week Comment: occasionally, might have a glass a night Drug use: Never Sexual activity: Not Currently control/protection: Hysterectomy Other Topics Concern Domestic Violence No Social History Tobacco Use Smoking Status Former Packs/day: 1.50 Years: 50.00 Pack years: 75.00 Types: Cigarettes Quit date: 2018 Years since quittin.1 Smokeless Tobacco Never Social History Substance and Sexual Activity Alcohol Use Yes Alcohol/week: 1.0 standard drink Types: 1 Glasses of wine per week Comment: occasionally, might have a glass a night Social History Substance and Sexual Activity Drug Use Never Allergies: Keflex [cephalexin], Ciprofloxacin, Celebrex [celecoxib], and Pravastatin Home Medications: Current Outpatient Medications: acetaminophen 500 MG tablet, Take 2 tablets by mouth every 6 hours as needed for Pain. PRN, Disp: , Rfl: amLODIPine 10 MG tablet, Take 1 tablet by mouth daily., Disp: 90 tablet, Rfl: 0 estradiol 2 MG tablet, Take 1 tablet by mouth daily., Disp: 90 tablet, Rfl: 0 ezetimibe 10 MG tablet, Take 1 tablet by mouth daily., Disp: 30 tablet, Rfl: 11 Fluconazole (Diflucan) 150 MG tablet, Take 1 tab at start of symptoms. May repeat in 7 days if symptoms persist., Disp: 2 tablet, Rfl: 0 levothyroxine 125 MCG tablet, Take 1 tablet by mouth daily., Disp: 90 tablet, Rfl: 3 lisinopril 5 MG tablet, Take 1 tablet by mouth daily., Disp: 90 tablet, Rfl: 3 Meloxicam 15 MG tablet, Take 1 tablet by mouth daily., Disp: 90 tablet, Rfl: 0 omeprazole [address] capsule, Take 1 capsule by mouth daily., Disp: 30 capsule, Rfl: 11 Pitavastatin Calcium (Livalo) 1 MG tablet, Take 1 tablet by mouth daily., Disp: 90 tablet, Rfl: 3 primidone 50 MG tablet, Two tablets twice daily, Disp: 360 tablet, Rfl: 1 Probiotic Product (PROBIOTIC-10 PO), Take by mouth., Disp: , Rfl: buPROPion 150 MG tablet XL, Take 2 tablets by mouth daily every morning., Disp: 180 tablet, Rfl: 1 cyclobenzaprine 5 MG tablet, Take 1 tablet by mouth 3 times daily as needed for Muscle spasms, Mild Pain or Moderate Pain for up to 10 days., Disp: 40 tablet, Rfl: 0 EPINEPHrine 0.3 MG/0.3ML Solution Auto-injector injection, Inject contents of 1 autoinjector (0.3 mg) into thigh for allergic reactions (hives, lip/tongue/throat swelling, breathing trouble, lightheadedness, passing out or other symptoms of an allergic reaction) and seek medical attention immediately. If symptoms do not resolve after 5 min and still awaiting medical care, inject contents of a second autoinjector., Disp: 1 Each, Rfl: 1 famotidine 40 MG tablet, Take 1 tablet by mouth 2 times daily for 7 days., Disp: 14 tablet, Rfl: 0 gabapentin 600 MG tablet, Take 1 tablet by mouth at bedtime., Disp: 30 tablet, Rfl: 3 Phenazopyridine 100 MG tablet, Take 1 tablet by mouth 3 times daily as needed for Pain for up to 3 days., Disp: 6 tablet, Rfl: 0 predniSONE 20 MG tablet, Take 2 tablets by mouth daily for 5 days., Disp: 10 tablet, Rfl: 0 ROS: Review of Systems Constitutional: Negative. HENT: Positive for facial swelling. Negative for trouble swallowing. Eyes: Negative. Respiratory: Negative. Negative for shortness of breath. Cardiovascular: Negative. Negative for chest pain. Gastrointestinal: Negative. Endocrine: Negative. Musculoskeletal: Negative. Skin: Negative. Allergic/Immunologic: Negative. Neurological: Negative. Psychiatric/Behavioral: Negative. Physical Examination: Vital Signs: BP 132/78 Pulse 80 Temp 98.4 F (36.9 C) Wt 62.1 kg (137 lb) SpO2 97% BMI 25.06 kg/m Smoking Status Former Physical Exam Vitals and nursing note reviewed. Constitutional: General: She is not in acute distress.Vital signs are normal. Appearance: She is well-developed and well-nourished. She is not ill-appearing, toxic-appearing or diaphoretic. Comments: Swelling to cheeks and lips. HENT: Head: Normocephalic and atraumatic. Right Ear: Ear canal and external ear normal. A middle ear effusion is present. Left Ear: Ear canal and external ear normal. A middle ear effusion is present. Nose: Nose normal. Mouth/Throat: Pharynx: Oropharynx is clear. No posterior oropharyngeal erythema. Eyes: Conjunctiva/sclera: Conjunctivae normal. Cardiovascular: Rate and Rhythm: Normal rate and regular rhythm. Pulses: Normal pulses. Heart sounds: Normal heart sounds. Pulmonary: Effort: Pulmonary effort is normal. No respiratory distress. Breath sounds: Normal breath sounds. Musculoskeletal: General: Normal range of motion. Cervical back: Normal range of motion and neck supple. Skin: General: Skin is warm and dry. Neurological: Mental Status: She is alert and oriented to person, place, and time. Psychiatric: Mood and Affect: Mood and affect and mood normal. Behavior: Behavior normal. Thought Content: Thought content normal. Judgment: Judgment normal. Laboratory and Additional Data: All pertinent lab and imaging results have been reviewed Results for orders placed or performed in visit on 03/03/22 URINE CULTURE Specimen: URINE - CLEAN CATCH Result Value Ref Range SPECIMEN DESCRIPTION URINE CLEAN CATCH RESULT-CULT KLEBSIELLA PNEUMONIAE Report Status 03/05/2022 ORGANISM IDENTIFIED KLEBSIELLA PNEUMONIAE Susceptibility Klebsiella pneumoniae - TAMANNA (UG/ML/INTERP)* Ampicillin Resistant Ampicillin/Sulbactam (c) Sensitive Ceftriaxone Sensitive Cefazolin Sensitive Imipenem Sensitive Gentamicin Sensitive Trimethoprim/Sulfamethoxazol Sensitive Amoxicillin/Clavulanic A Sensitive Nitrofurantoin Intermediate Piperacillin/Tazobactam(d) Sensitive Levofloxacin Sensitive ESBL Susceptible Ertapenem Sensitive Ceftazidime Sensitive * KLEBSIELLA PNEUMONIAE GENITAL CULTURE, BACTERIAL Specimen: VAGINA; Genital Fluid/Swab Result Value Ref Range SPECIMEN DESCRIPTION VAGINAL SPECIMEN GRAM STAIN RARE RESULT-CULT KLEBSIELLA PNEUMONIAE Report Status 03/09/2022 ORGANISM IDENTIFIED KLEBSIELLA PNEUMONIAE Susceptibility Klebsiella pneumoniae - TAMANNA (UG/ML/INTERP)* Ampicillin Resistant Ampicillin/Sulbactam (c) Sensitive Ceftriaxone Sensitive Cefazolin Sensitive Imipenem Sensitive Gentamicin Sensitive Trimethoprim/Sulfamethoxazol Sensitive Amoxicillin/Clavulanic A Sensitive Piperacillin/Tazobactam(d) Sensitive Levofloxacin Sensitive ESBL Susceptible Ertapenem Sensitive Ceftazidime Sensitive * KLEBSIELLA PNEUMONIAE Assessment and Plan: Ruperto was seen today for facial swelling. Diagnoses and all orders for this visit: Angioedema, initial encounter - predniSONE 20 MG tablet; Take 2 tablets by mouth daily for 5 days. - famotidine 40 MG tablet; Take 1 tablet by mouth 2 times daily for 7 days. Allergic reaction, initial encounter - EPINEPHrine 0.3 MG/0.3ML Solution Auto-injector injection; Inject contents of 1 autoinjector (0.3 mg) into thigh for allergic reactions (hives, lip/tongue/throat swelling, breathing trouble, lightheadedness, passing out or other symptoms of an allergic reaction) and seek medical attention immediately. If symptoms do not resolve after 5 min and still awaiting medical care, inject contents of a second autoinjector. Epipen given in case of anaphylaxis. Instructions given to go to the ED if epi pen is used. Prednisone and Pepcid given for angioedema. She is going to call relative to test her water. Discussed referral to area plant manager. She declines at this time. Follow up as needed. Call office with any questions, concerns, or changes in health status. If any medications are not covered or you are not able to get the medications call the office and let us know so other alternative/arrangements can be made. The documentation within this encounter was likely aided with [employer], an electronic enologist device. Please excuse any errors or omissions that may not have been recognized at the time of this encounter. documented in this encounter [facility] 03-03-2022 History of Present illness Narrative Ruperto Hunter [id number] 1950 03/03/2022 Chief Complaint Patient presents with Bladder Infection Burning, urgency, odor x cpl weeks History of Present Illness: Ruperto Hunter is a 71 y.o. female is an Established pt to the clinic for new complaint of UTI. UTI- Burning, urgency, odor x cpl weeks. History of UTI's. No home treatments. She does wear panty liners at home. History: Past Medical History: Diagnosis Date Anxiety Chronic sinusitis GERD (gastroesophageal reflux disease) Hyperlipidemia Hypertension Hypothyroidism Migraine Nasopharyngeal neoplasm Nonintractable headache Tremor Trigeminal neuropathy Past Surgical History: Procedure Laterality Date EGD DIAGNOSTIC N/A 02/20/2021 Laterality: N/A; Surgeon: Maria Luisa Lopes DO; Location: [facility] COLONOSCOPY DIAGNOSTIC N/A 02/20/2021 Laterality: N/A; Surgeon: Maria Luisa Lopes DO; Location: [facility] ESS NASAL DIAGNOSTIC Midline 04/25/2020 Laterality: Midline; Surgeon: Chidi Valenzuela MD; Location: [facility]IN OR RESECTION INFERIOR TURBINATE SUBMUCOUS N/A 04/18/2020 Laterality: N/A; Surgeon: Sofia Story MD; Location: [facility] NASOPHARYNGOSCOPY N/A 04/18/2020 Laterality: N/A; Surgeon: Sofia Story MD; Location: [facility] OTHER SURGICAL 2016 Skin cancer removed off lower eyelid BACK SURGERY 02/08/2019, 11/24/20 Dr. Powers BLADDER SUSPENSION CHOLECYSTECTOMY HYSTERECTOMY OTHER SURGICAL PICC line placement Family History Problem Relation Age of Onset Diabetes Mother Depression Mother Heart Disease - Other Father Hypertension Father Lipid Disorder Father Heart Failure Father Myocardial Infarction Father Prostate Cancer Father Thyroid Disease Father Heart Disease - Other Brother Hypertension Brother Lipid Disorder Brother Kidney Disease Brother Alzheimer's Maternal Grandmother Myocardial Infarction Maternal Grandfather Social History Socioeconomic History Marital status: Tobacco Use Smoking status: Former Packs/day: 1.50 Years: 50.00 Pack years: 75.00 Types: Cigarettes Quit date: 2018 Years since quittin.0 Smokeless tobacco: Never Vaping Use Vaping Use: Never used Substance and Sexual Activity Alcohol use: Yes Alcohol/week: 1.0 standard drink Types: 1 Glasses of wine per week Comment: occasionally, might have a glass a night Drug use: Never Sexual activity: Not Currently control/protection: Hysterectomy Other Topics Concern Domestic Violence No Social History Tobacco Use Smoking Status Former Packs/day: 1.50 Years: 50.00 Pack years: 75.00 Types: Cigarettes Quit date: 2018 Years since quittin.0 Smokeless Tobacco Never Social History Substance and Sexual Activity Alcohol Use Yes Alcohol/week: 1.0 standard drink Types: 1 Glasses of wine per week Comment: occasionally, might have a glass a night Social History Substance and Sexual Activity Drug Use Never Allergies: Keflex [cephalexin], Ciprofloxacin, Celebrex [celecoxib], and Pravastatin Home Medications: Current Outpatient Medications: acetaminophen 500 MG tablet, Take 2 tablets by mouth every 6 hours as needed for Pain. PRN, Disp: , Rfl: amLODIPine 10 MG tablet, Take 1 tablet by mouth daily., Disp: 90 tablet, Rfl: 0 buPROPion 150 MG tablet XL, Take 2 tablets by mouth daily every morning., Disp: 180 tablet, Rfl: 1 estradiol 2 MG tablet, Take 1 tablet by mouth daily., Disp: 90 tablet, Rfl: 0 gabapentin 600 MG tablet, Take 1 tablet by mouth at bedtime., Disp: 30 tablet, Rfl: 3 levothyroxine 125 MCG tablet, Take 1 tablet by mouth daily., Disp: 90 tablet, Rfl: 3 lisinopril 5 MG tablet, Take 1 tablet by mouth daily., Disp: 90 tablet, Rfl: 3 Meloxicam 15 MG tablet, Take 1 tablet by mouth daily., Disp: 90 tablet, Rfl: 0 omeprazole [address] capsule, Take 1 capsule by mouth daily., Disp: 30 capsule, Rfl: 11 Pitavastatin Calcium (Livalo) 1 MG tablet, Take 1 tablet by mouth daily., Disp: 90 tablet, Rfl: 3 primidone 50 MG tablet, Two tablets twice daily, Disp: 360 tablet, Rfl: 1 Probiotic Product (PROBIOTIC-10 PO), Take by mouth., Disp: , Rfl: Amoxicillin-clavulanate 875-125 MG tablet, Take 1 tablet by mouth 2 times daily for 7 days., Disp: 14 tablet, Rfl: 0 cyclobenzaprine 5 MG tablet, Take 1 tablet by mouth 3 times daily as needed for Muscle spasms, Mild Pain or Moderate Pain for up to 10 days., Disp: 40 tablet, Rfl: 0 ezetimibe 10 MG tablet, Take 1 tablet by mouth daily., Disp: 30 tablet, Rfl: 11 Fluconazole (Diflucan) 150 MG tablet, Take 1 tab at start of symptoms. May repeat in 7 days if symptoms persist., Disp: 2 tablet, Rfl: 0 Phenazopyridine 100 MG tablet, Take 1 tablet by mouth 3 times daily as needed for Pain for up to 3 days., Disp: 6 tablet, Rfl: 0 ROS: Review of Systems Constitutional: Negative. HENT: Negative. Eyes: Negative. Respiratory: Negative. Cardiovascular: Negative. Gastrointestinal: Negative. Endocrine: Negative. Genitourinary: Positive for dysuria and urgency. Musculoskeletal: Negative. Skin: Negative. Allergic/Immunologic: Negative. Neurological: Negative. Psychiatric/Behavioral: Negative. Physical Examination: Vital Signs: BP 180/80 Pulse 79 Wt 61.7 kg (136 lb) SpO2 98% BMI 24.87 kg/m Smoking Status Former Physical Exam Vitals and nursing note reviewed. Constitutional: General: She is not in acute distress.Vital signs are normal. Appearance: Normal appearance. She is well-developed and well-nourished. She is not ill-appearing or toxic-appearing. HENT: Head: Normocephalic and atraumatic. Eyes: Conjunctiva/sclera: Conjunctivae normal. Cardiovascular: Rate and Rhythm: Normal rate and regular rhythm. Pulses: Normal pulses. Heart sounds: Normal heart sounds. Pulmonary: Effort: Pulmonary effort is normal. No respiratory distress. Breath sounds: Normal breath sounds. Abdominal: Tenderness: There is no abdominal tenderness. There is no right CVA tenderness or left CVA tenderness. Musculoskeletal: General: Normal range of motion. Cervical back: Normal range of motion and neck supple. Skin: General: Skin is warm and dry. Neurological: Mental Status: She is alert and oriented to person, place, and time. Psychiatric: Mood and Affect: Mood and affect normal. Behavior: Behavior normal. Thought Content: Thought content normal. Judgment: Judgment normal. Laboratory and Additional Data: All pertinent lab and imaging results have been reviewed Results for orders placed or performed in visit on 03/03/22 POCT URINALYSIS DIPSTICK NON AUTOMATED Result Value Ref Range POCT APPEARANCE, URINE clear POCT COLOR, URINE yellow POCT GLUCOSE, URINE negative mg/dL POCT BILIRUBIN, URINE negative POCT KETONES, URINE negative mg/dL POCT SPECIFIC GRAVITY, URINE 1.015 1.001 - 1.035 POCT BLOOD, URINE negative POCT PH, URINE 7 5 - 7 POCT PROTEIN, URINE negative mg/dL POCT UROBILINOGEN, URINE 0.2 0 - 2 E.U./dL POCT NITRITE, URINE negative POCT LEUKOCYTE, URINE negative POCT ESTERASE, URINE POCT BACTERIA, URINE POCT WBC, URINE POCT RBC, URINE POCT AMORPHOUS, URINE POCT CASTS, QUANTITATIVE, URINE POCT SQUAMOUS EPIS, URINE POCT RENAL EPIS, URINE POCT CRYSTALS, URINE POCT URINE COMMENTS, URINE Assessment and Plan: Ruperto was seen today for bladder infection. Diagnoses and all orders for this visit: Urgency of urination - POCT URINALYSIS DIPSTICK NON AUTOMATED Acute cystitis without hematuria - Amoxicillin-clavulanate 875-125 MG tablet; Take 1 tablet by mouth 2 times daily for 7 days. - Phenazopyridine 100 MG tablet; Take 1 tablet by mouth 3 times daily as needed for Pain for up to 3 days. - Fluconazole (Diflucan) 150 MG tablet; Take 1 tab at start of symptoms. May repeat in 7 days if symptoms persist. Vaginal itching - GENITAL CULTURE, BACTERIAL; Future - Fluconazole (Diflucan) 150 MG tablet; Take 1 tab at start of symptoms. May repeat in 7 days if symptoms persist. UA, urine culture, and genital culture today. Pt treated with Augmentin and Pyridium today. Will call if need to change ATB. Repeat BP due to elevation initially. Normal readings at home. Follow up as needed. Call office with any questions, concerns, or changes in health status. If any medications are not covered or you are not able to get the medications call the office and let us know so other alternative/arrangements can be made. The documentation within this encounter was likely aided with [employer], an electronic enologist device. Please excuse any errors or omissions that may not have been recognized at the time of this encounter. documented in this encounter [facility] 02-19-2022 History of Present illness Narrative Associated Order(s): LARGE JOINT/BURSA INJECTION AND/OR ASPIRATION: R hip joint Post-Procedure Diagnose(s): Right hip pain Chief Complaint Patient presents with Right Hip - Pain Pain Frequency: intermittent Pain Quality: aching Factors That Aggravate Pain: positioning Patient presents in follow-up with concerns for right hip related symptoms. Worsening of symptoms lately. Most recent CSI was on 09-09-21 to the right troch bursa. IMPRESSION/PLAN: Pertinent medical office records and imaging studies reviewed. She does have MRI from 09/07/2021: 1. Incomplete imaging of the right femur which is only imaged to the level of the distal metaphysis. 2. Mild right iliopsoas bursitis. No acute fracture. Mild to moderate right hip degenerative changes. She also has xrays from 09/02/2021, which showed moderate right hip DJD. Continue current conservative treatment. Medication management: Continue current medications. Continue with pain management POC. Corticosteroid injection performed today to the right hip. See procedure note. We have discussed additional workup and treatment that could be needed. Pt will call in the next few weeks if no improvement and then a referral to Dr. Knutson will be made. Follow-up: PRN Visit Vitals Temp 96.8 F (36 C) (Temporal) Ht 1.575 m (5' 2 ) BMI 24.73 kg/m LARGE JOINT/BURSA INJECTION AND/OR ASPIRATION: R hip joint Date/Time: 02/19/2022 10:45 AM Supporting Documentation Indications: pain Procedure Details: Location: hip - R hip joint Local Anesthetic: lidocaine 1% Guidance: ultrasound Images were saved electronically. Needle size: 22 G Medication Verification: I have personally verified and performed the final check of the medication(s) used in this procedure prior to administration. The following items were included during the verification process for medication(s) administered: drug name, strength, volume, expiration, physical integrity and appearance of the medication(s). Medications administered: 3 mL lidocaine 10 mg/mL; 1 mL triamcinolone 40 MG/ML Patient tolerance: patient tolerated the procedure well with no immediate complications Consent: Consent was obtained prior to the procedure after discussion of the risks, benefits and alternatives, and expected outcomes were discussed with the patient. The possibilities of reaction to medication, bleeding, infection, the need for additional procedures, failure to diagnosis a condition, and creating a complication requiring operation were discussed with the patient. The patient concurred with the proposed plan, giving consent. Preparation: Patient was prepped in the usual sterile fashion. The patient was prepped with alcohol and Chloraprep. *Portions of this note may have been created with [employer] or other software which leads to grammatical and typographical errors which are not development representative of the intent with my spoken words. Chief Complaint Patient presents with Right Hip - Pain Pain Frequency: intermittent Pain Quality: aching Factors That Aggravate Pain: positioning Patient presents in follow-up with concerns for right hip related symptoms. Worsening of symptoms lately. Most recent CSI was on 09-09-21 to the right troch bursa without relief. No real groin pain. LE radiation of pain. H/o lumbar surgery and has had injections in the past with pain management. . IMPRESSION/PLAN: Pertinent medical office records and imaging studies reviewed. She does have MRI from 09/07/2021: 1. Incomplete imaging of the right femur which is only imaged to the level of the distal metaphysis. 2. Mild right iliopsoas bursitis. No acute fracture. Mild to moderate right hip degenerative changes. She also has xrays from 09/02/2021, which showed moderate right hip DJD. Uncertain if this is the primary pain generator. Continue current conservative treatment. Medication management: Continue current medications. Continue with pain management Corticosteroid injection performed today to the right hip. Hoping this may be diagnostic and therapeutic. A lot of her pain seems referred from lumbar spine. Recently she reviewed a lumbar spine MRI with Dr. Flores which she states showed DDD We have discussed additional workup and treatment that could be needed. After discussion today, she would like a second opinion from a assurance specialist. Referral to Dr. Knutson will be made. Follow-up: 3 mo Visit Vitals Temp 96.8 F (36 C) (Temporal) Ht 1.575 m (5' 2 ) BMI 24.73 kg/m LARGE JOINT/BURSA INJECTION AND/OR ASPIRATION: R hip joint Date/Time: 02/19/2022 10:45 AM Supporting Documentation Indications: pain Procedure Details: Location: hip - R hip joint Local Anesthetic: lidocaine 1% Guidance: ultrasound Images were saved electronically. Needle size: 22 G Medication Verification: I have personally verified and performed the final check of the medication(s) used in this procedure prior to administration. The following items were included during the verification process for medication(s) administered: drug name, strength, volume, expiration, physical integrity and appearance of the medication(s). Medications administered: 3 mL lidocaine 10 mg/mL; 1 mL triamcinolone 40 MG/ML Patient tolerance: patient tolerated the procedure well with no immediate complications Consent: Consent was obtained prior to the procedure after discussion of the risks, benefits and alternatives, and expected outcomes were discussed with the patient. The possibilities of reaction to medication, bleeding, infection, the need for additional procedures, failure to diagnosis a condition, and creating a complication requiring operation were discussed with the patient. The patient concurred with the proposed plan, giving consent. Preparation: Patient was prepped in the usual sterile fashion. The patient was prepped with alcohol and Chloraprep. *Portions of this note may have been created with [employer] or other software which leads to grammatical and typographical errors which are not development representative of the intent with my spoken words. Clinical plastic surgery assistant/AT/MA was acting as a scribe today for this note. I have performed all essential components of the history, and physical exam. I have confirmed the diagnosis and developed a plan of care at this visit. I have reviewed the note following the visit and have made edits as appropriate to my evaluation and plan of care. 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 Her last session was on 08/21/21. She has abnormal posturing and fatigue along with tremor that is only present when writing. She is currently taking primidone and gabapentin without clear benefit. On the last visit, I did not inject the FPL due to thumb DIP flexor weakness and increased the dose of toxin into the FCU muscle due to a feeling of tightness along the ulnar aspect of the forearm. This has worked well. She reports improvement in handwriting without signfiicant solar thermal installer weakness. On exam today, there is no apparent weakness in the right hand/forearm. Procedure After discussing the risks, benefits, and alternatives for this procedure, informed written consent was obtained and the signed consent form was placed in the medical chart. Botox was supplied by the office. The skin was cleansed with alcohol. EMG was used for guidance, to ensure precise muscle localization. Dilution: 100 units Botox/1 ml normal saline Botulinum toxin was injected with the following pattern: Right Adductor pollicis brevis 5 units Flexor carpi ulnaris 15 units Flexor digitorum profundus 10 units Pronator quadratus 5 units Pronator teres 10 units Lateral canthus Orb Oculi 5 units (2.5 units per side) Total used: 50 units Unavoidable waste: 50 units The patient tolerated the procedure well. Post-procedure care was discussed. Patient was instructed to call if there is any swallowing or breathing problems or head drop. Follow-up in 3 months. The patient left the clinic in good condition. 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 Her last session was on 08/21/21. She has abnormal posturing and fatigue along with tremor that is only present when writing. She is currently taking primidone and gabapentin without clear benefit. On the last visit, I did not inject the FPL due to thumb DIP flexor weakness and increased the dose of toxin into the FCU muscle due to a feeling of tightness along the ulnar aspect of the forearm. This has worked well. She reports improvement in handwriting without signfiicant solar thermal installer weakness. On exam today, there is no apparent weakness in the right hand/forearm. Procedure After discussing the risks, benefits, and alternatives for this procedure, informed written consent was obtained and the signed consent form was placed in the medical chart. Botox was supplied by the office. The skin was cleansed with alcohol. EMG was used for guidance, to ensure precise muscle localization. Dilution: 100 units Botox/1 ml normal saline Botulinum toxin was injected with the following pattern: Right Adductor pollicis brevis 5 units Flexor carpi ulnaris 15 units Flexor digitorum profundus 10 units Pronator quadratus 5 units Pronator teres 10 units Lateral canthus Orb Oculi 5 units (2.5 units per side) Total used: 50 units Unavoidable waste: 50 units The patient tolerated the procedure well. Post-procedure care was discussed. Patient was instructed to call if there is any swallowing or breathing problems or head drop. Follow-up in 3 months. The patient left the clinic in good condition. documented in this encounter [facility] 10-29-2021 History of Present illness Narrative Chief Complaint Patient presents with Right Hip - Follow-up Right Hip Pain Quality: aching, shooting Factors That Aggravate Pain: activity Factors That Relieve Pain: medications, over the counter (OTC) Patient presents in follow-up with concerns for hip related symptoms and pain generating from her back. Worsening of symptoms lately. IMPRESSION/PLAN: Pertinent medical office records and imaging studies reviewed. She does have MRI from 09/07/2021: 1. Incomplete imaging of the right femur which is only imaged to the level of the distal metaphysis. 2. Mild right iliopsoas bursitis. No acute fracture. Mild to moderate right hip degenerative changes. She also has xrays from 09/02/2021, which showed moderate right hip DJD. Continue current conservative treatment. Medication management: Continue current medications. Continue with pain management POC. We have discussed additional workup and treatment that could be needed. Follow-up: 2-3 months Visit Vitals Temp 98.5 F (36.9 C) (Temporal) Ht 1.575 m (5' 2 ) Wt 59.9 kg (132 lb) BMI 24.14 kg/m *Portions of this note may have been created with [employer] or other software which leads to grammatical and typographical errors which are not development representative of the intent with my spoken words. Chief Complaint Patient presents with Right Hip - Follow-up Right Hip Pain Quality: aching, shooting Factors That Aggravate Pain: activity Factors That Relieve Pain: medications, over the counter (OTC) Patient presents in follow-up with concerns for hip related symptoms and pain generating from her back. Continues to deny any specific groin pain. Radiating pain past the knee. Worsening of symptoms lately. An oral steroid helped somewhat recently. Troch bursa inj did not help IMPRESSION/PLAN: Pertinent medical office records and imaging studies reviewed. She does have MRI from 09/07/2021: 1. Incomplete imaging of the right femur which is only imaged to the level of the distal metaphysis. 2. Mild right iliopsoas bursitis. No acute fracture. Mild to moderate right hip degenerative changes. She also has xrays from 09/02/2021, which showed moderate right hip DJD. Continue current conservative treatment. Medication management: Continue current medications. Continue with pain management POC. We have discussed additional workup and treatment that could be needed. Will defer USG IA hip inj at least for now. Does have pending lumbar spine MRI with Dr Flores. H/o lumbar surgery and injections. Follow-up: 2-3 months Visit Vitals Temp 98.5 F (36.9 C) (Temporal) Ht 1.575 m (5' 2 ) Wt 59.9 kg (132 lb) BMI 24.14 kg/m *Portions of this note may have been created with [employer] or other software which leads to grammatical and typographical errors which are not development representative of the intent with my spoken words. Clinical plastic surgery assistant/AT/MA was acting as a scribe today for this note. I have performed all essential components of the history, and physical exam. I have confirmed the diagnosis and developed a plan of care at this visit. I have reviewed the note following the visit and have made edits as appropriate to my evaluation and plan of care. Marcela Pearson DO documented in this encounter [facility] 10-09-2021 History of Present illness Narrative Chief Complaint Patient presents with Right Hip - Pain, Follow-up Pain Radiation To: low back, down leg Pain Duration: 1.5 mo. Pain Frequency: intermittent Pain Quality: aching, sharp, tingling Factors That Aggravate Pain: activity Factors That Relieve Pain: medications, over the counter (OTC), heat Patient presents in follow-up with concerns for hip related symptoms and pain generating from her back. Worsening of symptoms lately. IMPRESSION/PLAN: Records reviewed including recent imaging: She does have MRI from 09/07/2021: 1. Incomplete imaging of the right femur which is only imaged to the level of the distal metaphysis. 2. Mild right iliopsoas bursitis. No acute fracture. Mild to moderate right hip degenerative changes. She also has xrays from 09/02/2021, which showed moderate right hip DJD. Ddx discussed. Continue current conservative treatment. Medication management: Continue current medications. She does have cyclobenzaprine and Tramadol as needed. Continue with pain management POC We have discussed additional workup and treatment that could be needed. Follow-up in 3 months for re-evaluation. Visit Vitals Temp 96.6 F (35.9 C) (Temporal) Ht 1.575 m (5' 2 ) Wt 60 kg (132 lb 3.2 oz) BMI 24.18 kg/m *Portions of this note may have been created with [employer] or other software which leads to grammatical and typographical errors which are not development representative of the intent with my spoken words. Chief Complaint Patient presents with Right Hip - Pain, Follow-up Pain Radiation To: low back, down leg Pain Duration: 1.5 mo. Pain Frequency: intermittent Pain Quality: aching, sharp, tingling Factors That Aggravate Pain: activity Factors That Relieve Pain: medications, over the counter (OTC), heat Patient presents in follow-up with concerns for hip related symptoms and pain generating from her back. Denies groin pain. LBP with n/t down LE. Troch inj did not help Worsening of symptoms lately. IMPRESSION/PLAN: Records reviewed including recent imaging: She does have MRI from 09/07/2021: 1. Incomplete imaging of the right femur which is only imaged to the level of the distal metaphysis. 2. Mild right iliopsoas bursitis. No acute fracture. Mild to moderate right hip degenerative changes. She also has xrays from 09/02/2021, which showed moderate right hip DJD. Ddx discussed. Records from pain mgt requested. [facility]. Would appreciate collaboration and further input in regards to pain generators likely coming from low back. Continue current conservative treatment. Medication management: Continue current medications. She does have cyclobenzaprine and Tramadol as needed. Continue with pain management POC We have discussed additional workup and treatment that could be needed. Could consider IA hip joint inj. Follow-up in 3 months for re-evaluation. Visit Vitals Temp 96.6 F (35.9 C) (Temporal) Ht 1.575 m (5' 2 ) Wt 60 kg (132 lb 3.2 oz) BMI 24.18 kg/m *Portions of this note may have been created with [employer] or other software which leads to grammatical and typographical errors which are not development representative of the intent with my spoken words. Clinical plastic surgery assistant/AT/MA was acting as a scribe today for this note. I have performed all essential components of the history, and physical exam. I have confirmed the diagnosis and developed a plan of care at this visit. I have reviewed the note following the visit and have made edits as appropriate to my evaluation and plan of care. Marcela Pearson DO documented in this encounter [facility] 09-17-2021 History of Present illness Narrative Ruperto Hunter [id number] 1950 09/17/2021 Chief Complaint Patient presents with ED Follow-up ED 09/13/21 dt back/hip pain Xrays done Pt c/o of continued R hip and R sided back pain. MRI done 09/07/21 Pt is taking ibuprofen, tylenol, muscle relaxers and oxycodone. Medication Follow-up Med refills needed History of Present Illness: Ruperto Hunter is a 71 y.o. female is an Established pt to the clinic for follow-up complaint of ED follow-up. ED follow-up- ED 09/13/21 dt back/hip pain. X-rays done. Pt c/o of continued R hip and R sided back pain. MRI done 09/07/21. Pt is taking ibuprofen, tylenol, muscle relaxers, and oxycodone. Medications take the edge off 06/23. Walking and standing make the pain worse. She is scheduled to start therapy next Tuesday. History: Past Medical History: Diagnosis Date Anxiety Chronic sinusitis GERD (gastroesophageal reflux disease) Hyperlipidemia Hypertension Hypothyroidism Migraine Nasopharyngeal neoplasm Nonintractable headache Tremor Trigeminal neuropathy Past Surgical History: Procedure Laterality Date EGD DIAGNOSTIC N/A 02/20/2021 Laterality: N/A; Surgeon: Maria Luisa Lopes DO; Location: [facility] COLONOSCOPY DIAGNOSTIC N/A 02/20/2021 Laterality: N/A; Surgeon: Maria Luisa Lopes DO; Location: [facility] ESS NASAL DIAGNOSTIC Midline 04/25/2020 Laterality: Midline; Surgeon: Chidi Valenzuela MD; Location: [facility] OR RESECTION INFERIOR TURBINATE SUBMUCOUS N/A 04/18/2020 Laterality: N/A; Surgeon: Sofia Story MD; Location: [facility] NASOPHARYNGOSCOPY N/A 04/18/2020 Laterality: N/A; Surgeon: Sofia Story MD; Location: [facility] OTHER SURGICAL 2016 Skin cancer removed off lower eyelid BACK SURGERY 02/08/2019, 11/24/20 Dr. Powers BLADDER SUSPENSION CHOLECYSTECTOMY HYSTERECTOMY OTHER SURGICAL PICC line placement Family History Problem Relation Age of Onset Diabetes Mother Depression Mother Heart Disease - Other Father Hypertension Father Lipid Disorder Father Heart Failure Father Myocardial Infarction Father Prostate Cancer Father Thyroid Disease Father Heart Disease - Other Brother Hypertension Brother Lipid Disorder Brother Kidney Disease Brother Alzheimer's Maternal Grandmother Myocardial Infarction Maternal Grandfather Social History Socioeconomic History Marital status: Tobacco Use Smoking status: Former Smoker Packs/day: 1.50 Years: 50.00 Pack years: 75.00 Types: Cigarettes Quit date: 2018 Years since quittin.5 Smokeless tobacco: Never Used Vaping Use Vaping Use: Never used Substance and Sexual Activity Alcohol use: Yes Alcohol/week: 1.0 standard drink Types: 1 Glasses of wine per week Comment: occasionally, might have a glass a night Drug use: Never Sexual activity: Not Currently control/protection: Hysterectomy Other Topics Concern Domestic Violence No Social History Tobacco Use Smoking Status Former Smoker Packs/day: 1.50 Years: 50.00 Pack years: 75.00 Types: Cigarettes Quit date: 2018 Years since quittin.5 Smokeless Tobacco Never Used Social History Substance and Sexual Activity Alcohol Use Yes Alcohol/week: 1.0 standard drink Types: 1 Glasses of wine per week Comment: occasionally, might have a glass a night Social History Substance and Sexual Activity Drug Use Never Allergies: Keflex [cephalexin], Ciprofloxacin, Celebrex [celecoxib], and Pravastatin Home Medications: Current Outpatient Medications: amLODIPine 10 MG tablet, Take 1 tablet by mouth daily., Disp: 90 tablet, Rfl: 0 buPROPion 150 MG tablet XL, Take 2 tablets by mouth daily every morning., Disp: 180 tablet, Rfl: 1 cyclobenzaprine 5 MG tablet, Take 1 tablet by mouth 3 times daily as needed for Muscle spasms, Mild Pain or Moderate Pain for up to 10 days., Disp: 40 tablet, Rfl: 0 estradiol 2 MG tablet, Take 1 tablet by mouth daily., Disp: 90 tablet, Rfl: 0 levothyroxine 125 MCG tablet, Take 1 tablet by mouth daily., Disp: 30 tablet, Rfl: 11 lisinopril 5 MG tablet, Take 1 tablet by mouth daily., Disp: 90 tablet, Rfl: 3 meloxicam 15 MG tablet, Take 1 tablet by mouth daily., Disp: 90 tablet, Rfl: 0 omepraz[address] capsule, Take 1 capsule by mouth daily., Disp: 30 capsule, Rfl: 11 acetaminophen 500 MG tablet, Take 1,000 mg by mouth every 6 hours as needed for Pain. PRN, Disp: , Rfl: Yyaoyfz-Pstldqylh-Sgtz ([id number] PO), Take by mouth., Disp: , Rfl: ezetimibe 10 MG tablet, Take 1 tablet by mouth daily., Disp: 30 tablet, Rfl: 11 gabapentin 600 MG tablet, Take 1 tablet by mouth at bedtime. Cancel previous RX, Disp: 90 tablet, Rfl: 1 ibuprofen 800 MG tablet, Take 1 tablet by mouth every 8 hours as needed for Moderate Pain., Disp: 30 tablet, Rfl: 0 ketorolac 10 MG tablet, Take 1 tablet by mouth every 6 hours as needed. Do not take for more than 5 days., Disp: 20 tablet, Rfl: 0 Multiple Vitamin (MULTIVITAMIN) Tab, Take 1 tablet by mouth daily., Disp: , Rfl: oxyCODONE-acetaminophen (Percocet) 5-325 MG per tablet, Take 1 tablet by mouth every 6 hours as needed for Moderate Pain, Severe Pain or Pain (breakthrough) for up to 7 days., Disp: 28 tablet, Rfl: 0 primidone 50 MG tablet, Two tablets twice daily, Disp: 360 tablet, Rfl: 1 Probiotic Product (PROBIOTIC-10 PO), Take by mouth., Disp: , Rfl: Vitamin D3 1000 units Tab tablet, Take 2,000 Units by mouth daily., Disp: , Rfl: ROS: Review of Systems Constitutional: Negative. HENT: Negative. Eyes: Negative. Respiratory: Negative. Cardiovascular: Negative. Gastrointestinal: Negative. Endocrine: Negative. Musculoskeletal: Positive for arthralgias (right hip). Skin: Negative. Allergic/Immunologic: Negative. Neurological: Negative. Psychiatric/Behavioral: Negative. Physical Examination: Vital Signs: BP 120/70 Pulse 60 Temp 96.8 F (36 C) SpO2 99% Smoking Status Former Smoker Physical Exam Vitals and nursing note reviewed. Constitutional: General: She is not in acute distress. Appearance: Normal appearance. She is well-developed. She is not ill-appearing or toxic-appearing. HENT: Head: Normocephalic and atraumatic. Eyes: Conjunctiva/sclera: Conjunctivae normal. Cardiovascular: Rate and Rhythm: Normal rate and regular rhythm. Pulses: Normal pulses. Heart sounds: Normal heart sounds. Pulmonary: Effort: Pulmonary effort is normal. No respiratory distress. Breath sounds: Normal breath sounds. Abdominal: General: Bowel sounds are normal. Palpations: Abdomen is soft. Musculoskeletal: General: No swelling or tenderness. Normal range of motion. Cervical back: Normal range of motion and neck supple. Skin: General: Skin is warm and dry. Neurological: Mental Status: She is alert and oriented to person, place, and time. Gait: Gait abnormal (limping). Psychiatric: Behavior: Behavior normal. Thought Content: Thought content normal. Judgment: Judgment normal. Laboratory and Additional Data: All pertinent lab and imaging results have been reviewed Results for orders placed or performed in visit on 04/07/21 URINE CULTURE Specimen: URINE - CLEAN CATCH Result Value Ref Range SPECIMEN DESCRIPTION URINE CLEAN CATCH UA Dipstick LEUKOCYTE POSITIVE RESULT-CULT KLEBSIELLA PNEUMONIAE Report Status 04/10/2021 ORGANISM IDENTIFIED KLEBSIELLA PNEUMONIAE Susceptibility Klebsiella pneumoniae - TAMANNA (UG/ML/INTERP)* Ampicillin Resistant Ampicillin/Sulbactam (c) Sensitive Ceftriaxone Sensitive Cefazolin Sensitive Imipenem Sensitive Gentamicin Sensitive Trimethoprim/Sulfamethoxazol Sensitive Amoxicillin/Clavulanic A Sensitive Nitrofurantoin Sensitive Piperacillin/Tazobactam(d) Sensitive Levofloxacin Sensitive ESBL Susceptible Ertapenem Sensitive Ceftazidime Sensitive * KLEBSIELLA PNEUMONIAE CULTURE STOOL Specimen: STOOL Result Value Ref Range SPECIMEN DESCRIPTION STOOL RESULT-CULT NO SALMONELLA,SHIGELLA,CAMPYLOBACTER, OR E COLI 0157:H7 ISOLATED. Report Status 04/09/2021 C DIFF QUICK CHECK Result Value Ref Range C. DIFF GDH AG NEGATIVE C. Diff Toxin A+B NEGATIVE C DIFF RESULT NEGATIVE FOR TOXIGENIC C. DIFFICILE NEGATIVE FOR TOXIGENIC C. DIFFICILE LIPASE Result Value Ref Range LIPASE 81 23 - 300 U/L AMYLASE Result Value Ref Range AMYLASE 43 30 - 110 U/L CBC, EDIF, PLATELET Result Value Ref Range WBC (WHITE BLOOD COUNT) 4.8 3.6 - 11.0 10*3/uL RBC 4.04 4.0 - 5.4 10*6/uL HEMOGLOBIN (HGB) 13.3 12.0 - 16.0 G/DL HEMATOCRIT (HCT) 39.5 36.0 - 48.0 % MEAN CELL VOLUME 97.6 80.0 - 100.0 FL Mean Cell HGB 33.0 26.0 - 35.0 PG MEAN CELL HGB CONCENTRATION 33.8 27.0 - 37.0 G/DL RBC DISTRIBUTION 13.5 11.5 - 14.5 % PLATELET COUNT 275 130.0 - 400.0 10*3/uL MEAN PLATELET VOLUME 9.0 7.4 - 11.0 FL DIFFERENTIAL TYPE AUTO DIFF % NEUTROPHILS 62.9 37.0 - 75.0 % LYMPHOCYTE 25.5 20.0 - 55.0 % MONOCYTE % 9.8 0.0 - 10.0 % EOSINOPHIL % 0.8 0.0 - 11.0 % BASOPHIL % 1.0 0.0 - 2.0 % Absolute Neutrophil Count 3.0 1.4 - 6.5 10*3/uL LYMPHOCYTES, ABSOLUTE 1.20 1.2 - 3.4 10*3/uL MONOCYTES, ABSOLUTE 0.5 0.0 - 0.7 10*3/uL ABSOLUTE EOSINOPHIL COUNT 0.00 0.0 - 0.7 10*3/uL ABSOLUTE BASOPHIL COUNT 0.0 0.0 - 0.2 10*3/uL TSH W/FT4 REFLEX Result Value Ref Range TSH, Reflex FT4 0.787 0.46 - 4.68 uIU/ML OCCULT BLOOD, STOOL Result Value Ref Range OCCULT BLOOD, STOOL NEGATIVE NEGATIVE COMPREHENSIVE METABOLIC PANEL Result Value Ref Range GLUCOSE 91 70 - 100 MG/DL BUN 13 7 - 20 MG/DL CREATININE SERUM 0.60 (L) 0.7 - 1.2 MG/DL SODIUM 132 (L) 137 - 145 MMOL/L POTASSIUM 4.6 3.5 - 5.1 MMOL/L CHLORIDE 100 98 - 107 MMOL/L CALCIUM 9.5 8.4 - 10.2 MG/DL PROTEIN, TOTAL 7.0 6.3 - 8.2 GM/DL Albumin 4.1 3.5 - 5.0 G/dl BILIRUBIN, TOTAL 0.4 0.2 - 1.3 MG/DL AST 28 14 - 36 IU/L ALKALINE PHOSPHATASE 67 38 - 126 IU/L CARBON DIOXIDE (CO2) 24 22 - 30 MMOL/L A/G Ratio 1.4 1.3 - 2.2 RATIO ALT 22 <35 IU/L ESTIMATED GFR, NON AMER 105 ml/min/1.73sq.m ESTIMATED GFR, 127 ml/min/1.73sq.m GFR COMMENT Average GFR for 70+ years old = 75. LIPID PANEL W CALCULATED LDL Result Value Ref Range CHOLESTEROL 263 (H) 107 - 217 MG/DL TRIGLYCERIDE 131 0 - 150 MG/DL HDL CHOLESTEROL 93 (H) 33 - 75 MG/DL LDL CHOLESTEROL, CALCULATED 144 MG/DL VLDL Cholesterol, Calculated 26 (H) 5.0 - 25 MG/DL TCHOL/HDL RATIO, MANUAL ENTER 2.83 RATIO CRYPTOSPORIDIUM ANTIGEN,DFA, STOOL Result Value Ref Range CRYPTOSPORIDIUM PARVUM ANTIGEN NEGATIVE NEGATIVE Assessment and Plan: Ruperto was seen today for ed follow-up and medication follow-up. Diagnoses and all orders for this visit: Hypothyroidism, unspecified type - levothyroxine 125 MCG tablet; Take 1 tablet by mouth daily. Right hip pain - cyclobenzaprine 5 MG tablet; Take 1 tablet by mouth 3 times daily as needed for Muscle spasms, Mild Pain or Moderate Pain for up to 10 days. - oxyCODONE-acetaminophen (Percocet) 5-325 MG per tablet; Take 1 tablet by mouth every 6 hours as needed for Moderate Pain, Severe Pain or Pain (breakthrough) for up to 7 days. Generalized anxiety disorder - buPROPion 150 MG tablet XL; Take 2 tablets by mouth daily every morning. Hot flashes due to surgical menopause - estradiol 2 MG tablet; Take 1 tablet by mouth daily. Hormone replacement therapy - estradiol 2 MG tablet; Take 1 tablet by mouth daily. Arthralgia, unspecified joint - meloxicam 15 MG tablet; Take 1 tablet by mouth daily. Benign hypertension - amLODIPine 10 MG tablet; Take 1 tablet by mouth daily. - lisinopril 5 MG tablet; Take 1 tablet by mouth daily. Gastroesophageal reflux disease, unspecified whether esophagitis present - omeprazole [address] capsule; Take 1 capsule by mouth daily. Chronic conditions are stable. Refills sent to [facility] as [facility] closed. Understands that this medication is to be Used in the lowest effective dose and frequency, is used as needed and not scheduled. OARRS is reviewed and is appropriate. Will need to stay active as able, regular exercise and stretching are mainstays in alleviating pain. Patient has been instructed of non-pharmacological methods of improving pain. Throughout our provider/patient relationship he gives no indication of medication abuse or diversion. The opioid prescription given to this patient exceeds 7 days or 30MED as it is used for the treatment of chronic pain which has been ineffectively controlled by other modalities of pain management. This medication was prescribed under the close supervision and direction of my collaborating physician per our standard care agreement. Will closely work with my collaborating physician while managing this patients chronic pain. He agrees with the prescribing of the above medication. She is scheduled with Ortho and PT. Reviewed MRI and x-ray from ED. Follow up as needed. Call office with any questions, concerns, or changes in health status. If any medications are not covered or you are not able to get the medications call the office and let us know so other alternative/arrangements can be made. The documentation within this encounter was likely aided with [employer], an electronic enologist device. Please excuse any errors or omissions that may not have been recognized at the time of this encounter. documented in this encounter [facility] 09-17-2021 Instructions RAFAEL Ruano - 09/17/2021 9:37 AM EDT Max Tylenol daily is 3,500-4,000 mg daily. documented in this encounter [facility] 09-13-2021 Hospital Discharge instructions RAFAEL Oviedo - 09/13/2021 3:52 PM EDT You were seen in the emergency department for evaluation of your hip and back. Based on your evaluation including a clinical exam and x-rays you are safe to be discharged at this time. continue your previously prescribed pain medications as needed for pain management. Use heat and ice as needed for additional pain relief. Change positions slowly, try to rest in the position of most comfort. Return to the emergency room with any worsening or more concerning symptoms. Referrals in place to primary care, orthopedics, neurology, and physical therapy. You can call physical therapy to schedule follow-up appointment reevaluation. Neurology, orthopedics, and primary care should be calling you to schedule a follow-up appointment from your emergency department visit today. documented in this encounter [facility] 09-09-2021 History of Present illness Narrative Associated Order(s): LARGE JOINT/BURSA INJECTION AND/OR ASPIRATION: R greater trochanteric bursa Chief Complaint Patient presents with Right Hip - Pain Pain Radiation To: low back, lateral, down side of leg to her calf. Pain Duration: approx. 3 wks, NKI or trauma. Pain Frequency: constant Pain Quality: aching, burning, sharp, shooting, throbbing Factors That Aggravate Pain: activity Factors That Relieve Pain: rest Patient presents with concerns for right hip related symptoms. Patient also reports low back pain, which radiates down the leg. Previously seen by her PCP as well as in the emergency department. Has tried Medrol dosepak and Meloxicam without relief. Recently prescribed cyclobenzaprine and Tramadol, which helps some. History of back surgery with Dr. Flores. IMPRESSION/PLAN: Records reviewed including recent imaging: She does have MRI from 09/07/2021: 1. Incomplete imaging of the right femur which is only imaged to the level of the distal metaphysis. 2. Mild right iliopsoas bursitis. No acute fracture. Mild to moderate right hip degenerative changes. She also has xrays from 09/02/2021, which showed moderate right hip DJD. Ddx discussed. Continue current conservative treatment. Medication management: Continue current medications. She does have cyclobenzaprine and Tramadol as needed. Right trochanteric bursa injection performed. See procedure note. We have discussed additional workup and treatment that could be needed. Referral placed to Dr. Flores. Bilateral hips examined today. Patient is guarded on exam today. INSPECTION: No swelling. No ecchymosis. GAIT: Antalgic. PALPATION: No tenderness. No tenderness at trochanteric bursa. ROM: Full AROM. STRENGTH: 5/5 TARAN: Neg. FADIR: Neg. SLR: Neg. Visit Vitals Temp 98 F (36.7 C) (Oral) Ht 1.575 m (5' 2 ) Wt 59 kg (130 lb) BMI 23.78 kg/m LARGE JOINT/BURSA INJECTION AND/OR ASPIRATION: R greater trochanteric bursa Date/Time: 09/09/2021 8:00 AM Supporting Documentation Indications: pain Procedure Details: Location: hip - R greater trochanteric bursa Local Anesthetic: ethyl chloride (cold spray) and lidocaine 1% Total Local Anesthetic: 3 mLs Needle size: 22 G Medication Verification: I have personally verified and performed the final check of the medication(s) used in this procedure prior to administration. The following items were included during the verification process for medication(s) administered: drug name, strength, volume, expiration, physical integrity and appearance of the medication(s). Medications administered: 1 mL triamcinolone 40 MG/ML Patient tolerance: patient tolerated the procedure well with no immediate complications Consent: Consent was obtained prior to the procedure after discussion of the risks, benefits and alternatives, and expected outcomes were discussed with the patient. The possibilities of reaction to medication, bleeding, infection, the need for additional procedures, failure to diagnosis a condition, and creating a complication requiring operation were discussed with the patient. The patient concurred with the proposed plan, giving consent. Preparation: Patient was prepped in the usual sterile fashion. *Portions of this note may have been created with [employer] or other software which leads to grammatical and typographical errors which are not development representative of the intent with my spoken words. Chief Complaint Patient presents with Right Hip - Pain Pain Radiation To: low back, lateral, down side of leg to her calf. Pain Duration: approx. 3 wks, NKI or trauma. Pain Frequency: constant Pain Quality: aching, burning, sharp, shooting, throbbing Factors That Aggravate Pain: activity Factors That Relieve Pain: rest Patient presents with concerns for right hip related symptoms. Patient also reports low back pain, which radiates down the leg. Previously seen by her PCP as well as in the emergency department. Has tried Medrol dosepak and Meloxicam without relief. Recently prescribed cyclobenzaprine and Tramadol, which helps some. History of back surgery with Dr. Flores. Also mentions injections with pain mgt, Dr. Christensen IMPRESSION/PLAN: Records reviewed including recent imaging: She does have MRI from 09/07/2021: 1. Incomplete imaging of the right femur which is only imaged to the level of the distal metaphysis. 2. Mild right iliopsoas bursitis. No acute fracture. Mild to moderate right hip degenerative changes. She also has xrays from 09/02/2021, which showed moderate right hip DJD. Ddx discussed. Continue current conservative treatment. Medication management: Continue current medications. She does have cyclobenzaprine and Tramadol as needed. Right trochanteric bursa injection performed. See procedure note. We have discussed additional workup and treatment that could be needed. Referral placed to Dr. Flores for further opinion. Follow-up: 1 mo Bilateral hips examined today. Patient is guarded on exam today. INSPECTION: No swelling. No ecchymosis. GAIT: Antalgic. PALPATION: No tenderness. No tenderness at trochanteric bursa. ROM: Full AROM. STRENGTH: 5/5 TARAN: Neg. FADIR: Neg. SLR: Neg. Visit Vitals Temp 98 F (36.7 C) (Oral) Ht 1.575 m (5' 2 ) Wt 59 kg (130 lb) BMI 23.78 kg/m LARGE JOINT/BURSA INJECTION AND/OR ASPIRATION: R greater trochanteric bursa Date/Time: 09/09/2021 8:00 AM Supporting Documentation Indications: pain Procedure Details: Location: hip - R greater trochanteric bursa Local Anesthetic: ethyl chloride (cold spray) and lidocaine 1% Total Local Anesthetic: 3 mLs Needle size: 22 G Medication Verification: I have personally verified and performed the final check of the medication(s) used in this procedure prior to administration. The following items were included during the verification process for medication(s) administered: drug name, strength, volume, expiration, physical integrity and appearance of the medication(s). Medications administered: 1 mL triamcinolone 40 MG/ML Patient tolerance: patient tolerated the procedure well with no immediate complications Consent: Consent was obtained prior to the procedure after discussion of the risks, benefits and alternatives, and expected outcomes were discussed with the patient. The possibilities of reaction to medication, bleeding, infection, the need for additional procedures, failure to diagnosis a condition, and creating a complication requiring operation were discussed with the patient. The patient concurred with the proposed plan, giving consent. Preparation: Patient was prepped in the usual sterile fashion. *Portions of this note may have been created with [employer] or other software which leads to grammatical and typographical errors which are not development representative of the intent with my spoken words. Clinical plastic surgery assistant/AT/MA was acting as a scribe today for this note. I have performed all essential components of the history, and physical exam. I have confirmed the diagnosis and developed a plan of care at this visit. I have reviewed the note following the visit and have made edits as appropriate to my evaluation and plan of care. Marcela Pearson DO documented in this encounter [facility] 09-02-2021 Hospital Discharge instructions Foster Galvez PA-C - 09/02/2021 2:56 PM EDT Imaging of your back looked stable. Imaging of her hip showed advanced osteoarthritic changes in the joint. I recommend that you follow-up with orthopedics. The following attachments cannot be sent through Care Everywhere.Hip Arthritis ([place]iberian)documented in this encounter [facility] 09-02-2021 Emergency department Note Xray at bedside [facility] 09-02-2021 Emergency department Note Xray at bedside Returned from Cat scan. To cat scan via wheelchair documented in this encounter [facility] 09-02-2021 Emergency department Note Returned from Cat scan. 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 She has abnormal posturing and fatigue along with tremor that is only present when writing. She is currently taking primidone and gabapentin without benefit. At the 6 week follow up, there was significant improvement in her handwriting. She did note excessive weakness of thumb DIP flexion, and increased tightness along the ulnar aspect of the forearm. I will adjust by not injecting the FPL this session to allow it time to recover and to increase the dose of toxin into the FCU muscle. Procedure After discussing the risks, benefits, and alternatives for this procedure, informed written consent was obtained and the signed consent form was placed in the medical chart. Botox was supplied by the office. The skin was cleansed with alcohol. EMG was used for guidance, to ensure precise muscle localization. Dilution: 100 units Botox/1 ml normal saline Botulinum toxin was injected with the following pattern: Right Adductor pollicis brevis 5 units Flexor pollicis longus 0 units (10 unit decrease) Flexor carpi ulnaris 15 units (5 unit increase) Flexor digitorum profundus 10 units Pronator quadratus 5 units Pronator teres 10 units Total used: 45 units Unavoidable waste: 55 units The patient tolerated the procedure well. Post-procedure care was discussed. Patient was instructed to call if there is any swallowing or breathing problems or head drop. Follow-up in 3 months. The patient left the clinic in good condition. Procedures documented in this encounter [facility] 08-20-2021 History of Present illness Narrative Ruperto Hunter [id number] 1950 08/20/2021 Chief Complaint Patient presents with Leg Pain RUE pain started 1 wk ago yesterday. Pain starts a groin/hip area and radiates down upper extremity. Pt reports walking 3 miles, mowed the yard and went swimming on that day. Reports pain is constant, wakes her up at night. Pt taking ibuprofen/tylenol, reports gives slight relief short term. Pt using heat and ice . Pt has seen chiropractor. History of Present Illness: Ruperto Hunter is a 71 y.o. female is an Established pt to the clinic for new complaint of RUE pain. RLE pain started 1 wk ago yesterday. Pain starts a groin/hip area and radiates down upper extremity. Pt reports walking 3 miles, mowed the yard and went swimming on that day. Reports pain is constant, wakes her up at night. Pt taking ibuprofen/tylenol, reports gives slight relief short term. Pt using heat and ice . Pt has seen chiropractor. History: Past Medical History: Diagnosis Date Anxiety Chronic sinusitis GERD (gastroesophageal reflux disease) Hyperlipidemia Hypertension Hypothyroidism Migraine Nasopharyngeal neoplasm Nonintractable headache Tremor Trigeminal neuropathy Past Surgical History: Procedure Laterality Date EGD DIAGNOSTIC N/A 02/20/2021 Laterality: N/A; Surgeon: Maria Luisa Lopes DO; Location: [facility] COLONOSCOPY DIAGNOSTIC N/A 02/20/2021 Laterality: N/A; Surgeon: Maria Luisa Lopes DO; Location: [facility] ESS NASAL DIAGNOSTIC Midline 04/25/2020 Laterality: Midline; Surgeon: Chidi Valenzuela MD; Location: [facility] OR RESECTION INFERIOR TURBINATE SUBMUCOUS N/A 04/18/2020 Laterality: N/A; Surgeon: Sofia Story MD; Location: [facility] NASOPHARYNGOSCOPY N/A 04/18/2020 Laterality: N/A; Surgeon: Sofia Story MD; Location: [facility] OTHER SURGICAL 2016 Skin cancer removed off lower eyelid BACK SURGERY 02/08/2019, 11/24/20 Dr. Powers BLADDER SUSPENSION CHOLECYSTECTOMY HYSTERECTOMY OTHER SURGICAL PICC line placement Family History Problem Relation Age of Onset Diabetes Mother Depression Mother Heart Disease - Other Father Hypertension Father Lipid Disorder Father Heart Failure Father Myocardial Infarction Father Prostate Cancer Father Thyroid Disease Father Heart Disease - Other Brother Hypertension Brother Lipid Disorder Brother Kidney Disease Brother Alzheimer's Maternal Grandmother Myocardial Infarction Maternal Grandfather Social History Socioeconomic History Marital status: Tobacco Use Smoking status: Former Smoker Packs/day: 1.50 Years: 50.00 Pack years: 75.00 Types: Cigarettes Quit date: 2018 Years since quittin.5 Smokeless tobacco: Never Used Vaping Use Vaping Use: Never used Substance and Sexual Activity Alcohol use: Yes Alcohol/week: 1.0 standard drink Types: 1 Glasses of wine per week Comment: occasionally, might have a glass a night Drug use: Never Sexual activity: Not Currently control/protection: Hysterectomy Other Topics Concern Domestic Violence No Social History Tobacco Use Smoking Status Former Smoker Packs/day: 1.50 Years: 50.00 Pack years: 75.00 Types: Cigarettes Quit date: 2018 Years since quittin.5 Smokeless Tobacco Never Used Social History Substance and Sexual Activity Alcohol Use Yes Alcohol/week: 1.0 standard drink Types: 1 Glasses of wine per week Comment: occasionally, might have a glass a night Social History Substance and Sexual Activity Drug Use Never Allergies: Keflex [cephalexin], Ciprofloxacin, Celebrex [celecoxib], and Pravastatin Home Medications: Current Outpatient Medications: acetaminophen 500 MG tablet, Take 1,000 mg by mouth every 6 hours as needed for Pain. PRN, Disp: , Rfl: amLODIPine 10 MG tablet, Take 1 tablet by mouth daily., Disp: 90 tablet, Rfl: 0 buPROPion 150 MG tablet XL, Take 2 tablets by mouth daily every morning., Disp: 180 tablet, Rfl: 1 Fygzime-Ahccfwffb-Cdvc (IZW-QVL-JFJR PO), Take by mouth., Disp: , Rfl: cyclobenzaprine 5 MG tablet, Take 1 tablet by mouth 3 times daily as needed for Muscle spasms, Mild Pain or Moderate Pain for up to 10 days., Disp: 40 tablet, Rfl: 0 estradiol 2 MG tablet, Take 1 tablet by mouth daily., Disp: 90 tablet, Rfl: 0 ezetimibe 10 MG tablet, Take 1 tablet by mouth daily., Disp: 30 tablet, Rfl: 11 gabapentin 600 MG tablet, Take 1 tablet by mouth at bedtime. Cancel previous RX, Disp: 90 tablet, Rfl: 1 ibuprofen 800 MG tablet, Take 1 tablet by mouth every 8 hours as needed for Moderate Pain., Disp: 30 tablet, Rfl: 0 levothyroxine 125 MCG tablet, Take 1 tablet by mouth daily., Disp: 30 tablet, Rfl: 11 lisinopril 5 MG tablet, Take 1 tablet by mouth daily., Disp: 90 tablet, Rfl: 3 meloxicam 15 MG tablet, Take 1 tablet by mouth daily., Disp: 90 tablet, Rfl: 0 methylPREDNIsolone 4 MG Tab Therapy Pack tablet, Take as directed PO, Disp: 21 tablet, Rfl: 0 Multiple Vitamin (MULTIVITAMIN) Tab, Take 1 tablet by mouth daily., Disp: , Rfl: omeprazole [address] capsule, Take 1 capsule by mouth daily., Disp: 30 capsule, Rfl: 11 primidone 50 MG tablet, Two tablets twice daily, Disp: 360 tablet, Rfl: 1 Probiotic Product (PROBIOTIC-10 PO), Take by mouth., Disp: , Rfl: sucralfate 1 g tablet, Take 1 tablet by mouth 4 times daily for 7 days., Disp: 28 tablet, Rfl: 0 Vitamin D3 1000 units Tab tablet, Take 2,000 Units by mouth daily., Disp: , Rfl: ROS: Review of Systems Constitutional: Negative. HENT: Negative. Eyes: Negative. Respiratory: Negative. Cardiovascular: Negative. Gastrointestinal: Negative. Endocrine: Negative. Musculoskeletal: Positive for arthralgias (right hip). Skin: Negative. Allergic/Immunologic: Negative. Neurological: Negative. Psychiatric/Behavioral: Negative. Physical Examination: Vital Signs: BP 142/80 Pulse 88 Temp 96.6 F (35.9 C) Ht 1.575 m (5' 2 ) SpO2 98% BMI 24.51 kg/m Smoking Status Former Smoker Physical Exam Vitals and nursing note reviewed. Constitutional: General: She is not in acute distress. Appearance: Normal appearance. She is well-developed. She is not ill-appearing or toxic-appearing. HENT: Head: Normocephalic and atraumatic. Eyes: Conjunctiva/sclera: Conjunctivae normal. Cardiovascular: Rate and Rhythm: Normal rate and regular rhythm. Pulses: Normal pulses. Heart sounds: Normal heart sounds. Pulmonary: Effort: Pulmonary effort is normal. No respiratory distress. Breath sounds: Normal breath sounds. Abdominal: General: Bowel sounds are normal. Palpations: Abdomen is soft. Musculoskeletal: General: No swelling or tenderness. Normal range of motion. Cervical back: Normal range of motion and neck supple. Skin: General: Skin is warm and dry. Neurological: Mental Status: She is alert and oriented to person, place, and time. Gait: Gait abnormal (limping). Psychiatric: Behavior: Behavior normal. Thought Content: Thought content normal. Judgment: Judgment normal. Laboratory and Additional Data: All pertinent lab and imaging results have been reviewed Results for orders placed or performed in visit on 04/07/21 URINE CULTURE Specimen: URINE - CLEAN CATCH Result Value Ref Range SPECIMEN DESCRIPTION URINE CLEAN CATCH UA Dipstick LEUKOCYTE POSITIVE RESULT-CULT KLEBSIELLA PNEUMONIAE REPORT STATUS 04/10/2021 ORGANISM IDENTIFIED KLEBSIELLA PNEUMONIAE Susceptibility Klebsiella pneumoniae - TAMANNA (UG/ML/INTERP)* Ampicillin Resistant Ampicillin/Sulbactam (c) Sensitive Ceftriaxone Sensitive Cefazolin Sensitive Imipenem Sensitive Gentamicin Sensitive Trimethoprim/Sulfamethoxazol Sensitive Amoxicillin/Clavulanic A Sensitive Nitrofurantoin Sensitive Piperacillin/Tazobactam(d) Sensitive Levofloxacin Sensitive ESBL Susceptible Ertapenem Sensitive Ceftazidime Sensitive * KLEBSIELLA PNEUMONIAE CULTURE STOOL Specimen: STOOL Result Value Ref Range SPECIMEN DESCRIPTION STOOL RESULT-CULT NO SALMONELLA,SHIGELLA,CAMPYLOBACTER, OR E COLI 0157:H7 ISOLATED. REPORT STATUS 04/09/2021 C DIFF QUICK CHECK Result Value Ref Range C. DIFF GDH AG NEGATIVE C. Diff Toxin A+B NEGATIVE C DIFF RESULT NEGATIVE FOR TOXIGENIC C. DIFFICILE NEGATIVE FOR TOXIGENIC C. DIFFICILE LIPASE Result Value Ref Range LIPASE 81 23 - 300 U/L AMYLASE Result Value Ref Range AMYLASE 43 30 - 110 U/L CBC, EDIF, PLATELET Result Value Ref Range WBC (WHITE BLOOD COUNT) 4.8 3.6 - 11.0 10*3/uL RBC 4.04 4.0 - 5.4 10*6/uL HEMOGLOBIN (HGB) 13.3 12.0 - 16.0 G/DL HEMATOCRIT (HCT) 39.5 36.0 - 48.0 % MEAN CELL VOLUME 97.6 80.0 - 100.0 FL Mean Cell HGB 33.0 26.0 - 35.0 PG MEAN CELL HGB CONCENTRATION 33.8 27.0 - 37.0 G/DL RBC DISTRIBUTION 13.5 11.5 - 14.5 % PLATELET COUNT 275 130.0 - 400.0 10*3/uL MEAN PLATELET VOLUME 9.0 7.4 - 11.0 FL DIFFERENTIAL TYPE AUTO DIFF % NEUTROPHILS 62.9 37.0 - 75.0 % LYMPHOCYTE 25.5 20.0 - 55.0 % MONOCYTE % 9.8 0.0 - 10.0 % EOSINOPHIL % 0.8 0.0 - 11.0 % BASOPHIL % 1.0 0.0 - 2.0 % Absolute Neutrophil Count 3.0 1.4 - 6.5 10*3/uL LYMPHOCYTES, ABSOLUTE 1.20 1.2 - 3.4 10*3/uL MONOCYTES, ABSOLUTE 0.5 0.0 - 0.7 10*3/uL ABSOLUTE EOSINOPHIL COUNT 0.00 0.0 - 0.7 10*3/uL ABSOLUTE BASOPHIL COUNT 0.0 0.0 - 0.2 10*3/uL TSH W/FT4 REFLEX Result Value Ref Range TSH, Reflex FT4 0.787 0.46 - 4.68 uIU/ML OCCULT BLOOD, STOOL Result Value Ref Range OCCULT BLOOD, STOOL NEGATIVE NEGATIVE COMPREHENSIVE METABOLIC PANEL Result Value Ref Range GLUCOSE 91 70 - 100 MG/DL BUN 13 7 - 20 MG/DL CREATININE SERUM 0.60 (L) 0.7 - 1.2 MG/DL SODIUM 132 (L) 137 - 145 MMOL/L POTASSIUM 4.6 3.5 - 5.1 MMOL/L CHLORIDE 100 98 - 107 MMOL/L CALCIUM 9.5 8.4 - 10.2 MG/DL PROTEIN, TOTAL 7.0 6.3 - 8.2 GM/DL ALBUMIN 4.1 3.5 - 5.0 G/dl BILIRUBIN, TOTAL 0.4 0.2 - 1.3 MG/DL AST 28 14 - 36 IU/L ALKALINE PHOSPHATASE 67 38 - 126 IU/L CARBON DIOXIDE (CO2) 24 22 - 30 MMOL/L A/G Ratio 1.4 1.3 - 2.2 RATIO ALT 22 <35 IU/L ESTIMATED GFR, NON AMER 105 ml/min/1.73sq.m ESTIMATED GFR, 127 ml/min/1.73sq.m GFR COMMENT Average GFR for 70+ years old = 75. LIPID PANEL W CALCULATED LDL Result Value Ref Range CHOLESTEROL 263 (H) 107 - 217 MG/DL TRIGLYCERIDE 131 0 - 150 MG/DL HDL CHOLESTEROL 93 (H) 33 - 75 MG/DL LDL CHOLESTEROL, CALCULATED 144 MG/DL VLDL Cholesterol, Calculated 26 (H) 5.0 - 25 MG/DL TCHOL/HDL RATIO, MANUAL ENTER 2.83 RATIO CRYPTOSPORIDIUM ANTIGEN,DFA, STOOL Result Value Ref Range CRYPTOSPORIDIUM PARVUM ANTIGEN NEGATIVE NEGATIVE Assessment and Plan: Ruperto was seen today for leg pain. Diagnoses and all orders for this visit: Right hip pain - methylPREDNIsolone 4 MG Tab Therapy Pack tablet; Take as directed PO - cyclobenzaprine 5 MG tablet; Take 1 tablet by mouth 3 times daily as needed for Muscle spasms, Mild Pain or Moderate Pain for up to 10 days. Patient given Medrol Dosepak and Flexeril for right hip pain/muscle spasms. Patient may continue to see chiropractor. Discussed if pain does not improve wanting to do x-rays. We'll discuss physical therapy, MRI, referral to [facility] is options if pain persists. Follow up as needed. Call office with any questions, concerns, or changes in health status. If any medications are not covered or you are not able to get the medications call the office and let us know so other alternative/arrangements can be made. The documentation within this encounter was likely aided with [employer], an electronic enologist device. Please excuse any errors or omissions that may not have been recognized at the time of this encounter. documented in this encounter [facility] 06-29-2021 History of Present illness Narrative Ruperto Hunter [id number] 1950 06/29/2021 Chief Complaint Patient presents with Pain Discuss arthritis pain to b/l legs, pt reports pain has worsened since starting to walk this spring. Pt reports steps are difficult. Reports mornings pain is worse to legs and hands. Reports pain is waking her up at night. Pt is not taking OTC meds for pain, pt has tried tylenol arthritis, not effective. History of Present Illness: Ruperto Hunter is a 71 y.o. female is an Established pt to the clinic for follow-up complaint of arthritis pain. Discuss arthritis pain to b/l legs, pt reports pain has worsened since starting to walk this spring. Pt reports steps are difficult. Reports mornings pain is worse to legs and hands. Reports pain is waking her up at night. Pt is not taking OTC meds for pain, pt has tried tylenol arthritis, not effective. History: Past Medical History: Diagnosis Date Anxiety Chronic sinusitis GERD (gastroesophageal reflux disease) Hyperlipidemia Hypertension Hypothyroidism Migraine Nasopharyngeal neoplasm Nonintractable headache Tremor Trigeminal neuropathy Past Surgical History: Procedure Laterality Date EGD DIAGNOSTIC N/A 02/20/2021 Laterality: N/A; Surgeon: Maria Luisa Lopes DO; Location: [facility] COLONOSCOPY DIAGNOSTIC N/A 02/20/2021 Laterality: N/A; Surgeon: Maria Luisa Lopes DO; Location: [facility] ESS NASAL DIAGNOSTIC Midline 04/25/2020 Laterality: Midline; Surgeon: Chidi Valenzuela MD; Location: [facility] OR RESECTION INFERIOR TURBINATE SUBMUCOUS N/A 04/18/2020 Laterality: N/A; Surgeon: Sofia Story MD; Location: [facility] NASOPHARYNGOSCOPY N/A 04/18/2020 Laterality: N/A; Surgeon: Sofia Story MD; Location: [facility] OTHER SURGICAL 2016 Skin cancer removed off lower eyelid BACK SURGERY 02/08/2019, 11/24/20 Dr. Powers BLADDER SUSPENSION CHOLECYSTECTOMY HYSTERECTOMY OTHER SURGICAL PICC line placement Family History Problem Relation Age of Onset Diabetes Mother Depression Mother Heart Disease - Other Father Hypertension Father Lipid Disorder Father Heart Failure Father Myocardial Infarction Father Prostate Cancer Father Thyroid Disease Father Heart Disease - Other Brother Hypertension Brother Lipid Disorder Brother Kidney Disease Brother Alzheimer's Maternal Grandmother Myocardial Infarction Maternal Grandfather Social History Socioeconomic History Marital status: Tobacco Use Smoking status: Former Smoker Packs/day: 1.50 Years: 50.00 Pack years: 75.00 Types: Cigarettes Quit date: 2019 Years since quittin.3 Smokeless tobacco: Never Used Vaping Use Vaping Use: Never used Substance and Sexual Activity Alcohol use: Yes Alcohol/week: 1.0 standard drink Types: 1 Glasses of wine per week Comment: occasionally, might have a glass a night Drug use: Never Sexual activity: Not Currently control/protection: Hysterectomy Other Topics Concern Domestic Violence No Social History Tobacco Use Smoking Status Former Smoker Packs/day: 1.50 Years: 50.00 Pack years: 75.00 Types: Cigarettes Quit date: 2019 Years since quittin.3 Smokeless Tobacco Never Used Social History Substance and Sexual Activity Alcohol Use Yes Alcohol/week: 1.0 standard drink Types: 1 Glasses of wine per week Comment: occasionally, might have a glass a night Social History Substance and Sexual Activity Drug Use Never Allergies: Keflex [cephalexin], Ciprofloxacin, Celebrex [celecoxib], and Pravastatin Home Medications: Current Outpatient Medications: acetaminophen 500 MG tablet, Take 1,000 mg by mouth every 6 hours as needed for Pain. PRN, Disp: , Rfl: amLODIPine 10 MG tablet, Take 1 tablet by mouth daily., Disp: 90 tablet, Rfl: 0 buPROPion 150 MG tablet XL, Take 2 tablets by mouth daily every morning., Disp: 180 tablet, Rfl: 1 Jtotnly-Idkthpvdl-Pjjz (VQM-MEE-XSYV PO), Take by mouth., Disp: , Rfl: estradiol 2 MG tablet, Take 1 tablet by mouth daily., Disp: 90 tablet, Rfl: 0 ezetimibe 10 MG tablet, Take 1 tablet by mouth daily., Disp: 30 tablet, Rfl: 11 gabapentin 600 MG tablet, Take 1 tablet by mouth at bedtime. Cancel previous RX, Disp: 90 tablet, Rfl: 1 ibuprofen 800 MG tablet, Take 1 tablet by mouth every 8 hours as needed for Moderate Pain., Disp: 30 tablet, Rfl: 0 levothyroxine 125 MCG tablet, Take 1 tablet by mouth daily., Disp: 30 tablet, Rfl: 11 lisinopril 5 MG tablet, Take 1 tablet by mouth daily., Disp: 90 tablet, Rfl: 3 Multiple Vitamin (MULTIVITAMIN) Tab, Take 1 tablet by mouth daily., Disp: , Rfl: omeprazole [address] capsule, Take 1 capsule by mouth daily., Disp: 30 capsule, Rfl: 11 primidone 50 MG tablet, Two tablets twice daily, Disp: 360 tablet, Rfl: 1 Probiotic Product (PROBIOTIC-10 PO), Take by mouth., Disp: , Rfl: Vitamin D3 1000 units Tab tablet, Take 2,000 Units by mouth daily., Disp: , Rfl: meloxicam 7.5 MG tablet, Take 1 tablet by mouth daily., Disp: 90 tablet, Rfl: 3 sucralfate 1 g tablet, Take 1 tablet by mouth 4 times daily for 7 days., Disp: 28 tablet, Rfl: 0 ROS: Review of Systems Constitutional: Negative. HENT: Negative. Eyes: Negative. Respiratory: Negative. Cardiovascular: Negative. Gastrointestinal: Negative. Endocrine: Negative. Musculoskeletal: Positive for arthralgias. Skin: Negative. Allergic/Immunologic: Negative. Neurological: Negative. Psychiatric/Behavioral: Negative. Physical Examination: Vital Signs: BP 130/78 Pulse 84 Temp 97.1 F (36.2 C) Ht 1.575 m (5' 2 ) Wt 60.8 kg (134 lb) SpO2 98% BMI 24.51 kg/m Smoking Status Former Smoker Physical Exam Vitals and nursing note reviewed. Constitutional: Appearance: Normal appearance. She is well-developed. HENT: Head: Normocephalic and atraumatic. Eyes: Pupils: Pupils are equal, round, and reactive to light. Cardiovascular: Rate and Rhythm: Normal rate. Pulmonary: Effort: Pulmonary effort is normal. Abdominal: General: Bowel sounds are normal. Palpations: Abdomen is soft. Musculoskeletal: General: No swelling or tenderness. Normal range of motion. Cervical back: Normal range of motion and neck supple. Skin: General: Skin is warm and dry. Neurological: Mental Status: She is alert and oriented to person, place, and time. Psychiatric: Behavior: Behavior normal. Thought Content: Thought content normal. Judgment: Judgment normal. Laboratory and Additional Data: All pertinent lab and imaging results have been reviewed Results for orders placed or performed in visit on 04/07/21 URINE CULTURE Specimen: URINE - CLEAN CATCH Result Value Ref Range SPECIMEN DESCRIPTION URINE CLEAN CATCH UA Dipstick LEUKOCYTE POSITIVE RESULT-CULT KLEBSIELLA PNEUMONIAE REPORT STATUS 04/10/2021 ORGANISM IDENTIFIED KLEBSIELLA PNEUMONIAE Susceptibility Klebsiella pneumoniae - TAMANNA (UG/ML/INTERP)* Ampicillin Resistant Ampicillin/Sulbactam (c) Sensitive Ceftriaxone Sensitive Cefazolin Sensitive Imipenem Sensitive Gentamicin Sensitive Trimethoprim/Sulfamethoxazol Sensitive Amoxicillin/Clavulanic A Sensitive Nitrofurantoin Sensitive Piperacillin/Tazobactam(d) Sensitive Levofloxacin Sensitive ESBL Susceptible Ertapenem Sensitive Ceftazidime Sensitive * KLEBSIELLA PNEUMONIAE CULTURE STOOL Specimen: STOOL Result Value Ref Range SPECIMEN DESCRIPTION STOOL RESULT-CULT NO SALMONELLA,SHIGELLA,CAMPYLOBACTER, OR E COLI 0157:H7 ISOLATED. REPORT STATUS 04/09/2021 C DIFF QUICK CHECK Result Value Ref Range C. DIFF GDH AG NEGATIVE C. Diff Toxin A+B NEGATIVE C DIFF RESULT NEGATIVE FOR TOXIGENIC C. DIFFICILE NEGATIVE FOR TOXIGENIC C. DIFFICILE LIPASE Result Value Ref Range LIPASE 81 23 - 300 U/L AMYLASE Result Value Ref Range AMYLASE 43 30 - 110 U/L CBC, EDIF, PLATELET Result Value Ref Range WBC (WHITE BLOOD COUNT) 4.8 3.6 - 11.0 10*3/uL RBC 4.04 4.0 - 5.4 10*6/uL HEMOGLOBIN (HGB) 13.3 12.0 - 16.0 G/DL HEMATOCRIT (HCT) 39.5 36.0 - 48.0 % MEAN CELL VOLUME 97.6 80.0 - 100.0 FL Mean Cell HGB 33.0 26.0 - 35.0 PG MEAN CELL HGB CONCENTRATION 33.8 27.0 - 37.0 G/DL RBC DISTRIBUTION 13.5 11.5 - 14.5 % PLATELET COUNT 275 130.0 - 400.0 10*3/uL MEAN PLATELET VOLUME 9.0 7.4 - 11.0 FL DIFFERENTIAL TYPE AUTO DIFF % NEUTROPHILS 62.9 37.0 - 75.0 % LYMPHOCYTE 25.5 20.0 - 55.0 % MONOCYTE % 9.8 0.0 - 10.0 % EOSINOPHIL % 0.8 0.0 - 11.0 % BASOPHIL % 1.0 0.0 - 2.0 % Absolute Neutrophil Count 3.0 1.4 - 6.5 10*3/uL LYMPHOCYTES, ABSOLUTE 1.20 1.2 - 3.4 10*3/uL MONOCYTES, ABSOLUTE 0.5 0.0 - 0.7 10*3/uL ABSOLUTE EOSINOPHIL COUNT 0.00 0.0 - 0.7 10*3/uL ABSOLUTE BASOPHIL COUNT 0.0 0.0 - 0.2 10*3/uL TSH W/FT4 REFLEX Result Value Ref Range TSH, Reflex FT4 0.787 0.46 - 4.68 uIU/ML OCCULT BLOOD, STOOL Result Value Ref Range OCCULT BLOOD, STOOL NEGATIVE NEGATIVE COMPREHENSIVE METABOLIC PANEL Result Value Ref Range GLUCOSE 91 70 - 100 MG/DL BUN 13 7 - 20 MG/DL CREATININE SERUM 0.60 (L) 0.7 - 1.2 MG/DL SODIUM 132 (L) 137 - 145 MMOL/L POTASSIUM 4.6 3.5 - 5.1 MMOL/L CHLORIDE 100 98 - 107 MMOL/L CALCIUM 9.5 8.4 - 10.2 MG/DL PROTEIN, TOTAL 7.0 6.3 - 8.2 GM/DL ALBUMIN 4.1 3.5 - 5.0 G/dl BILIRUBIN, TOTAL 0.4 0.2 - 1.3 MG/DL AST 28 14 - 36 IU/L ALKALINE PHOSPHATASE 67 38 - 126 IU/L CARBON DIOXIDE (CO2) 24 22 - 30 MMOL/L A/G Ratio 1.4 1.3 - 2.2 RATIO ALT 22 <35 IU/L ESTIMATED GFR, NON AMER 105 ml/min/1.73sq.m ESTIMATED GFR, 127 ml/min/1.73sq.m GFR COMMENT Average GFR for 70+ years old = 75. LIPID PANEL W CALCULATED LDL Result Value Ref Range CHOLESTEROL 263 (H) 107 - 217 MG/DL TRIGLYCERIDE 131 0 - 150 MG/DL HDL CHOLESTEROL 93 (H) 33 - 75 MG/DL LDL CHOLESTEROL, CALCULATED 144 MG/DL VLDL 26 (H) 5.0 - 25 MG/DL TCHOL/HDL RATIO, MANUAL ENTER 2.83 RATIO CRYPTOSPORIDIUM ANTIGEN,DFA, STOOL Result Value Ref Range CRYPTOSPORIDIUM PARVUM ANTIGEN NEGATIVE NEGATIVE Assessment and Plan: Ruperto was seen today for pain. Diagnoses and all orders for this visit: Arthralgia, unspecified joint - meloxicam 7.5 MG tablet; Take 1 tablet by mouth daily. Discussed taking a drug holiday from Zetia. Pt to hold for 2 weeks then restart medication. If pain resolves after stopping Zetia and starts when restarting she is to follow-up with cardiology. If pain does not resolve she is to take Mobic 7.5 mg. Will increase dosage if needed. Follow up as needed. Call office with any questions, concerns, or changes in health status. If any medications are not covered or you are not able to get the medications call the office and let us know so other alternative/arrangements can be made. The documentation within this encounter was likely aided with [employer], an electronic enologist device. Please excuse any errors or omissions that may not have been recognized at the time of this encounter. 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 I would encourage you to try botox again. The weakness in your thumb will get better. I gave you too much botox into that muscle. documented in this encounter [facility] 06-08-2021 History of Present illness Narrative Images from the original note were not included. [facility] NOTE Chief Complaint Patient presents with Follow-up Tailor'S Aide weakness History of Present Illness: Ruperto Hunter is a pleasant 70 y.o. 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 There is no weakness in the upper arm or in the wrist or fingers. She only notes weakness with the pincer solar thermal installer, especially in the thumb. Her handwriting is not much better. She went back on primidone. She is taking 100 mg bid . She is also taking Gabapentin 600 mg at bedtime. Her muscles were injected as follows: Dilution: 100 units Botox/1 ml normal saline Right Adductor pollicis brevis 5 units Flexor pollicis longus 10 units Flexor carpi ulnaris 10 units Flexor digitorum profundus 10 units Pronator quadratus 5 units Pronator teres 10 units Total used: 50 units Unavoidable waste: 50 units Review of Systems HENT: Negative. Eyes: Negative. Respiratory: Negative. Cardiovascular: Negative. Gastrointestinal: Negative. Endocrine: Negative. Genitourinary: Negative. Musculoskeletal: Negative. Allergic/Immunologic: Negative. Neurological: Positive for tremors, weakness and numbness. Negative for dizziness, seizures, syncope, facial asymmetry, speech difficulty, light-headedness and headaches. Hematological: Negative. Psychiatric/Behavioral: Negative for agitation, behavioral problems, confusion, decreased concentration, dysphoric mood, hallucinations, self-injury, sleep disturbance and suicidal ideas. The patient is not nervous/anxious and is not hyperactive. Past Medical History: Diagnosis Date Anxiety Chronic sinusitis GERD (gastroesophageal reflux disease) Hyperlipidemia Hypertension Hypothyroidism Migraine Nasopharyngeal neoplasm Nonintractable headache Tremor Trigeminal neuropathy Past Surgical History: Procedure Laterality Date EGD DIAGNOSTIC N/A 02/20/2021 Laterality: N/A; Surgeon: Maria Luisa Lopes DO; Location[facility] COLONOSCOPY DIAGNOSTIC N/A 02/20/2021 Laterality: N/A; Surgeon: Maria Luisa Lopes DO; Location: [facility] ESS NASAL DIAGNOSTIC Midline 04/25/2020 Laterality: Midline; Surgeon: Chidi Valenzuela MD; Location: [facility]IN OR RESECTION INFERIOR TURBINATE SUBMUCOUS N/A 04/18/2020 Laterality: N/A; Surgeon: Sofia Story MD; Location: [facility] NASOPHARYNGOSCOPY N/A 04/18/2020 Laterality: N/A; Surgeon: Sofia Story MD; Location: [facility] 2016 Skin cancer removed off lower eyelid BACK SURGERY 02/08/2019, 11/24/20 Dr. Powers BLADDER SUSPENSION CHOLECYSTECTOMY HYSTERECTOMY OTHER SURGICAL PICC line placement Family History Problem Relation Age of Onset Diabetes Mother Depression Mother Heart Disease - Other Father Hypertension Father Lipid Disorder Father Heart Failure Father Myocardial Infarction Father Prostate Cancer Father Thyroid Disease Father Heart Disease - Other Brother Hypertension Brother Lipid Disorder Brother Kidney Disease Brother Alzheimer's Maternal Grandmother Myocardial Infarction Maternal Grandfather Social History Tobacco Use Smoking status: Former Smoker Packs/day: 1.50 Years: 50.00 Pack years: 75.00 Types: Cigarettes Quit date: 2018 Years since quittin.3 Smokeless tobacco: Never Used Vaping Use Vaping Use: Never used Substance Use Topics Alcohol use: Yes Alcohol/week: 1.0 standard drink Types: 1 Glasses of wine per week Comment: occasionally, might have a glass a night Drug use: Never Current Outpatient Medications Medication Sig acetaminophen 500 MG tablet Take 1,000 mg by mouth every 6 hours as needed for Pain. PRN amLODIPine 10 MG tablet Take 1 tablet by mouth daily. buPROPion 150 MG tablet XL Take 2 tablets by mouth daily every morning. estradiol 2 MG tablet Take 1 tablet by mouth daily. ezetimibe 10 MG tablet Take 1 tablet by mouth daily. gabapentin 600 MG tablet Take 1 tablet by mouth at bedtime. Cancel previous RX ibuprofen 800 MG tablet Take 1 tablet by mouth every 8 hours as needed for Moderate Pain. levothyroxine 125 MCG tablet Take 1 tablet by mouth daily. lisinopril 5 MG tablet Take 1 tablet by mouth daily. Multiple Vitamin (MULTIVITAMIN) Tab Take 1 tablet by mouth daily. omeprazole [address] capsule Take 1 capsule by mouth daily. primidone 50 MG tablet Two tablets twice daily Vitamin D3 1000 units Tab tablet Take 2,000 Units by mouth daily. sucralfate 1 g tablet Take 1 tablet by mouth 4 times daily for 7 days. Allergies Allergen Reactions Keflex [Cephalexin] Angioedema (swelling) Ciprofloxacin Itching and Myalgia Celebrex [Celecoxib] Rash Pravastatin Other reaction(s): Muscle pain Physical Exam: BP 123/68 (BP Location: Left arm, BP Position: Sitting) Pulse 88 Ht 1.575 m (5' 2 ) Wt 60.9 kg (134 lb 3.2 oz) SpO2 97% BMI 24.55 kg/m Smoking Status Former Smoker Brief Exam: 4/5 strength in right FPL. Otherwise, finger abductors and flexors are normal. Normal strength in wrist and upper arm. There has been some partial improvement in her handwriting: She does note tightness in her forearm along the ulnar aspect with prolonged writing. Assessment and Plan: Ruperto Hunter is a pleasant 70 y.o. female who presents in follow up after botulinum toxin injections. She has had some mild weakness of pincer solar thermal installer . The flexor pollicis longus muscle is weak. I will avoid this muscle at the next botulinum toxin session to allow time for it to recover, and in the future I would limit the dose to 5 units. Today she notes tightness along the ulnar aspect of her forearm with prolonged writing. I will give more botox in the FCU muscle at the next session. There was some interval improvement with her handwriting at the 3-4 week jalyn. This may continue to improve over the next few weeks. She is willing to return at the 3 month jalyn for repeat injections. Ruperto was seen today for follow-up. Diagnoses and all orders for this visit: 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 Essential tremor - primidone 50 MG tablet; Two tablets twice daily Trigeminal neuralgia - gabapentin 600 MG tablet; Take 1 tablet by mouth at bedtime. Cancel previous RX Deepa Weiss MD 06/08/2021 Review of Systems HENT: Negative. Eyes: Negative. Respiratory: Negative. Cardiovascular: Negative. Gastrointestinal: Negative. Endocrine: Negative. Genitourinary: Negative. Musculoskeletal: Negative. Allergic/Immunologic: Negative. Neurological: Positive for tremors, weakness and numbness. Negative for dizziness, seizures, syncope, facial asymmetry, speech difficulty, light-headedness and headaches. Hematological: Negative. Psychiatric/Behavioral: Negative for agitation, behavioral problems, confusion, decreased concentration, dysphoric mood, hallucinations, self-injury, sleep disturbance and suicidal ideas. The patient is not nervous/anxious and is not hyperactive. 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 She has abnormal posturing and fatigue along with tremor that is only present when writing. She is currently taking primidone and gabapentin without benefit. Procedure After discussing the risks, benefits, and alternatives for this procedure, informed written consent was obtained and the signed consent form was placed in the medical chart. Botox was supplied by the office. The skin was cleansed with alcohol. EMG and ultrasound were used for guidance, to ensure precise muscle localization. Dilution: 100 units Botox/1 ml normal saline Botulinum toxin was injected with the following pattern: Right Adductor pollicis brevis 5 units Flexor pollicis longus 10 units Flexor carpi ulnaris 10 units Flexor digitorum profundus 10 units Pronator quadratus 5 units Pronator teres 10 units Total used: 50 units Unavoidable waste: 50 units The patient tolerated the procedure well. Post-procedure care was discussed. Patient was instructed to call if there is any swallowing or breathing problems or head drop. Follow-up in 3 months. The patient left the clinic in good condition. documented in this encounter [facility] documented in this encounter [id number] History of Present illness Narrative* Keke Duron CNP - 08/22/2020 11:05 AM EDT Patient Name: Ruperto Hunter Admit Date: MR #: [id number] : 1950 Physicians: Anirudh Costa CNP (Family); No ref. provider found (Referring) Assessment: 1. Left sphenoid sinusitis 2. 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 S/p DC IV vancomycin due to leukopenia/neutropenia - leukopenia now stable, neutropenia has resolved Labs reviewed: CBC normal, BMP normal, CRP 53.7 (up from normal), ESR normal, CPK normal Weekly labs CBC, BMP, CRP, ESR, CPK Completed 3 weeks of IV ATBs for us previously, ending in May S/p PO ciprofloxacin for 1 month 06/03-07/03 (per PCP?) Surgical tissue pathology 04/25: Paraclival upper para-pharyngeal: Fibrotic Connective Tissue And Benign Skeletal Muscle. Follow up MRI 05/15 still showing previous infiltrative pattern lesion, asymmetric thickening of mucosal and submucosal tissues and partial encasement of left internal carotid artery. Findings favoringinfiltrative neoplasm of nasopharynx or underlying lymphoma. Nuclear scan 07/01: Uptake within the left posterior nasopharynx concerning for infection. Increaseduptake within right-sided axillary and cervical lymph nodes likely reactive. Has EMG scheduled with neurologist to evaluate leg pain and neuropathy We will order follow up MRI of the brain We will continue to follow through televisits and in office This is a telehealth visit. Patient is located in her home. Verbal consent obtained to conduct thisvisit. [facility] Subjective: Patient evaluated over the phone, states she is doing well. [place]. Left-sided headache is minimal and infrequent. No sinus pressure or pain, no congestion. No N/V/D,no chills or fevers. She has chronic joint pain and neuropathy, which is related to her arthritis and is being evaluated further per her neurologist. She states the most difficult parts are getting going. Once she is up and about she has no pain or concerns. Discussed follow up MRI. Exam: There were no vitals filed for this visit. Allergies: Celecoxib and Pravastatin Current Outpatient Medications: AMLODIPINE BESYLATE, BULK, MISC, Take 10 mg by mouth daily ., Disp: , Rfl: aspirin 81 MG EC tablet, TAKE ONE TABLET BY MOUTH EVERY DAY WITH BREAKFAST, Disp: , Rfl: biotin 1 mg tablet, TAKE 99965 (1 TAB) BY MOUTH QD, Disp: , Rfl: buPROPion (WELLBUTRIN XL) 150 MG 24 hr tablet, Take 300 mg by mouth every morning ., Disp: , Rfl: cholecalciferol, vitamin D3, (Vitamin D3) 25 mcg (1,000 unit) capsule, Take 1,000 Units by mouth daily ., Disp: , Rfl: DAPTOMYCIN IV, Infuse 395 mg into a venous catheter daily. 395mg/saline 8 ml over 2 min IVP., Disp:, Rfl: estradioL (ESTRACE) 1 MG tablet, Take 2 mg by mouth daily ., Disp: , Rfl: gabapentin (NEURONTIN) 800 MG tablet, Take 800 mg by mouth See Admin Instructions ., Disp: , Rfl: heparin flush,porcine,-0.9NaCl 100 unit/mL Kit, Infuse 5 mL into a venous catheter 3 (three) times a day. After each antibiotic infusion, Disp: , Rfl: ibuprofen (ADVIL,MOTRIN) 800 MG tablet, Take 800 mg by mouth every 8 (eight) hours as needed for pain Reasons: pain., Disp: , Rfl: levothyroxine (Synthroid) 125 MCG tablet, TAKE ONE TABLET BY MOUTH EVERY DAY, ON AN EMPTY STOMACH (AN HOUR BEFORE OR TWO HOURS AFTER A MEAL), Disp: , Rfl: lisinopriL (PRINIVIL,ZESTRIL) 5 MG tablet, Take 5 mg by mouth daily ., Disp: , Rfl: multivitamin (THERAGRAN) per tablet, Take 1 tablet by mouth daily ., Disp: , Rfl: omeprazole (PRILOSEC) 20 MG capsule, TAKE ONE CAPSULE BY MOUTH EVERY DAY NEEDED FOR STOMACH, Disp: , Rfl: primidone (MYSOLINE) 50 MG tablet, 5 tabs a day, Disp: , Rfl: sodium chloride 0.9 %, flush, (SALINE FLUSH INJ), Infuse 10 mL into a venous catheter 3 (three) times a day. Prior to and after each infusion and or blood draw., Disp: , Rfl: PMH/PSH/SH/FH reviewed, no change Review of Systems: All systems were reviewed no change Medications Reviewed. Chart Reviewed. Exam Findings: No PE could be conducted over the phone ENT: No oral candidiasis Chest: Lungs clear bilaterally, no wheezing, or rales CVS: Normal S1 & S2+, Normal Rhythm Abdomen: Normal symmetry, Soft/non-tender. 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 I reviewed Labs. No orders to display Laboratory and Additional Data Reviewed: Laboratory 08/22/20 11:05 AM Microbiology 08/22/20 11:05 AM Radiology 08/22/20 11:05 AM Medications 08/22/20 11:05 AM Lab Results Component Value Date WBC 8.09 08/18/2020 HGB 12.2 08/18/2020 HCT 36.9 08/18/2020 MCV 94.4 08/18/2020 PLT 266 08/18/2020 Lab Results Component Value Date GLUCOSE 126 (H) 08/18/2020 CALCIUM 9.0 08/18/2020 NA 136 08/18/2020 K 3.8 08/18/2020 CL 101 08/18/2020 BUN 11 08/18/2020 CREATININE 0.64 08/18/2020 Problem List Items Addressed This Visit None I discussed my management plans with Patient/and or Family member, and also discussed antibiotics therapy including side effects with Patient/and or Family member. Medical Decision Making: Moderate This note is created with the assistance of a speech-recognition program. While intending to generate a document that actually reflects the content of the visit, the document can still have some errors including those of syntax and sound a- like substitutions which may escape proofreading. In such instances, actual meaning can be extrapolated by contextual derivation. documented in this [id number] Patient's home Progress note* Narratives Patient called and stated sh mady got a little flush feeling on the back of her neck when she did her meropenem this afternoon. Patient reports that her PICC line flushes easily and reviewed flushing technique with patient and verbalized an understanding. Discussed that meropenem is suppose to be infused over 30 minutes and patient stated she counted the drops but it may of went in quicker than that. Explained that the antibiotic can cause a flush feeling if infused too quickly. patient stated she will make sure it runs over the 30 minutes. Patient's next dose is at 11pm and patient will let us know if she has any more issues. documented in this encounter [id number] History of Present illness Narrative* Keke Duron CNP - 08/06/2020 3:17 PM EDT Patient Name: Ruperto Hunter Admit Date: MR #: [id number] : 1950 Physicians: Anirudh Costa CNP (Family); No ref. provider found (Referring) Assessment: 1. Left sphenoid sinusitis 2. 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 Bassett on08/11 to decide whether to extend ATB therapy Continue IV daptomycin, will continue monitoring CPK. C/o muscle aches is not a new finding, she has had this even prior to our first encounter with her. 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 S/p DC IV vancomycin due to leukopenia/neutropenia - leukopenia now stable, neutropenia has resolved Labs reviewed: WBC 3.89, BMP unremarkable, CRP normal, ESR normal, CPK 228 (stopped taking statins 2 days ago) Weekly labs CBC, BMP, CRP, ESR, CPK Completed 3 weeks of IV ATBs for us previously, ending in May S/p PO ciprofloxacin for 1 month 06/03-07/03 (per PCP?) Surgical tissue pathology 04/25: Paraclival upper para-pharyngeal: Fibrotic Connective Tissue And Benign Skeletal Muscle. Follow up MRI 05/15 still showing previous infiltrative pattern lesion, asymmetric thickening of mucosal and submucosal tissues and partial encasement of left internal carotid artery. Findings favoringinfiltrative neoplasm of nasopharynx or underlying lymphoma. Nuclear scan 07/01: Uptake within the left posterior nasopharynx concerning for infection. Increaseduptake within right-sided axillary and cervical lymph nodes likely reactive. We will continue to follow through televisits and in office This is a telehealth visit. Patient is located in her home. Verbal consent obtained to conduct thisvisit. [facility] provider [facility] Subjective: Patient evaluated over the phone, states she is doing well. Has occasional left-sided ear pressure but no headaches, no ear drainage or pain, no sinus pressure, no chills or fevers, no vision change or facial pain or swelling. Continues to complain of muscle aches which is mostly in legs but also in the arms. Also has joint pain and difficulty getting going in the mornings. Neurologist increased primidone dose, now she can sign her name again . Statin was discontinued 2 days ago by open pit quarry supervisor. Encouraged her to discuss leg pain with neurologist at her next visit - she is scheduled for an EMG next month. Tolerating IV ATBs well, no c/o N/V/D. No reports of dark stools this time. Exam: There were no vitals filed for this visit. Allergies: Celecoxib and Pravastatin Current Outpatient Medications: AMLODIPINE BESYLATE, BULK, MISC, Take 10 mg by mouth daily ., Disp: , Rfl: aspirin 81 MG EC tablet, TAKE ONE TABLET BY MOUTH EVERY DAY WITH BREAKFAST, Disp: , Rfl: biotin 1 mg tablet, TAKE 72555 (1 TAB) BY MOUTH QD, Disp: , Rfl: buPROPion (WELLBUTRIN XL) 150 MG 24 hr tablet, Take 300 mg by mouth every morning ., Disp: , Rfl: cholecalciferol, vitamin D3, (Vitamin D3) 25 mcg (1,000 unit) capsule, Take 1,000 Units by mouth daily ., Disp: , Rfl: DAPTOMYCIN IV, Infuse 395 mg into a venous catheter daily. 395mg/saline 8 ml over 2 min IVP., Disp:, Rfl: estradioL (ESTRACE) 1 MG tablet, Take 2 mg by mouth daily ., Disp: , Rfl: gabapentin (NEURONTIN) 800 MG tablet, Take 800 mg by mouth See Admin Instructions ., Disp: , Rfl: heparin flush,porcine,-0.9NaCl 100 unit/mL Kit, Infuse 5 mL into a venous catheter 3 (three) times a day. After each antibiotic infusion, Disp: , Rfl: ibuprofen (ADVIL,MOTRIN) 800 MG tablet, Take 800 mg by mouth every 8 (eight) hours as needed for pain Reasons: pain., Disp: , Rfl: levothyroxine (Synthroid) 125 MCG tablet, TAKE ONE TABLET BY MOUTH EVERY DAY, ON AN EMPTY STOMACH (AN HOUR BEFORE OR TWO HOURS AFTER A MEAL), Disp: , Rfl: lisinopriL (PRINIVIL,ZESTRIL) 5 MG tablet, Take 5 mg by mouth daily ., Disp: , Rfl: multivitamin (THERAGRAN) per tablet, Take 1 tablet by mouth daily ., Disp: , Rfl: omeprazole (PRILOSEC) 20 MG capsule, TAKE ONE CAPSULE BY MOUTH EVERY DAY NEEDED FOR STOMACH, Disp: , Rfl: primidone (MYSOLINE) 50 MG tablet, 5 tabs a day, Disp: , Rfl: sodium chloride 0.9 %, flush, (SALINE FLUSH INJ), Infuse 10 mL into a venous catheter 3 (three) times a day. Prior to and after each infusion and or blood draw., Disp: , Rfl: PMH/PSH/SH/FH reviewed, no change Review of Systems: All systems were reviewed no change Medications Reviewed. Chart Reviewed. Exam Findings: ENT: No oral candidiasis Chest: Lungs clear bilaterally, no wheezing, or rales CVS: Normal S1 & S2+, Normal Rhythm Abdomen: Normal symmetry, Soft/non-tender. 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 I reviewed Labs. No orders to display Laboratory and Additional Data Reviewed: Laboratory 08/06/20 3:18 PM Microbiology 08/06/20 3:18 PM Radiology 08/06/20 3:18 PM Medications 08/06/20 3:18 PM Lab Results Component Value Date WBC 3.89 (L) 08/04/2020 HGB 12.4 08/04/2020 HCT 38.9 08/04/2020 MCV 97.7 08/04/2020 PLT 258 08/04/2020 Lab Results Component Value Date GLUCOSE 100 (H) 08/04/2020 CALCIUM 9.6 08/04/2020 NA 135 08/04/2020 K 4.7 08/04/2020 CL 104 08/04/2020 BUN 14 08/04/2020 CREATININE 0.70 08/04/2020 Problem List Items Addressed This Visit None I discussed my management plans with Patient/and or Family member, and also discussed antibiotics therapy including side effects with Patient/and or Family member. Medical Decision Making: Moderate This note is created with the assistance of a speech-recognition program. While intending to generate a document that actually reflects the content of the visit, the document can still have some errors including those of syntax and sound a- like substitutions which may escape proofreading. In such instances, actual meaning can be extrapolated by contextual derivation. documented in this [id number] History of Present illness Narrative* Keke Duron CNP - 07/29/2020 2:10 PM EDT Patient Name: Ruperto Hunter Admit Date: MR #: [id number] : 1950 Physicians: Anirudh Costa CNP (Family); No ref. provider found (Referring) Assessment: 1. Left sphenoid sinusitis 2. 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 Lesion of posterior nasopharynx with staph epidermidis and pseudomonas Plan: Continue IV meropenem, end date currently is 08/12 Switch vancomycin to daptomycin due to leukopenia/neutropenia while on vanco Labs reviewed: WBC 3.80/abs neutrophils 1.49, BMP unremarkable, CRP normal, ESR normal Weekly labs CBC, BMP, CRP, ESR, CPK Completed 3 weeks of IV ATBs for us previously, ending in May S/p PO ciprofloxacin for 1 month 06/03-07/03 Surgical tissue pathology 04/25: Paraclival upper para-pharyngeal: Fibrotic Connective Tissue And Benign Skeletal Muscle. Follow up MRI 05/15 still showing previous infiltrative pattern lesion, asymmetric thickening of mucosal and submucosal tissues and partial encasement of left internal carotid artery. Findings favoringinfiltrative neoplasm of nasopharynx or underlying lymphoma. Nuclear scan 07/01: Uptake within the left posterior nasopharynx concerning for infection. Increaseduptake within right-sided axillary and cervical lymph nodes likely reactive. Continue monitoring dark stools - stools became dark last time on ATB but occult was negative. No sign of bleeding otherwise. Hemodynamically stable, Hgb 12.0 We will continue to follow through televisits and in office This is a telehealth visit. Patient is located in her home. Verbal consent obtained to conduct thisvisit. This provider is [facility] Subjective: Patient evaluated over the phone, states she is doing well. Headaches are brief, low intensity and infrequent. No sinus pressure, sinus pain or drainage, denies earache or fullness. She has a loose BM every morning after taking her thyroid medicine. This is chronic. However, she states she has been having some additional rectal discomfort lately, like her rectal area is raw. She is treating this topically and will continue to monitor. Denies chills or fevers. No new joint pain. Discussed the changes in ATB management, she verbalizes understanding. Exam: There were no vitals filed for this visit. Allergies: Celecoxib and Pravastatin Current Outpatient Medications: AMLODIPINE BESYLATE, BULK, MISC, Take 10 mg by mouth daily ., Disp: , Rfl: aspirin 81 MG EC tablet, TAKE ONE TABLET BY MOUTH EVERY DAY WITH BREAKFAST, Disp: , Rfl: biotin 1 mg tablet, TAKE 02518 (1 TAB) BY MOUTH QD, Disp: , Rfl: buPROPion (WELLBUTRIN XL) 150 MG 24 hr tablet, Take 300 mg by mouth every morning ., Disp: , Rfl: cholecalciferol, vitamin D3, (Vitamin D3) 25 mcg (1,000 unit) capsule, Take 1,000 Units by mouth daily ., Disp: , Rfl: estradioL (ESTRACE) 1 MG tablet, Take 2 mg by mouth daily ., Disp: , Rfl: gabapentin (NEURONTIN) 800 MG tablet, Take 800 mg by mouth See Admin Instructions ., Disp: , Rfl: heparin flush,porcine,-0.9NaCl 100 unit/mL Kit, Infuse 5 mL into a venous catheter 3 (three) times a day. After each antibiotic infusion, Disp: , Rfl: ibuprofen (ADVIL,MOTRIN) 800 MG tablet, Take 800 mg by mouth every 8 (eight) hours as needed for pain Reasons: pain., Disp: , Rfl: levothyroxine (Synthroid) 125 MCG tablet, TAKE ONE TABLET BY MOUTH EVERY DAY, ON AN EMPTY STOMACH (AN HOUR BEFORE OR TWO HOURS AFTER A MEAL), Disp: , Rfl: lisinopriL (PRINIVIL,ZESTRIL) 5 MG tablet, Take 5 mg by mouth daily ., Disp: , Rfl: multivitamin (THERAGRAN) per tablet, Take 1 tablet by mouth daily ., Disp: , Rfl: omeprazole (PRILOSEC) 20 MG capsule, TAKE ONE CAPSULE BY MOUTH EVERY DAY NEEDED FOR STOMACH, Disp: , Rfl: primidone (MYSOLINE) 50 MG tablet, 5 tabs a day, Disp: , Rfl: sodium chloride 0.9 %, flush, (SALINE FLUSH INJ), Infuse 10 mL into a venous catheter 3 (three) times a day. Prior to and after each infusion and or blood draw., Disp: , Rfl: vancomycin in NS (VANCOCIN) IVPB, Infuse 1,000 mg into a venous catheter every 12 (twelve) hours. Run over 1 hour per gravity, Disp: , Rfl: PMH/PSH/SH/FH reviewed, no change Review of Systems: All systems were reviewed no change Medications Reviewed. Chart Reviewed. Exam Findings: ENT: No oral candidiasis Chest: Lungs clear bilaterally, no wheezing, or rales CVS: Normal S1 & S2+, Normal Rhythm Abdomen: Normal symmetry, Soft/non-tender. 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 I reviewed Labs. No orders to display Laboratory and Additional Data Reviewed: Laboratory 07/29/20 2:10 PM Microbiology 07/29/20 2:10 PM Radiology 07/29/20 2:10 PM Medications 07/29/20 2:10 PM Lab Results Component Value Date WBC 3.80 (L) 07/28/2020 HGB 12.0 07/28/2020 HCT 37.7 07/28/2020 MCV 96.7 07/28/2020 PLT 282 07/28/2020 Lab Results Component Value Date GLUCOSE 82 07/28/2020 CALCIUM 9.1 07/28/2020 NA 130 (L) 07/28/2020 K 4.3 07/28/2020 CL 99 07/28/2020 BUN 14 07/28/2020 CREATININE 0.57 (L) 07/28/2020 Problem List Items Addressed This Visit None I discussed my management plans with Patient/and or Family member, and also discussed antibiotics therapy including side effects with Patient/and or Family member. Medical Decision Making: Moderate This note is created with the assistance of a speech-recognition program. While intending to generate a document that actually reflects the content of the visit, the document can still have some errors including those of syntax and sound a- like substitutions which may escape proofreading. In such instances, actual meaning can be extrapolated by contextual derivation. documented in this [id number] Patient's home Progress note* Actions Antibiotic infusion, spiking and clearing tubind, PICC line flush demonstrated and hands on with the pt. and daughter observed. Pt. feels she will be able to do her afternoon infusion and will call if they have any trouble. Step by step instructions are with the pts. folder. documented in this encounter [id number] Consult note* Funmi Ohara RN - 07/15/2020 3:08 PM EDT IV team consulted for PICC placement. Chart and history reviewed. PICC insertion explained to patient , agreed to procedure. Single lumen PICC inserted following [place] Protocol into brachial vein. PICC trimmed at 38cm. External length at 1cm. Patient tolerated well. PICC okay to use as tip is confirmed in lower SVC per ECG technology- maximum P wave and absence of negative deflection. Invasive line Insertion Check list followed. Flushes easily with good blood return. RN notified OK to use. documented in this [id number] History of Present illness Narrative* Keke Duron CNP - 07/15/2020 2:46 PM EDT Patient Name: Ruperto Hunter Admit Date: MR #: [id number] : 1950 Physicians: Anirudh Costa CNP (Family); No ref. provider found (Referring) Assessment: 1. Left sphenoid sinusitis 2. 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 CBC with mild leukopenia (new), BMP normal, CRP 19.7, ESR normal, vanco trough weekly Occult stool negative Follow up MRI 05/15 still showing previous infiltrative pattern lesion, asymmetric thickening of mucosal and submucosal tissues and partial encasement of left internal carotid artery. Findings favoringinfiltrative neoplasm of nasopharynx or underlying lymphoma. Notes faxed to Dr. Valenzuela at [facility] for repeat biopsy We will continue to follow Subjective: Patient seen in short term care, Exam: There were no vitals filed for this visit. Allergies: Pravastatin and Celecoxib Current Outpatient Medications: AMLODIPINE BESYLATE, BULK, MISC, Take 10 mg by mouth daily ., Disp: , Rfl: aspirin 81 MG EC tablet, TAKE ONE TABLET BY MOUTH EVERY DAY WITH BREAKFAST, Disp: , Rfl: biotin 1 mg tablet, TAKE 84319 (1 TAB) BY MOUTH QD, Disp: , Rfl: buPROPion (WELLBUTRIN XL) 150 MG 24 hr tablet, Take 300 mg by mouth every morning ., Disp: , Rfl: estradioL (ESTRACE) 1 MG tablet, Take 0.5 mg by mouth daily ., Disp: , Rfl: estrogens, conjugated, (PREMARIN) 0.45 MG tablet, TAKE ONE TABLET BY MOUTH EVERY OTHER DAY (WITH FOOD), Disp: , Rfl: gabapentin (NEURONTIN) 800 MG tablet, Take 800 mg by mouth See Admin Instructions ., Disp: , Rfl: levothyroxine (Synthroid) 125 MCG tablet, TAKE ONE TABLET BY MOUTH EVERY DAY, ON AN EMPTY STOMACH (AN HOUR BEFORE OR TWO HOURS AFTER A MEAL), Disp: , Rfl: multivitamin (THERAGRAN) per tablet, Take 1 tablet by mouth daily ., Disp: , Rfl: omeprazole (PRILOSEC) 20 MG capsule, TAKE ONE CAPSULE BY MOUTH EVERY DAY NEEDED FOR STOMACH, Disp: , Rfl: primidone (MYSOLINE) 50 MG tablet, 1 at bedtime for 1 week then 1 bid. May increase to 1 tid 1 weeklater then 2 bid 1 week after if needed, Disp: , Rfl: No current facility-administered medications for this visit. PMH/PSH/SH/FH reviewed, no change Review of Systems: All systems were reviewed no change Medications Reviewed. Chart Reviewed. Exam Findings: ENT: No oral candidiasis Chest: Lungs clear bilaterally, no wheezing, or rales CVS: Normal S1 & S2+, Normal Rhythm Abdomen: Normal symmetry, Soft/non-tender. 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 I reviewed Labs. No orders to display Laboratory and Additional Data Reviewed: Laboratory 07/15/20 2:46 PM Microbiology 07/15/20 2:46 PM Radiology 07/15/20 2:46 PM Medications 07/15/20 2:46 PM Lab Results Component Value Date WBC 4.86 07/15/2020 HGB 12.0 07/15/2020 HCT 36.4 07/15/2020 MCV 93.8 07/15/2020 PLT 310 07/15/2020 Lab Results Component Value Date GLUCOSE 86 07/15/2020 CALCIUM 8.7 07/15/2020 NA 134 (L) 07/15/2020 K 4.4 07/15/2020 CL 102 07/15/2020 BUN 15 07/15/2020 CREATININE 0.64 07/15/2020 Problem List Items Addressed This Visit None I discussed my management plans with Patient/and or Family member, and also discussed antibiotics therapy including side effects with Patient/and or Family member. Medical Decision Making: Moderate This note is created with the assistance of a speech-recognition program. While intending to generate a document that actually reflects the content of the visit, the document can still have some errors including those of syntax and sound a- like substitutions which may escape proofreading. In such instances, actual meaning can be extrapolated by contextual derivation. documented in this [id number] History of Present illness Narrative* Angelina Hernández RN - 07/15/2020 12:36 PM EDT 07/15/20 New referral from Keke Duron CNP for pt to start home IV ATB tomorrow. [facility] @ 14:30 along with first doses of Vanco one gram IV and Meropenem one gram IV. SUNITHA Duron will either fax or call the IV ATB orders to [facility] since pt is not currently in the hospital. Spoke with pt to review HH and IV ATB/Pharmacy services and she states that she is willing to learn the IV infusions. Pt reports that her daughter, Shanice, is an RN and will assist as much as possible and has told her that she Katlishay can learn to do it, it's not that hard! Pt voices understanding that [facility] will call her to schedule delivery of her IV ATB and supplies. Pt reports that she also has new Medicaid & that she just gave the information to the settlement clerk this morning at [facility]. Notified PAS of additional Medicaid benefits.candice jin Addendum: Secure chat to Keke Duron CNP asking her to place the [facility] for HH. Received confirmation from SUNITHA Duron that she will enter the [facility] this evening.[email or web address] HOME HEALTH BENEFIT: MEDICARE PART A&B NO DED NO OOP BENEFIT 100% SECONDARY MEDICAID HOME INFUSION BENEFIT: PATIENT HAS PART D THROUGH [employer] - [facility] IS PREFERRED PROVIDER MERREM AND VANCO ARE ON THE FORMULARY PATIENT WILL NEED TO CALL INS FOR COPAY. Was this referral handed off to a HH partner? (if yes, list partnering agency) no Is this hospitalization due to a MVA or BWC claim? no Discussed the services ordered by their physician. SN, Pharmacy Are you agreeable to the services that have been ordered? yes Verify the demographics (residential address): Confirmed demos are correct Verify location of where the services will take place: What is the primary/secondary number to reach you at? Primary: [phone] Secondary:DaughterShanice, or DaughterChago @ [phone] Who is your family physician/primary care physician? Anirudh Costa CNP Do you have a caregiver and/or teachable caregiver (list relationship, name & phone #)? Shanice and Chago, as above. Are there any special precautions or safety concerns (pets, isolation precautions, etc)? None Has the patient been added to capacity board/tracking sheet? yes Following physician will be (list first name/last name): Keke Duron CNP (Infectious Disease) documented in this [id number] History of Present illness Narrative* Cindy Whitehead RN - 07/15/2020 9:12 AM EDT Katherin Duron NP ordered PICC line to be inserted, PICC team unavailable until this afternoon. Pt would like to wait until PICC line for atb instead of getting peripheral IV this am and PICC this afternoon. Katherin Duron NP notified and states that is fine Labs obtained so pharmacy can dose the vanco. Pt scheduled for 1430 to return. Pt discharged at this time. documented in this [id number] NoteEXAM: NUC WBC STUDY, 07/01/2020 15:03 PM CLINICAL INDICATIONS: Progressive nasopharyngeal infection; COMPARISON: No prior studies available for comparison. TECHNIQUE: The patient then received 500 uCi In-111 autologous labeled white blood cells IV. Anterior posterior whole-body images as well as SPECT-CT of the head and neck was obtained. FINDINGS: Whole-body images demonstrate physiologic uptake within the liver, spleen, and bone marrow. No definite abnormality seen in the region of the nasopharynx. Asymmetric soft tissue within the left posterior nasopharynx which does demonstrate some indium white cell avidity, concerning for infection. Increased activity also seen within a right level 2 cervical lymph node which is likely also related to infection/inflammation. Uptake also noted within right axillary lymph nodes. IMPRESSION: Uptake within the left posterior nasopharynx concerning for infection. Increased uptake within right-sided axillary and cervical lymph nodes likely reactive. [facility] Brain abscess Intracranial abscess [facility] [place] [facility] Diagnosis Brain abscess- Primary Intracranial abscess [facility] [place] [facility] Diagnosis Brain abscess Intracranial abscess [facility] [place] [facility]* Diagnosis Brain abscess- Primary Intracranial abscess Antibiotic long-term use Encounter for long-term (current) use of antibiotics documented [facility] [place] [facility]* Diagnosis Brain abscess- Primary Intracranial abscess [facility] [place] [facility]* Diagnosis 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 Other somatoform disorders [facility] [place] [facility]* Diagnosis Lesion of nasopharynx Unspecified disease of pharynx [facility] [place] [facility]* Diagnosis Lesion of nasopharynx Unspecified disease of pharynx Lesion of nasopharynx Unspecified disease of pharynx [facility] [place] [facility]* Diagnosis 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- Primary Other somatoform disorders Essential tremor Essential and other specified forms of tremor Trigeminal neuralgia [facility] [place] [facility]* Diagnosis Arthralgia, unspecified joint- Primary [facility] [place] [facility]* Diagnosis Right hip pain- Primary Pain in joint, pelvic region and thigh [facility] [place] [facility]* Diagnosis 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- Primary Other somatoform disorders [facility] [place] [facility]* Diagnosis Osteoarthritis of right hip, unspecified osteoarthritis type- Primary [facility] Diagnosis Right leg pain Pain in limb Right hip pain Pain in joint, pelvic region and thigh [facility] Diagnosis Right hip pain- Primary Pain in joint, pelvic region and thigh [facility]* Diagnosis Acute midline low back pain without sciatica- Primary Hip pain Pain in joint, pelvic region and thigh [facility]* Diagnosis Hypothyroidism, unspecified type- Primary Right hip pain Pain in joint, pelvic region and thigh Generalized anxiety disorder Hot flashes due to surgical menopause Symptomatic states associated with artificial menopause Hormone replacement therapy Arthralgia, unspecified joint Benign hypertension Essential hypertension, benign Gastroesophageal reflux disease, unspecified whether esophagitis present [facility]* Diagnosis Right hip pain- Primary Pain in joint, pelvic region and thigh [facility]* Diagnosis Right hip pain- Primary Pain in joint, pelvic region and thigh [facility]* Diagnosis Lumbar radiculopathy Thoracic or lumbosacral neuritis or radiculitis, unspecified [facility]* Diagnosis 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- Primary Other somatoform disorders Focal 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 [facility]* Diagnosis Right hip pain- Primary Pain in joint, pelvic region and thigh Acute bilateral low back pain, unspecified whether sciatica present [facility]* Diagnosis Urgency of urination- Primary Acute cystitis without hematuria Acute cystitis Vaginal itching Pruritus of genital organs documented [facility]* Diagnosis Angioedema, initial encounter- Primary Allergic reaction, initial encounter [facility]* Diagnosis 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- Primary Other somatoform disorders Focal 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 [facility]* Diagnosis Generalized anxiety disorder- Primary Benign hypertension Essential hypertension, benign Hypothyroidism, unspecified type Hypercholesteremia Pure hypercholesterolemia Hot flashes due to surgical menopause Symptomatic states associated with artificial menopause Hormone replacement therapy Trigeminal neuralgia Gastroesophageal reflux disease, unspecified whether esophagitis present Arthralgia, unspecified joint Postmenopausal Asymptomatic postmenopausal status (age-related) (natural) Encounter for HCV screening test for low risk patient Screening for lung cancer Nicotine dependence, cigarettes, in remission Dysuria [facility] Diagnosis Right hip pain- Primary Pain in joint, pelvic region and thigh [facility] Diagnosis Screening for lung cancer Nicotine dependence, cigarettes, in remission [facility]* Diagnosis Bilateral hip pain- Primary Pain in joint, pelvic region and thigh Right hip pain Pain in joint, pelvic region and thigh [facility]* Diagnosis 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- Primary Other somatoform disorders [facility]* Diagnosis Need for vaccination- Primary Need for prophylactic vaccination and inoculation against unspecified single disease Bilateral hip pain- Primary Pain in joint, pelvic region and thigh [facility]* Diagnosis Bilateral hip pain- Primary Pain in joint, pelvic region and thigh Chronic bilateral low back pain, unspecified whether sciatica present [facility]* Diagnosis Bilateral hip pain Pain in joint, pelvic region and thigh [facility]* Diagnosis Left hip pain- Primary Pain in joint, pelvic region and thigh [facility]* Diagnosis Alcohol dependence with unspecified alcohol-induced disorder- Primary [facility] Attachments The following attachments cannot be sent through Care Everywhere. * Alcohol Detoxification and Withdrawal (Liberian) [facility] * Visit Details Visit Type -SN HH OASIS Star t of Care Discipline -[facility] Problems Problem Start Date Status Goals Interventions Assess and Instruct Home Visit Disciplines: [facility] 07/16/2020 Active 1 goal linked to scheduled/documented intervention 4 goal interventions scheduled/documented in this visit Gastrointestinal Disciplines: [facility] 07/16/2020 Active 1 goal linked to scheduled/documented intervention 1 goal intervention scheduled/documented in this visit IV Therapy Disciplines: [facility] 07/16/2020 Active 1 goal linked to scheduled/documented intervention 2 goal interventions scheduled/documented in this visit Medication Management Disciplines: [facility] 07/16/2020 Active 1 goal linked to scheduled/documented intervention 1 goal intervention scheduled/documented in this visit Pain Management Disciplines: [facility] 07/16/2020 Active 1 goal linked to scheduled/documented intervention 1 goal intervention scheduled/documented in this visit Goals Goal Associated Problem Outcome Goal Met? Visit Notes Home Care Plan Assess and Instruct Home Visit No Gastrointestinal Gastrointestinal No IV Therapy IV Therapy No Medications Medication Management No Pain Pain Management No Interventions Intervention Associated Problem/Goal Status Variance Visit Notes Discharge Planning Problem:Assess and Instruct Home Visit Goal:Home Care Plan Completed Home Visit DC Planning: Spoke with patient and caregiver about DC planning. Assessed for unsteady gait/poor balance DC will occur when: patient/caregiver can teach back care Anticipate DC: Early Patient and/or caregiver response to discharge planning education: Agree Falls Problem:Assess and Instruct Home Visit Goal:Home Care Plan Completed Clinician taught: patient 4-10 Patient IS at risk for falls (a score of 6 or greater is a predictor of future falls) and clinician instructed: proper footwear, improved lighting, remove clutter and throw rugs, safe cord/tubing management (O2, IV, Electrical, Dennis) and keep frequently used items in reach Patient/caregiver was able to demonstrate 75% via teachback Plan for Next Visit Problem:Assess and Instruct Home Visit Goal:Home Care Plan Completed Follow up education for next visit: Medications/IV Skilled intervention at next visit: CP assesment. PICC line dressing change and lab draw. Safety Problem:Assess and Instruct Home Visit Goal:Home Care Plan Completed Assessed patient vulnerability and home safety risks: Yes Equipment reviewed IV Patient at risk for harm or abuse No Family members involved in safety plan for Level 2 or 3 Instruct Alteration in GI Function Problem:Gastrointest inal Goal:Gastrointestina l Completed Patient reports: loose stools Clinician taught: patient and caregiver Clinician instructed on: Foods to manage diarrhea Patient/caregiver is able to teach back 75% of instruction. IV Med Management Problem:IV Therapy Goal:IV Therapy Completed Patient reports: Pt. and daughter learning infusion Clinician taught: patient Clinician instructed on: Infusion and flushes Patient/caregiver is able to teach back 75% of instruction. Instruct IV Therapy Problem:IV Therapy Goal:IV Therapy Completed Patient reports: Pt. and daughters will be taught IV infusions Clinician taught: patient and caregiver Clinician instructed on: Infusions and flushes of IV Patient/caregiver is able to teach back 75% of instruction. Instruct Medication Management Problem:Medication Management Goal:Medications Completed Home Visit Med Education: Medication list reconciled. Medication profile and in-home medication list updated with appropriate changes. Discrepanices noted during home visit: none Instructed patient on dosing, purpose, and side effects. Medication education completed today on all medication(s). Patient/caregiver is able to teach back 75% of instruction. Assess Pain Characteristics and Current Pain Regimen and Instruct Methods of Pain Relief Problem:Pain Management Goal:Pain Completed [facility] Visit Details Visit Type -SN HH Routine Vi sit Discipline -[facility] Problems Problem Start Date Status Goals Interventions Assess and Instruct Home Visit Disciplines: Fci 07/16/2020 Active 1 goal linked to scheduled/documented intervention 4 goal interventions scheduled/documented in this visit Gastrointestinal Disciplines: [facility] 07/16/2020 Active 1 goal linked to scheduled/documented intervention 1 goal intervention scheduled/documented in this visit IV Therapy Disciplines: [facility] 07/16/2020 Active 1 goal linked to scheduled/documented intervention 2 goal interventions scheduled/documented in this visit Lab/INR Disciplines: [facility] 07/16/2020 Active 1 goal linked to scheduled/documented intervention 1 goal intervention scheduled/documented in this visit Medication Management Disciplines: [facility] 07/16/2020 Active 1 goal linked to scheduled/documented intervention 1 goal intervention scheduled/documented in this visit Pain Management Disciplines: [facility] 07/16/2020 Active 1 goal linked to scheduled/documented intervention 1 goal intervention scheduled/documented in this visit Goals Goal Associated Problem Outcome Goal Met? Visit Notes Home Care Plan Assess and Instruct Home Visit No Gastrointestinal Gastrointestinal No IV Therapy IV Therapy No Lab Lab/INR No Medications Medication Management No Pain Pain Management No Interventions Intervention Associated Problem/Goal Status Variance Visit Notes Discharge Planning Problem:Assess and Instruct Home Visit Goal:Home Care Plan Completed Discharge from home care after IV ATBs are complete and there is no furhter skilled need. Falls Problem:Assess and Instruct Home Visit Goal:Home Care Plan Completed Clinician taught: patient 4-10 Patient IS at risk for falls (a score of 6 or greater is a predictor of future falls) and clinician instructed: keep frequently used items in reach and emergency response system and/or keep phone on you Patient/caregiver was able to demonstrate 100% via teachback Plan for Next Visit Problem:Assess and Instruct Home Visit Goal:Home Care Plan Completed CP assess, VS, PICC care, IV education, medication education Safety Problem:Assess and Instruct Home Visit Goal:Home Care Plan Completed Assessed patient vulnerability and home safety risks: none Patient at risk for harm or abuse no Family members involved in safety plan for Level 2 or 3 n/a Instruct Alteration in GI Function Problem:Gastrointest inal Goal:Gastrointestina l Completed Pt denies any diarrhea, constipation, N&V. IV Med Management Problem:IV Therapy Goal:IV Therapy Completed Pt states that she has no issues or questions when administering the IV ATB. Pt is able to verbal repeat back all steps for administration. Instruct IV Therapy Problem:IV Therapy Goal:IV Therapy Completed Pt states that she has no issues or questions when administering the IV ATB. Pt is able to verbal repeat back all steps for administration. Lab/Specimen Collection Problem:Lab/INR Goal:Lab Completed CBC, BMP, CRP,ESR, vanco trough collected via R UA PICC per policy. Pt tolerated well. Instruct Medication Management Problem:Medication Management Goal:Medications Completed Home Visit Med Education: Medication list reconciled. Medication profile and in-home medication list updated with appropriate changes. Discrepanices noted during home visit: none Instructed patient on dosing, purpose, and side effects. Medication education completed today on all medication(s). Patient/caregiver is able to teach back 100% of instruction. Assess Pain Characteristics and Current Pain Regimen and Instruct Methods of Pain Relief Problem:Pain Management Goal:Pain Completed [facility] Visit Details Visit Type -SN HH Routine Vi sit Discipline -F[facility] Problems Problem Start Date Status Goals Interventions Assess and Instruct Home Visit Disciplines: Fci 07/16/2020 Active 1 goal linked to scheduled/documented intervention 4 goal interventions scheduled/documented in this visit IV Therapy Disciplines: [facility] 07/16/2020 Active 1 goal linked to scheduled/documented intervention 1 goal intervention scheduled/documented in this visit Lab/INR Disciplines: [facility] 07/16/2020 Active 1 goal linked to scheduled/documented intervention 1 goal intervention scheduled/documented in this visit Medication Management Disciplines: Fci 07/16/2020 Active 1 goal linked to scheduled/documented intervention 1 goal intervention scheduled/documented in this visit Pain Management Disciplines: [facility]ci 07/16/2020 Active 1 goal linked to scheduled/documented intervention 1 goal intervention scheduled/documented in this visit Goals Goal Associated Problem Outcome Goal Met? Visit Notes Home Care Plan Assess and Instruct Home Visit No IV Therapy IV Therapy No Lab Lab/INR No Medications Medication Management No Pain Pain Management No Interventions Intervention Associated Problem/Goal Status Variance Visit Notes Discharge Planning Problem:Assess and Instruct Home Visit Goal:Home Care Plan Completed Home Visit DC Planning: Spoke with patient and caregiver about DC planning. Assessed for unsteady gait/poor balance DC will occur when: patient/caregiver can teach back care Anticipate DC: Early Patient and/or caregiver response to discharge planning education: Agree Falls Problem:Assess and Instruct Home Visit Goal:Home Care Plan Completed Clinician taught: patient 4-10 Patient IS at risk for falls (a score of 6 or greater is a predictor of future falls) and clinician instructed: keep frequently used items in reach Patient/caregiver was able to demonstrate 75% via teachback Plan for Next Visit Problem:Assess and Instruct Home Visit Goal:Home Care Plan Completed Follow up education for next visit: Medications Skilled intervention at next visit: CP assesment. PICC line dressing change, lab draws. Safety Problem:Assess and Instruct Home Visit Goal:Home Care Plan Completed Assessed patient vulnerability and home safety risks: Yes Equipment reviewed IV pole Patient at risk for harm or abuse No Family members involved in safety plan for Level 2 or 3 Instruct IV Therapy Problem:IV Therapy Goal:IV Therapy Completed Patient reports: no problems with infusion Clinician taught: patient Clinician instructed on: infusion Patient/caregiver is able to teach back 75% of instruction. Lab/Specimen Collection Problem:Lab/INR Goal:Lab Completed Blood draw for CBC, BMP sed rate , CRP vanco trough Location of attempt #1: From PICC line Successfully drawn: yes Patient tolerated:Well Labs dropped off at: [facility] Date for next lab/specimen collection: Tuesday Instruct Medication Management Problem:Medication Management Goal:Medications Completed Home Visit Med Education: Medication list reconciled. Medication profile and in-home medication list updated with appropriate changes. Discrepanices noted during home visit: none Instructed patient on dosing, purpose, and side effects. Medication education completed today on all medication(s). Patient/caregiver is able to teach back 75% of instruction. Assess Pain Characteristics and Current Pain Regimen and Instruct Methods of Pain Relief Problem:Pain Management Goal:Pain Completed [facility]* Visit Details Visit Type -SN HH PRN/On-El l Visit Discipline -[facility] Problems Problem Start Date Status Goals Interventions Assess and Instruct Home Visit Disciplines: Fci 07/16/2020 Active 1 goal linked to scheduled/documented intervention 4 goal interventions scheduled/documented in this visit IV Therapy Disciplines: [facility] 07/16/2020 Active 1 goal linked to scheduled/documented intervention 3 problem interventions scheduled/documented in this visit 1 goal intervention scheduled/documented in this visit Medication Management Disciplines: [facility] 07/16/2020 Active 1 goal linked to scheduled/documented intervention 1 goal intervention scheduled/documented in this visit Pain Management Disciplines: [facility] 07/16/2020 Active 1 goal linked to scheduled/documented intervention 1 goal intervention scheduled/documented in this visit Goals Goal Associated Problem Outcome Goal Met? Visit Notes Home Care Plan Assess and Instruct Home Visit No IV Therapy IV Therapy No Medications Medication Management No Pain Pain Management No Interventions Intervention Associated Problem/Goal Status Variance Visit Notes Discharge Planning Problem:Assess and Instruct Home Visit Goal:Home Care Plan Scheduled Falls Problem:Assess and Instruct Home Visit Goal:Home Care Plan Scheduled Plan for Next Visit Problem:Assess and Instruct Home Visit Goal:Home Care Plan Scheduled Safety Problem:Assess and Instruct Home Visit Goal:Home Care Plan Scheduled Instruct IV Therapy Problem:IV Therapy Goal:IV Therapy Completed Patient reports: new antibioitc Clinician taught: patient and caregiver Clinician instructed on: administration Patient/caregiver is able to teach back 100% of instruction. IV administration Problem:IV Therapy Scheduled IV administration Problem:IV Therapy Scheduled IV administration Problem:IV Therapy Scheduled Instruct Medication Management Problem:Medication Management Goal:Medications Scheduled Assess Pain Characteristics and Current Pain Regimen and Instruct Methods of Pain Relief Problem:Pain Management Goal:Pain [facility] Visit Details Visit Type -SN HH Routine Vi sit Discipline -[facility] Problems Problem Start Date Status Goals Interventions Assess and Instruct Home Visit Disciplines: [facility] 07/16/2020 Active 1 goal linked to scheduled/documented intervention 4 goal interventions scheduled/documented in this visit IV Therapy Disciplines: [facility] 07/16/2020 Active - 2 problem interventions scheduled/documented in this visit Lab/INR Disciplines: [facility] 07/16/2020 Active - 1 problem intervention scheduled/documented in this visit Medication Management Disciplines: [facility] 07/16/2020 Active 1 goal linked to scheduled/documented intervention 1 goal intervention scheduled/documented in this visit Pain Management Disciplines: [facility] 07/16/2020 Active 1 goal linked to scheduled/documented intervention 1 goal intervention scheduled/documented in this visit Goals Goal Associated Problem Outcome Goal Met? Visit Notes Home Care Plan Assess and Instruct Home Visit No Medications Medication Management No Pain Pain Management No Interventions Intervention Associated Problem/Goal Status Variance Visit Notes Discharge Planning Problem:Assess and Instruct Home Visit Goal:Home Care Plan Completed Falls Problem:Assess and Instruct Home Visit Goal:Home Care Plan Completed denies falls Plan for Next Visit Problem:Assess and Instruct Home Visit Goal:Home Care Plan Completed Follow up education for next visit: Lab work/PICC dressing change Skilled intervention at next visit: same Safety Problem:Assess and Instruct Home Visit Goal:Home Care Plan Completed IV administration Problem:IV Therapy Scheduled with variance Task already performed IV administration Problem:IV Therapy Scheduled with variance Task already performed Lab draw Problem:Lab/INR Completed Sample obtained from PICC using aseptic technique as ordered. Well tolerated by patient. Next lab draw due next Tuesday. Labs drawn at 1110, dropped off at [facility] at 1134. Instruct Medication Management Problem:Medication Management Goal:Medications Completed Home Visit Med Education: Medication list reconciled. Medication profile and in-home medication list updated with appropriate changes. Discrepanices noted during home visit: none Instructed patient on dosing, purpose, and side effects. Medication education completed today on IV ATB medication(s). Patient/caregiver is able to teach back 100% of instruction. Assess Pain Characteristics and Current Pain Regimen and Instruct Methods of Pain Relief Problem:Pain Management Goal:Pain [facility] Visit Details Visit Type -SN HH Routine Vi sit Discipline -[facility] Problems Problem Start Date Status Goals Interventions Assess and Instruct Home Visit Disciplines: [facility] 07/16/2020 Active 1 goal linked to scheduled/documented intervention 4 goal interventions scheduled/documented in this visit Gastrointestinal Disciplines: [facility] 07/16/2020 Active 1 goal linked to scheduled/documented intervention 1 goal intervention scheduled/documented in this visit IV Therapy Disciplines: [facility] 07/16/2020 Active 1 goal linked to scheduled/documented intervention 2 problem interventions scheduled/documented in this visit 1 goal intervention scheduled/documented in this visit Lab/INR Disciplines: [facility] 07/16/2020 Active - 1 problem intervention scheduled/documented in this visit Medication Management Disciplines: [facility] 07/16/2020 Active 1 goal linked to scheduled/documented intervention 1 goal intervention scheduled/documented in this visit Pain Management Disciplines: [facility] 07/16/2020 Active 1 goal linked to scheduled/documented intervention 1 goal intervention scheduled/documented in this visit Goals Goal Associated Problem Outcome Goal Met? Visit Notes Home Care Plan Assess and Instruct Home Visit No Gastrointestinal Gastrointestinal No IV Therapy IV Therapy No Medications Medication Management No Pain Pain Management No Interventions Intervention Associated Problem/Goal Status Variance Visit Notes Discharge Planning Problem:Assess and Instruct Home Visit Goal:Home Care Plan Completed Discharge from home care after IV therapy is complete. Falls Problem:Assess and Instruct Home Visit Goal:Home Care Plan Completed Clinician taught: patient 4-10 Patient IS at risk for falls (a score of 6 or greater is a predictor of future falls) and clinician instructed: keep frequently used items in reach and emergency response system and/or keep phone on you Patient/caregiver was able to demonstrate 100% via teachback Plan for Next Visit Problem:Assess and Instruct Home Visit Goal:Home Care Plan Completed CP assess, VS, monitor dressing/wound care, medication education Safety Problem:Assess and Instruct Home Visit Goal:Home Care Plan Completed Assessed patient vulnerability and home safety risks: none Patient at risk for harm or abuse no Family members involved in safety plan for Level 2 or 3 n/a Instruct Alteration in GI Function Problem:Gastrointest inal Goal:Gastrointestina l Completed Pt reports no GI concnerns. Instruct IV Therapy Problem:IV Therapy Goal:IV Therapy Completed Pt reports compliance with IV therapy, and it able to provide verbal teach back with technique and steps. IV administration Problem:IV Therapy Completed IV administration Problem:IV Therapy Completed Lab draw Problem:Lab/INR Completed Sample obtained from R PICC using aseptic technique for CBC, BMP, ESR, and CPK as ordered. Well tolerated by patient. Pt sees infection control Dr Bassett today for f/u. Instruct Medication Management Problem:Medication Management Goal:Medications Completed Home Visit Med Education: Medication list reconciled. Medication profile and in-home medication list updated with appropriate changes. Discrepanices noted during home visit: none Instructed patient on dosing, purpose, and side effects. Medication education completed today on all medication(s). Patient/caregiver is able to teach back 100% of instruction. Assess Pain Characteristics and Current Pain Regimen and Instruct Methods of Pain Relief Problem:Pain Management Goal:Pain Com[facility] Visit Details Visit Type -SN HH Routine Vi sit Discipline -[facility] Problems Problem Start Date Status Goals Interventions Assess and Instruct Home Visit Disciplines: [facility] 07/16/2020 Active 1 goal linked to scheduled/documented intervention 4 goal interventions scheduled/documented in this visit Gastrointestinal Disciplines: [facility] 07/16/2020 Active 1 goal linked to scheduled/documented intervention 1 goal intervention scheduled/documented in this visit IV Therapy Disciplines: [facility] 07/16/2020 Active 1 goal linked to scheduled/documented intervention 2 problem interventions scheduled/documented in this visit 2 goal interventions scheduled/documented in this visit Lab/INR Disciplines: [facility] 07/16/2020 Active - 1 problem intervention scheduled/documented in this visit Medication Management Disciplines: [facility] 07/16/2020 Active 1 goal linked to scheduled/documented intervention 1 goal intervention scheduled/documented in this visit Pain Management Disciplines: [facility] 07/16/2020 Active 1 goal linked to scheduled/documented intervention 1 goal intervention scheduled/documented in this visit Goals Goal Associated Problem Outcome Goal Met? Visit Notes Home Care Plan Assess and Instruct Home Visit No Gastrointestinal Gastrointestinal No IV Therapy IV Therapy No Medications Medication Management No Pain Pain Management No Interventions Intervention Associated Problem/Goal Status Variance Visit Notes Discharge Planning Problem:Assess and Instruct Home Visit Goal:Home Care Plan Completed Discharge from home care after IV therapy is complete. Falls Problem:Assess and Instruct Home Visit Goal:Home Care Plan Completed Clinician taught: patient 4-10 Patient IS at risk for falls (a score of 6 or greater is a predictor of future falls) and clinician instructed: assistive device usage, keep frequently used items in reach and emergency response system and/or keep phone on you Patient/caregiver was able to demonstrate 100% via teachback Plan for Next Visit Problem:Assess and Instruct Home Visit Goal:Home Care Plan Completed CP assess, VS, monitor dressing/wound care, medication education Safety Problem:Assess and Instruct Home Visit Goal:Home Care Plan Completed Assessed patient vulnerability and home safety risks: none Patient at risk for harm or abuse no Family members involved in safety plan for Level 2 or 3 n/a Instruct Alteration in GI Function Problem:Gastrointest inal Goal:Gastrointestina l Completed Pt reports no GI concerns at this time. IV Med Management Problem:IV Therapy Goal:IV Therapy Completed Pt is able to teach back IV admin and care process. Instruct IV Therapy Problem:IV Therapy Goal:IV Therapy Completed Pt is able to teach back IV admin and care process. IV administration Problem:IV Therapy Completed IV administration Problem:IV Therapy Completed Lab draw Problem:Lab/INR Com[facility] using aseptic technique for CBC, BMP, ESR CRP, and CPK as ordered. Well tolerated by patient. Next lab draw due next Tuesday. Instruct Medication Management Problem:Medication Management Goal:Medications Completed Home Visit Med Education: Medication list reconciled. Medication profile and in-home medication list updated with appropriate changes. Discrepanices noted during home visit: none Instructed patient on dosing, purpose, and side effects. Medication education completed today on all medication(s). Patient/caregiver is able to teach back 100% of instruction. Assess Pain Characteristics and Current Pain Regimen and Instruct Methods of Pain Relief Problem:Pain Management Goal:Pain Completed [facility] Visit Details Visit Type -SN HH Routine Vi sit Discipline -[facility] Problems Problem Start Date Status Goals Interventions Assess and Instruct Home Visit Disciplines: [facility] 07/16/2020 Active 1 goal linked to scheduled/documented intervention 4 goal interventions scheduled/documented in this visit IV Therapy Disciplines: [facility] 07/16/2020 Active - 2 problem interventions scheduled/documented in this visit Lab/INR Disciplines: [facility] 07/16/2020 Active - 1 problem intervention scheduled/documented in this visit Medication Management Disciplines: [facility] 07/16/2020 Active 1 goal linked to scheduled/documented intervention 1 goal intervention scheduled/documented in this visit Pain Management Disciplines: [facility] 07/16/2020 Active 1 goal linked to scheduled/documented intervention 1 goal intervention scheduled/documented in this visit Goals Goal Associated Problem Outcome Goal Met? Visit Notes Home Care Plan Assess and Instruct Home Visit No Medications Medication Management No Pain Pain Management No Interventions Intervention Associated Problem/Goal Status Variance Visit Notes Discharge Planning Problem:Assess and Instruct Home Visit Goal:Home Care Plan Completed with variance Time limitation Plan for Next Visit Problem:Assess and Instruct Home Visit Goal:Home Care Plan Completed with variance Time limitation Falls Problem:Assess and Instruct Home Visit Goal:Home Care Plan Completed denies falls Safety Problem:Assess and Instruct Home Visit Goal:Home Care Plan Completed IV administration Problem:IV Therapy Completed with variance Task already performed IV administration Problem:IV Therapy Completed with variance Task already performed Lab draw Problem:Lab/INR Completed Instruct Medication Management Problem:Medication Management Goal:Medications Completed Home Visit Med Education: Medication list reconciled. Medication profile and in-home medication list updated with appropriate changes. Assess Pain Characteristics and Current Pain Regimen and Instruct Methods of Pain Relief Problem:Pain Management Goal:Pain Com[facility] Visit Details Visit Type -SN HH Routine Vi sit Discipline -[facility] Problems Problem Start Date Status Goals Interventions Assess and Instruct Home Visit Disciplines: [facility] 07/16/2020 Active 1 goal linked to scheduled/documented intervention 4 goal interventions scheduled/documented in this visit IV Therapy Disciplines: [facility] 07/16/2020 Active - 2 problem interventions scheduled/documented in this visit Medication Management Disciplines: [facility] 07/16/2020 Active 1 goal linked to scheduled/documented intervention 1 goal intervention scheduled/documented in this visit Pain Management Disciplines: [facility] 07/16/2020 Active 1 goal linked to scheduled/documented intervention 1 goal intervention scheduled/documented in this visit Goals Goal Associated Problem Outcome Goal Met? Visit Notes Home Care Plan Assess and Instruct Home Visit No Medications Medication Management No Pain Pain Management No Interventions Intervention Associated Problem/Goal Status Variance Visit Notes Discharge Planning Problem:Assess and Instruct Home Visit Goal:Home Care Plan Completed Home Visit DC Planning: Spoke with patient about DC planning. DC will occur when: patient has phyician order for PICC line removable. Anticipate DC: Extended Patient and/or caregiver response to discharge planning education: verbalizes understanding of care plan goals Falls Problem:Assess and Instruct Home Visit Goal:Home Care Plan Completed Clinician taught: patient 1-3 Patient is NOT at risk for falls and clinician instructed: proper footwear, safe cord/tubing management (O2, IV, Electrical, Dennis) and keep frequently used items in reach. Patient/caregiver was able to demonstrate 90% via teachback Plan for Next Visit Problem:Assess and Instruct Home Visit Goal:Home Care Plan Completed Follow up education for next visit: S&S of infection and when to report to a healthcare provider, management of PICC Line and the importance of flushing to keep line patent. Skilled intervention at next visit: Assessment and management of PICC line Safety Problem:Assess and Instruct Home Visit Goal:Home Care Plan Completed Assessed patient vulnerability and home safety risks: 1 Equipment reviewed PICC line and supplies Patient at risk for falls related to multiply medications and infection. Family members involved in safety plan for Level 2 or 3 IV administration Problem:IV Therapy Completed IV administration Problem:IV Therapy Completed Instruct Medication Management Problem:Medication Management Goal:Medications Completed Home Visit Med Education: Medication list reconciled. Medication profile and in-home medication list updated with appropriate changes. Discrepanices noted during home visit: none Instructed patient on dosing, purpose, and side effects. Medication education completed today on heprin lock and her PICC line. Patient/caregiver is able to teach back 90% of instruction. Assess Pain Characteristics and Current Pain Regimen and Instruct Methods of Pain Relief Problem:Pain Management Goal:Pain Com[facility] Visit Details Visit Type -SN HH Routine Vi sit Discipline -[facility] Problems Problem Start Date Status Goals Interventions Assess and Instruct Home Visit Disciplines: [facility] 07/16/2020 Active 1 goal linked to scheduled/documented intervention 4 goal interventions scheduled/documented in this visit IV Therapy Disciplines: [facility] 07/16/2020 Active 1 goal linked to scheduled/documented intervention 2 problem interventions scheduled/documented in this visit 2 goal interventions scheduled/documented in this visit Lab/INR Disciplines: [facility] 07/16/2020 Active - 1 problem intervention scheduled/documented in this visit Medication Management Disciplines: [facility] 07/16/2020 Active 1 goal linked to scheduled/documented intervention 1 goal intervention scheduled/documented in this visit Pain Management Disciplines: [facility] 07/16/2020 Active 1 goal linked to scheduled/documented intervention 1 goal intervention scheduled/documented in this visit Goals Goal Associated Problem Outcome Goal Met? Visit Notes Home Care Plan Assess and Instruct Home Visit No IV Therapy IV Therapy No Medications Medication Management No Pain Pain Management No Interventions Intervention Associated Problem/Goal Status Variance Visit Notes Discharge Planning Problem:Assess and Instruct Home Visit Goal:Home Care Plan Completed Possible PICC removal and discharge from home care this Tuesday pending the pt's nuclear test this week. Falls Problem:Assess and Instruct Home Visit Goal:Home Care Plan Completed Clinician taught: patient 4-10 Patient IS at risk for falls (a score of 6 or greater is a predictor of future falls) and clinician instructed: keep frequently used items in reach Patient/caregiver was able to demonstrate 100% via teachback Plan for Next Visit Problem:Assess and Instruct Home Visit Goal:Home Care Plan Completed CP assess, VS, possible PICC pull and d/c, medication education Safety Problem:Assess and Instruct Home Visit Goal:Home Care Plan Completed Assessed patient vulnerability and home safety risks: none Patient at risk for harm or abuse no Family members involved in safety plan for Level 2 or 3 n/a IV Med Management Problem:IV Therapy Goal:IV Therapy Completed Pt is currently flushing her PICC 2 to 3 times daily. No IV ATBs at this time per Dr's order. Instruct IV Therapy Problem:IV Therapy Goal:IV Therapy Completed Pt is currently flushing her PICC 2 to 3 times daily. No IV ATBs at this time per Dr's order. IV administration Problem:IV Therapy Completed IV administration Problem:IV Therapy Completed Lab draw Problem:Lab/INR Completed No labs at this time. Instruct Medication Management Problem:Medication Management Goal:Medications Completed Home Visit Med Education: Medication list reconciled. Medication profile and in-home medication list updated with appropriate changes. Discrepanices noted during home visit: none Instructed patient on dosing, purpose, and side effects. Medication education completed today on all medication(s). Patient/caregiver is able to teach back 100% of instruction. Assess Pain Characteristics and Current Pain Regimen and Instruct Methods of Pain Relief Problem:Pain Management Goal:Pain Completed [facility] Visit Details Visit Type -SN HH Routine Vi sit Discipline -[facility] Problems Problem Start Date Status Goals Interventions Assess and Instruct Home Visit Disciplines: [facility] 07/16/2020 Active 1 goal linked to scheduled/documented intervention 4 goal interventions scheduled/documented in this visit IV Therapy Disciplines: [facility] 07/16/2020 Active - 2 problem interventions scheduled/documented in this visit Medication Management Disciplines: [facility] 07/16/2020 Active 1 goal linked to scheduled/documented intervention 1 goal intervention scheduled/documented in this visit Pain Management Disciplines: [facility] 07/16/2020 Active 1 goal linked to scheduled/documented intervention 1 goal intervention scheduled/documented in this visit Goals Goal Associated Problem Outcome Goal Met? Visit Notes Home Care Plan Assess and Instruct Home Visit No Medications Medication Management No Pain Pain Management No Interventions Intervention Associated Problem/Goal Status Variance Visit Notes Discharge Planning Problem:Assess and Instruct Home Visit Goal:Home Care Plan Completed Home Visit DC Planning: Spoke with patient and caregiver about DC planning. Assessed for unsteady gait/poor balance DC will occur when: patient/caregiver can teach back care Anticipate DC: Early Patient and/or caregiver response to discharge planning education: Agree Falls Problem:Assess and Instruct Home Visit Goal:Home Care Plan Completed Clinician taught: patient and caregiver 4-10 Patient IS at risk for falls (a score of 6 or greater is a predictor of future falls) and clinician instructed: proper footwear, improved lighting, remove clutter and throw rugs, safe cord/tubing management (O2, IV, Electrical, Dennis), assistive device usage and keep frequently used items in reach Patient/caregiver was able to demonstrate 75% via teachback Plan for Next Visit Problem:Assess and Instruct Home Visit Goal:Home Care Plan Completed Follow up education for next visit: Medications Skilled intervention at next visit: CP assesment. Possible removal of PICC and discharge or PICC dressing change. Safety Problem:Assess and Instruct Home Visit Goal:Home Care Plan Completed Assessed patient vulnerability and home safety risks: Yes Equipment reviewed none Patient at risk for harm or abuse No Family members involved in safety plan for Level 2 or 3 IV administration Problem:IV Therapy Completed IV administration Problem:IV Therapy Completed Instruct Medication Management Problem:Medication Management Goal:Medications Completed Home Visit Med Education: Medication list reconciled. Medication profile and in-home medication list updated with appropriate changes. Discrepanices noted during home visit: none Instructed patient on dosing, purpose, and side effects. Medication education completed today on all medication(s). Patient/caregiver is able to teach back 75% of instruction. Assess Pain Characteristics and Current Pain Regimen and Instruct Methods of Pain Relief Problem:Pain Management Goal:Pain Completed [facility] Visit Details Visit Type -SN HH OASIS Disc harge Discipline -[facility] Problems Problem Start Date Status Goals Interventions Assess and Instruct Home Visit Disciplines: [facility] 07/16/2020 Resolved on 09/24/2020 1 goal linked to scheduled/documented intervention 4 goal interventions scheduled/documented in this visit IV Therapy Disciplines: [facility] 07/16/2020 Resolved on 09/24/2020 - 3 problem interventions scheduled/documented in this visit Medication Management Disciplines: [facility] 07/16/2020 Resolved on 09/24/2020 1 goal linked to scheduled/documented intervention 1 goal intervention scheduled/documented in this visit Pain Management Disciplines: [facility] 07/16/2020 Resolved on 09/24/2020 1 goal linked to scheduled/documented intervention 1 goal intervention scheduled/documented in this visit Goals Goal Associated Problem Outcome Goal Met? Visit Notes Home Care Plan Assess and Instruct Home Visit No Medications Medication Management No Pain Pain Management No Interventions Intervention Associated Problem/Goal Status Variance Visit Notes Discharge Planning Problem:Assess and Instruct Home Visit Goal:Home Care Plan Completed Discharge instructions reviewed with paitent today. All questions answered. Dishcarged to self care Falls Problem:Assess and Instruct Home Visit Goal:Home Care Plan Completed Plan for Next Visit Problem:Assess and Instruct Home Visit Goal:Home Care Plan Completed Discharged today. Safety Problem:Assess and Instruct Home Visit Goal:Home Care Plan Completed IV administration Problem:IV Therapy Completed IV administration Problem:IV Therapy Completed PICC Removal Problem:IV Therapy Completed PICC line removed using sterile technique. Patient tolerated well. No bleeding. Manual pressure held for 3 minutes . Dressing applied Instruct Medication Management Problem:Medication Management Goal:Medications Completed Home Visit Med Education: Medication list reconciled. Medication profile and in-home medication list updated with appropriate changes. Discrepanices noted during home visit: none Instructed patient on dosing, purpose, and side effects. Medication education completed today on all medication(s). Patient/caregiver is able to teach back 100% of instruction. Assess Pain Characteristics and Current Pain Regimen and Instruct Methods of Pain Relief Problem:Pain Management Goal:Pain Com[facility] to pt's home. Obtained VS . Assessed and changed dressing to PICC line. Flushed well, line is patent. Visit today was going to be a discontinuation of PICC line and discharge but Pt got a call from Dr. Timmons, from [facility], to keep PICC line in until pt has nuclear test to check for infection. SN Greer placed a call to the office for further instructions. Waiting for call back. documented in this encounter [facility] for referral (narrative)* Consultation (Urgent) - New Request Specialty Diagnoses / Procedures Referred By Mahnaz rawls Referred To Contact Orthopaedics Diagnoses Osteoarthritis of right hip, unspecified osteoarthritis type Foster Galvez PA-C [address] [place] [address] Min Candelaria MD [address] [place] [id number] Referral ID Status Reason Start Date Expiration Date V isits Requested Visits Authorized [id number] New Request 09/02/2021 09/27/2022 1 [facility] Consultation (Urgent) - New Request Specialty Diagnoses / Procedures Referred By Contac t Referred To Contact Orthopaedics Diagnoses Hip pain Bekah De La Fuente APRN-SUNITHA [address] [address] Marcela Pearson, DO [address] [place] [address] Referral ID Status Reason Start Date Expiration Date V isits Requested Visits Authorized [id number] New Request 09/13/2021 10/08/2022 1 1 * Consultation (Routine) - New Request Specialty Diagnoses / Procedures Referred By Contac t Referred To Contact Family Medicine Diagnoses Acute midline low back pain without sciatica Hip pain Bekah De La Fuente APRN-SUNITHA [address] [address] Anirudh Costa APRN-SUNITHA [address] [place] [address] Referral ID Status Reason Start Date Expiration Date V isits Requested Visits Authorized [id number] New Request 09/13/2021 10/08/2022 1 1 * Adjunctive Therapy (Routine) - New Request Specialty Diagnoses / Procedures Referred By Contac t Referred To Contact Physical Therapy Diagnoses Acute midline low back pain without sciatica Hip pain Bekah De La Fuente APRN-[employer] [address] [address] Referral ID Status Reason Start Date Expiration Date V isits Requested Visits Authorized [id number] New Request 09/13/2021 10/08/2022 1 1 Scheduling Instructions . * Consultation (Urgent) - New Request Specialty Diagnoses / Procedures Referred By Contac t Referred To Contact Neurology Diagnoses Acute midline low back pain without sciatica Hip pain Bekah De La Fuente I, [employer] [address] [place] [address] Juan José Bills MD [address] [place] [address] Referral ID Status Reason Start Date Expiration Date V isits Requested Visits Authorized [id number] New Request 09/13/2021 10/08/2022 1 1 [facility] for referral (narrative)* Consultation (Routine) - New Request Specialty Diagnoses / Procedures Referred By Contac t Referred To Contact Spine Diagnoses Acute bilateral low back pain, unspecified whether sciatica present Macrela Pearson, DO [address] [place] [address] Maria Luisa Knutson, DO [address] [facility] [place] [address] [place] [address] Referral ID Status Reason Start Date Expiration Date V isits Requested Visits Authorized [id number] New Request 02/19/2022 03/16/2023 1 1 [facility] for referral (narrative)* Consultation (Routine) - New Request Specialty Diagnoses / Procedures Referred By Contac t Referred To Contact Family Medicine Diagnoses Alcohol dependence with unspecified alcohol-induced disorder Mp Paulson MD [address] [place] [address] Anirudh Costa, [employer] [address] [place] [address] Referral ID Status Reason Start Date Expiration Date V isits Requested Visits Authorized [id number] New Request 02/04/2023 02/29/2024 1 [facility] Inst[facility] * Patient Instructions* Hyun Costaimani Willard, [employer] - 06/14/2018 8:30 AM EDT Healthy diet, avoid alcohol/caffeine. Manage stress, exercise & implement relaxation techniques. Start Wellbutrin. Return to see me in 2 weeks. Bring in records from the [facility]. Understanding Anxiety Disorders Almost everyone gets nervous now and then. It s normal to have knots in your stomach before a test,or for your heart to race on a first date. But an anxiety disorder is much more than a case of nerves. In fact, its symptoms may be overwhelming. But treatment can relieve many of these symptoms. Talking to your healthcare provider is the first step. What are anxiety disorders? An anxiety disorder causes intense feelings of panic and fear. These feelings may arise for no apparent reason. And they tend to recur again and again. They may prevent you from coping with life and cause you great distress. As a result, you may avoid anything that triggers your fear. In extreme cases, you may never leave the house. Anxiety disorders may cause other symptoms, such as: Obsessive thoughts you can t control Constant nightmares or painful thoughts of the past Nausea, sweating, and muscle tension Trouble sleeping or concentrating What causes anxiety disorders? Anxiety disorders tend to run in families. For some people, childhood abuse or neglect may play a role. For others, stressful life events or trauma may trigger anxiety disorders. Anxiety can trigger low self-esteem and poor coping skills. Common anxiety disorders Panic disorder. This causes an intense fear of being in danger. Phobias. These are extreme fears of certain objects, places, or events. Obsessive-compulsive disorder. This causes you to have unwanted thoughts and urges. You also may perform certain actions over and over. Posttraumatic stress disorder. This occurs in people who have survived a terrible ordeal. It can cause nightmares and flashbacks about the event. Generalized anxiety disorder. This causes constant worry that can greatly disrupt your life. Getting better You may believe that nothing can help you. Or, you might fear what others may think. But most anxiety symptoms can be eased. Having an anxiety disorder is nothing to be ashamed of. Most people do best with treatment that combines medicine and therapy. These aren t cures. But they can help you live a healthier life. Date Last Reviewed: 03/17/201619999926-9417 [employer]. [address] [place] [address], [place] [address]. All rights reserved. This information is not intended as a substitute for professional medical care. Always follow yourhealthcare professional's instructions. documented in this encounter* Patient Instructions* Anirudh Costa APRN-CNP - 06/22/2018 11:00 AM EDT Will call if need to change antibiotic. Take Cipro as prescribed and acidophilus. Follow-up in 1-2 weeks to see how anxiety is going. If you need to be seen sooner call for appointment. Follow-up with pulmonology for chronic cough. Urinary Tract Infection (UTI) in Women Urinary tract infections or UTIs are caused by bacteria (germs) that grow in the urinary tract. These germs typically come from outside the body, and travel into the urethra, bladder, and sometimes the kidneys. Women are prone to UTI s because the urethra is short and close to the rectum. Causes of UTIs UTIs can have various causes, including: Injury to the urethra, the tube that comes from the bladder to the urinary opening Personal hygiene, such as how you wash or wipe after going to the bathroom Irritation caused by sexual intercourse Not being able to pass your urine caused by drugs, illness, or injury Wearing tight clothing that traps moisture, such as nylon underwear Having a weakened immune system that increases a chance for infections Kidney stones Signs of an infection Burning with urination (most common sign) Having to urinate often Having an intense urge to urinate, but not urinating much Lower abdominal pain Back pain Foul smelling urine Cloudy urine Blood in the urine Fever or chills (a sign infection may have reached your kidneys) Nausea or vomiting (a sign infection may have reached your kidneys) The only way to know for sure if you have a UTI is to contact your doctor who will review your symptoms and test your urine. Treatment for a UTI Most UTIs can be easily treated with antibiotics, which kill the bacteria. It is important to take the full course of antibiotics and not to stop as soon as you feel better. If you do not take all the medicine, your infection may not be cured. Drink at least 8 glasses of fluid every day. Extra fluid helps to rinse the bacteria out of the urinary tract. Water and fruit juices, especially cranberry juice, are helpful. Avoid coffee, tea, and coke with caffeine. Food and fluids that have caffeine can make your symptoms worse. If bacteria makes its way to the kidneys, then it can become a kidney infection. This can be serious and damage your kidneys. In more serious cases, you may need to be treated in the hospital. Preventing UTIs Wipe from front to back after using the toilet. Drink plenty of water. Shower instead taking a bath. Do not douche or use feminine hygiene products. Do not wear tight pants and nylon underwear that can trap moisture and make it easier for bacteria to grow. Wear cotton underwear instead. Keep your genital area clean, but do not scrub too hard with harsh soaps. Wash your genital area before and after sex. Urinate after sex to flush away bacteria that may have entered your urethra. Use condoms during sex. Urinate before you go to sleep. Call your doctor if Call your doctor right away if you have any of these signs, or if the signs get worse: Fever greater than 101 degrees Fahrenheit Nausea, vomiting, or chills Back pain Problems with your medicines 2004 - January 20, 2017, [facility]. This handout is for informational purposes only. Talk to your doctor or health care team if you have any questions about your care. documented in this encounter* Patient Instructions* Anirduh Costa APRN-CNP - 06/29/2018 8:00 AM EDT Follow-up in 1 month for anxiety. Follow-up sooner if needed. [facility]. For muscle strain rest leg as much as possible and use heat as needed. Keep appointment with Chiropractor on Tuesday. Take one Tylenol and one Motrin together for pain relief. Muscle Strain in the Extremities A muscle strain is a stretching and tearing of muscle fibers. This causes pain, especially when youmove that muscle. There may also be some swelling and bruising. Home care Keep the hurt area raised to reduce pain and swelling. This is especially important during the first 48 hours. Apply an ice pack over the injured area for 15 to 20 minutes every 3 to 6 hours. You should do thisfor the first 24 to 48 hours. You can make an ice pack by filling a plastic bag that seals at the top with ice cubes and then wrapping it with a thin towel. Be careful not to injure your skin with the ice treatments. Ice should never be applied directly to skin. Continue the use of ice packs for relief of pain and swelling as needed. After 48 hours, apply heat (warm shower or warm bath) for 15 to20 minutes several times a day, or alternate ice and heat. You may use [id number] pain medicine to control pain, unless another medicine was prescribed.If you have chronic liver or kidney disease or ever had a stomach ulcer or GI bleeding, talk with your healthcare provider before using these medicines. For leg strains: If crutches have been recommended, don t put full weight on the hurt leg until youcan do so without pain. You can return to sports when you are able to hop and run on the injured leg without pain. Follow-up care Follow up with your healthcare provider, or as advised. When to seek medical advice Call your healthcare provider right away if any of these occur: The toes of the injured leg become swollen, cold, blue, numb, or tingly Pain or swelling increases Date Last Reviewed: 01/02/201519998325-2628 [employer]. [address] [place] [address]. All rights reserved. This information is not intended as a substitute for professional medical care. Always follow yourhealthcare professional's instructions. documented in this encounter* Patient Instructions* Anirudh Costa APRN-CNP - 07/27/2018 8:00 AM EDT Follow-up in 6 month or sooner if needed. Continue with counseling. [facility] Will call with urine and lab results. documented in this encounter* Patient Instructions* Anirudh Costa APRN-CNP - 11/27/2018 9:[address] Dumont will call you to schedule an appointment. Keep appointment For 6 month follow-up. documented in this encounter* Patient Instructions* Anirudh Costa APRN-CNP - 06/22/2018 11:00 AM EDT Will call if need to change antibiotic. Take Cipro as prescribed and acidophilus. Follow-up in 1-2 weeks to see how anxiety is going. If you need to be seen sooner call for appointment. Follow-up with pulmonology for chronic cough. Urinary Tract Infection (UTI) in Women Urinary tract infections or UTIs are caused by bacteria (germs) that grow in the urinary tract. These germs typically come from outside the body, and travel into the urethra, bladder, and sometimes the kidneys. Women are prone to UTI s because the urethra is short and close to the rectum. Causes of UTIs UTIs can have various causes, including: Injury to the urethra, the tube that comes from the bladder to the urinary opening Personal hygiene, such as how you wash or wipe after going to the bathroom Irritation caused by sexual intercourse Not being able to pass your urine caused by drugs, illness, or injury Wearing tight clothing that traps moisture, such as nylon underwear Having a weakened immune system that increases a chance for infections Kidney stones Signs of an infection Burning with urination (most common sign) Having to urinate often Having an intense urge to urinate, but not urinating much Lower abdominal pain Back pain Foul smelling urine Cloudy urine Blood in the urine Fever or chills (a sign infection may have reached your kidneys) Nausea or vomiting (a sign infection may have reached your kidneys) The only way to know for sure if you have a UTI is to contact your doctor who will review your symptoms and test your urine. Treatment for a UTI Most UTIs can be easily treated with antibiotics, which kill the bacteria. It is important to take the full course of antibiotics and not to stop as soon as you feel better. If you do not take all the medicine, your infection may not be cured. Drink at least 8 glasses of fluid every day. Extra fluid helps to rinse the bacteria out of the urinary tract. Water and fruit juices, especially cranberry juice, are helpful. Avoid coffee, tea, and coke with caffeine. Food and fluids that have caffeine can make your symptoms worse. If bacteria makes its way to the kidneys, then it can become a kidney infection. This can be serious and damage your kidneys. In more serious cases, you may need to be treated in the hospital. Preventing UTIs Wipe from front to back after using the toilet. Drink plenty of water. Shower instead taking a bath. Do not douche or use feminine hygiene products. Do not wear tight pants and nylon underwear that can trap moisture and make it easier for bacteria to grow. Wear cotton underwear instead. Keep your genital area clean, but do not scrub too hard with harsh soaps. Wash your genital area before and after sex. Urinate after sex to flush away bacteria that may have entered your urethra. Use condoms during sex. Urinate before you go to sleep. Call your doctor if Call your doctor right away if you have any of these signs, or if the signs get worse: Fever greater than 101 degrees Fahrenheit Nausea, vomiting, or chills Back pain Problems with your medicines 2004 - January 20, 2017, [facility]. This handout is for informational purposes only. Talk to your doctor or health care team if you have any questions about your care. documented in this encounter History of Present Illness * Anirudh Costa APRN-CNP - 06/14/2018 8:30 AM EDT Ruperto Gay [id number] 1950 06/14/2018 Chief Complaint Patient presents with Panic Attack States she cant sleep d/t attacks History of Present Illness: Ruperto Gay is a 67 y.o. female is a new pt to the clinic to establish care. Anxiety attacks every day now. She used to get them every couple weeks She uses Benadryl to go to sleep. Goes to sleep at 10 pm wakes up at midnight and takes another Benadryl because she wakes up gasping for breath. She goes back to bed and back up at 3 am. She said they used to be just at night but now has them during the day also. She has had anxiety attacks for 10years total. She retired in December and they have become worse. She has aging parents which adds to the anxiety. She has never been on a anxiety medication. Has tried melatonin in the past it helped her to fall asleep but she still would wake up scared. She doesn't know why she is scared. She drinks beer in theevening and smokes to help relax. Anxiety is worse at night. Her daughters are currently staying with her because her anxiety has gotten so bad. [facility] to the [facility] but unable to get in when needed so she is seeking a second primary care provider. MD has been completing blood work. Scheduled to see a new MD in July. She will get copies of blood work for us. DEXA scan to be done through the MD. Last mammogram was 2 years ago, plans on another this year through the [facility]. States she has high cholesterol and on red yeast rice. MD checks her Lipids, electrolytes, and TSH. Has had colonoscopy. Last one was 7 years ago. Unsure of shingles vaccine or TDaP Current smoker- interested in smoking cessation but not today. She has patches at home. She would like to try Wellbutrin for her anxiety and potential smoking cessation benefits. Her son-in-law is on Wellbutrin for his panic attacks that were like hers and it is working for him. She is caring for her parents that still live at home- age 92. Always walking. Works in the [employer]. Sees a chiropractor and had injections in her back. Gets sciatica. Drinks a couple cups of coffee in the morning. Maybe 3-4 beers in the evening or a couple glasses of wine. History: Past Medical History: Diagnosis Date Anxiety Hypertension Past Surgical History: Procedure Laterality Date CHOLECYSTECTOMY HYSTERECTOMY History reviewed. No pertinent family history. Social History Socioeconomic History Marital status: Spouse name: Not on file Number of children: Not on file Years of education: Not on file Highest education level: Not on file Occupational History Not on file Social Needs Financial resource strain: Not on file Food insecurity: Worry: Not on file Inability: Not on file Transportation needs: Medical: Not on file Non-medical: Not on file Tobacco Use Smoking status: Current Every Day Smoker Packs/day: 1.50 Smokeless tobacco: Never Used Substance and Sexual Activity Alcohol use: Yes Alcohol/week: 2.4 oz Types: 4 Cans of beer per week Frequency: 4 or more times a week Drinks per session: 3 or 4 Drug use: Never Sexual activity: Not on file Lifestyle Physical activity: Days per week: Not on file Minutes per session: Not on file Stress: Not on file Relationships Social connections: Talks on phone: Not on file Gets together: Not on file Attends sikhism service: Not on file Active member of club or organization: Not on file Attends meetings of clubs or organizations: Not on file Relationship status: Not on file Intimate partner violence: Fear of current or ex partner: Not on file Emotionally abused: Not on file Physically abused: Not on file Forced sexual activity: Not on file Other Topics Concern Service Not Asked Blood Transfusions Not Asked Caffeine Concern Not Asked Occupational Exposure Not Asked Hobby Hazards Not Asked Sleep Concern Not Asked Stress Concern Not Asked Weight Concern Not Asked Special Diet Not Asked Back Care Not Asked Exercise Not Asked Bike Helmet Not Asked Seat Belt Not Asked Domestic Violence No Social History Narrative Not on file Social History Tobacco Use Smoking Status Current Every Day Smoker Packs/day: 1.50 Smokeless Tobacco Never Used Social History Substance and Sexual Activity Alcohol Use Yes Alcohol/week: 2.4 oz Types: 4 Cans of beer per week Frequency: 4 or more times a week Drinks per session: 3 or 4 Social History Substance and Sexual Activity Drug Use Never Allergies: Patient has no known allergies. Home Medications: Current Outpatient Medications: AMLODIPINE BESYLATE PO, Take 5 mg by mouth daily., Disp: , Rfl: chlorthalidone 25 MG Tab tablet, Take 25 mg by mouth daily., Disp: , Rfl: levothyroxine 25 MCG Tab tablet, Take 25 mcg by mouth daily., Disp: , Rfl: Multiple Vitamin (MULTIVITAMIN) Tab, Take 1 tablet by mouth daily., Disp: , Rfl: Corning-3 1000 MG Cap, Take 935 mg by mouth daily., Disp: , Rfl: omeprazole [address] capsule, Take 20 mg by mouth daily., Disp: , Rfl: Red Yeast Rice 600 MG Cap, Take by mouth daily., Disp: , Rfl: Vitamin D3 1000 units Tab tablet, Take 2,000 Units by mouth daily., Disp: , Rfl: buPROPion 150 MG tablet XL, Take 1 tablet by mouth daily every morning., Disp: 30 tablet, Rfl: 0 ROS: Review of Systems Constitutional: Negative. Skin: Negative. HENT: Negative. Eyes: Negative. Cardiovascular: Negative. Respiratory: Negative. Gastrointestinal: Negative. Genitourinary: Negative. Musculoskeletal: Negative. Neurological: Negative. Psychiatric: The patient is nervous/anxious. There is substance abuse. Smoking, drinks 3-4 beers/night Lymph/Heme: Negative. Endocrine: Negative. Physical Examination: Vital Signs: Blood pressure 148/78, pulse 94, temperature 98.7 F (37.1 C), temperature source Temporal, resp. rate 16, height 1.575 m (5' 2 ), weight 67.6 kg (149 lb), SpO2 98 %. Physical Exam Constitutional: She is oriented to person, place, and time and well-developed, well-nourished, and in no distress. Vital signs are normal. No distress. HENT: Head: Normocephalic and atraumatic. Right Ear: Tympanic membrane and external ear normal. Left Ear: Tympanic membrane and external ear normal. Nose: Nose normal. Mouth/Throat: Uvula is midline, oropharynx is clear and moist and mucous membranes are normal. Eyes: Pupils are equal, round, and reactive to light. Conjunctivae are normal. Neck: Normal range of motion. Neck supple. No JVD present. No tracheal deviation present. No thyromegaly present. Cardiovascular: Normal rate, regular rhythm, normal heart sounds and intact distal pulses. Pulmonary/Chest: Effort normal. No respiratory distress. She has wheezes. Scattered wheezes heard throughout. Abdominal: Soft. Normal appearance and bowel sounds are normal. She exhibits no distension. There is no tenderness. Musculoskeletal: Normal range of motion. Lymphadenopathy: She has no cervical adenopathy. Neurological: She is alert and oriented to person, place, and time. Gait normal. Skin: Skin is warm, dry and intact. She is not diaphoretic. Psychiatric: Mood, memory, affect and judgment normal. Nursing note and vitals reviewed. Laboratory and Additional Data: All pertinent lab and imaging results have been reviewed Assessment and Plan: Ruperto was seen today for panic attack. Diagnoses and all orders for this visit: Encounter to establish care Screening for osteoporosis Generalized anxiety disorder - buPROPion 150 MG tablet XL; Take 1 tablet by mouth daily every morning. Declined smoking cessation Other orders - levothyroxine 25 MCG Tab tablet; Take 25 mcg by mouth daily. - AMLODIPINE BESYLATE PO; Take 5 mg by mouth daily. - chlorthalidone 25 MG Tab tablet; Take 25 mg by mouth daily. - omeprazole [address] capsule; Take 20 mg by mouth daily. - Vitamin D3 1000 units Tab tablet; Take 2,000 Units by mouth daily. - Red Yeast Rice 600 MG Cap; Take by mouth daily. - Multiple Vitamin (MULTIVITAMIN) Tab; Take 1 tablet by mouth daily. - Corning-3 1000 MG Cap; Take 935 mg by mouth daily. Declined smoking cessation today. We'll reassess and 2 weeks to see if the Wellbutrin is making herdesire to quit greater. Declines Trazodone to help her rebuild her sleep architecture at this time. Healthy diet, avoid alcohol/caffeine. Manage stress, exercise & implement relaxation techniques. Discussed with her the importance of avoiding alcohol and caffeine. Start Wellbutrin. Return to see me in 2 weeks. [facility] At the completion of the visit she mentioned a tremor in her right hand affecting writing. She saidit may be due to her anxiety. Encouraged her to cut back on caffeine and we will discuss it at the next visit. RAFAEL Ruano documented in this encounter* Anirudh Costa APRN-CNP - 06/22/2018 11:00 AM EDT Ruperto Hunter [id number] 1950 06/22/2018 Chief Complaint Patient presents with Alcohol Problem f/u visit from ED Urinary Pain pt c/o pain with urination History of Present Illness: Ruperto Hunter is a 68 y.o. female is an established pt to the clinic for new complaint of alcohol withdrawal. Still taking Librium for the alcohol withdrawal. She has 7 Librium left. She is only been taking 1 at night the last couple days. She is walking daily to help with the anxiety. Has not had a drink since she June 15. She was in the office June 14 and only drank a glass of winethat night. She reported at the time drinking maybe 3-4 drinks at night. I had encouraged her to cut back/quit drinking to help with anxiety. She went to the ED on the 3rd. Drinking only water and coffee. Daughter reports less twitchy. 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 Pt reports she wasdrinking 10-12+ beers daily before starting at 10 am. She is on vitamins now. No appetite. Anxiety is improving. Has not had any panic attacks. Little anxiety at times. It is here and gone. She is no longer having to leave the house and turn all the lights on in the house. Denies insomnia.Sleeping 2-3 hours during the day also. Smoking quite a bit. Chronic ough is dry and non-productive. Pain to urinate. Denies burning. Urgency. Increasing water intake and she has increased frequency. Discharge that itches- yellow discharge. No catheter at the hospital. Had blood present in her UA onFriday. History: Past Medical History: Diagnosis Date Anxiety Hypertension Hypothyroidism Past Surgical History: Procedure Laterality Date BLADDER SUSPENSION CHOLECYSTECTOMY HYSTERECTOMY Family History Problem Relation Age of Onset Diabetes Mother Heart Disease - Other Father Heart Disease - Other Brother Social History Socioeconomic History Marital status: Spouse name: Not on file Number of children: Not on file Years of education: Not on file Highest education level: Not on file Occupational History Not on file Social Needs Financial resource strain: Not on file Food insecurity: Worry: Not on file Inability: Not on file Transportation needs: Medical: Not on file Non-medical: Not on file Tobacco Use Smoking status: Current Every Day Smoker Packs/day: 2.00 Types: Cigarettes Smokeless tobacco: Never Used Substance and Sexual Activity Alcohol use: Yes Alcohol/week: 3.6 oz Types: 6 Cans of beer per week Frequency: 4 or more times a week Drinks per session: 10 or more Comment: 10-12 daily Drug use: Never Sexual activity: Not Currently Lifestyle Physical activity: Days per week: Not on file Minutes per session: Not on file Stress: Not on file Relationships Social connections: Talks on phone: Not on file Gets together: Not on file Attends sikhism service: Not on file Active member of club or organization: Not on file Attends meetings of clubs or organizations: Not on file Relationship status: Not on file Intimate partner violence: Fear of current or ex partner: Not on file Emotionally abused: Not on file Physically abused: Not on file Forced sexual activity: Not on file Other Topics Concern Service Not Asked Blood Transfusions Not Asked Caffeine Concern Not Asked Occupational Exposure Not Asked Hobby Hazards Not Asked Sleep Concern Not Asked Stress Concern Not Asked Weight Concern Not Asked Special Diet Not Asked Back Care Not Asked Exercise Not Asked Bike Helmet Not Asked Seat Belt Not Asked Domestic Violence No Social History Narrative Not on file Social History Tobacco Use Smoking Status Current Every Day Smoker Packs/day: 2.00 Types: Cigarettes Smokeless Tobacco Never Used Social History Substance and Sexual Activity Alcohol Use Yes Alcohol/week: 3.6 oz Types: 6 Cans of beer per week Frequency: 4 or more times a week Drinks per session: 10 or more Comment: 10-12 daily Social History Substance and Sexual Activity Drug Use Never Allergies: Patient has no known allergies. Home Medications: Current Outpatient Medications: AMLODIPINE BESYLATE PO, Take 5 mg by mouth daily., Disp: , Rfl: buPROPion 150 MG tablet XL, Take 1 tablet by mouth daily every morning., Disp: 30 tablet, Rfl: 0 chlorthalidone 25 MG Tab tablet, Take 25 mg by mouth daily., Disp: , Rfl: levothyroxine 25 MCG Tab tablet, Take 25 mcg by mouth daily., Disp: , Rfl: Multiple Vitamin (MULTIVITAMIN) Tab, Take 1 tablet by mouth daily., Disp: , Rfl: Corning-3 1000 MG Cap, Take 935 mg by mouth daily., Disp: , Rfl: omeprazole [address] capsule, Take 20 mg by mouth daily., Disp: , Rfl: Red Yeast Rice 600 MG Cap, Take by mouth daily., Disp: , Rfl: Vitamin D3 1000 units Tab tablet, Take 2,000 Units by mouth daily., Disp: , Rfl: chlordiazepoxide 25 MG Cap, Take 25 mg capsule every 6 hours as needed for withdrawal symptoms, Disp: 20 capsule, Rfl: 0 ciprofloxacin 500 MG Tab tablet, Take 1 tablet by mouth every 12 hours for 5 days., Disp: 10 tablet, Rfl: 0 Lactobacillus (ACIDOPHILUS) Cap, Take 1 tablet by mouth daily., Disp: 30 capsule, Rfl: 0 potassium chloride 20 MEQ Tab CR tablet, Take 1 tablet by mouth daily for 5 days., Disp: 5 tablet, Rfl: 0 ROS: Review of Systems Constitutional: Negative. Skin: Negative. HENT: Negative. Eyes: Negative. Cardiovascular: Negative. Respiratory: Positive for cough. Gastrointestinal: Positive for diarrhea. Negative for nausea and vomiting. In the hospital Genitourinary: Negative. Musculoskeletal: Negative. Neurological: Positive for tremors. Every once in awhile. Psychiatric: Positive for depression. The patient is nervous/anxious. The patient does not have insomnia. There is no substance abuse. Lymph/Heme: Negative. Endocrine: Negative. Physical Examination: Vital Signs: Blood pressure 132/80, pulse 90, temperature 97 F (36.1 C), height 1.575 m (5' 2 ), weight 67.1 kg (148 lb), SpO2 98 %. Physical Exam Constitutional: She is oriented to person, place, and time and well-developed, well-nourished, and in no distress. Vital signs are normal. No distress. HENT: Head: Normocephalic and atraumatic. Right Ear: External ear normal. Left Ear: External ear normal. Nose: Nose normal. Mouth/Throat: Oropharynx is clear and moist. Eyes: Pupils are equal, round, and reactive to light. Conjunctivae are normal. Neck: Normal range of motion. Neck supple. No JVD present. No tracheal deviation present. No thyromegaly present. Cardiovascular: Normal rate, regular rhythm, normal heart sounds and intact distal pulses. Pulmonary/Chest: Effort normal and breath sounds normal. No respiratory distress. Abdominal: Soft. Normal appearance and bowel sounds are normal. She exhibits no distension. There is no tenderness. Musculoskeletal: Normal range of motion. Lymphadenopathy: She has no cervical adenopathy. Neurological: She is alert and oriented to person, place, and time. Gait normal. No tremors observed in office. Skin: Skin is warm, dry and intact. She is not diaphoretic. Psychiatric: Memory and judgment normal. Her mood appears anxious. She exhibits a depressed mood. She has a flat affect. Pt is flat today. Nursing note and vitals reviewed. Laboratory and Additional Data: All pertinent lab and imaging results have been reviewed Results for orders placed or performed in visit on 06/22/18 POCT URINALYSIS DIPSTICK NON AUTOMATED Result Value Ref Range POCT APPEARANCE, URINE clear POCT COLOR, URINE yellow POCT GLUCOSE, URINE negative mg/dL POCT BILIRUBIN, URINE negative POCT KETONES, URINE negative mg/dL POCT SPECIFIC GRAVITY, URINE 1.015 1.001 - 1.035 POCT BLOOD, URINE trace-intact POCT PH, URINE 7.5 (A) 5 - 7 POCT PROTEIN, URINE negative mg/dL POCT UROBILINOGEN, URINE 0.2 0 - 2 E.U./dL POCT NITRITE, URINE negative POCT LEUKOCYTE, URINE small POCT ESTERASE, URINE POCT BACTERIA, URINE POCT WBC, URINE POCT RBC, URINE POCT AMORPHOUS, URINE POCT CASTS, QUANTITATIVE, URINE POCT SQUAMOUS EPIS, URINE POCT RENAL EPIS, URINE POCT CRYSTALS, URINE POCT URINE COMMENTS, URINE Assessment and Plan: Ruperto was seen today for alcohol problem and urinary pain. Diagnoses and all orders for this visit: Alcohol withdrawal syndrome with complication Anxiety disorder, unspecified type Chronic cough - AMB REFERRAL TO PULMONARY Dysuria - URINE CULTURE; Future - POCT URINALYSIS DIPSTICK NON AUTOMATED Urinary tract infection with hematuria, site unspecified - ciprofloxacin 500 MG Tab tablet; Take 1 tablet by mouth every 12 hours for 5 days. - Lactobacillus (ACIDOPHILUS) Cap; Take 1 tablet by mouth daily. Will call if need to change antibiotic. Take Cipro as prescribed and acidophilus. Follow-up in 1-2 weeks to see how anxiety is going. If you need to be seen sooner call for appointment. Follow-up with pulmonology for chronic cough. RAFAEL Ruano documented in this encounter* Anirudh Costa APRN-CNP - 06/29/2018 8:00 AM EDT Ruperto Hunter [id number] 1950 06/29/2018 Chief Complaint Patient presents with Alcohol Problem follow up on alcohol withdraw and urinary tract infection History of Present Illness: Ruperto Hunter is a 68 y.o. female is an established pt to the clinic for new complaint of left buttocks pain 08/23. She is taking Motrin for it. She is seeing the chiropractor on Tuesday for it. She walks frequently and believes she pulls a muscle. She said it hurts to sit on the toilet. Duration of pain was 2-3 days ago. She [facility] She said she does not like to take the muscle relaxer because it makes her too sleepy. Denies accident or injury. She is also using a heating had to the area. She is trying to take it easy. She saw psych[facility]. She is calling to set up an appointment with the counselor. She reports she starts crying out of nowhere. She states the Wellbutrin is helping her. She states it is making her a little sleepy. She thinks she will see counselor once a week. Insomnia is improving. She is sleeping well. She has started drinking SleepyTime tea. She also tooka benadryl last night. She continues to not drink alcohol. The only cravings she has gotten is working out in the yard. Continues to smoke. [facility] has smoking cessation classes. Had a UTI last week. She is no longer reporting symptoms. Ate breakfast today. She completed her potassium supplement. [facility]. History: Past Medical History: Diagnosis Date Anxiety Hypertension Hypothyroidism Past Surgical History: Procedure Laterality Date BLADDER SUSPENSION CHOLECYSTECTOMY HYSTERECTOMY Family History Problem Relation Age of Onset Diabetes Mother Heart Disease - Other Father Heart Disease - Other Brother Social History Socioeconomic History Marital status: Spouse name: Not on file Number of children: Not on file Years of education: Not on file Highest education level: Not on file Occupational History Not on file Social Needs Financial resource strain: Not on file Food insecurity: Worry: Not on file Inability: Not on file Transportation needs: Medical: Not on file Non-medical: Not on file Tobacco Use Smoking status: Current Every Day Smoker Packs/day: 2.00 Types: Cigarettes Smokeless tobacco: Never Used Substance and Sexual Activity Alcohol use: Not Currently Alcohol/week: 3.6 oz Types: 6 Cans of beer per week Frequency: Never Drinks per session: 10 or more Drug use: Never Sexual activity: Not Currently Lifestyle Physical activity: Days per week: Not on file Minutes per session: Not on file Stress: Not on file Relationships Social connections: Talks on phone: Not on file Gets together: Not on file Attends sikhism service: Not on file Active member of club or organization: Not on file Attends meetings of clubs or organizations: Not on file Relationship status: Not on file Intimate partner violence: Fear of current or ex partner: Not on file Emotionally abused: Not on file Physically abused: Not on file Forced sexual activity: Not on file Other Topics Concern Service Not Asked Blood Transfusions Not Asked Caffeine Concern Not Asked Occupational Exposure Not Asked Hobby Hazards Not Asked Sleep Concern Not Asked Stress Concern Not Asked Weight Concern Not Asked Special Diet Not Asked Back Care Not Asked Exercise Not Asked Bike Helmet Not Asked Seat Belt Not Asked Domestic Violence No Social History Narrative Not on file Social History Tobacco Use Smoking Status Current Every Day Smoker Packs/day: 2.00 Types: Cigarettes Smokeless Tobacco Never Used Social History Substance and Sexual Activity Alcohol Use Not Currently Alcohol/week: 3.6 oz Types: 6 Cans of beer per week Frequency: Never Drinks per session: 10 or more Social History Substance and Sexual Activity Drug Use Never Allergies: Patient has no known allergies. Home Medications: Current Outpatient Medications: AMLODIPINE BESYLATE PO, Take 5 mg by mouth daily., Disp: , Rfl: buPROPion 150 MG tablet XL, Take 1 tablet by mouth daily every morning., Disp: 30 tablet, Rfl: 0 chlordiazepoxide 25 MG Cap, Take 25 mg capsule every 6 hours as needed for withdrawal symptoms, Disp: 20 capsule, Rfl: 0 chlorthalidone 25 MG Tab tablet, Take 25 mg by mouth daily., Disp: , Rfl: Lactobacillus (ACIDOPHILUS) Cap, Take 1 tablet by mouth daily., Disp: 30 capsule, Rfl: 0 levothyroxine 25 MCG Tab tablet, Take 25 mcg by mouth daily., Disp: , Rfl: Multiple Vitamin (MULTIVITAMIN) Tab, Take 1 tablet by mouth daily., Disp: , Rfl: Corning-3 1000 MG Cap, Take 935 mg by mouth daily., Disp: , Rfl: omeprazole [address] capsule, Take 20 mg by mouth daily., Disp: , Rfl: Red Yeast Rice 600 MG Cap, Take by mouth daily., Disp: , Rfl: Vitamin D3 1000 units Tab tablet, Take 2,000 Units by mouth daily., Disp: , Rfl: ROS: Review of Systems Constitutional: Negative. Skin: Negative. HENT: Negative. Eyes: Negative. Cardiovascular: Negative. Respiratory: Negative. Gastrointestinal: Negative. Genitourinary: Negative. Negative for dysuria, frequency, hematuria and flank pain. Musculoskeletal: Pain to left buttocks. Neurological: Negative. Psychiatric: The patient is nervous/anxious. The patient does not have insomnia. There is no substance abuse. Lymph/Heme: Negative. Endocrine: Negative. Physical Examination: Vital Signs: Blood pressure 142/72, pulse 66, temperature 96.6 F (35.9 C), height 1.575 m (5' 2 ), weight 67.6 kg (149 lb), SpO2 98 %. Physical Exam Constitutional: She is oriented to person, place, and time and well-developed, well-nourished, and in no distress. Vital signs are normal. No distress. HENT: Head: Normocephalic and atraumatic. Right Ear: External ear normal. Left Ear: External ear normal. Nose: Nose normal. Mouth/Throat: Oropharynx is clear and moist. Eyes: Pupils are equal, round, and reactive to light. Conjunctivae are normal. Neck: Normal range of motion. Neck supple. No JVD present. No tracheal deviation present. No thyromegaly present. Cardiovascular: Normal rate, regular rhythm, normal heart sounds and intact distal pulses. Pulmonary/Chest: Effort normal and breath sounds normal. No respiratory distress. Abdominal: Soft. Normal appearance and bowel sounds are normal. She exhibits no distension. There is no tenderness. Musculoskeletal: She exhibits tenderness. Tenderness to left buttocks. Pt with limping gait. Neurological: She is alert and oriented to person, place, and time. Gait normal. Skin: Skin is warm, dry and intact. She is not diaphoretic. Psychiatric: Mood, memory, affect and judgment normal. Nursing note and vitals reviewed. Laboratory and Additional Data: All pertinent lab and imaging results have been reviewed Results for orders placed or performed in visit on 06/29/18 POCT URINALYSIS DIPSTICK NON AUTOMATED Result Value Ref Range POCT APPEARANCE, URINE clear POCT COLOR, URINE yellow POCT GLUCOSE, URINE negative mg/dL POCT BILIRUBIN, URINE negative POCT KETONES, URINE negative mg/dL POCT SPECIFIC GRAVITY, URINE 1.020 1.001 - 1.035 POCT BLOOD, URINE trace-intact POCT PH, URINE 6.0 5 - 7 POCT PROTEIN, URINE 30mg mg/dL POCT UROBILINOGEN, URINE 0.2 0 - 2 E.U./dL POCT NITRITE, URINE negative POCT LEUKOCYTE, URINE negative POCT ESTERASE, URINE POCT BACTERIA, URINE POCT WBC, URINE POCT RBC, URINE POCT AMORPHOUS, URINE POCT CASTS, QUANTITATIVE, URINE POCT SQUAMOUS EPIS, URINE POCT RENAL EPIS, URINE POCT CRYSTALS, URINE POCT URINE COMMENTS, URINE Assessment and Plan: Ruperto was seen today for alcohol problem. Diagnoses and all orders for this visit: Generalized anxiety disorder - buPROPion 150 MG tablet XL; Take 1 tablet by mouth daily every morning. Insomnia, unspecified type Pain in left buttock Other microscopic hematuria - POCT URINALYSIS DIPSTICK NON AUTOMATED Follow-up in 1 month for anxiety. Follow-up sooner if needed. Have MD send over blood work or bring it in. For muscle strain rest leg as much as possible and use heat as needed. Keep appointment with Chiropractor on Tuesday. Take one Tylenol and one Motrin together for pain relief. RAFAEL Ruano documented in this encounter* Anirudh Costa APRN-CNP - 07/27/2018 8:00 AM EDT Ruperto Hunter [id number] 1950 07/27/2018 Chief Complaint Patient presents with Anxiety 1 month f/u anxiety History of Present Illness: Ruperto Hunter is a 68 y.o. female is an established pt to the clinic for new complaint of follow-up anxiety. Anxiety- Reports she is doing well. If she get anxiety at night she takes a Benadryl. When she getsanxious she walks. She breaks it up 2.5 in the morning and 2.5 in the evening. Walking 5 miles a day. She states she is still lost with what to do since she retired. She is starting to read more. Drinking herbal tea. Still drinking 2 cups of coffee in the morning. 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 Denies side effects of Wellbutrin. She is still going to counseling 2 times a week. Quit smoking July 08. Cleaning burgess and washing curtains to remove the smell from her home. MD just pola labs and did a chest x-ray- can call for lab results- they changed her medications around. Hypertension- She is down to 1/2 a BP pill at this time. Desires to be off of it at some point. Tremor- at rest and unable to write legibly anymore. She brought the tremor up yesterday at the [facility].They suggested she see a neurologist. Patient does not want to go to the [facility] in [place] to see neurology. Tremor has become worse over the last year. Especially, since she has quit drinking. Patientreports sometimes she wakes up in the middle the night and her hands are shaking. Her last drink was June 14. History: Past Medical History: Diagnosis Date Anxiety Hypertension Hypothyroidism Past Surgical History: Procedure Laterality Date BLADDER SUSPENSION CHOLECYSTECTOMY HYSTERECTOMY Family History Problem Relation Age of Onset Diabetes Mother Heart Disease - Other Father Heart Disease - Other Brother Social History Socioeconomic History Marital status: Spouse name: Not on file Number of children: Not on file Years of education: Not on file Highest education level: Not on file Occupational History Not on file Social Needs Financial resource strain: Not on file Food insecurity: Worry: Not on file Inability: Not on file Transportation needs: Medical: Not on file Non-medical: Not on file Tobacco Use Smoking status: Former Smoker Packs/day: 2.00 Types: Cigarettes Smokeless tobacco: Never Used Tobacco comment: quit smoking July 08, 2018 Substance and Sexual Activity Alcohol use: Not Currently Alcohol/week: 6.0 standard drinks Types: 6 Cans of beer per week Frequency: Never Drinks per session: 10 or more Drug use: Never Sexual activity: Not Currently Lifestyle Physical activity: Days per week: Not on file Minutes per session: Not on file Stress: Not on file Relationships Social connections: Talks on phone: Not on file Gets together: Not on file Attends sikhism service: Not on file Active member of club or organization: Not on file Attends meetings of clubs or organizations: Not on file Relationship status: Not on file Intimate partner violence: Fear of current or ex partner: Not on file Emotionally abused: Not on file Physically abused: Not on file Forced sexual activity: Not on file Other Topics Concern Service Not Asked Blood Transfusions Not Asked Caffeine Concern Not Asked Occupational Exposure Not Asked Hobby Hazards Not Asked Sleep Concern Not Asked Stress Concern Not Asked Weight Concern Not Asked Special Diet Not Asked Back Care Not Asked Exercise Not Asked Bike Helmet Not Asked Seat Belt Not Asked Domestic Violence No Social History Narrative Not on file Social History Tobacco Use Smoking Status Former Smoker Packs/day: 2.00 Types: Cigarettes Smokeless Tobacco Never Used Tobacco Comment quit smoking July 08, 2018 Social History Substance and Sexual Activity Alcohol Use Not Currently Alcohol/week: 6.0 standard drinks Types: 6 Cans of beer per week Frequency: Never Drinks per session: 10 or more Social History Substance and Sexual Activity Drug Use Never Allergies: Patient has no known allergies. Home Medications: Current Outpatient Medications: AMLODIPINE BESYLATE PO, Take 2.5 mg by mouth daily. , Disp: , Rfl: buPROPion 150 MG tablet XL, Take 2 tablets by mouth daily every morning., Disp: 60 tablet, Rfl: 11 levothyroxine 25 MCG Tab tablet, Take 0.88 mcg by mouth daily., Disp: , Rfl: Multiple Vitamin (MULTIVITAMIN) Tab, Take 1 tablet by mouth daily., Disp: , Rfl: omeprazole [address] capsule, Take 20 mg by mouth daily., Disp: , Rfl: Red Yeast Rice 600 MG Cap, Take by mouth daily., Disp: , Rfl: Vitamin D3 1000 units Tab tablet, Take 2,000 Units by mouth daily., Disp: , Rfl: chlordiazepoxide 25 MG Cap, Take 25 mg capsule every 6 hours as needed for withdrawal symptoms, Disp: 20 capsule, Rfl: 0 chlorthalidone 25 MG Tab tablet, Take 25 mg by mouth daily., Disp: , Rfl: Corning-3 1000 MG Cap, Take 935 mg by mouth daily., Disp: , Rfl: ROS: Review of Systems Constitutional: Negative. Skin: Negative. HENT: Negative. Eyes: Negative. Cardiovascular: Negative. Respiratory: Negative. Gastrointestinal: Negative. Genitourinary: Negative. Musculoskeletal: Negative. Neurological: Positive for tremors. Psychiatric: The patient is nervous/anxious. The patient does not have insomnia. There is no substance abuse. Lymph/Heme: Negative. Endocrine: Negative. Physical Examination: Vital Signs: Blood pressure 122/68, pulse 77, temperature 98 F (36.7 C), height 1.575 m (5' 2 ), weight 63 kg (139 lb), SpO2 98 %. Physical Exam Constitutional: She is oriented to person, place, and time and well-developed, well-nourished, and in no distress. Vital signs are normal. No distress. HENT: Head: Normocephalic and atraumatic. Right Ear: External ear normal. Left Ear: External ear normal. Nose: Nose normal. Mouth/Throat: Oropharynx is clear and moist. Eyes: Pupils are equal, round, and reactive to light. Conjunctivae are normal. Neck: Normal range of motion. Neck supple. No JVD present. No tracheal deviation present. No thyromegaly present. Cardiovascular: Normal rate, regular rhythm, normal heart sounds and intact distal pulses. Pulmonary/Chest: Effort normal and breath sounds normal. No respiratory distress. Abdominal: Soft. Normal appearance and bowel sounds are normal. She exhibits no distension. There is no tenderness. Musculoskeletal: Normal range of motion. Neurological: She is alert and oriented to person, place, and time. Gait normal. Skin: Skin is warm, dry and intact. She is not diaphoretic. Psychiatric: Mood, memory, affect and judgment normal. Mood is much improved from prior visits. Nursing note and vitals reviewed. Laboratory and Additional Data: All pertinent lab and imaging results have been reviewed Assessment and Plan: Ruperto was seen today for anxiety. Diagnoses and all orders for this visit: Tremor - AMB REFERRAL TO NEUROLOGY Generalized anxiety disorder - buPROPion 150 MG tablet XL; Take 2 tablets by mouth daily every morning. Essential hypertension, benign Follow-up in 6 month or sooner if needed. Continue with counseling. [facility] Will call with urine and lab results. RAFAEL Ruano documented in this encounter* Jonathon Malhotra, - 09/05/2018 12:20 PM EDT [facility] NOTE Chief complaint: Tremor History of present illness: Ruperto Hunter is a 68 y.o. right handed female who presents with Tremor. She states that her symptoms started when she was going through alcohol withdrawal. She stopped alcohol at that time. She is on Wellbutrin for Anxiety. She started this in June 2018. She states thather tremors have improved since then. She states that she has shaking in both hands in the right more than the left. She has quit smoking. She stopped in June 2018. She has difficulty writing. It is hard for her to sign her name. It has been coming on for greater than 1 year. She states it is bad when she tries to write. She is able to hold and drink a glass of water without spilling it. She denies any gait abnormalities. There is no family history of tremor. Her mother has anxiety attacks. She doesn't have asthma. She has not had any kidney stones. She denies any arm or leg weakness or numbness. She denies any bowel or bladder incontinence. She denies any slowing of movements. She is walking 3-5 miles a day. Review of Systems: Comments Neurological As above General/constitutional No fevers, weight change, chills, fatigue, night sweats Skin No rash, edema, bruising HEENT No diplopia, dysphagia, dizziness, tinnitus, hearing loss Cardiovascular No dyspnea or chest pain, palpitaitons, peripheral edema Respiratory No SOB, wheezing, rhonchi, cough or rales Gastrointestinal No loss of bowel control, constipation, diarrhea, abdominal pain, nausea or vomiting Genitourinary No loss of bladder control, no sexual dysfunction, hematuria, dysuria Musculoskeletal No myalgias, weakness, atrophy, joint pain, neck pain or back pain Psychiatric No depression, anxeity, hallucinations, delusions Endocrine No changes to hair or nails, abnormal sweating, hot flashess, excessive thirst, polyuria Hematologic No easy bruising, bleeding, swollen lymph nodes Unless directly addressed in ROS or in assessment and plan, patient was instructed to followup positive ROS findings with PCP. Past Medical History: Diagnosis Date Anxiety GERD (gastroesophageal reflux disease) Hyperlipidemia Hypertension Hypothyroidism Past Surgical History: Procedure Laterality Date OTHER SURGICAL 2016 Skin cancer removed off lower eyelid BLADDER SUSPENSION CHOLECYSTECTOMY HYSTERECTOMY \ Family History Problem Relation Age of Onset Diabetes Mother Depression Mother Heart Disease - Other Father Hypertension Father Lipid Disorder Father Heart Failure Father Myocardial Infarction Father Prostate Cancer Father Thyroid Disease Father Heart Disease - Other Brother Hypertension Brother Lipid Disorder Brother Kidney Disease Brother Alzheimer's Maternal Grandmother Myocardial Infarction Maternal Grandfather Social History Socioeconomic History Marital status: Spouse name: Not on file Number of children: Not on file Years of education: Not on file Highest education level: Not on file Occupational History Not on file Social Needs Financial resource strain: Not on file Food insecurity: Worry: Not on file Inability: Not on file Transportation needs: Medical: Not on file Non-medical: Not on file Tobacco Use Smoking status: Former Smoker Packs/day: 2.00 Types: Cigarettes Smokeless tobacco: Never Used Tobacco comment: quit smoking July 08, 2018 Substance and Sexual Activity Alcohol use: Not Currently Alcohol/week: 6.0 standard drinks Types: 6 Cans of beer per week Frequency: Never Drinks per session: 10 or more Drug use: Never Sexual activity: Not Currently Lifestyle Physical activity: Days per week: Not on file Minutes per session: Not on file Stress: Not on file Relationships Social connections: Talks on phone: Not on file Gets together: Not on file Attends sikhism service: Not on file Active member of club or organization: Not on file Attends meetings of clubs or organizations: Not on file Relationship status: Not on file Intimate partner violence: Fear of current or ex partner: Not on file Emotionally abused: Not on file Physically abused: Not on file Forced sexual activity: Not on file Other Topics Concern Service Not Asked Blood Transfusions Not Asked Caffeine Concern Not Asked Occupational Exposure Not Asked Hobby Hazards Not Asked Sleep Concern Not Asked Stress Concern Not Asked Weight Concern Not Asked Special Diet Not Asked Back Care Not Asked Exercise Not Asked Bike Helmet Not Asked Seat Belt Not Asked Domestic Violence No Social History Narrative Not on file No Known Allergies Current Outpatient Medications Medication Sig Dispense Refill AMLODIPINE BESYLATE PO Take 10 mg by mouth daily. aspirin EC [address] Take 81 mg by mouth daily. buPROPion 150 MG tablet XL Take 2 tablets by mouth daily every morning. 60 tablet 11 levothyroxine 25 MCG Tab tablet Take 0.88 mcg by mouth daily. Multiple Vitamin (MULTIVITAMIN) Tab Take 1 tablet by mouth daily. omeprazole [address] capsule Take 20 mg by mouth daily. Red Yeast Rice 600 MG Cap Take by mouth daily. Vitamin D3 1000 units Tab tablet Take 2,000 Units by mouth daily. chlordiazepoxide 25 MG Cap Take 25 mg capsule every 6 hours as needed for withdrawal symptoms 20 capsule 0 No current facility-administered medications for this visit. Physical Exam: Blood pressure 140/74, pulse 84, resp. rate 16, height 1.575 m (5' 2 ), weight 62.2 kg (137 lb 3.2 oz). Body mass index is 25.09 kg/m . General: In no acute distress. HENT: Normal oropharynx and mucosa. Normal external appearance of ears and nose. Neck: Supple, no pain or tenderness CV: RRR without murmur. No peripheral edema. Pulmonary: Clear to auscultation bilaterally. Normal respiratory effort. Abdomen: positive bowel sounds, soft, non-tender. Normal liver and spleen size. Ext: No cyanosis, edema, or deformity Skin: No rash. Normal palpation of skin. Musculoskeletal: full range of motion; no joint tenderness. Normal digits and nails by inspection. No clubbing. Neurological Examination Mental status: awake and alert; oriented to person, place, year, and month; good attention. Normal mood and affect. Normal insight into condition. Speech/language: fluent; comprehension intact; object naming intact; repetition intact Cranial nerves: CN II: Visual flores intact to confrontation. PERRL. Normal conjunctivae and lids. Fundoscopic examwithin normal limits. No evidence of hemorrhage or papilledema. Optic nerve within normal limits. air drier III, IV and : extraocular movements intact. No nystagmus. CN V: Facial sensation is intact to light touch. CN VII: Facial strength normal with symmetric movement. CN VIII: Hearing is grossly intact. CN IX and X: Soft palate elevates symmetrically in the midline CN XI: Shoulder shrug and sternocleidomastoid strength (R/L) 5/5 CN XII: Tongue is midline with normal movement; no fasciculations. Motor: Normal bulk and tone. No pronator drift. SA EE EF WE WF DI HF KE KF DF PF Right 5 5 5 5 5 5 5 5 5 5 5 Left 5 5 5 5 5 5 5 5 5 5 5 Reflexes: Right Left Comments Biceps 2 2 Triceps 2 2 Brachioradialis 2 2 Patellar 2 2 Achilles 2 2 Jaw jerk Osman Babinski Down Down Coordination: Mszcui-ad-clva intact bilaterally. Esfz-wk-gdnt intact bilaterally. Rapid alternatingmovements are normal. Mild postural tremor bilaterally. Tremor with hand writing and some difficulty with archimedes spiral. Sensation: Comments Light touch Intact throughout Pin prick Intact throughout Temperature Intact throughout Vibration Intact throughout Proprioception Intact throughout Gait: Normal stride length, arm swing, and base width. Able to toe, heel, and tandem walk. NegativeRomberg. Extensive time was taken to review all available records received with the new patient referral, including MRI scans and other diagnostic imaging. In addition, extensive time was taken to query other[employer] databases, which include [employer], [employer], [employer], [employer], and radiology PACS system. Pertinent labs from the referring provider were reviewed as well. Assessment and Plan: 1. Essential tremor - MRI BRAIN WITHOUT CONTRAST; Future - TSH; Future - zonisamide 25 MG Cap; Take 1 capsule by mouth 2 times daily. Dispense: 60 capsule; Refill: 1 At this time Mrs. Hunter is doing well. Her symptoms are most consistent with essential tremor. She will take Zonisamide 25 mg BID at this time for essential tremor. Side effects of Zonisamide were reviewed with the patient which include but are not limited to drowsiness, dizziness, anorexia, facial edema, headache, agitation, irritability, fatigue, tiredness, confusion, depression, insomnia, lack concentration, memory loss, ataxia, speech abnormality, anxiety, nervousness, schizophreniform disorder, scooting ball should, hyperesthesia, seizure, hyperthermia, rash, bruising, Brenden Andrew syndrome, toxic epidermal necrolysis, metabolic acidosis, nausea, abdominal pain, diarrhea, dyspepsia, weight loss, constipation, vomiting, xerostomia, agranulocytosis, aplastic anemia, paresthesia, abnormal gait, tremor, diplopia, nystagmus, tinnitus, nephrolithiasis, rhinitis, pharyngitis, flulike symptoms, suicidal ideation, lupus, thrombocytopenia, pulmonary embolism, stroke, bradycardia, cardiac failure, GI ulcer, hematemesis, hemoptysis, hyponatremia, apnea, atrial fibrillation, bladder calculus. She is on wellbutrin and Synthroid which can both cause tremor. Wellbutrin does interfere with propranolol and I will avoid that. Primidone has a potential interaction with her Amlodipine and we will hold off on that at this time. If she does take primidone in the future she will need to monitor her blood pressure closely with the PCP. She will have an MRI brain to look for any acquired causes of tremor. She will have a TSH level. documented in this encounter* Anirudh Costa, [employer] - 11/27/2018 9:45 AM EDT Ruperto Hunter [id number] 1950 11/27/2018 Chief Complaint Patient presents with Medication Management Pt requesting a new order for estradiol. Pt discontinued 1 mth ago. Pt c/o hot flashes. [facility] Pt reports she quit smoking in June History of Present Illness: Ruperto Hunter is a 68 y.o. female is an established pt to the clinic for new prescription. Need for hormone replacement therapy- She has taken it since 1984. She is postmenopausal. She is aware of the risk of heart attack and stroke. She was taken off of it by her [facility]. She quit smoking in June. Walks 3-5 miles a day. She had 10 hot flashes in the car on her way to [facility] for her grandsons football game. Her quality of life is affected without her medication. [facility]. Last DEXA was 10 years ago. [facility]. Unable to finding of pneumonia vaccine in impact. Skin lesion- Patient with more sun exposure since being retired. She is noted more Skin lesions appearing. They have irregular borders dry flaking skin. One is a raised pigmented lesion. She desires to see plastic surgery for this instead of dermatology. Dr. Dumont removed skin cancer from her in the past. History: Past Medical History: Diagnosis Date Anxiety GERD (gastroesophageal reflux disease) Hyperlipidemia Hypertension Hypothyroidism Tremor Past Surgical History: Procedure Laterality Date OTHER SURGICAL 2015 Skin cancer removed off lower eyelid BLADDER SUSPENSION CHOLECYSTECTOMY HYSTERECTOMY Family History Problem Relation Age of Onset Diabetes Mother Depression Mother Heart Disease - Other Father Hypertension Father Lipid Disorder Father Heart Failure Father Myocardial Infarction Father Prostate Cancer Father Thyroid Disease Father Heart Disease - Other Brother Hypertension Brother Lipid Disorder Brother Kidney Disease Brother Alzheimer's Maternal Grandmother Myocardial Infarction Maternal Grandfather Social History Socioeconomic History Marital status: Spouse name: Not on file Number of children: Not on file Years of education: Not on file Highest education level: Not on file Occupational History Not on file Social Needs Financial resource strain: Not on file Food insecurity: Worry: Not on file Inability: Not on file Transportation needs: Medical: Not on file Non-medical: Not on file Tobacco Use Smoking status: Former Smoker Packs/day: 2.00 Types: Cigarettes Smokeless tobacco: Never Used Tobacco comment: quit smoking July 08, 2018 Substance and Sexual Activity Alcohol use: Not Currently Alcohol/week: 6.0 standard drinks Types: 6 Cans of beer per week Frequency: Never Drinks per session: 10 or more Drug use: Never Sexual activity: Not Currently Lifestyle Physical activity: Days per week: Not on file Minutes per session: Not on file Stress: Not on file Relationships Social connections: Talks on phone: Not on file Gets together: Not on file Attends sikhism service: Not on file Active member of club or organization: Not on file Attends meetings of clubs or organizations: Not on file Relationship status: Not on file Intimate partner violence: Fear of current or ex partner: Not on file Emotionally abused: Not on file Physically abused: Not on file Forced sexual activity: Not on file Other Topics Concern Service Not Asked Blood Transfusions Not Asked Caffeine Concern Not Asked Occupational Exposure Not Asked Hobby Hazards Not Asked Sleep Concern Not Asked Stress Concern Not Asked Weight Concern Not Asked Special Diet Not Asked Back Care Not Asked Exercise Not Asked Bike Helmet Not Asked Seat Belt Not Asked Domestic Violence No Social History Narrative Not on file Social History Tobacco Use Smoking Status Former Smoker Packs/day: 2.00 Types: Cigarettes Smokeless Tobacco Never Used Tobacco Comment quit smoking July 08, 2018 Social History Substance and Sexual Activity Alcohol Use Not Currently Alcohol/week: 6.0 standard drinks Types: 6 Cans of beer per week Frequency: Never Drinks per session: 10 or more Social History Substance and Sexual Activity Drug Use Never Allergies: Patient has no known allergies. Home Medications: Current Outpatient Medications: AMLODIPINE BESYLATE PO, Take 10 mg by mouth daily. , Disp: , Rfl: aspirin EC [address], Take 81 mg by mouth daily., Disp: , Rfl: buPROPion 150 MG tablet XL, Take 2 tablets by mouth daily every morning., Disp: 60 tablet, Rfl: 11 levothyroxine 25 MCG Tab tablet, Take 0.88 mcg by mouth daily., Disp: , Rfl: Multiple Vitamin (MULTIVITAMIN) Tab, Take 1 tablet by mouth daily., Disp: , Rfl: omeprazole [address] capsule, Take 20 mg by mouth daily., Disp: , Rfl: Red Yeast Rice 600 MG Cap, Take by mouth daily., Disp: , Rfl: Vitamin D3 1000 units Tab tablet, Take 2,000 Units by mouth daily., Disp: , Rfl: zonisamide 25 MG Cap, Take 2 capsules by mouth daily., Disp: 60 capsule, Rfl: 5 chlordiazepoxide 25 MG Cap, Take 25 mg capsule every 6 hours as needed for withdrawal symptoms, Disp: 20 capsule, Rfl: 0 estradiol 1 MG Tab tablet, Take 1 tablet by mouth daily., Disp: 30 tablet, Rfl: 2 LORazepam 0.5 MG Tab tablet, Take 1 tablet by mouth once for 1 dose. Please take 30 minutes prior to MRI. Please have someone drive you home from MRI., Disp: 1 tablet, Rfl: 0 ROS: Review of Systems Constitutional: Negative. Skin: Negative. HENT: Negative. Eyes: Negative. Cardiovascular: Negative. Negative for chest pain. Respiratory: Negative. Gastrointestinal: Negative. Genitourinary: Negative. Musculoskeletal: Negative. Neurological: Negative. Psychiatric: Negative. Lymph/Heme: Negative. Endocrine: Negative. Positive for hot flashes. Physical Examination: Vital Signs: Blood pressure 138/78, pulse 99, temperature 98 F (36.7 C), height 1.575 m (5' 2 ), weight 60.8 kg (134 lb), SpO2 97 %. Physical Exam Constitutional: She is oriented to person, place, and time and well-developed, well-nourished, and in no distress. Vital signs are normal. No distress. Patient appeared flushed several times during exam chest and face were red. HENT: Head: Normocephalic and atraumatic. Right Ear: External ear normal. Left Ear: External ear normal. Nose: Nose normal. Mouth/Throat: Oropharynx is clear and moist. Eyes: Pupils are equal, round, and reactive to light. Conjunctivae are normal. Neck: Normal range of motion. Neck supple. No JVD present. No tracheal deviation present. No thyromegaly present. Cardiovascular: Normal rate, regular rhythm, normal heart sounds and intact distal pulses. No carotid bruit auscultated Pulmonary/Chest: Effort normal and breath sounds normal. No respiratory distress. Abdominal: Soft. Normal appearance and bowel sounds are normal. She exhibits no distension. There is no tenderness. Musculoskeletal: Normal range of motion. Neurological: She is alert and oriented to person, place, and time. Gait normal. Skin: Skin is warm, dry and intact. She is not diaphoretic. Psychiatric: Mood, memory, affect and judgment normal. Nursing note and vitals reviewed. Laboratory and Additional Data: All pertinent lab and imaging results have been reviewed Assessment and Plan: Ruperto was seen today for medication management. Diagnoses and all orders for this visit: Hot flashes due to menopause Pigmented skin lesion of uncertain nature - AMB REFERRAL TO PLASTIC SURGERY Need for postmenopausal hormone replacement - Discontinue: estrogens conjugated (PREMARIN) 0.625 MG Tab; Take 1 tablet by mouth daily. - estradiol 1 MG Tab tablet; Take 1 tablet by mouth daily. Need for vaccination - influenza high-dose split seasonal virus vaccine 0.5 ML injection; Inject 0.5 mL intramuscularly Once (In Clinic) for 1 dose. - Cancel: FLU VACCINE HIGH-DOSE - influenza seasonal virus vaccine 0.5 ML Suspension Prefilled Syringe; Inject 0.5 mL intramuscularly Once (In Clinic) for 1 dose. - FLU VACCINE QUADRIVALENT > = [address] Dumont will call you to schedule an appointment. Keep appointment For 6 month follow-up. Will request records from the MD In January. RAFAEL Ruano documented in this encounter* Jonathon Malhotra DO - 10/24/2018 9:00 AM EDT [facility] NOTE Chief complaint: Tremor History of present illness: Ruperto Hunter is a 68 y.o. right handed female who presents with Tremor. She states that her symptoms started when she was going through alcohol withdrawal. She is on Wellbutrin for Anxiety. Her tremors have improved since her alcohol withdrawal resolved. She has shaking in both hands in the right more than the left. She has quit smoking. She has difficulty writing. It is hard for her to sign her name. She is able to hold and drink a glass of water without spilling it. She denies any gait abnormalities. There is no family history of tremor. Her mother has anxiety attacks. She doesn't have asthma. She has not had any kidney stones. She denies any arm or leg weakness or numbness. She denies any bowel or bladder incontinence. She denies any slowing of movements. TSH was unremarkable. She was started on Zonisamide 25 mg BID for tremor. She is tolerating the medication. She states that she is writing a little better. MRI brain did not show any acute abnormality. Mild atrophy and moderate chronic small vessel disease was seen. She is able to hold a cup/glass without difficulty. Review of Systems: Comments Neurological As above General/constitutional No fevers, weight change, chills, fatigue, night sweats Skin No rash, edema, bruising HEENT No diplopia, dysphagia, dizziness, tinnitus, hearing loss Cardiovascular No dyspnea or chest pain, palpitaitons, peripheral edema Respiratory No SOB, wheezing, rhonchi, cough or rales Gastrointestinal No loss of bowel control, constipation, diarrhea, abdominal pain, nausea or vomiting Genitourinary No loss of bladder control, no sexual dysfunction, hematuria, dysuria Musculoskeletal No myalgias, weakness, atrophy, joint pain, neck pain or back pain Psychiatric No depression, anxeity, hallucinations, delusions Endocrine No changes to hair or nails, abnormal sweating, hot flashess, excessive thirst, polyuria Hematologic No easy bruising, bleeding, swollen lymph nodes Unless directly addressed in ROS or in assessment and plan, patient was instructed to followup positive ROS findings with PCP. Past Medical History: Diagnosis Date Anxiety GERD (gastroesophageal reflux disease) Hyperlipidemia Hypertension Hypothyroidism Past Surgical History: Procedure Laterality Date OTHER SURGICAL 2016 Skin cancer removed off lower eyelid BLADDER SUSPENSION CHOLECYSTECTOMY HYSTERECTOMY Family History Problem Relation Age of Onset Diabetes Mother Depression Mother Heart Disease - Other Father Hypertension Father Lipid Disorder Father Heart Failure Father Myocardial Infarction Father Prostate Cancer Father Thyroid Disease Father Heart Disease - Other Brother Hypertension Brother Lipid Disorder Brother Kidney Disease Brother Alzheimer's Maternal Grandmother Myocardial Infarction Maternal Grandfather Social History Socioeconomic History Marital status: Spouse name: Not on file Number of children: Not on file Years of education: Not on file Highest education level: Not on file Occupational History Not on file Social Needs Financial resource strain: Not on file Food insecurity: Worry: Not on file Inability: Not on file Transportation needs: Medical: Not on file Non-medical: Not on file Tobacco Use Smoking status: Former Smoker Packs/day: 2.00 Types: Cigarettes Smokeless tobacco: Never Used Tobacco comment: quit smoking July 08, 2018 Substance and Sexual Activity Alcohol use: Not Currently Alcohol/week: 6.0 standard drinks Types: 6 Cans of beer per week Frequency: Never Drinks per session: 10 or more Drug use: Never Sexual activity: Not Currently Lifestyle Physical activity: Days per week: Not on file Minutes per session: Not on file Stress: Not on file Relationships Social connections: Talks on phone: Not on file Gets together: Not on file Attends sikhism service: Not on file Active member of club or organization: Not on file Attends meetings of clubs or organizations: Not on file Relationship status: Not on file Intimate partner violence: Fear of current or ex partner: Not on file Emotionally abused: Not on file Physically abused: Not on file Forced sexual activity: Not on file Other Topics Concern Service Not Asked Blood Transfusions Not Asked Caffeine Concern Not Asked Occupational Exposure Not Asked Hobby Hazards Not Asked Sleep Concern Not Asked Stress Concern Not Asked Weight Concern Not Asked Special Diet Not Asked Back Care Not Asked Exercise Not Asked Bike Helmet Not Asked Seat Belt Not Asked Domestic Violence No Social History Narrative Not on file No Known Allergies Current Outpatient Medications Medication Sig Dispense Refill AMLODIPINE BESYLATE PO Take 10 mg by mouth daily. aspirin EC [address] Take 81 mg by mouth daily. buPROPion 150 MG tablet XL Take 2 tablets by mouth daily every morning. 60 tablet 11 chlordiazepoxide 25 MG Cap Take 25 mg capsule every 6 hours as needed for withdrawal symptoms 20 capsule 0 levothyroxine 25 MCG Tab tablet Take 0.88 mcg by mouth daily. LORazepam 0.5 MG Tab tablet Take 1 tablet by mouth once for 1 dose. Please take 30 minutes prior toMRI. Please have someone drive you home from MRI. 1 tablet 0 Multiple Vitamin (MULTIVITAMIN) Tab Take 1 tablet by mouth daily. omeprazole [address] capsule Take 20 mg by mouth daily. Red Yeast Rice 600 MG Cap Take by mouth daily. Vitamin D3 1000 units Tab tablet Take 2,000 Units by mouth daily. zonisamide 25 MG Cap Take 1 capsule by mouth 2 times daily. 60 capsule 1 No current facility-administered medications for this visit. Physical Exam: Vitals: 10/24/18 0844 BP: 134/68 Pulse: 80 Resp: 16 Weight: 61.2 kg (135 lb) Height: 1.575 m (5' 2 ) General: In no acute distress. HENT: Normal oropharynx and mucosa. Normal external appearance of ears and nose. Neck: Supple, no pain or tenderness CV: RRR without murmur. No peripheral edema. Pulmonary: Clear to auscultation bilaterally. Normal respiratory effort. Abdomen: positive bowel sounds, soft, non-tender. Normal liver and spleen size. Ext: No cyanosis, edema, or deformity Skin: No rash. Normal palpation of skin. Musculoskeletal: full range of motion; no joint tenderness. Normal digits and nails by inspection. No clubbing. Neurological Examination Mental status: awake and alert; oriented to person, place, year, and month; good attention. Normal mood and affect. Normal insight into condition. Speech/language: fluent; comprehension intact; object naming intact; repetition intact Cranial nerves: CN II: Visual flores intact to confrontation. PERRL. Normal conjunctivae and lids. air drier III, IV and : extraocular movements intact. No nystagmus. CN V: Facial sensation is intact to light touch. CN VII: Facial strength normal with symmetric movement. CN VIII: Hearing is grossly intact. CN IX and X: Soft palate elevates symmetrically in the midline CN XI: Shoulder shrug and sternocleidomastoid strength (R/L) 5/5 CN XII: Tongue is midline with normal movement; no fasciculations. Motor: Normal bulk and tone. No pronator drift. SA EE EF WE WF DI HF KE KF DF PF Right 5 5 5 5 5 5 5 5 5 5 5 Left 5 5 5 5 5 5 5 5 5 5 5 Reflexes: Right Left Comments Biceps 2 2 Triceps 2 2 Brachioradialis 2 2 Patellar 2 2 Achilles 2 2 Jaw jerk Osman Babinski Down Down Coordination: [id number] with minimal tremor bilaterally. [id number] intact bilaterally. Rapid alternating movements are normal. Minimal postural tremor noted in hands. No resting tremor. Sensation: Comments Light touch Intact throughout Pin prick Intact throughout Temperature Intact throughout Vibration Intact throughout Proprioception Intact throughout Gait: Normal stride length, arm swing, and base width. Negative Romberg. All pertinent labs and images were reviewed with the patients. Assessment and Plan: 1. Essential tremor - zonisamide 25 MG Cap; Take 2 capsules by mouth daily. Dispense: 60 capsule; Refill: 5 At this time Mrs. Hunter is doing well. Her symptoms are consistent with essential tremor. She will take Zonisamide 50 mg daily at this time for essential tremor. Side effects of Zonisamide were reviewed with the patient which include but are not limited to drowsiness, dizziness, anorexia, facial e melanie, headache, agitation, irritability, fatigue, tiredness, confusion, depression, insomnia, lack concentration, memory loss, ataxia, speech abnormality, anxiety, nervousness, schizophreniform disorder, scooting ball should, hyperesthesia, seizure, hyperthermia, rash, bruising, Brenden Andrew syndrome, toxic epidermal necrolysis, metabolic acidosis, nausea, abdominal pain, diarrhea, dyspepsia, weight loss, constipation, vomiting, xerostomia, agranulocytosis, aplastic anemia, paresthesia, abnormal gait, tremor, diplopia, nystagmus, tinnitus, nephrolithiasis, rhinitis, pharyngitis, flulike symptoms, suicidal ideation, lupus, thrombocytopenia, pulmonary embolism, stroke, bradycardia, cardiac failure, GI ulcer, hematemesis, hemoptysis, hyponatremia, apnea, atrial fibrillation, bladder calculus. She is on Wellbutrin and Synthroid which can both cause/contribute to tremor. MRI brain and TSH was unremarkable. documented in this encounter* Anirudh Costa, [employer]DIRECTOR OF [employer]ES - 06/22/2018 11:00 AM EDT Ruperto Hunter [id number] 1950 06/22/2018 Chief Complaint Patient presents with Alcohol Problem f/u visit from ED Urinary Pain pt c/o pain with urination History of Present Illness: Ruperto Hunter is a 68 y.o. female is an established pt to the clinic for new complaint of alcohol withdrawal. Still taking Librium for the alcohol withdrawal. She has 7 Librium left. She is only been taking 1 at night the last couple days. She is walking daily to help with the anxiety. Has not had a drink since she June 15. She was in the office June 14 and only drank a glass of winethat night. She reported at the time drinking maybe 3-4 drinks at night. I had encouraged her to cut back/quit drinking to help with anxiety. She went to the ED on the . Drinking only water and coffee. Daughter reports less twitchy. 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 Pt reports she wasdrinking 10-12+ beers daily before starting at 10 am. She is on vitamins now. No appetite. Anxiety is improving. Has not had any panic attacks. Little anxiety at times. It is here and gone. She is no longer having to leave the house and turn all the lights on in the house. Denies insomnia.Sleeping 2-3 hours during the day also. Smoking quite a bit. Chronic ough is dry and non-productive. Pain to urinate. Denies burning. Urgency. Increasing water intake and she has increased frequency. Discharge that itches- yellow discharge. No catheter at the hospital. Had blood present in her UA onFriday. History: Past Medical History: Diagnosis Date Anxiety Hypertension Hypothyroidism Past Surgical History: Procedure Laterality Date BLADDER SUSPENSION CHOLECYSTECTOMY HYSTERECTOMY Family History Problem Relation Age of Onset Diabetes Mother Heart Disease - Other Father Heart Disease - Other Brother Social History Socioeconomic History Marital status: Spouse name: Not on file Number of children: Not on file Years of education: Not on file Highest education level: Not on file Occupational History Not on file Social Needs Financial resource strain: Not on file Food insecurity: Worry: Not on file Inability: Not on file Transportation needs: Medical: Not on file Non-medical: Not on file Tobacco Use Smoking status: Current Every Day Smoker Packs/day: 2.00 Types: Cigarettes Smokeless tobacco: Never Used Substance and Sexual Activity Alcohol use: Yes Alcohol/week: 3.6 oz Types: 6 Cans of beer per week Frequency: 4 or more times a week Drinks per session: 10 or more Comment: 10-12 daily Drug use: Never Sexual activity: Not Currently Lifestyle Physical activity: Days per week: Not on file Minutes per session: Not on file Stress: Not on file Relationships Social connections: Talks on phone: Not on file Gets together: Not on file Attends sikhism service: Not on file Active member of club or organization: Not on file Attends meetings of clubs or organizations: Not on file Relationship status: Not on file Intimate partner violence: Fear of current or ex partner: Not on file Emotionally abused: Not on file Physically abused: Not on file Forced sexual activity: Not on file Other Topics Concern Service Not Asked Blood Transfusions Not Asked Caffeine Concern Not Asked Occupational Exposure Not Asked Hobby Hazards Not Asked Sleep Concern Not Asked Stress Concern Not Asked Weight Concern Not Asked Special Diet Not Asked Back Care Not Asked Exercise Not Asked Bike Helmet Not Asked Seat Belt Not Asked Domestic Violence No Social History Narrative Not on file Social History Tobacco Use Smoking Status Current Every Day Smoker Packs/day: 2.00 Types: Cigarettes Smokeless Tobacco Never Used Social History Substance and Sexual Activity Alcohol Use Yes Alcohol/week: 3.6 oz Types: 6 Cans of beer per week Frequency: 4 or more times a week Drinks per session: 10 or more Comment: 10-12 daily Social History Substance and Sexual Activity Drug Use Never Allergies: Patient has no known allergies. Home Medications: Current Outpatient Medications: AMLODIPINE BESYLATE PO, Take 5 mg by mouth daily., Disp: , Rfl: buPROPion 150 MG tablet XL, Take 1 tablet by mouth daily every morning., Disp: 30 tablet, Rfl: 0 chlorthalidone 25 MG Tab tablet, Take 25 mg by mouth daily., Disp: , Rfl: levothyroxine 25 MCG Tab tablet, Take 25 mcg by mouth daily., Disp: , Rfl: Multiple Vitamin (MULTIVITAMIN) Tab, Take 1 tablet by mouth daily., Disp: , Rfl: Corning-3 1000 MG Cap, Take 935 mg by mouth daily., Disp: , Rfl: omeprazole [address] capsule, Take 20 mg by mouth daily., Disp: , Rfl: Red Yeast Rice 600 MG Cap, Take by mouth daily., Disp: , Rfl: Vitamin D3 1000 units Tab tablet, Take 2,000 Units by mouth daily., Disp: , Rfl: chlordiazepoxide 25 MG Cap, Take 25 mg capsule every 6 hours as needed for withdrawal symptoms, Disp: 20 capsule, Rfl: 0 ciprofloxacin 500 MG Tab tablet, Take 1 tablet by mouth every 12 hours for 5 days., Disp: 10 tablet, Rfl: 0 Lactobacillus (ACIDOPHILUS) Cap, Take 1 tablet by mouth daily., Disp: 30 capsule, Rfl: 0 potassium chloride 20 MEQ Tab CR tablet, Take 1 tablet by mouth daily for 5 days., Disp: 5 tablet, Rfl: 0 ROS: Review of Systems Constitutional: Negative. Skin: Negative. HENT: Negative. Eyes: Negative. Cardiovascular: Negative. Respiratory: Positive for cough. Gastrointestinal: Positive for diarrhea. Negative for nausea and vomiting. In the hospital Genitourinary: Negative. Musculoskeletal: Negative. Neurological: Positive for tremors. Every once in awhile. Psychiatric: Positive for depression. The patient is nervous/anxious. The patient does not have insomnia. There is no substance abuse. Lymph/Heme: Negative. Endocrine: Negative. Physical Examination: Vital Signs: Blood pressure 132/80, pulse 90, temperature 97 F (36.1 C), height 1.575 m (5' 2 ), weight 67.1 kg (148 lb), SpO2 98 %. Physical Exam Constitutional: She is oriented to person, place, and time and well-developed, well-nourished, and in no distress. Vital signs are normal. No distress. HENT: Head: Normocephalic and atraumatic. Right Ear: External ear normal. Left Ear: External ear normal. Nose: Nose normal. Mouth/Throat: Oropharynx is clear and moist. Eyes: Pupils are equal, round, and reactive to light. Conjunctivae are normal. Neck: Normal range of motion. Neck supple. No JVD present. No tracheal deviation present. No thyromegaly present. Cardiovascular: Normal rate, regular rhythm, normal heart sounds and intact distal pulses. Pulmonary/Chest: Effort normal and breath sounds normal. No respiratory distress. Abdominal: Soft. Normal appearance and bowel sounds are normal. She exhibits no distension. There is no tenderness. Musculoskeletal: Normal range of motion. Lymphadenopathy: She has no cervical adenopathy. Neurological: She is alert and oriented to person, place, and time. Gait normal. No tremors observed in office. Skin: Skin is warm, dry and intact. She is not diaphoretic. Psychiatric: Memory and judgment normal. Her mood appears anxious. She exhibits a depressed mood. She has a flat affect. Pt is flat today. Nursing note and vitals reviewed. Laboratory and Additional Data: All pertinent lab and imaging results have been reviewed Results for orders placed or performed in visit on 06/22/18 POCT URINALYSIS DIPSTICK NON AUTOMATED Result Value Ref Range POCT APPEARANCE, URINE clear POCT COLOR, URINE yellow POCT GLUCOSE, URINE negative mg/dL POCT BILIRUBIN, URINE negative POCT KETONES, URINE negative mg/dL POCT SPECIFIC GRAVITY, URINE 1.015 1.001 - 1.035 POCT BLOOD, URINE trace-intact POCT PH, URINE 7.5 (A) 5 - 7 POCT PROTEIN, URINE negative mg/dL POCT UROBILINOGEN, URINE 0.2 0 - 2 E.U./dL POCT NITRITE, URINE negative POCT LEUKOCYTE, URINE small POCT ESTERASE, URINE POCT BACTERIA, URINE POCT WBC, URINE POCT RBC, URINE POCT AMORPHOUS, URINE POCT CASTS, QUANTITATIVE, URINE POCT SQUAMOUS EPIS, URINE POCT RENAL EPIS, URINE POCT CRYSTALS, URINE POCT URINE COMMENTS, URINE Assessment and Plan: Ruperto was seen today for alcohol problem and urinary pain. Diagnoses and all orders for this visit: Alcohol withdrawal syndrome with complication Anxiety disorder, unspecified type Chronic cough - AMB REFERRAL TO PULMONARY Dysuria - URINE CULTURE; Future - POCT URINALYSIS DIPSTICK NON AUTOMATED Urinary tract infection with hematuria, site unspecified - ciprofloxacin 500 MG Tab tablet; Take 1 tablet by mouth every 12 hours for 5 days. - Lactobacillus (ACIDOPHILUS) Cap; Take 1 tablet by mouth daily. Will call if need to change antibiotic. Take Cipro as prescribed and acidophilus. Follow-up in 1-2 weeks to see how anxiety is going. If you need to be seen sooner call for appointment. Follow-up with pulmonology for chronic cough. Anirudh Costa APRN-SUNITHA documented in this encounter* Imelda Lopez RN - 05/14/2020 3:50 PM EDT Tawana here to see pt. documented in this encounter* Imelda Lopez RN - 05/14/2020 3:50 PM EDT Tawana here to see pt. documented in this encounter* Geovanna Welch RPh,PharmSunday - 05/19/2020 7:13 AM EDT PHARMACOTHERAPY NOTE: Antimicrobial Therapy Follow-up Assessment / Plan: Ruperto Hunter is a 69 y.o. female initiated on vancomycin for staph epi infection. Vancomycin trough goal is 15-20 mcg/mL. Based on drug level of 15.0, will continue current vancomycin dosing Will monitor serum creatinine levels and urine output (if available) daily. Pharmacy will continue to follow, order levels, and make adjustments/recommendations as needed. Subjective: Current antibiotic regimen includes: vancomycin 1000 mg BID Meropenem 1000 mg BID Objective: Labs include: WBC (K/mcL) Date Value 05/19/2020 4.72 Creatinine (mg/dL) Date Value 05/19/2020 0.61 CrCl cannot be calculated (Unknown ideal weight.). Patient Tmax (last 24 hours): 98.1 F Pharmacist: Geovanna Welch RPh,PharmD Contact Number: [phone] Kristen Austin in pharmacy documented in this encounter* Geovanna Welch RPh, PharmD - 05/19/2020 7:13 AM EDT PHARMACOTHERAPY NOTE: Antimicrobial Therapy Follow-up Assessment / Plan: Ruperto Hunter is a 69 y.o. female initiated on vancomycin for staph epi infection. Vancomycin trough goal is 15-20 mcg/mL. Based on drug level of 15.0, will continue current vancomycin dosing Will monitor serum creatinine levels and urine output (if available) daily. Pharmacy will continue to follow, order levels, and make adjustments/recommendations as needed. Subjective: Current antibiotic regimen includes: vancomycin 1000 mg BID Meropenem 1000 mg BID Objective: Labs include: WBC (K/mcL) Date Value 05/19/2020 4.72 Creatinine (mg/dL) Date Value 05/19/2020 0.61 CrCl cannot be calculated (Unknown ideal weight.). Patient Tmax (last 24 hours): 98.1 F Pharmacist: Geovanna Welch RPh,PharmSunday Contact Number: [phone] Kristen Austin in pharmacy documented in this encounter* Geovanna Welch RPh, PharmD - 05/19/2020 7:13 AM EDT PHARMACOTHERAPY NOTE: Antimicrobial Therapy Follow-up Assessment / Plan: Ruperto Hunter is a 69 y.o. female initiated on vancomycin for staph epi infection. Vancomycin trough goal is 15-20 mcg/mL. Based on drug level of 15.0, will continue current vancomycin dosing Will monitor serum creatinine levels and urine output (if available) daily. Pharmacy will continue to follow, order levels, and make adjustments/recommendations as needed. Subjective: Current antibiotic regimen includes: vancomycin 1000 mg BID Meropenem 1000 mg BID Objective: Labs include: WBC (K/mcL) Date Value 05/19/2020 4.72 Creatinine (mg/dL) Date Value 05/19/2020 0.61 CrCl cannot be calculated (Unknown ideal weight.). Patient Tmax (last 24 hours): 98.1 F Pharmacist: Geovanna Welch RPh,PharmD Contact Number: [phone] Kristen Austin in pharmacy documented in this encounter* Pooja Colón RPh, PharmD - 05/21/2020 10:17 AM EDT PHARMACOTHERAPY NOTE: Antimicrobial Therapy Follow-up Assessment / Plan: Ruperto Hunter is a 69 y.o. female initiated on vancomycin for sinus infection. Vancomycin trough goal is 15-20 mcg/mL. Based on drug level of 14.3 (~13 hours after previous dose), will continue vancomycin at 1000mg IV twice daily. Will monitor serum creatinine levels and urine output (if available) daily. Pharmacy will continue to follow, order levels, and make adjustments/recommendations as needed. Subjective: Current antibiotic regimen includes: Meropenem 1000mg q12h vancomycin 1000mg q12h Objective: Labs include: WBC (K/mcL) Date Value 05/19/2020 4.72 Creatinine (mg/dL) Date Value 05/19/2020 0.61 CrCl cannot be calculated (Unknown ideal weight.). Patient Tmax (last 24 hours): 97.8 F Micro: N/A at this time Therapeutic Drug Monitoring: Date 05/18 05/21 Vancomycin Serum Concentration 15.0 14.3 Vancomycin Dose Administered 1000mg IV twice daily in [facility] 1000mg IV twice daily in [facility] Pharmacist: Pooja Colón RPh, PharmD Contact Number: [phone] documented in this encounter* Pooja Colón RPh, PharmD - 05/21/2020 10:17 AM EDT PHARMACOTHERAPY NOTE: Antimicrobial Therapy Follow-up Assessment / Plan: Ruperto Hunter is a 69 y.o. female initiated on vancomycin for sinus infection. Vancomycin trough goal is 15-20 mcg/mL. Based on drug level of 14.3 (~13 hours after previous dose), will continue vancomycin at 1000mg IV twice daily. Will monitor serum creatinine levels and urine output (if available) daily. Pharmacy will continue to follow, order levels, and make adjustments/recommendations as needed. Subjective: Current antibiotic regimen includes: Meropenem 1000mg q12h vancomycin 1000mg q12h Objective: Labs include: WBC (K/mcL) Date Value 05/19/2020 4.72 Creatinine (mg/dL) Date Value 05/19/2020 0.61 CrCl cannot be calculated (Unknown ideal weight.). Patient Tmax (last 24 hours): 97.8 F Micro: N/A at this time Therapeutic Drug Monitoring: Date 05/18 05/21 Vancomycin Serum Concentration 15.0 14.3 Vancomycin Dose Administered 1000mg IV twice daily in [facility] 1000mg IV twice daily in [facility] Pharmacist: Pooja Colón RPh,PharmD Contact Number: [phone] documented in this encounter* Keke Duron CNP - 05/26/2020 11:37 PM EDT Patient Name: Ruperto Hunter Admit Date: MR #: [id number] : 1950 Physicians: Anirudh Costa, SUNITHA (Family); No ref. provider found (Referring) Assessment: 1. Left sphenoid sinusitis 2. 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 Labs reviewed: CBC, CMP unremarkable CBC, BMP, CRP, ESR, vanco trough weekly Occult stool negative Follow up MRI 05/15 still showing previous infiltrative pattern lesion, asymmetric thickening of mucosal and submucosal tissues and partial encasement of left internal carotid artery. Findings favoringinfiltrative neoplasm of nasopharynx or underlying lymphoma. Will refer back to Dr. Uriarte at [facility] for repeat biopsy Discussed management with daughter Chago, all questions addressed We will continue to follow Subjective: Patient seen in short term care, coming twice a day for IV ATB infusions. Sinus pain and congestion have improved, but left-sided earache and left temporal headache have returned. Discussed occult stool results. Discussed MRI results, including with daughter Chago. Emotional support provided. She is slightly tearful at the possibility of a malignant finding. Exam: There were no vitals filed for this visit. Allergies: Pravastatin and Celecoxib Current Outpatient Medications: AMLODIPINE BESYLATE, BULK, MISC, Take 10 mg by mouth daily ., Disp: , Rfl: aspirin 81 MG EC tablet, TAKE ONE TABLET BY MOUTH EVERY DAY WITH BREAKFAST, Disp: , Rfl: biotin 1 mg tablet, TAKE 55742 (1 TAB) BY MOUTH QD, Disp: , Rfl: buPROPion (WELLBUTRIN XL) 150 MG 24 hr tablet, Take 300 mg by mouth every morning ., Disp: , Rfl: estradioL (ESTRACE) 1 MG tablet, Take 0.5 mg by mouth daily ., Disp: , Rfl: estrogens, conjugated, (PREMARIN) 0.45 MG tablet, TAKE ONE TABLET BY MOUTH EVERY OTHER DAY (WITH FOOD), Disp: , Rfl: gabapentin (NEURONTIN) 800 MG tablet, Take 800 mg by mouth See Admin Instructions ., Disp: , Rfl: levothyroxine (Synthroid) 125 MCG tablet, TAKE ONE TABLET BY MOUTH EVERY DAY, ON AN EMPTY STOMACH (AN HOUR BEFORE OR TWO HOURS AFTER A MEAL), Disp: , Rfl: multivitamin (THERAGRAN) per tablet, Take 1 tablet by mouth daily ., Disp: , Rfl: omeprazole (PRILOSEC) 20 MG capsule, TAKE ONE CAPSULE BY MOUTH EVERY DAY NEEDED FOR STOMACH, Disp: , Rfl: oxyCODONE (ROXICODONE) 10 MG Tab, Take 10 mg by mouth 3 (three) times a day as needed ., Disp: , Rfl: primidone (MYSOLINE) 50 MG tablet, 1 at bedtime for 1 week then 1 bid. May increase to 1 tid 1 weeklater then 2 bid 1 week after if needed, Disp: , Rfl: No current facility-administered medications for this visit. PMH/PSH/SH/FH reviewed, no change Review of Systems: All systems were reviewed no change Medications Reviewed. Chart Reviewed. Exam Findings: ENT: No oral candidiasis Chest: Lungs clear bilaterally, no wheezing, or rales CVS: Normal S1 & S2+, Normal Rhythm Abdomen: Normal symmetry, Soft/non-tender. 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 I reviewed Labs. No orders to display Laboratory and Additional Data Reviewed: Laboratory 05/26/20 11:37 PM Microbiology 05/26/20 11:37 PM Radiology 05/26/20 11:37 PM Medications 05/26/20 11:37 PM Lab Results Component Value Date WBC 4.23 (L) 05/26/2020 HGB 12.0 05/26/2020 HCT 36.7 05/26/2020 MCV 97.6 05/26/2020 PLT 225 05/26/2020 Lab Results Component Value Date GLUCOSE 93 05/26/2020 CALCIUM 9.3 05/26/2020 NA 134 (L) 05/26/2020 K 4.0 05/26/2020 CL 102 05/26/2020 BUN 14 05/26/2020 CREATININE 0.62 05/26/2020 Problem List Items Addressed This Visit None I discussed my management plans with Patient/and or Family member, and also discussed antibiotics therapy including side effects with Patient/and or Family member. Medical Decision Making: Moderate This note is created with the assistance of a speech-recognition program. While intending to generate a document that actually reflects the content of the visit, the document can still have some errors including those of syntax and sound a- like substitutions which may escape proofreading. In such instances, actual meaning can be extrapolated by contextual derivation. documented in this encounter* Keke Duron CNP - 05/28/2020 12:39 PM EDT Patient Name: Ruperto Hunter Admit Date: MR #: [id number] : 1950 Physicians: Anirudh Costa CNP (Family); No ref. provider found (Referring) Assessment: 1. Left sphenoid sinusitis 2. 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 CBC with mild leukopenia (new), BMP normal, CRP 19.7, ESR normal, vanco trough weekly Occult stool negative Follow up MRI 05/15 still showing previous infiltrative pattern lesion, asymmetric thickening of mucosal and submucosal tissues and partial encasement of left internal carotid artery. Findings favoringinfiltrative neoplasm of nasopharynx or underlying lymphoma. Notes faxed to Dr. Valenzuela at [facility] for repeat biopsy Discussed management with daughter Chago over the phone Encouraged her to talk to her PCP about statin alternatives or decreasing her statin dose to the previous level she was taking. We will continue to follow Subjective: Patient seen in short term care, coming twice a day for IV ATB infusions. She has no sinus, or ear pain currently, no headaches either. C/o bilateral leg pain, states it is worse since her statin dose was increased. Describes her legs as burning . States she has trouble getting going in the mornings and also has elbow pain and joint pain . Discussed the possibility of arthritic conditions, pt is hesitant to accept this. States the pain only got worse when the dose was changed. She would like to move forward with repeat biopsy at [facility]. Discussed with her that I will call Dr. Valenzuela's office tomorrow to follow up on the fax sent to his office. Exam: There were no vitals filed for this visit. Allergies: Pravastatin and Celecoxib Current Outpatient Medications: AMLODIPINE BESYLATE, BULK, MISC, Take 10 mg by mouth daily ., Disp: , Rfl: aspirin 81 MG EC tablet, TAKE ONE TABLET BY MOUTH EVERY DAY WITH BREAKFAST, Disp: , Rfl: biotin 1 mg tablet, TAKE 87567 (1 TAB) BY MOUTH QD, Disp: , Rfl: buPROPion (WELLBUTRIN XL) 150 MG 24 hr tablet, Take 300 mg by mouth every morning ., Disp: , Rfl: estradioL (ESTRACE) 1 MG tablet, Take 0.5 mg by mouth daily ., Disp: , Rfl: estrogens, conjugated, (PREMARIN) 0.45 MG tablet, TAKE ONE TABLET BY MOUTH EVERY OTHER DAY (WITH FOOD), Disp: , Rfl: gabapentin (NEURONTIN) 800 MG tablet, Take 800 mg by mouth See Admin Instructions ., Disp: , Rfl: levothyroxine (Synthroid) 125 MCG tablet, TAKE ONE TABLET BY MOUTH EVERY DAY, ON AN EMPTY STOMACH (AN HOUR BEFORE OR TWO HOURS AFTER A MEAL), Disp: , Rfl: multivitamin (THERAGRAN) per tablet, Take 1 tablet by mouth daily ., Disp: , Rfl: omeprazole (PRILOSEC) 20 MG capsule, TAKE ONE CAPSULE BY MOUTH EVERY DAY NEEDED FOR STOMACH, Disp: , Rfl: oxyCODONE (ROXICODONE) 10 MG Tab, Take 10 mg by mouth 3 (three) times a day as needed ., Disp: , Rfl: primidone (MYSOLINE) 50 MG tablet, 1 at bedtime for 1 week then 1 bid. May increase to 1 tid 1 weeklater then 2 bid 1 week after if needed, Disp: , Rfl: No current facility-administered medications for this visit. Facility-Administered Medications Ordered in Other Visits: meropenem (MERREM) 1 gram/50 mL IVPB - ADS Override Pull, , , , PMH/PSH/SH/FH reviewed, no change Review of Systems: All systems were reviewed no change Medications Reviewed. Chart Reviewed. Exam Findings: ENT: No oral candidiasis Chest: Lungs clear bilaterally, no wheezing, or rales CVS: Normal S1 & S2+, Normal Rhythm Abdomen: Normal symmetry, Soft/non-tender. 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 I reviewed Labs. No orders to display Laboratory and Additional Data Reviewed: Laboratory 05/28/20 12:39 PM Microbiology 05/28/20 12:39 PM Radiology 05/28/20 12:39 PM Medications 05/28/20 12:39 PM Lab Results Component Value Date WBC 4.23 (L) 05/26/2020 HGB 12.0 05/26/2020 HCT 36.7 05/26/2020 MCV 97.6 05/26/2020 PLT 225 05/26/2020 Lab Results Component Value Date GLUCOSE 93 05/26/2020 CALCIUM 9.3 05/26/2020 NA 134 (L) 05/26/2020 K 4.0 05/26/2020 CL 102 05/26/2020 BUN 14 05/26/2020 CREATININE 0.62 05/26/2020 Problem List Items Addressed This Visit None I discussed my management plans with Patient/and or Family member, and also discussed antibiotics therapy including side effects with Patient/and or Family member. Medical Decision Making: Moderate This note is created with the assistance of a speech-recognition program. While intending to generate a document that actually reflects the content of the visit, the document can still have some errors including those of syntax and sound a- like substitutions which may escape proofreading. In such instances, actual meaning can be extrapolated by contextual derivation. documented in this encounter* Keke Duron CNP - 05/28/2020 12:39 PM EDT Patient Name: Ruperto Hunter Admit Date: MR #: [id number] : 1950 Physicians: Anirudh Costa CNP (Family); No ref. provider found (Referring) Assessment: 1. Left sphenoid sinusitis 2. 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 CBC with mild leukopenia (new), BMP normal, CRP 19.7, ESR normal, vanco trough weekly Occult stool negative Follow up MRI 05/15 still showing previous infiltrative pattern lesion, asymmetric thickening of mucosal and submucosal tissues and partial encasement of left internal carotid artery. Findings favoringinfiltrative neoplasm of nasopharynx or underlying lymphoma. Notes faxed to Dr. Valenzuela at [facility] for repeat biopsy Discussed management with daughter Chago over the phone Encouraged her to talk to her PCP about statin alternatives or decreasing her statin dose to the previous level she was taking. We will continue to follow Subjective: Patient seen in short term care, coming twice a day for IV ATB infusions. She has no sinus, or ear pain currently, no headaches either. C/o bilateral leg pain, states it is worse since her statin dose was increased. Describes her legs as burning . States she has trouble getting going in the mornings and also has elbow pain and joint pain . Discussed the possibility of arthritic conditions, pt is hesitant to accept this. States the pain only got worse when the dose was changed. She would like to move forward with repeat biopsy at [facility]. Discussed with her that I will call Dr. Valenzuela's office tomorrow to follow up on the fax sent to his office. Exam: There were no vitals filed for this visit. Allergies: Pravastatin and Celecoxib Current Outpatient Medications: AMLODIPINE BESYLATE, BULK, MISC, Take 10 mg by mouth daily ., Disp: , Rfl: aspirin 81 MG EC tablet, TAKE ONE TABLET BY MOUTH EVERY DAY WITH BREAKFAST, Disp: , Rfl: biotin 1 mg tablet, TAKE 47184 (1 TAB) BY MOUTH QD, Disp: , Rfl: buPROPion (WELLBUTRIN XL) 150 MG 24 hr tablet, Take 300 mg by mouth every morning ., Disp: , Rfl: estradioL (ESTRACE) 1 MG tablet, Take 0.5 mg by mouth daily ., Disp: , Rfl: estrogens, conjugated, (PREMARIN) 0.45 MG tablet, TAKE ONE TABLET BY MOUTH EVERY OTHER DAY (WITH FOOD), Disp: , Rfl: gabapentin (NEURONTIN) 800 MG tablet, Take 800 mg by mouth See Admin Instructions ., Disp: , Rfl: levothyroxine (Synthroid) 125 MCG tablet, TAKE ONE TABLET BY MOUTH EVERY DAY, ON AN EMPTY STOMACH (AN HOUR BEFORE OR TWO HOURS AFTER A MEAL), Disp: , Rfl: multivitamin (THERAGRAN) per tablet, Take 1 tablet by mouth daily ., Disp: , Rfl: omeprazole (PRILOSEC) 20 MG capsule, TAKE ONE CAPSULE BY MOUTH EVERY DAY NEEDED FOR STOMACH, Disp: , Rfl: oxyCODONE (ROXICODONE) 10 MG Tab, Take 10 mg by mouth 3 (three) times a day as needed ., Disp: , Rfl: primidone (MYSOLINE) 50 MG tablet, 1 at bedtime for 1 week then 1 bid. May increase to 1 tid 1 weeklater then 2 bid 1 week after if needed, Disp: , Rfl: No current facility-administered medications for this visit. Facility-Administered Medications Ordered in Other Visits: meropenem (MERREM) 1 gram/50 mL IVPB - ADS Override Pull, , , , PMH/PSH/SH/FH reviewed, no change Review of Systems: All systems were reviewed no change Medications Reviewed. Chart Reviewed. Exam Findings: ENT: No oral candidiasis Chest: Lungs clear bilaterally, no wheezing, or rales CVS: Normal S1 & S2+, Normal Rhythm Abdomen: Normal symmetry, Soft/non-tender. 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 I reviewed Labs. No orders to display Laboratory and Additional Data Reviewed: Laboratory 05/28/20 12:39 PM Microbiology 05/28/20 12:39 PM Radiology 05/28/20 12:39 PM Medications 05/28/20 12:39 PM Lab Results Component Value Date WBC 4.23 (L) 05/26/2020 HGB 12.0 05/26/2020 HCT 36.7 05/26/2020 MCV 97.6 05/26/2020 PLT 225 05/26/2020 Lab Results Component Value Date GLUCOSE 93 05/26/2020 CALCIUM 9.3 05/26/2020 NA 134 (L) 05/26/2020 K 4.0 05/26/2020 CL 102 05/26/2020 BUN 14 05/26/2020 CREATININE 0.62 05/26/2020 Problem List Items Addressed This Visit None I discussed my management plans with Patient/and or Family member, and also discussed antibiotics therapy including side effects with Patient/and or Family member. Medical Decision Making: Moderate This note is created with the assistance of a speech-recognition program. While intending to generate a document that actually reflects the content of the visit, the document can still have some errors including those of syntax and sound a- like substitutions which may escape proofreading. In such instances, actual meaning can be extrapolated by contextual derivation. documented in this encounter* Cindy Whitehead RN - 05/29/2020 6:07 PM EDT @1735 PICC Line removed (42cm) as ordered. Pt tolerated well, dressing applied with tegaderm, VS Obtained. Pt remians in bed to be monitored per policy. documented in this encounter* Cindy Whitehead RN - 05/29/2020 6:07 PM EDT @1735 PICC Line removed (42cm) as ordered. Pt tolerated well, dressing applied with tegaderm, VS Obtained. Pt remians in bed to be monitored per policy. documented in this encounter* Cindy Whitehead RN - 05/29/2020 6:07 PM EDT @1735 PICC Line removed (42cm) as ordered. Pt tolerated well, dressing applied with tegaderm, VS Obtained. Pt remians in bed to be monitored per policy. documented in this encounter* Cindy Whitehead RN - 05/29/2020 6:07 PM EDT @1735 PICC Line removed (42cm) as ordered. Pt tolerated well, dressing applied with tegaderm, VS Obtained. Pt remians in bed to be monitored per policy. documented in this encounter Assessments Diagnosis Encounter to establish care- Primary Reserved for inherently not codable concepts WITHOUT codable children Screening for osteoporosis Special screening for osteoporosis Generalized anxiety disorder Declined smoking cessation Reserved for inherently not codable concepts WITHOUT codable children Diagnosis Hypokalemia- Primary Hypopotassemia ETOH abuse Alcohol abuse, unspecified Alcohol withdrawal syndrome without complication Diagnosis Alcohol withdrawal syndrome with complication- Primary Anxiety disorder, unspecified type Chronic cough Cough Urinary tract infection with hematuria, site unspecified Dysuria Diagnosis Generalized anxiety disorder- Primary Insomnia, unspecified type Pain in left buttock Mylagia and myositis, unspecified Other microscopic hematuria Diagnosis Tremor- Primary Abnormal involuntary movements Generalized anxiety disorder Essential hypertension, benign Diagnosis Generalized anxiety disorder Diagnosis Essential tremor- Primary Essential and other specified forms of tremor Diagnosis Essential tremor- Primary Essential and other specified forms of tremor Diagnosis Hot flashes due to menopause- Primary Pigmented skin lesion of uncertain nature Need for postmenopausal hormone replacement Need for prophylactic hormone replacement therapy (postmenopausal) Need for vaccination Need for prophylactic vaccination and inoculation against unspecified single disease Diagnosis Low back pain with sciatica, sciatica laterality unspecified, unspecified back pain laterality, unspecified chronicity Lumbar spondylosis Lumbosacral spondylosis without myelopathy Diagnosis Lumbar radiculopathy Thoracic or lumbosacral neuritis or radiculitis, unspecified Diagnosis Pseudoclaudication syndrome Cauda equina syndrome without mention of neurogenic bladder Diagnosis Visit for screening mammogram Diagnosis Essential tremor- Primary Essential and other specified forms of tremor Diagnosis Screening for malignant neoplasm of respiratory organ Special screening for malignant neoplasm of the respiratory organs Cigarette Smoker Tobacco use disorder Diagnosis Sinusitis, unspecified chronicity, unspecified location- Primary Staphylococcus epidermidis infection Pseudomonas aeruginosa colonization Diagnosis Staphylococcus epidermidis infection- Primary Pseudomonas aeruginosa colonization Sinusitis, unspecified chronicity, unspecified location Diagnosis Visit for screening mammogram Diagnosis Black stools- Primary Nonspecific abnormal finding in stool contents Diagnosis Benign essential tremor Essential and other specified forms of tremor Diagnosis Staphylococcus epidermidis infection- Primary Pseudomonas aeruginosa colonization Sinusitis, unspecified chronicity, unspecified location Black stools Nonspecific abnormal finding in stool contents Diagnosis Staphylococcus epidermidis infection- Primary Pseudomonas aeruginosa colonization Sinusitis, unspecified chronicity, unspecified location Reason for Referral Status Reason Specialty Diagnoses / Procedures Referred By Contact Referred To Contact New Request Family Medicine Diagnoses Alcohol withdrawal syndrome without complication Maximino Santoyo PA-C [address] [phone] Status Reason Specialty Diagnoses / Procedures Referred By Contact Referred To Contact New Request Procedures ECG Maximino Santoyo PA-C [address] [phone] Status Reason Specialty Diagnoses / Procedures Referred By Contact Referred To Contact New Request Pulmonary Disease Diagnoses Chronic cough Anirudh Costa APRN-CNP [address] [place] [address] Status Reason Specialty Diagnoses / Procedures Referred By Contact Referred To Contact New Request Neurology Diagnoses Tremor Anirudh Costa APRN-CNP [address] [place] [address] Status Reason Specialty Diagnoses / Procedures Referred By Contact Referred To Contact Auth Not Needed Diagnoses Essential tremor Procedures MRI BRAIN WITHOUT CONTRAST MD MRI BRAIN Jonathon Malhotra, DO [address] [place] [address] Status Reason Specialty Diagnoses / Procedures Referred By Contact Referred To Contact Pending Review Diagnoses Pigmented skin lesion of uncertain nature Anirudh Costa COOK TACO-DIRECTOR OF EVENT SALES [address] [place] [address] Dylon Dumont, DO [address] [place] [address] Status Reason Specialty Diagnoses / Procedures Referre d By Contact Referred To Contact Closed Radiology Diagnoses Lumbar radiculopathy Procedures MR Lumbar Spine With And Without Contrast Foster Flores MD [address] [facility] [address] [place] [address] Status Reason Specialty Diagnoses / Procedures Referre d By Contact Referred To Contact Closed Radiology Diagnoses Visit for screening mammogram Procedures Mammography Screening Bilateral Soledad Rain MD [address] [place] [id number] Status Reason Specialty Diagnoses / Procedures Referred By Contact Referred To Contact New Request Pulmonary Disease Diagnoses Chronic cough Anirudh Costa COOK TACO-DIRECTOR OF EVENT [employer]ES [address] [place] [address] Ai Pulmonary Disease [facility] Power F [address] [facility] [place] [address] Status Reason Specialty Diagnoses / Procedures Referre d By Contact Referred To Contact Closed Radiology Diagnoses Screening for malignant neoplasm of respiratory organ Cigarette Smoker Procedures CT Lung Cancer Screening Soledad Rain MD [address] [place] [address] Status Reason Specialty Diagnoses / Procedures Referred By Contact Referred To Contact Pending Review Radiology Diagnoses Visit for screening mammogram Procedures Mammography Screening Bilateral System, Provider Not In Status Reason Specialty Diagnoses / Procedures Referre d By Contact Referred To Contact Closed Radiology Diagnoses Benign essential tremor Procedures MR Brain Without Contrast Jonathon Malhotra, DO [address] [place] [address] Status Reason Specialty Diagnoses / Procedures Referred By Contact Referred To Contact Pending Review Specialty Services Required/[facility] Diagnoses Brain abscess Antibiotic long-term use Domka, Keke, DIRECTOR OF EVENT SALES [address] [place] [address] Status Reason Specialty Diagnoses / Procedures Referred By Contact Referred To Contact New Request Radiology Diagnoses Brain abscess Procedures MR Brain Without Contrast Domka, Keke, DIRECTOR OF EVENT SALES [address] [place] [address] Specialty Diagnoses / Procedures Referred By Contac t Referred To Contact Diagnoses Focal dystonia Deepa Weiss MD [address] [place] [address] Referral ID Status Reason Start Date Expiration Date V isits Requested Visits Authorized [id number] New Request 05/15/2021 06/09/2022 1 1 Specialty Diagnoses / Procedures Referred By Contac t Referred To Contact Diagnoses Lesion of nasopharynx Procedures NUC WBC STUDY MD ABSCESS IMAGING, WHOLE BODY Jose Roberto Fernandez DO [address] [place] [address] Referral ID Status Reason Start Date Expiration Date V isits Requested Visits Authorized [id number] New Request 09/08/2020 10/03/2021 2 2 Specialty Diagnoses / Procedures Referred By Contac t Referred To Contact Diagnoses Right leg pain Right hip pain Procedures MRI FEMUR RIGHT WITHOUT CONTRAST MRI ANGIO EXTREMITY LOWER RIGHT WITHOUT CONTRAST MRA W/O CONT, LWR EXT MD MRI, LOWER EXTREM Anirudh Costa, COOK TACO-DIRECTOR [employer]ES [address] [address] Referral ID Status Reason Start Date Expiration Date Visits Re quested Visits Authorized [id number] Closed 08/31/2021 09/25/2022 1 1 Specialty Diagnoses / Procedures Referred By Contac t Referred To Contact Diagnoses Right hip pain Anirudh Costa, COOK T[employer]-DIRECTOR [employer] [address] [address] Referral ID Status Reason Start Date Expiration Date Visits Re quested Visits Authorized [id number] Closed 1 1 Specialty Diagnoses / Procedures Referred By Contac t Referred To Contact Diagnoses Lumbar radiculopathy Procedures MRI SPINE LUMBAR WITH AND WITHOUT CONTRAST MD MRI, LUMBAR SPINE COMBO Foster Flores MD [address] [place] [address] [facility] Referral ID Status Reason Start Date Expiration Date Visits Re quested Visits Authorized [id number] Closed 10/27/2021 11/21/2022 1 1 Specialty Diagnoses / Procedures Referred By Contac t Referred To Contact Diagnoses 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 Focal dystonia Deepa Weiss MD [address] [place] [id number] Referral ID Status Reason Start Date Expiration Date V isits Requested Visits Authorized [id number] New Request 01/12/2022 02/06/2023 1 1 Specialty Diagnoses / Procedures Referred By Contac t Referred To Contact Diagnoses Focal dystonia 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 Deepa Weiss MD [address] [place] [address] Referral ID Status Reason Start Date Expiration Date V isits Requested Visits Authorized [id number] New Request 04/16/2022 05/11/2023 1 1 Specialty Diagnoses / Procedures Referred By Contac t Referred To Contact Diagnoses Screening for lung cancer Nicotine dependence, cigarettes, in remission Procedures CT LUNG CANCER SCREENING MD LDCT FOR LUNG CA SCREEN Anirudh Costa, CHARU-DIRECTOR OF EVENT [employer]ES [address] [address] Referral ID Status Reason Start Date Expiration Date V isits Requested Visits Authorized [id number] New Request 05/03/2022 05/28/2023 1 1 Specialty Diagnoses / Procedures Referred By Contac t Referred To Contact Diagnoses Postmenopausal Procedures BONE DENSITY AXIAL (HIP, PELVIS, SPINE) Anirudh Costa APRN-DIRECTOR OF EVENT SALES [address] [address] Referral ID Status Reason Start Date Expiration Date V isits Requested Visits Authorized [id number] New Request 05/03/2022 05/28/2023 1 1 Specialty Diagnoses / Procedures Referred By Contac t Referred To Contact Computerized Tomography Scan Diagnoses Screening for lung cancer Nicotine dependence, cigarettes, in remission Procedures CT LUNG CANCER SCREENING MD LDCT FOR LUNG CA SCREEN Anirudh Costa, COOK TACO-DIRECTOR OF EVENT SALES [id number] Scan [address] [place] [phone] Referral ID Status Reason Start Date Expiration Date Visits Re quested Visits Authorized [id number] Closed 05/03/2022 05/28/2023 1 1 Specialty Diagnoses / Procedures Referred By Contac t Referred To Contact Diagnoses Senior C Software Engineer's Deepa Berg MD [address] [place], [place] [phone] Referral ID Status Reason Start Date Expiration Date V isits Requested Visits Authorized [id number] New Request 09/10/2022 10/05/2023 1 1 Specialty Diagnoses / Procedures Referred By Contac t Referred To Contact Physical Medicine & Rehabilitation Diagnoses Chronic bilateral low back pain, unspecified whether sciatica present Marcela Pearson, DO [address] [place], [place] [id number] Maria Luisa Knutson, DO [address] [phone] Referral ID Status Reason Start Date Expiration Date V isits Requested Visits Authorized [id number] New Request 12/10/2022 01/04/2024 1 1 Discharge Instructions * Attachments The following attachments cannot be sent through Care Everywhere. * Hypokalemia (Liberian) * Addiction, Understanding the Disease of (Liberian) documented in this encounter Summary Purpose Family History No Family History Records FoundNo Family History Records FoundNo Family History Records FoundNo Family History Records FoundNo Family History Records FoundNo Family History Records Found Advance Directives Documents on File Type Date Recorded Patient Wood Chopper Expl anation Advance Directives and Livin g Will 09/12/2018 7:18 AM Documents on File Type Date Recorded Patient Wood Chopper Expl anation Advance Directives and Livin g Will 08/07/2019 12:00 AM Documents on File Type Date Recorded Patient Wood Chopper Expl anation Advance Directives and Livin g Will 09/04/2019 12:00 AM Documents on File Type Date Recorded Patient Wood Chopper Expl anation Advance Directives and Livin g Will 02/16/2020 10:30 AM Documents on File Type Date Recorded Patient Wood Chopper Expl anation Advance Directives and Livin g Will 02/19/2020 10:12 AM Documents on File Type Date Recorded Patient Wood Chopper Expl anation Advance Directives and Livin g Will 02/19/2020 10:12 AM Documents on File Type Date Recorded Patient Wood Chopper Expl anation Advance Directives and Livin g Will 04/09/2019 10:06 AM Documents on File Type Date Recorded Patient Wood Chopper Expl anation Advance Directives and Livin g Will 08/28/2018 10:05 AM Documents on File Type Date Recorded Patient Wood Chopper Expl anation Advance Directives and Livin g Will 09/12/2018 7:18 AM Documents on File Type Date Recorded Patient Wood Chopper Expl anation Advance Directives and Livin g Will 07/15/2020 6:13 AM Documents on File Type Date Recorded Patient Wood Chopper Expl anation Advance Directives and Livin g Will 07/15/2020 6:13 AM Documents on File Type Date Recorded Patient Wood Chopper Expl anation Power of Selector Packer Advance Directives and Livin g Will 07/15/2020 6:13 AM Documents on File Type Date Recorded Patient Wood Chopper Expl anation Power of Selector Packer Advance Directives and Livin g Will 07/15/2020 6:13 AM Documents on File Type Date Recorded Patient Wood Chopper Expl anation Advance Directives/Living Will 04/18/2020 10:06 AM Latest Code Status on File Code Status Date Activated Date Inactivated Comments Full Code 04/25/2020 9:50 AM Documents on File Type Date Recorded Patient Wood Chopper Expl anation Advance Directives/Living Will 04/18/2020 10:06 AM Latest Code Status on File Code Status Date Activated Date Inactivated Comments Full Code 04/25/2020 9:50 AM Documents on File Type Date Recorded Patient Wood Chopper Expl anation Power of Selector Packer Advance Directives and Livin g Will 04/17/2021 9:11 AM Latest Code Status on File Code Status Date Activated Date Inactivated Comments Full Code 04/25/2020 9:50 AM Latest Code Status on File Code Status Date Activated Date Inactivated Comments Full Code 04/25/2020 9:50 AM Additional Source Comments Reason for Visit (unrecogniz ed section and content) Reason Comments Medication Management Reason Comments Alcohol Problem pt states she hasn't drank since Tuesday, pt was atleast a six pack a day beer drinker. Reason Comments Alcohol Problem f/u visit from ED Urinary Pain pt c/o pain with uri nation Reason Comments Alcohol Problem follow up on alcohol withdraw and urinary tract infection Reason Comments Other Reason Comments Anxiety 1 month f/u anxiety Reason Comments Results Reason Comments Medication Refill Reason Comments Appointment Reason Comments New Patient Tremors Status Reason Specialty Diagnoses / Procedures Referred By Contact Referred To Contact New Request Neurology Diagnoses Tremor Anirudh Costa, COOK TACO-DIRECTOR OF EVENT SALES [address] [place] [address] Jonathon Malhotra, DO [address] [facility] [place] [address] Reason Comments Medication Management Pt requesting a ne w order for estradiol. Pt discontinued 1 mth ago. Pt c/o hot flashes. [facility] Pt reports she quit smoking in June Reason Comments Extremity Weakness pt reports having in jction in back for back pain and now feels like legs are givivng out Status Reason Specialty Diagnoses / Procedures Referre d By Contact Referred To Contact Closed Radiology Diagnoses Lumbar radiculopathy Procedures MR Lumbar Spine With And Without Contrast Foster Flores MD [address] [facility] [address] [place] [address] Status Reason Specialty Diagnoses / Procedures Referre d By Contact Referred To Contact Closed Radiology Diagnoses Visit for screening mammogram Procedures Mammography Screening Bilateral Soledad Rain MD [address] [place] [address] Reason Comments Follow-up Tremors Reason Comments Advice Only Status Reason Specialty Diagnoses / Procedures Referre d By Contact Referred To Contact Closed Radiology Diagnoses Screening for malignant neoplasm of respiratory organ Cigarette Smoker Procedures CT Lung Cancer Screening Soledad Rain MD [address] [place], [place] [id number] Reason Comments IV Medication Status Reason Specialty Diagnoses / Procedures Referred By Contact Referred To Contact Pending Review Diagnoses Staphylococcus epidermidis infection Pseudomonas aeruginosa colonization Sinusitis, unspecified chronicity, unspecified location Niraj Bassett MD [address] [place] [address] [facility] [address] [place] [address] Status Reason Specialty Diagnoses / Procedures Referred By Contact Referred To Contact Pending Review Radiology Diagnoses Visit for screening mammogram Procedures Mammography Screening Bilateral System, Provider Not In Status Reason Specialty Diagnoses / Procedures Referred By Contact Referred To Contact Authorized Infusion Therapy Diagnoses Staphylococcus epidermidis infection Pseudomonas aeruginosa colonization Sinusitis, unspecified chronicity, unspecified location Procedures MD MEROPENEM MD VANCOMYCIN HCL INJECTION Niraj Bassett MD [address] [place] [address] [facility] [address] [place] [address] Status Reason Specialty Diagnoses / Procedures Referre d By Contact Referred To Contact Closed Radiology Diagnoses Benign essential tremor Procedures MR Brain Without Contrast Jonathon Malhotra, DO [address] [place] [address] Reason Comments IV ATBx2 PICC removal Status Reason Specialty Diagnoses / Procedures Referred By Contact Referred To Contact Closed Infusion Therapy Diagnoses Staphylococcus epidermidis infection Pseudomonas aeruginosa colonization Sinusitis, unspecified chronicity, unspecified location Procedures MD MEROPENEM MD VANCOMYCIN HCL INJECTION Niraj Bassett MD [address] [place] [address] [facility] [address] [place] [address] Reason Comments IV ATB Status Reason Specialty Diagnoses / Procedures Referred By Contact Referred To Contact Authorized Diagnoses Brain abscess Procedures MD VANCOMYCIN HCL INJECTION DomiKeke, DIRECTOR OF EVENT SALES [address] [place] [address] [facility] [address] [place] [address] Status Reason Specialty Diagnoses / Procedures Referre d By Contact Referred To Contact Reason Comments Botox Injection 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 Pt reports steps are difficult. Reports mornings pain is worse to legs and hands. Reports pain is waking her up at night. Pt is not taking OTC meds for pain, pt has tried tylenol arthritis, not effective. Reason Comments Leg Pain RUE pain started 1 w k ago yesterday. Pain starts a groin/hip area and radiates down upper extremity. Pt reports walking 3 miles, mowed the yard and went swimming on that day. Reports pain is constant, wakes her up at night. Pt taking ibuprofen/tylenol, reports gives slight relief short term. Pt using heat and ice . Pt has seen chiropractor. 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 Negative xrays last week. Has been on steroids and muscle relaxers with no relief. Specialty Diagnoses / Procedures Referred By Mahnaz rawls Referred To Contact Diagnoses Right leg pain Right hip pain Procedures MRI FEMUR RIGHT WITHOUT CONTRAST MRI ANGIO EXTREMITY LOWER RIGHT WITHOUT CONTRAST MRA W/O CONT, LWR EXT MD MRI, LOWER EXTREM Anirudh Costa, [employer]-DIRECTOR OF EVENT SALES [address] [facility] [address] [place] [address] Referral ID Status Reason Start Date Expiration Date Visits Re quested Visits Authorized [id number] Closed 08/31/2021 09/25/2022 1 1 Reason Comments Pain Specialty Diagnoses / Procedures Referred By Mahnaz rawls Referred To Contact Orthopaedics Diagnoses Osteoarthritis of right hip, unspecified osteoarthritis type Foster Galvez, TOMAS [address] [place], [place] [id number] Marcela Pearson, DO [address] [place], [place] [id number] Referral ID Status Reason Start Date Expiration Date V isits Requested Visits Authorized [id number] New Request 09/02/2021 09/27/2022 1 1 Reason Comments Back Pain Hip Pain Pt states right side d back and hip pain; seen here last week for same issue but states the pain is not getting any better even after getting an injection last tuesday Reason Comments ED Follow-up ED 09/13/21 dt back/h ip pain Xrays done Pt c/o of continued R hip and R sided back pain. MRI done 09/07/21 Pt is taking ibuprofen, tylenol, muscle relaxers and oxycodone. Medication Follow-up Med refills needed Reason Comments Pain Follow-up Specialty Diagnoses / Procedures Referred By Mahnaz rawls Referred To Contact Orthopaedics Diagnoses Hip pain Bekah De La Fuente I, COOK T[employer]-DIRECTOR OF EVENT SALES [address] [place] [address] Marcela Pearson, DO [address] [place], [place] [id number] Referral ID Status Reason Start Date Expiration Date V isits Requested Visits Authorized [id number] New Request 09/13/2021 10/08/2022 1 1 Reason Comments Follow-up Right Hip Specialty Diagnoses / Procedures Referred By Contac t Referred To Contact Diagnoses Lumbar radiculopathy Procedures MRI SPINE LUMBAR WITH AND WITHOUT CONTRAST MD MRI, LUMBAR SPINE SERGOO Foster Flores MD [address] [place] [address] [facility] Referral ID Status Reason Start Date Expiration Date Visits Re quested Visits Authorized [id number] Closed 10/27/2021 11/21/2022 1 1 Reason Comments Botox Injection Reason Comments Pain Reason Comments Bladder Infection Burning, urgency, od or x cpl weeks Reason Comments Facial Swelling Swelling to both tonie eks and upper lip x twice in 1 month. Has tried benadryl - not effective. No new foods, lotions, perfumes. Does need root canal done on an upper left tooth Reason Comments Botox Injection 4TH Reason Comments Follow-up 6 mth follow up Specialty Diagnoses / Procedures Referred By Ruac t Referred To Contact Computerized Tomography Scan Diagnoses Screening for lung cancer Nicotine dependence, cigarettes, in remission Procedures CT LUNG CANCER SCREENING MD LDCT FOR LUNG CA SCREEN Anirudh Costa, C[employer]-DIRECTOR OF [employer]ES [address] [address] [facility] [address] Scan [address] [place] [address] Referral ID Status Reason Start Date Expiration Date Visits Re quested Visits Authorized [id number] Closed 05/03/2022 05/28/2023 1 1 Reason Comments Immunization/Injection Reason Comments Pain Follow-up Reason Comments Depression Patient states she j ust had a friend so she has been feeling helpless Alcohol intoxication Alcohol Problem Per patients mitchell martinez has been drinking daily for months and depressed. Patient denies intentions to harm herself INFORMATION SOURCE (unrecogn ized section and content) DATE CREATED AUTHOR AUTHOR'S ORGANIZ ATION 09/26/2020 [facility] DATE CREATED AUTHOR AUTHOR'S ORGANIZ ATION 05/02/2021 [facility] DATE CREATED AUTHOR AUTHOR'S ORGANIZ ATION 04/21/2022 [facility] DATE CREATED AUTHOR AUTHOR'S ORGANIZ ATION 05/20/2022 [facility] DATE CREATED AUTHOR AUTHOR'S ORGANIZ ATION 02/02/2023 [facility] sp[facility] Care Teams (unrecognized sec tion and content) Superintendent Laundry Relationship Specialty Start Date End Date Anirudh Costa, COOK T[employer]-DIRECTOR OF EVENT SALES [address] [place] [address] PCP - General Certified Nurse Practitioner 06/14/18 Niraj Bassett MD [address] [place] [address] Infectious Disease Internal Medicine 07/03/20 Superintendent Laundry Relationship Specialty Start Date End Date Anirudh Costa APRN-DIRECTOR OF EVENT SALES [address] [place] [address] PCP - General Certified Nurse Practitioner 06/14/18 Niraj Bassett MD [address] [place] [address] Infectious Disease Internal Medicine 07/03/20 Superintendent Laundry Relationship Specialty Start Date End Date Anirudh Costa APRN-DIRECTOR OF EVENT SALES [address] [place] [address] PCP - General Certified Nurse Practitioner 06/14/18 Niraj Bassett MD [address] [place] [address] Infectious Disease Internal Medicine 07/03/20 Superintendent Laundry Relationship Specialty Start Date End Date Anirudh Costa, DIRECTOR OF EVENT SALES [address] [place] [address] PCP - General Obstetrics/Gynecology 08/28/18 Chidi Valenzuela MD [address] [place] [address] Consulting Physician Otolaryngology (ENT) 09/23/20 Superintendent Laundry Relationship Specialty Start Date End Date Anirudh Costa [facility] [address] [place] [address] PCP - General Certified Nurse Practitioner 06/14/18 Niraj Bassett MD [address] [place] [address] Infectious Disease Internal Medicine 07/03/20 Superintendent Laundry Relationship Specialty Start Date End Date Anirudh Costa COOK T[employer]-DIRECTOR OF EVENT SALES [address] [place] [address] PCP - General Certified Nurse Practitioner 06/14/18 Niraj Bassett MD [address] [place] [address] Infectious Disease Internal Medicine 07/03/20 Superintendent Laundry Relationship Specialty Start Date End Date Anirudh Costa [facility] [address] [place] [address] PCP - General Certified Nurse Practitioner 06/14/18 Niraj Bassett MD [address] [place] [address] Infectious Disease Internal Medicine 07/03/20 Superintendent Laundry Relationship Specialty Start Date End Date Anirudh Costa [facility] [facility] [address] [place] [address] PCP - General Certified Nurse Practitioner 06/14/18 Niraj Bassett MD [address] [place] [address] Infectious Disease Internal Medicine 07/03/20 Superintendent Laundry Relationship Specialty Start Date End Date Anirudh Costa [facility] [address] [place] [place] [address] PCP - General Certified Nurse Practitioner 06/14/18 Niraj Bassett MD [address] [place] [address] Infectious Disease Internal Medicine 07/03/20 Superintendent Laundry Relationship Specialty Start Date End Date Anirudh Costa COOK [employer]-DIRECTOR OF EVENT SALES [address] [place] [address] PCP - General Certified Nurse Practitioner 06/14/18 Niraj Bassett MD [address] [place] [address] Infectious Disease Internal Medicine 07/03/20 Superintendent Laundry Relationship Specialty Start Date End Date Anirudh Costa COOK T[employer]-DIRECTOR OF EVENT SALES [address] [place] [address] PCP - General Certified Nurse Practitioner 06/14/18 Niraj Bassett MD [address] [place] [address] Infectious Disease Internal Medicine 07/03/20 Superintendent Laundry Relationship Specialty Start Date End Date Anirudh Costa COOK T[employer]-DIRECTOR OF EVENT SALES [address] [place] [address] PCP - General Certified Nurse Practitioner 06/14/18 Niraj Bassett MD [address] [place] [address] Infectious Disease Internal Medicine 07/03/20 Superintendent Laundry Relationship Specialty Start Date End Date Anirudh Costa COOK T[employer]-DIRECTOR OF EVENT SALES [address] [place] [address] PCP - General Certified Nurse Practitioner 06/14/18 Niraj Bassett MD [address] [place] [address] Infectious Disease Internal Medicine 07/03/20 Superintendent Laundry Relationship Specialty Start Date End Date Anirudh Costa COOK TACO-DIRECTOR OF EVENT SALES [address] [place] [address] PCP - General Certified Nurse Practitioner 06/14/18 Niraj Bassett MD [address] [place] [address] Infectious Disease Internal Medicine 07/03/20 Superintendent Laundry Relationship Specialty Start Date End Date Anirudh Costa COOK TACO-DIRECTOR OF EVENT SALES [address] [place] [address] PCP - General Certified Nurse Practitioner 06/14/18 Niraj Bassett MD [address] [place] [address] Infectious Disease Internal Medicine 07/03/20 Superintendent Laundry Relationship Specialty Start Date End Date Anirudh Costa COOK TACO-DIRECTOR OF EVENT SALES [address] [place] [address] PCP - General Certified Nurse Practitioner 06/14/18 Niraj Bassett MD [address] [place] [address] Infectious Disease Internal Medicine 07/03/20 Superintendent Laundry Relationship Specialty Start Date End Date Anirudh Costa COOK T[employer]O-DIRECTOR OF EVENT SALES [address] [place] [address] PCP - General Certified Nurse Practitioner 06/14/18 Niraj Bassett MD [address] [place] [address] Infectious Disease Internal Medicine 07/03/20 Superintendent Laundry Relationship Specialty Start Date End Date Anirudh Costa COOK TACO-DIRECTOR OF EVENT SALES [address] [place] [address] PCP - General Certified Nurse Practitioner 06/14/18 Niraj Bassett MD [address] [place] [address] Infectious Disease Internal Medicine 07/03/20 Superintendent Laundry Relationship Specialty Start Date End Date Anirudh Costa COOK TACO-DIRECTOR OF EVENT SALES [address] [place] [address] PCP - General Certified Nurse Practitioner 06/14/18 Niraj Bassett MD [address] [place] [address] Infectious Disease Internal Medicine 07/03/20 Superintendent Laundry Relationship Specialty Start Date End Date Anirudh Costa APRN-DIRECTOR OF EVENT SALES [address] [place] [address] PCP - General Certified Nurse Practitioner 06/14/18 Niraj Bassett MD [address] [place] [address] Infectious Disease Internal Medicine 07/03/20 Superintendent Laundry Relationship Specialty Start Date End Date Anirudh Costa APRN-DIRECTOR OF EVENT SALES [address] [place] [address] PCP - General Certified Nurse Practitioner 06/14/18 Niraj Bassett MD [address] [place] [address] Infectious Disease Internal Medicine 07/03/20 Superintendent Laundry Relationship Specialty Start Date End Date Anirudh Costa APRN-DIRECTOR OF EVENT SALES [address] [place] [address] PCP - General Certified Nurse Practitioner 06/14/18 Niraj Bassett MD [address] [place] [address] Infectious Disease Internal Medicine 07/03/20 Superintendent Laundry Relationship Specialty Start Date End Date Anirudh Costa APRN-DIRECTOR OF EVENT SALES [address] [place] [address] PCP - General Certified Nurse Practitioner 06/14/18 Niraj Bassett MD [address] [place] [address] Infectious Disease Internal Medicine 07/03/20 Superintendent Laundry Relationship Specialty Start Date End Date Anirudh Costa APRN-DIRECTOR OF EVENT SALES [address] [place] [address] PCP - General Certified Nurse Practitioner 06/14/18 Niraj Bassett MD [address] [place] [address] Infectious Disease Internal Medicine 07/03/20 Superintendent Laundry Relationship Specialty Start Date End Date Anirudh Costa APRN-CNP [address] [place] [address] PCP - General Certified Nurse Practitioner 06/14/18 Niraj Bassett MD [address] [place] [address] Infectious Disease Internal Medicine 07/03/20 Superintendent Laundry Relationship Specialty Start Date End Date Anirudh Costa APRN-CNP [address] [place] [address] PCP - General Certified Nurse Practitioner 06/14/18 Niraj Bassett MD [address] [place] [address] Infectious Disease Internal Medicine 07/03/20 Superintendent Laundry Relationship Specialty Start Date End Date Anirudh Costa APRN-CNP [address] [place] [address] PCP - General Certified Nurse Practitioner 06/14/18 Niraj Bassett MD [address] [place] [address] Infectious Disease Internal Medicine 07/03/20 Scheduled Active and Recently Administ ered Medications (unrecognized section and content) Scheduled Medication Order 09/11/2021 09/12/2021 09/13/2021 HYDROmorphone (DILAUDID) injection 0.5 mg (COMPLETED) 0.5 mg, Subcutaneous, ONCE, 1 dose, On 09/13/21 at 0719 1525 (Given - Provid er: Ailin Ortega RN) ketorolac (TORADOL) injection 15 mg (COMPLETED) 15 mg, Intramuscular, ONCE, 1 dose, On 09/13/21 at 1545 1525 (Given - Provid er: Ailin Ortega RN) Scheduled Medication Order 02/02/2023 02/03/2023 02/04/2023 Chlordiazepoxide (LIBRIUM) capsule 50 mg (COMPLETED) 50 mg, Oral, ONCE, 1 dose, On Tue02/04/23 at 0115 0120 (Given - Provid er: Morales Soriano RN) Magnesium sulfate 2 g/50 ml in sterile water premix IVPB 2 g 50 mL (total volume) (COMPLETED) 2 g, Intravenous, at 50 mL/hr, Administer over 1 Hours, ONCE, 1 dose, On Lani 02/03/23 at 2842 0704 ($$New Bag$$ - Provider: Kaila Husain RN)9601 (Stopped - Provider: Kaila Husain RN) FOR RECORDS PERTAINING TO PATIENTS WHO ARE OR HAVE BEEN ENROLLED IN A CHEMICAL DEPENDENCY/SUBSTANCEABUSE PROGRAM, SOME INFORMATION MAY BE OMITTED. This clinical summary was aggregated from multiple sources. Caution should be exercised in using it in the provision of clinical care. This summary normalizes information from multiple sources, and as a consequence, information in this document may materially change the coding, format and clinical context of patient data. In addition, data may be omitted in some cases. CLINICAL DECISIONS SHOULD BE BASED ON THE PRIMARY CLINICAL RECORDS. [employer] [facility]. provides no warranty or guarantee of the accuracy or completeness of information in this document.
--- NOTE | 2023-02-04 17:45 | CM.ED ---
Social Work SW introduced self and role to patient and daughter present in the room. Pt reports uncertainty with what to expect while in detox program. Pt reports going through counseling and being sober in 2018. Pt worked with [employer] in the past. Pt has had an increase in drinking the past two years due to loss. Pt reports drinking more than a 12 pack of beer daily. Pt reports feeling shaky. SW provided emotional support and answered questions as able. Pt is awaiting a bed. [facility]-eighty notified of new Ramp admission. 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
[2023-02-04 18:48] VITALS: BMI 23.0
[2023-02-04 18:55] VITALS: BP 152/58; PULSE 91; RESP 16; TEMP 37.2; O2SAT 98
[2023-02-04 20:52] VITALS: BP 124/56; PULSE 92; RESP 16; TEMP 36.9; O2SAT 96
[2023-02-04] MEDS: Phenobarbital 32.4 MG Tablet 64.7999999999999972 MG PO (20:54)
[2023-02-04] MEDS: Primidone 50 MG Tablet 100 MG PO (20:56)
[2023-02-04] MEDS: DULoxetine Hcl 30 MG Capsule PO (21:01)
[2023-02-04] MEDS: Gabapentin 600 MG Tablet PO (21:01)
[2023-02-04] MEDS: Ensure Plus High Protein 120 ML LIQUID PO (21:11)
[2023-02-04] MEDS: traZODone 100 MG Tablet PO (21:59)
[2023-02-04] MEDS: Acetaminophen 500 MG Tablet PO (22:00)
[2023-02-05] MEDS: Phenobarbital 32.4 MG Tablet 64.7999999999999972 MG PO ×6 (00:47→21:17)
[2023-02-05 03:56] VITALS: BP 125/62; PULSE 90; RESP 16; TEMP 36.3; O2SAT 95
[2023-02-05] MEDS: Ibuprofen 400 MG Tablet 800 MG PO ×2 (03:59→21:20)
[2023-02-05] MEDS: Levothyroxine 125 MCG Tablet PO (04:53)
--- NOTE | 2023-02-05 07:14 | PN.HOSP_ITS ---
Reason for Visit Reason for Visit: Diagnoses Alcohol dependence, uncomplicated (02/04/23) Subjective Subjective Having tremors today. Objective Data Objective Data Vital Signs: Vital Signs Temp Pulse Resp BP Pulse Ox O2 Del Method 36.3 C L 90 16 125/62 H 95 Room Air 02/05/23 03:56 02/05/23 03:56 02/05/23 03:56 02/05/23 03:56 02/05/23 03:56 02/05/23 03:56 Oxygen Delivery Method Room Air Weight: 57.153 kg Body Mass Index (BMI) 23.0 Intake & Output: Intake and Output for Last 24 Hours 02/03/23 02/04/23 02/05/23 23:59 23:59 23:59 Intake Total 400 / 400 Balance 400 / 400 Lab / Micro Data 02/04/23 15:27 02/04/23 15:27 Labs: Laboratory Results - last 24 hr 02/04/23 15:27: WBC 5.3, RBC 3.98 L, Hgb 13.2, Hct 39.5, MCV 99.2 H, MCH 33.2 H, MCHC 33.4, RDW Std Deviation 48.7 H, RDW Coeff of Ranjit 13.3, Plt Count 285, MPV 9.7, Immature Gran % (Auto) 0.400, Neut % (Auto) 51.4, Lymph % (Auto) 32.6, [place] % (Auto) 12.5 H, Eos % (Auto) 2.4, Baso % (Auto) 0.7, Absolute Neuts (auto) 2.7, Absolute Lymphs (auto) 1.74, Nucleated RBC % 0, PT 14.1, INR 1.1, Sodium 132 L, Potassium 3.8, Chloride 100, Carbon Dioxide 25.0, Anion Gap 7, BUN 14, Creatinine 0.65, Estim Creat Clear Calc 39.63, Est GFR (MDRD) Af Amer 116, Est GFR (MDRD) Non-Af 96, BUN/Creatinine Ratio 21.7 H, Glucose 83, Calcium 9.8, Magnesium 2.0, Total Bilirubin 0.50, AST 28, ALT 46, Alkaline Phosphatase 76, Total Protein 7.7, Albumin 3.6, Globulin 4.1, Albumin/Globulin Ratio 0.9, Ethyl Alcohol < 3.0 02/04/23 16:15: Urine Opiates Screen NEGATIVE, Urine Methadone Screen NEGATIVE, Ur Barbiturates Screen POSITIVE H, Ur Phencyclidine Scrn NEGATIVE, Ur Amphetamines Screen NEGATIVE, MDMA (Ecstasy) Screen POSITIVE H, U Benzodiazepines Scrn POSITIVE H, Urine Cocaine Screen NEGATIVE, U Cannabinoids Screen NEGATIVE, Ur Drug Screen Comment Physical Exam Const alert and no apparent distress Neuro oriented x3 and moves all extremities Sensorium / Orientation: awake and alert Psych affect normal Assessment & Plan Assessment/Plan (1) Alcoholism: PLAN: Plan Acute alcohol withdrawal * Drinks 12 beers per day. * On phenobarb taper as well as thiamine and folate * Reviewing the patient's OARRS, patient did receive a prescription for #20 of Librium. This was prescribed on the . Chronic conditions: * hypertension-on amlodipine * Anxiety and depression: Continue with bupropion. Will discontinue the Cymbalta as ordered. * hypothyroidism-patient is on levothyroxine * chronic back pain-patient has gabapentin on her APR. Last prescription was as written on 12/23/2022 for #90. * GERD-patient is on omeprazole Charges/Coding Visit Charges Inpatient E&M: 15193 Subs Hosp L1
[2023-02-05] MEDS: Estradiol 1 MG Tablet 2 MG PO (08:10)
[2023-02-05] MEDS: Folic Acid 1 MG Tablet PO (08:10)
[2023-02-05] MEDS: Thiamine Hydrochloride 100 MG Tablet PO (08:11)
[2023-02-05] MEDS: Primidone 50 MG Tablet 100 MG PO ×2 (08:12→21:17)
[2023-02-05] MEDS: Pantoprazole Sodium 20 MG Tablet PO (08:12)
[2023-02-05] MEDS: buPROPion (XL) 150 MG TABLET.XL 300 MG PO (08:13)
[2023-02-05] MEDS: Lisinopril 5 MG Tablet PO (08:13)
[2023-02-05] MEDS: amLODIPine 10 MG Tablet PO (08:14)
[2023-02-05 08:24] VITALS: BP 147/60; PULSE 89; RESP 18; TEMP 36.6; O2SAT 94
--- NOTE | 2023-02-05 12:12 | CASEMGMT ---
Social Work SW introduced self and role to patient. SW met with patient in ED prior to admission. SW provided emotional support to patient. Pt reports she is doing well but still shaky. Pt denies any current needs. 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
[2023-02-05 13:00] VITALS: BP 131/78; PULSE 80; RESP 18; TEMP 36.6; O2SAT 95
[2023-02-05] MEDS: Ensure Plus High Protein 120 ML LIQUID PO (16:41)
[2023-02-05 20:24] VITALS: BP 125/47; PULSE 88; RESP 18; TEMP 36.4; O2SAT 96
[2023-02-05] MEDS: Gabapentin 600 MG Tablet PO (21:17)
[2023-02-05] MEDS: Acetaminophen 500 MG Tablet PO (21:21)
[2023-02-06] MEDS: Phenobarbital 32.4 MG Tablet 64.7999999999999972 MG PO ×5 (00:43→20:04)
[2023-02-06 02:30] VITALS: BP 140/63; PULSE 82; RESP 16; TEMP 36.7; O2SAT 95
[2023-02-06] MEDS: Levothyroxine 125 MCG Tablet PO (05:35)
--- NOTE | 2023-02-06 07:08 | PN.HOSP_ITS ---
Reason for Visit Reason for Visit: Diagnoses Alcohol dependence, uncomplicated (02/04/23) Subjective Subjective phenobarbital held this a.m. due to somnolence. Objective Data Objective Data Vital Signs: Vital Signs Temp Pulse Resp BP Pulse Ox O2 Del Method 36.7 C 82 16 140/63 H 95 Room Air 02/06/23 02:30 02/06/23 02:30 02/06/23 02:30 02/06/23 02:30 02/06/23 02:30 02/06/23 02:30 Oxygen Delivery Method Room Air Weight: 57.153 kg Body Mass Index (BMI) 23.0 Intake & Output: Intake and Output for Last 24 Hours 02/04/23 02/05/23 02/06/23 23:59 23:59 23:59 Intake Total 700 / 980 530 / 530 Balance 700 / 980 530 / 530 Lab / Micro Data 02/04/23 15:27 02/04/23 15:27 Physical Exam Const alert Constitutional Narrative: Groggy. Still tremulous. Psych affect normal Assessment & Plan Assessment/Plan (1) Alcoholism: PLAN: Plan Acute alcohol withdrawal * Drinks 12 beers per day. * On phenobarb taper as well as thiamine and folate * Reviewing the patient's OARRS, patient did receive a prescription for #20 of Librium. This was prescribed on the . Chronic conditions: * hypertension-on amlodipine * Anxiety and depression: Continue with bupropion. Will discontinue the Cymbalta as ordered. * hypothyroidism-patient is on levothyroxine * chronic back pain-patient has gabapentin on her APR. Last prescription was as written on 12/23/2022 for #90. * GERD-patient is on omeprazole Charges/Coding Visit Charges Inpatient E&M: 60748 [facility] Hosp L1
[2023-02-06] MEDS: Thiamine Hydrochloride 100 MG Tablet PO (08:28)
[2023-02-06] MEDS: Estradiol 1 MG Tablet 2 MG PO (08:28)
[2023-02-06] MEDS: Primidone 50 MG Tablet 100 MG PO ×2 (08:29→23:10)
[2023-02-06] MEDS: buPROPion (XL) 150 MG TABLET.XL 300 MG PO (08:29)
[2023-02-06] MEDS: amLODIPine 10 MG Tablet PO (08:29)
[2023-02-06] MEDS: Pantoprazole Sodium 20 MG Tablet PO (08:29)
[2023-02-06] MEDS: Lisinopril 5 MG Tablet PO (08:30)
[2023-02-06 09:00] VITALS: BP 137/60; PULSE 90; RESP 18; TEMP 36.7; O2SAT 95
[2023-02-06] MEDS: Folic Acid 1 MG Tablet PO (11:13)
[2023-02-06] MEDS: Ensure Plus High Protein 120 ML LIQUID PO ×4 (11:13→20:04)
[2023-02-06 13:50] VITALS: BP 119/57; PULSE 97; RESP 18; TEMP 36.7; O2SAT 94
--- NOTE | 2023-02-06 14:17 | NURSING ---
spoke w/daughter levi peguero and updated her
--- NOTE | 2023-02-06 14:30 | NURSING ---
pt daughter (levi called) and stated that pt had been seen at [facility] 02/03/23 pm and was given a dose of librium to take there and then 1 to take in am and is also on wellbutrin-they feel that this would explain the pt drug screen + and wanted a record of it
--- NOTE | 2023-02-06 15:25 | ADDICTION ---
Pt was met with for RAMP assessment and to complete the ASAM, AUDIT, DUDIT, VIKAS's, Mt.Status, and Discharge plan. Pt presented as a&ox4 w/dysthymic mood and constricted tearful affect. Pt states she has been unable to stop drinking on her own and her sxs are worsening the past few months. Pt states she drinks 12 or more beers a day and sometimes adds hard liquor. Pt denies any drug use. Pt states she is depressed, lonely, and unable to manage daily stressors without the use of alcohol. Pt appears to meet ASAM criteria for a 4.0LoC and it is recommended that pt follow through with inpatient [facility] treatment once medically stable and d/c'd from detox. Pt's daughter Mariposa was contacted and daughter states that she is working with [facility] residential tx in [place] to get her mother admitted for tx. Pt is currently a fall risk and she is unable to walk unassisted. Pt and daughter Mariposa were informed that pt must meet medical criteria for admission to a residential LoC. Pt was referred to [facility] for inpatient but pt does not yet meet medical criteria for admission. Nursing staff indicated pt will be reassessed for ADL's on Tuesday. Pt's discharge plan is not complete d/t pt's current medical status. She will need reassessed on Tuesday.
[2023-02-06] MEDS: Acetaminophen 500 MG Tablet PO (16:02)
[2023-02-06] MEDS: Gabapentin 300 MG Capsule PO (16:03)
[2023-02-06 17:30] VITALS: BP 135/70; PULSE 93; RESP 18; TEMP 36.7; O2SAT 93
[2023-02-06 20:07] VITALS: BP 142/79; PULSE 83; RESP 18; TEMP 36.7; O2SAT 96
[2023-02-06] MEDS: Ibuprofen 400 MG Tablet 800 MG PO (23:10)
[2023-02-06] MEDS: Gabapentin 600 MG Tablet PO (23:15)
[2023-02-07 04:00] VITALS: BP 133/45; PULSE 75; RESP 16; TEMP 36.4; O2SAT 94
[2023-02-07] MEDS: Levothyroxine 125 MCG Tablet PO (05:11)
[2023-02-07] MEDS: Phenobarbital 32.4 MG Tablet 64.7999999999999972 MG PO (05:11)
--- NOTE | 2023-02-07 06:54 | PN.HOSP_ITS ---
Reason for Visit Reason for Visit: Diagnoses Alcohol dependence, uncomplicated (02/04/23) Subjective Subjective Still with tremulousness. Objective Data Objective Data Vital Signs: Vital Signs Temp Pulse Resp BP Pulse Ox O2 Del Method 36.4 C L 75 16 133/45 H 94 Room Air 02/07/23 04:00 02/07/23 04:00 02/07/23 04:00 02/07/23 04:00 02/07/23 04:00 02/07/23 04:00 Oxygen Delivery Method Room Air Weight: 57.153 kg Body Mass Index (BMI) 23.0 Intake & Output: Intake and Output for Last 24 Hours 02/05/23 02/06/23 02/07/23 23:59 23:59 23:59 Intake Total 700 / 980 1270 / 1270 280 / 280 Balance 700 / 980 1270 / 1270 280 / 280 Lab / Micro Data 02/04/23 15:27 02/04/23 15:27 Physical Exam Const Constitutional Narrative: groggy. afebrile. still with tremulousness. Resp normal respiratory effort, no retractions and no use of accessory muscles Cardio regular rate, regular rhythm, S1 normal heart sound and S2 normal heart sound Assessment & Plan Assessment/Plan (1) Alcoholism: PLAN: Plan Acute alcohol withdrawal * Drinks 12 beers per day. * On phenobarb taper as well as thiamine and folate * Reviewing the patient's OARRS, patient did receive a prescription for #20 of Librium. This was prescribed on the . * dc phenobarbital taper as pt is too groggy. Chronic conditions: * hypertension-on amlodipine * Anxiety and depression: Continue with bupropion. Will discontinue the Cymbalta as ordered. * hypothyroidism-patient is on levothyroxine * chronic back pain-patient has gabapentin on her APR. Last prescription was as written on 12/23/2022 for #90. * GERD-patient is on omeprazole Charges/Coding Visit Charges Inpatient E&M: 95836 Subs Hosp L2
[2023-02-07] MEDS: Folic Acid 1 MG Tablet PO (09:56)
[2023-02-07] MEDS: Pantoprazole Sodium 20 MG Tablet PO (09:56)
[2023-02-07] MEDS: Thiamine Hydrochloride 100 MG Tablet PO (09:56)
[2023-02-07] MEDS: Estradiol 1 MG Tablet 2 MG PO (09:56)
[2023-02-07] MEDS: Primidone 50 MG Tablet 100 MG PO ×2 (09:57→21:45)
[2023-02-07] MEDS: amLODIPine 10 MG Tablet PO (09:57)
[2023-02-07] MEDS: Lisinopril 5 MG Tablet PO (09:57)
[2023-02-07] MEDS: buPROPion (XL) 150 MG TABLET.XL 300 MG PO (09:57)
[2023-02-07] MEDS: Ensure Plus High Protein 120 ML LIQUID PO ×3 (10:06→21:46)
[2023-02-07] MEDS: Ibuprofen 400 MG Tablet 800 MG PO (10:08)
[2023-02-07 14:00] VITALS: BP 113/53; PULSE 93; RESP 16; TEMP 36.8; O2SAT 97
[2023-02-07] MEDS: hydrOXYzine PAM 25 MG Capsule 50 MG PO (14:10)
[2023-02-07] MEDS: Acetaminophen 500 MG Tablet PO ×2 (14:10→21:49)
--- NOTE | 2023-02-07 19:38 | CT_ITS ---
STUDY: CT BRAIN WITHOUT CONTRAST REASON FOR EXAM: Female, 72 years old. fall RADIATION DOSAGE (If Supplied By Facility): CTDIvol = ( 44.99 ) mGy, DLP = ( 812.98 ) mGycm TECHNIQUE: Transaxial CT imaging of the brain was performed without administration of intravenous contrast material. Individualized dose optimization techniques were used for this CT. COMPARISON: No relevant priors. FINDINGS: Normal soft tissue structures. Normal calvarium. There is mild cerebral atrophy with widening of the extra-axial spaces and ventricular dilatation. There are areas of decreased attenuation within the white matter tracts of the supratentorial brain, consistent with microvascular disease changes. There is no intracranial hemorrhage. There are no findings of an acute ischemic infarction. Mucosal thickening left maxillary sphenoid sinus. CT/Brain/Head without Contrast IMPRESSION: No acute findings. Mild microvascular ischemic changes. Atrophy. Electronically Signed: Yana Aquino MD at 21:05 EST Reading Location ID and State: [id number] / Tel , Service support ,
--- NOTE | 2023-02-07 19:49 | NURSING ---
pt is off the unit for CT scan.
[2023-02-07 20:01] LABS: Bedside Glucose 134 mg/dL (74-106)
[2023-02-07 20:46] VITALS: BP 142/56; PULSE 84; RESP 12; TEMP 36.7; O2SAT 93
--- NOTE | 2023-02-07 21:13 | NURSING ---
daughter called about results of cat scan.
--- NOTE | 2023-02-07 21:29 | NURSING ---
md up to the floor for re- exam of pt
[2023-02-07 21:53] VITALS: BP 144/52; PULSE 80; RESP 12; TEMP 36.7; O2SAT 93
--- NOTE | 2023-02-07 23:48 | PCM.HOSP.N ---
Hospitalist Note Rapid response team called to patient bedside at around 7:30 PM. I arrived at patient's bedside approximately 3 minutes later. Patient was laying in bed, was awake but quite somnolent. Several nursing staff were surrounding the patient at the bedside. Patient was hemodynamically stable, BP 130s over 50s, heart rate 80s, oxygen saturations in mid to high 90s on room air. Received report from nursing staff that patient was last seen well by nursing staff at around 6:15 PM. Patient was then found on the floor facedown at around 7:30. Patient is admitted for alcohol detoxification. According to nursing staff, patient's phenobarbital was discontinued earlier today as patient was fairly somnolent over the past few days while on phenobarbital. Patient has had minimal p.o. intake over the past few days per staff. Nursing staff reported that patient appeared to have improving mental status this afternoon and they were surprised by patient's worsening mentation this evening. They noted that patient was able to walk to the bathroom with assistance this afternoon, was fairly shaky with ambulation and appeared weak but was able to get to the bathroom and back without falling. Patient apparently did note to staff at that time that she felt fairly dizzy and lightheaded when going from sitting to standing. On my neuro exam, patient was able to squeeze both hands with equal strength. She was not able to lift either leg off the bed or keep the leg from falling with gravity, but she denied any sensory changes in her legs. Denied any vision changes. She had appropriate tracking with her eyes on my exam. Patient was taken to CT shortly after this episode. CT head without contrast was negative for any acute pathology. I returned to the patient bedside at around 9:30PM. Patient appeared more awake and alert on my exam at that time, though still mildly somnolent. Patient was answering questions appropriately but was continually reporting bilateral generalized leg pain and back pain. Per nursing staff, patient has been reporting this throughout the admission. Repeat neuro exam was similar to previous. At this time, okay to keep patient on MedSurg as I have low suspicion for an acute CVA. Unclear etiology of episode but may have been related to her generalized weakness, somnolence from phenobarbital, and/or mild orthostatic hypotension. Medical team to assess again tomorrow morning, recommend that PT/OT see the patient as well. Encouraged p.o. intake but can consider IV fluids as needed. Orthostatic vitals ordered.
[2023-02-08 02:10] VITALS: BP 117/75; BP 134/51; BP 134/52; PULSE 79; PULSE 83; PULSE 88; RESP 17; TEMP 36.7; O2SAT 96
[2023-02-08] MEDS: Ibuprofen 400 MG Tablet 800 MG PO ×3 (06:00→22:50)
[2023-02-08] MEDS: Levothyroxine 125 MCG Tablet PO (06:01)
--- NOTE | 2023-02-08 06:47 | PN.HOSP_ITS ---
Reason for Visit Reason for Visit: Diagnoses Alcohol dependence, uncomplicated (02/04/23) Subjective Subjective Found face down last night around 1930. Head CT was negative. No recollection. Objective Data Objective Data Vital Signs: Vital Signs Temp Pulse Resp BP Pulse Ox O2 Del Method 36.7 C 83 17 134/52 H 96 Room Air 02/08/23 02:10 02/08/23 02:10 02/08/23 02:10 02/08/23 02:10 02/08/23 02:10 02/08/23 02:10 Oxygen Delivery Method Room Air Weight: 57.153 kg Body Mass Index (BMI) 23.0 Intake & Output: Intake and Output for Last 24 Hours 02/06/23 02/07/23 02/08/23 23:59 23:59 23:59 Intake Total 1270 / 1270 580 / 580 240 / 240 Balance 1270 / 1270 580 / 580 240 / 240 Lab / Micro Data 02/04/23 15:27 02/04/23 15:27 Labs: Laboratory Results - last 24 hr 02/07/23 19:33: POC Glucose 134 H Radiography Diagnostic Testing: Radiology Impression Brain CT 02/07/23 19:38 IMPRESSION: No acute findings. Mild microvascular ischemic changes. Atrophy. Electronically Signed: Yana Aquino MD at 21:05 EST Reading Location ID and State: [id number] / Tel , Service support , Physical Exam Neck no lymphadenopathy Resp normal respiratory effort Cardio regular rate Extremity normal to inspection and full ROM Neuro Sensorium / Orientation: awake and alert Psych Psych Narrative: flat affect. Assessment & Plan Assessment/Plan (1) Alcoholism: PLAN: Plan Acute alcohol withdrawal * Drinks 12 beers per day. * On phenobarb taper as well as thiamine and folate * Reviewing the patient's OARRS, patient did receive a prescription for #20 of Librium. This was prescribed on the . * dc phenobarbital taper as pt is too groggy. Weakness * 02/07, pt found on the floor face down. * pt has been somnolent during admission. I am concerned about polypharmacy. Phenobarbital was dc'd early 02/07. Since symptoms have been ongoing and now found on the ground I will dc dicyclomine, gabapentin, trazodone. With ongoing listlessness will dc buproprion. * PT OT Chronic conditions: * hypertension-on amlodipine * Anxiety and depression: Continue with bupropion. Will discontinue the Cymbalta just started by admitting physician, discontinued the following day (received only 1 dose on the ) * hypothyroidism-patient is on levothyroxine * chronic back pain-patient has gabapentin on her APR. Last prescription was as written on 12/23/2022 for #90. * GERD-patient is on omeprazole Charges/Coding Visit Charges Inpatient E&M: 26094 Subs Hosp L2
[2023-02-08 07:52] VITALS: BP 136/54; PULSE 73; RESP 16; TEMP 37; O2SAT 95
[2023-02-08] MEDS: Estradiol 1 MG Tablet 2 MG PO (08:01)
[2023-02-08] MEDS: Thiamine Hydrochloride 100 MG Tablet PO (08:02)
[2023-02-08] MEDS: Folic Acid 1 MG Tablet PO (08:02)
--- NOTE | 2023-02-08 09:49 | CASEMGMT ---
Addendum entered by Ирина Farley 02/08/23 12:37: Social Work SW spoke w/pt's daughter in regard to discharge plan. SW explained to her that pt is not moving very well, would need to be more independent before going to a rehab for alcohol use. Pt needs to be fully independent in order to go to rehab for alcohol use. SW explained that as of now pt would benefit from SNF placement until she gets stronger. Daughter would like pt to go to TCU if possible. SW explained if TCU cannot take pt, will need additional choices. Daughter agreeable to have SW email her SNF lists for both this area and where pt lives. SW emailed daughter two nursing home facility lists, one for this area and one where pt lives, in pt's insurance network and complete w/quality and resource use data. SW communicated w/Susi in TCU, they cannot take pt. SW reached back out to Chago, pt's daughter, she would like a referral sent to [facility]'s ECF. D/C equipment planner Alexandria to send referral. SW will continue to follow. BELLO Haji Original Note: Social Work SW spoke w/pt in room as pt appears to be weak, and may benefit from nursing home facility placement prior to placement for alcohol abuse. Pt confirms is weak. SW explained to pt she needs to be independent to go to a residential facility for alcohol abuse. Pt states understanding. SW spoke w/pt about going somewhere for physical therapy rehab. Pt agreeable, but states her daughters are in charge and would make the decision in regard to where pt would go. SW inquired if she would want to go somewhere near here or closer to home. Pt would rather go someplace closer to home([place]) as her daughters live closer to there. Pt states to call daughter Chago as she can help with the decision as to where pt should go. SW called Chago, message left to call SW back. SW has printed lists of nursing home facilities near here and near home--which would be pt's preferred geographic area, in pt's insurance network, complete with quality and resource use data to share with daughter once she returns SW call. BELLO Haji
[2023-02-08] MEDS: Primidone 50 MG Tablet 100 MG PO ×2 (11:03→19:55)
[2023-02-08] MEDS: Ensure Plus High Protein 120 ML LIQUID PO ×3 (11:03→18:12)
[2023-02-08] MEDS: amLODIPine 10 MG Tablet PO (11:03)
[2023-02-08] MEDS: Lisinopril 5 MG Tablet PO (11:04)
[2023-02-08] MEDS: buPROPion (XL) 150 MG TABLET.XL 300 MG PO (11:04)
[2023-02-08] MEDS: Pantoprazole Sodium 20 MG Tablet PO (11:04)
--- NOTE | 2023-02-08 13:01 | CASEMGMT ---
Addendum entered by Alexandria Rivas 02/08/23 15:05: Discharge Planning Patient has been declined by [facility] SW updated. Referrals sent to [facility] and [facility]. Alexandria Rivas, Discharge Planning Asst. Original Note: Discharge Planning Referral sent via [facility] to [facility] ECF. Alexandria Rivas, Discharge Planning Asst.
[2023-02-08 14:12] VITALS: BP 139/61; PULSE 80; RESP 16; TEMP 36.7; O2SAT 97
--- NOTE | 2023-02-08 14:48 | CASEMGMT ---
Social Work Pt's daughter Chago here, SW spoke w/her in pt's room. She states would be okay w/pt going to [facility] or [facility]. SW explained will see if [facility] can take pt and if not will make referrals to the other facilities. [facility] initially declined pt, stating that they are a physical therapy not an alcohol rehab. SW called [facility]'s TCU, spoke w/Vicki. SW explained the situation, that pt was to go for alcohol rehab but is too week and need PT rehab first. NILAM explained that Jorge from [facility] is available still to help with discharge from rehab. Vicki states the physician already left but will be back tomorrow and she will ask physician tomorrow. SW spoke w/Alexandria, d/c corporate planner, asked her to make referrals to [facility] and [facility] also. SW will continue to follow. BELLO Haji
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
[2023-02-08 19:55] VITALS: BP 139/62; PULSE 89; RESP 16; TEMP 36.6; O2SAT 97
[2023-02-08] MEDS: Acetaminophen 500 MG Tablet PO (19:55)
[2023-02-09 02:00] VITALS: BP 130/50; PULSE 83; RESP 16; TEMP 36.6; O2SAT 96
[2023-02-09] MEDS: hydrOXYzine PAM 25 MG Capsule 50 MG PO (02:24)
[2023-02-09] MEDS: Levothyroxine 125 MCG Tablet PO (05:48)
[2023-02-09] MEDS: Acetaminophen 500 MG Tablet PO (05:48)
[2023-02-09 08:11] VITALS: BP 121/55; PULSE 73; RESP 16; TEMP 36.6; O2SAT 96
[2023-02-09] MEDS: Thiamine Hydrochloride 100 MG Tablet PO (08:18)
[2023-02-09] MEDS: Estradiol 1 MG Tablet 2 MG PO (08:18)
[2023-02-09] MEDS: Folic Acid 1 MG Tablet PO (08:18)
[2023-02-09] MEDS: amLODIPine 10 MG Tablet PO (08:59)
[2023-02-09] MEDS: Lisinopril 5 MG Tablet PO (08:59)
[2023-02-09] MEDS: Primidone 50 MG Tablet 100 MG PO (08:59)
[2023-02-09] MEDS: Pantoprazole Sodium 20 MG Tablet PO (08:59)
[2023-02-09] MEDS: Escitalopram Oxalate 10 MG Tablet PO (09:01)
[2023-02-09] MEDS: Ensure Plus High Protein 120 ML LIQUID PO ×2 (09:01→13:45)
--- NOTE | 2023-02-09 09:43 | CASEMGMT ---
Social Work SW received phone call from Vicki at [facility] and they are able to accept pt into their SNF unit with a bed available today. SW met with pt and explained dc plan and pt is agreeable. Phone call to pt's dgt Jorge and updated of acceptance. SW will notify physician and Addiction therapist. Plan: [facility], SNF When medically ready DOTTIE Guevara
[2023-02-09] MEDS: Ibuprofen 400 MG Tablet 800 MG PO (10:46)
--- NOTE | 2023-02-09 13:19 | TREXTCAR_ITS ---
Diet Diet Order/Speech Therapy: 02/04/23 19:27 Diet: Regular - General Food consistency:: Regular Liquid Consistency:: Regular/Thin Diet Comments: With snacks three times daily as tolerated Routine Orders/Code Status O2 Frequency: PRN Keep PO Greater than or Equal to (%): 89 Routine Lab Work: CBC (As needed) and BMP (As needed) Code Status: Full Code Therapies Weight Bearing: Full weight bearing Physical Therapy: Eval and Treat Occupational Therapy: Eval and Treat Problem/Diagnosis (1) Alcoholism: Status: Acute Code(s): F10.20 - Alcohol dependence, uncomplicated Allergies/Procedures Done in Hospital Allergies fexofenadine [From Anjelica] Allergy (Verified 02/04/23 14:26) Swelling Procedures: - (CT of the brain) Type of Care/Length of Stay Estimated LOS: Convalescent Care Less Than 30 days Type of Care Needed: Skilled Rehab Potential: Good Prognosis: Good Additional Orders/Day of Discharge Day of Discharge: 02/09/23 Dietary and Speech Recommendations Dietitian Recommendations/Changes: Continue with Regular diet for liberalization w/ 3 snacks per day as well as Ensure plus high protein 120mL 4x/day with medpass to help increase oral intakes. Will continue to follow, monitor oral intakes and modify nutrition interventions as needed. Discharge Plan Admission Admit Date/Time: 02/04/23 16:37 Attending Provider: Lisa Graves Primary Care Provider: Manju Wan Consulting Providers: Khanh Hayes; Doug Campoverde Discharge Orders/Prescriptions Prescriptions: No Action amlodipine 10 mg tablet 10 mg PO DAILY bupropion HCl 150 mg tablet extended release 24 hr 300 mg PO .DAILY Patient Comments: IN THE MORNING epinephrine 0.3 mg/0.3 mL auto-injector 0.3 ml IM PRN estradiol 2 mg tablet 2 mg PO DAILY gabapentin 600 mg tablet 600 mg PO QHS levothyroxine 125 mcg tablet 125 mcg PO DAILY lisinopril 5 mg tablet 5 mg PO DAILY omeprazole 20 mg capsule,delayed release(DR/EC) 20 mg PO DAILY primidone 50 mg tablet 100 mg PO Q12H cholecalciferol (vitamin D3) 25 mcg (1,000 unit) capsule 25 mcg PO DAILY multivitamin [Daily Multi-Vitamin] Tablet 1 tab PO DAILY ibuprofen [IBU] 800 mg tablet 800 mg PO Q8H PRN (Reason: pain) Referrals / Follow Up: Manju Wan, RESOLUTION EXPERT-C [Primary Care Provider] -
--- NOTE | 2023-02-09 13:20 | PCM.DC.SUM ---
Providers Date of Admission: 02/04/23 Date of Discharge: 02/09/23 Primary Care Physician: Manju Wan, ABE Reason For Visit: ALCOHOL Diagnosis Discharge Diagnosis (1) Alcoholism: Status: Acute Code(s): F10.20 - Alcohol dependence, uncomplicated Medications at Discharge Home Medications amlodipine 10 mg tablet 10 mg PO DAILY 02/04/23 bupropion HCl 150 mg 24 hr tablet, extended release 300 mg PO .DAILY 02/04/23 cholecalciferol (vitamin D3) 25 mcg (1,000 unit) capsule 25 mcg PO DAILY 02/04/23 epinephrine 0.3 mg/0.3 mL injection, auto-injector 0.3 ml IM PRN 02/04/23 estradiol 2 mg tablet 2 mg PO DAILY 02/04/23 gabapentin 600 mg tablet 600 mg PO QHS 02/04/23 levothyroxine 125 mcg tablet 125 mcg PO DAILY 02/04/23 lisinopril 5 mg tablet 5 mg PO DAILY 02/04/23 multivitamin (Daily Multi-Vitamin tablet) 1 tab PO DAILY 02/04/23 omeprazole 20 mg capsule,delayed release 20 mg PO DAILY 02/04/23 primidone 50 mg tablet 100 mg PO Q12H 02/04/23 acetaminophen 500 mg tablet 500 mg PO Q4H PRN PRN Pain 1-10 or Temp > 100.4 F #0 tabs 02/09/23 escitalopram oxalate 10 mg tablet 10 mg PO DAILY #0 tabs 02/09/23 food supplemt, lactose-reduced 0.08 gram-1.5 kcal/mL oral liquid (Ensure Plus High Protein) 120 ml PO 4X/DAY #0 mL 02/09/23 Hospital Course Procedures - (CT brain) Summary of Care Provided Minutes Spent on Discharge: 37 Hospital Course: Mrs. Pelletier is a 72-year-old white female who presented to the emergency department at [facility] on 02/04/2023 desiring services for alcohol detox. Her daughter presented with her at the time of admission and reported the patient had been drinking for several years but more over the past month or so due to a recent loss of a friend. The patient reported she had been drinking approximately a 12 pack of beer a day with occasional liquor intermixed. She denied any other drugs of abuse. On presentation she reported a history of underlying depression and had been on Wellbutrin for depression with no other medications. Vital signs on presentation were unremarkable. Her CBC was unremarkable. Chemistry panel was unremarkable. Her toxicology screen was positive only for barbiturates and benzodiazepine and MDMA likely related to her Wellbutrin use. She was admitted to the medical surgical floor for alcohol detox services and placed on a phenobarbital taper, thiamine and folate, and supportive medication for withdrawal symptoms. She was evaluated by 180 initially the plan was for her to go to residential treatment however she was fairly weak and debilitated and needed more therapy services then a residential treatment program could provide so custodial facility referrals were made. She had increased somnolence during her hospitalization which required her phenobarbital to be held. Rapid response team was called on in the evening due to the fact that she was found on the floor at that time. It was noted that phenobarbital had been discontinued earlier that day and her oral intake had been minimal. She did appear to have improving mental status throughout her hospitalization however it did decline acutely at that point. She did have some symptoms with orthostasis at that time but neuroexam was unremarkable. CT scan of the brain was performed and was unremarkable for any acute findings. Patient did not recall this event and had no further issues. Of note she had been prescribed Librium as an outpatient so that does explain her benzodiazepine on her toxicology however there was some confusion about why she was positive for phenobarbital on admission and there was concern about the possibility of some polypharmacy at home. Her mentation stabilized from the evening of the through the time of discharge and no further events are problematic. She was able to be discharged in stable condition to nursing facility on 02/09/2023. During her hospital course we did add Lexapro and I do highly recommend outpatient follow-up with psychiatry for depression and after discharge. She was started on Lexapro 10 mg daily and I did did discuss with her she probably would not notice any symptom changes with regards to her depression for about 2 weeks and full effect of medication will take 6 weeks. She voiced understanding. Discharge diagnoses: Acute alcohol withdrawal Generalized weakness Hypertension Hypothyroidism Chronic back pain GERD Anxiety Depression Physical Exam Const alert, oriented x3, no apparent distress, average body habitus, no limitations and healthy appearing Constitutional Narrative: Older, white female, sitting up in a chair at the bedside, watching television, appears comfortable nontoxic General Appearance: cooperative, comfortable, well kempt and well developed Orientation / Consciousness: awake, oriented to person, oriented to place and oriented to time Exam Limitations: no limitations HEENT normocephalic, head/scalp atraumatic, hearing grossly normal bilaterally and moist oral mucous membranes HEENT Narrative: Mallampati 2, no thrush Eyes PERRL, EOMs intact bilaterally and conjunctivae normal Eyes Narrative: No scleral icterus Neck no lymphadenopathy and supple Neck Narrative: Trachea midline, no thyroid enlargement Resp normal respiratory effort, no retractions, no use of accessory muscles and clear to auscultation bilaterally Auscultation: Negative for rales, rhonchi or wheezes Cardio regular rate, regular rhythm, S1 normal heart sound, S2 normal heart sound, no murmurs, no rub, no gallops and no clicks GI normal to inspection, nondistended, normoactive bowel sounds, soft to palpation and non-tender Extremity no clubbing, cyanosis or edema Extremity Narrative: Pedal pulses are 2+, radial pulses are 2+ Skin no rashes or lesions noted, no wounds, skin turgor normal and no jaundice Neuro oriented x3, CN's II-XII intact bilaterally, moves all extremities and no focal motor deficits Neuro Narrative: Generalized weakness and noted with proximal musculature weaker than distal consistent with sarcopenia Speech: speech normal Psych Psych Narrative: Affect is flat eye contact is fair, mood seems depressed Weight / BMI Weight Weight: 57.153 kg Body Mass Index (BMI) 23.0 ABG / Lab / Microbiology Data 02/04/23 15:27 02/04/23 15:27 D/C Instructions Discharge Diet: Low fat / Low cholesterol Discharge Activity: Return to Normal Activity Meaningful Use Info Meaningful Use Diagnoses (Choose all that apply): None applicable Discharge Plan Admission Admit Date/Time: 02/04/23 16:37 Primary Reason for Your Visit: Alcohol detox Attending Provider: Lisa Graves Primary Care Provider: Manju Wan Consulting Providers: Khanh Hayes; Doug Campoverde Discharge Orders/Prescriptions Prescriptions: New acetaminophen 500 mg Tablet 500 mg PO Q4H PRN PRN (Reason: Pain 1-10 or Temp > 100.4 F) Qty: 0 0RF Ensure Plus High Protein 0.08 gram-1.5 kcal/mL Liquid 120 ml PO 4X/DAY Qty: 0 0RF escitalopram oxalate 10 mg Tablet 10 mg PO DAILY Qty: 0 0RF Continued amlodipine 10 mg tablet 10 mg PO DAILY bupropion HCl 150 mg tablet extended release 24 hr 300 mg PO .DAILY Patient Comments: IN THE MORNING epinephrine 0.3 mg/0.3 mL auto-injector 0.3 ml IM PRN estradiol 2 mg tablet 2 mg PO DAILY gabapentin 600 mg tablet 600 mg PO QHS levothyroxine 125 mcg tablet 125 mcg PO DAILY lisinopril 5 mg tablet 5 mg PO DAILY omeprazole 20 mg capsule,delayed release(DR/EC) 20 mg PO DAILY primidone 50 mg tablet 100 mg PO Q12H cholecalciferol (vitamin D3) 25 mcg (1,000 unit) capsule 25 mcg PO DAILY multivitamin [Daily Multi-Vitamin] Tablet 1 tab PO DAILY Discontinued ibuprofen [IBU] 800 mg tablet 800 mg PO Q8H PRN (Reason: pain) Referrals / Follow Up: Manju Wan [employer] [facility] [employer] [Primary Care Provider] - Within 1 Month Disposition Disposition (needs filled in before D/C Order can be placed): [facility] Facility Charges/Coding Visit Charges Inpatient E&M: 30474 SNF Disch >30 Min
--- NOTE | 2023-02-09 13:49 | PHA.DC.MR.R ---
Pharmacy CT Med Reconciliation Pharmacy Service has performed discharge medication reconciliation for this patient. The patient's discharge medication list was reviewed for discrepancies and discrepancies were resolved. Medications at Discharge Home Medications amlodipine 10 mg tablet 10 mg PO DAILY 02/04/23 bupropion HCl 150 mg 24 hr tablet, extended release 300 mg PO .DAILY 02/04/23 cholecalciferol (vitamin D3) 25 mcg (1,000 unit) capsule 25 mcg PO DAILY 02/04/23 epinephrine 0.3 mg/0.3 mL injection, auto-injector 0.3 ml IM PRN 02/04/23 estradiol 2 mg tablet 2 mg PO DAILY 02/04/23 gabapentin 600 mg tablet 600 mg PO QHS 02/04/23 levothyroxine 125 mcg tablet 125 mcg PO DAILY 02/04/23 lisinopril 5 mg tablet 5 mg PO DAILY 02/04/23 multivitamin (Daily Multi-Vitamin tablet) 1 tab PO DAILY 02/04/23 omeprazole 20 mg capsule,delayed release 20 mg PO DAILY 02/04/23 primidone 50 mg tablet 100 mg PO Q12H 02/04/23 acetaminophen 500 mg tablet 500 mg PO Q4H PRN PRN Pain 1-10 or Temp > 100.4 F #0 tabs 02/09/23 escitalopram oxalate 10 mg tablet 10 mg PO DAILY #0 tabs 02/09/23 food supplemt, lactose-reduced 0.08 gram-1.5 kcal/mL oral liquid (Ensure Plus High Protein) 120 ml PO 4X/DAY #0 mL 02/09/23
--- NOTE | 2023-02-09 14:12 | CASEMGMT ---
Social Work Per physician, pt is ready for discharge to [facility]. Orders faxed and transportation arranged with [facility] for 3:30 pick p via [facility]. Phone call to pt's dgt Jorge and updated on dc and she is agreeable SW met with pt and notified of dc plan. Nursing updated. Disposition: [facility], skilled level of care DOTTIE Guevara
[2023-02-09 14:59] VITALS: BP 114/54; PULSE 82; RESP 16; TEMP 36.7; O2SAT 98
== END 2023-02-09 15:45 | disposition skilled nursing facility (03) | DRG 897 ==
LOC: ED 16:35 → MS3 17:36
PROVIDERS: Admitting Provider Internal Medicine; Emergency Provider Emergency Medicine; PCP Nurse Practitioner Family; Visit Provider Internal Medicine
DX: F10.239 Alcohol dependence with withdrawal, unspecified (principal); E03.9 Hypothyroidism, unspecified; F32.A Depression, unspecified; I10 Essential (primary) hypertension; F41.9 Anxiety disorder, unspecified; K21.9 Gastro-esophageal reflux disease without esophagitis; M54.9 Dorsalgia, unspecified; M79.604 Pain in right leg; M79.605 Pain in left leg; R53.1 Weakness; G89.29 Other chronic pain; Z79.899 Other long term (current) drug therapy; Y90.0 Blood alcohol level of less than 20 mg/100 ml
CPT/HCPCS: 70450; 80053; 80307; 80320; 82962; 83735; 85025; 85610; 93005; 97116; 97162; 97166; 97530; 97535; 97802; 99285; A4216; G0480